=== PATIENT | male | born 1960 | race Caucasian/White ===

== ENCOUNTER 2020-01-21 17:04 | Emergency (ER) | payer MEDICARE, SELFPAY ==
[2020-01-21 17:35] VITALS: BP 141/98; PULSE 94; RESP 16; O2SAT 97
[2020-01-21] MEDS: TETANUS,DIPHTHERIA,AC PERTUSSIS ADULT 0.5 ML (ADACEL) IM (17:51)
--- NOTE | 2020-01-21 18:02 | ED.WOUNDLAC ---
HPI - Wound/Laceration General Chief Complaint: Wound/Laceration Stated Complaint: cut finger Source: patient Mode of arrival: ambulatory History of Present Illness HPI narrative: this is a 59-year-old gentleman presents with a laceration to the pad of his right 3rd finger that occurred earlier today while he was doing some gardening and yd work, patient presented because of a bleeding, currently on Plavix and aspirin for status post stroke. The area is some more of flap like laceration and currently no bleeding. Onset (ago): hour(s) Extremity Location: Right: hand ( Right 3rd finger laceration) Place: home Patient tetanus UTD: No Context: accidental Associated symptoms: none Related Data Home Medications Medication Instructions Recorded Confirmed budesonide 0.25 mg INHALATION BID 01/21/20 01/21/20 clopidogrel 75 mg PO DAILY 01/21/20 01/21/20 pravastatin 20 mg PO DAILY 01/21/20 01/21/20 Allergies Allergy/AdvReac Type Severity Reaction Status Date / Time Sulfa (Sulfonamide Allergy Hives Verified 01/21/20 17:46 Antibiotics) Review of Systems Review of Systems: All systems reviewed & are unremarkable except as noted in HPI and below [facility] Past Medical History Medical History HLD (hyperlipidemia) Status post CVA Exam Const: General: no acute distress and alert Orientation/consciousness: patient oriented x3 HENMT: Head: normal to inspection Eyes: Conjunctivae: conjunctivae normal Pupils: Equal, round and reactive pupils present Neck: Neck: normal visual inspection, no lymphadenopathy and no meningeal signs Chest: Chest palpation & inspection: normal inspection of the chest Resp: Effort & Inspection: normal respiratory effort Auscultation: clear to auscultation bilaterally Cardio: Rate: regular rate Rhythm: regular rhythm GI: GI Palp: Yes Soft to palpation Urinary Catheter: Urinary Catheter: patent and draining Skin: Rashes: no rashes Other: laceration to right 3rd finger Course Course Emergency Course: the wound was explored and cleaned and Dermabond was placed. Vital Signs Vital signs: Vital Signs Pulse Rate 94 01/21/20 17:35 Respiratory Rate 16 01/21/20 17:35 Blood Pressure 141/98 H 01/21/20 17:35 Pulse Oximetry 97 01/21/20 17:35 Pulse Rate 94 01/21/20 17:35 Respiratory Rate 16 01/21/20 17:35 Blood Pressure 141/98 H 01/21/20 17:35 Pulse Oximetry 97 01/21/20 17:35 Procedures Laceration Laceration 1: Date: 01/21/20 Time: 18:07 Site: upper extremity Side (If applicable): right Size (cm): 2 Description: flap ====== Skin Level ====== Skin layer closed with: dermabond ====== Subcutaneous Layer ====== ====== Muscle Layer ====== ====== Tendon Layer ====== Discharge Plan Discharge Clinical Impression: Laceration Patient Disposition: Home, Self-Care Condition: Stable Instructions: Antibiotic Form, Laceration (ED) Additional Instructions: Follow-up with primary care physician if symptoms persist or worsen. Prescriptions: No Action clopidogrel 75 mg tablet 75 mg PO DAILY RF: 0 budesonide 0.25 mg/2 mL Suspension For Nebulization 0.25 mg INHALATION BID RF: 0 pravastatin 20 mg tablet 20 mg PO DAILY RF: 0 Follow-up/Referrals: Caro,MD Sanjiv [Primary Care Provider] - Time of Disposition: 18:08
[2020-01-21 18:20] VITALS: RESP 15
== END 2020-01-21 18:20 | disposition home or self-care (01) ==
PROVIDERS: Emergency Provider Emergency Medicine; PCP Internal Medicine
DX: S61.212A Laceration without foreign body of right middle finger without damage to nail, initial encounter (principal); W45.8XXA Other foreign body or object entering through skin, initial encounter
CPT/HCPCS: 12001; 90471; 90715; 99282; 99283

== ENCOUNTER 2020-07-13 13:05 | Emergency (ER) | payer MEDICARE, SELFPAY ==
[2020-07-13 13:31] VITALS: BP 129/91; PULSE 115; RESP 16; TEMP 36.6; O2SAT 98
[2020-07-13 13:50] LABS: Basophils Absolute Auto 0.1 K/mm3 (0.0-0.1); Basophils Percent Auto 0.4 % (0.2-1.2); Eosinophils Percent Auto 0.1 % (0-4.4); Hematocrit 41.9 % (42.0-52.0); Hemoglobin 14.3 g/dL (14.0-18.0); Immature Granulocyte Absolute 0.14 K/mm3 (0.00-0.031); Immature Granulocyte Percent A 1.2 % (0-0.5); Lymphocytes Percent Auto 13.2 % (18.3-44.2); Mean Corpuscular HGB Conc 34.1 g/dl (32-36); Mean Platelet Volume 9.3 fl (7.4-10.4); Monocytes Absolute Auto 0.7 K/mm3 (0.1-0.6); Monocytes Percent Auto 5.9 % (2.6-8.5); Neutrophils Absolute Auto 9.6 K/mm3 (1.3-6.7); Neutrophils Percent Auto 79.2 % (45.5-73.1); Platelet Count Result 340 k/mm3 (150-375); Red Blood Count 4.93 M/mm3 (4.6-6.20); White Blood Count 12.1 K/mm3 (4.5-10.0)
[2020-07-13 13:59] LABS: Alanine Aminotransferase 22 U/L (4-50); Albumin Level 4.2 g/dL (3.5-5.1); Alkaline Phosphatase 65 U/L (38-126); Anion Gap 7 mmol/L (8-16); Aspartate Amino Transferase 24 U/L (17-59); Bilirubin,Total 0.4 mg/dL (0.2-1.3); Blood Urea Nitrogen 19 mg/dL (9-20); Calcium 9.3 mg/dL (8.4-10.2); Carbon Dioxide 27 mmol/L (22-30); Chloride 105 mmol/L (98-107); Estimated CRCL calculation 82 ml/min; Estimated Glomerular Filt Rate > 60; Glucose 119 mg/dL (75-110); Potassium 3.9 mmol/L (3.4-5.0); Sodium 139 mmol/L (137-145)
[2020-07-13 14:00] LABS: INR 0.9
[2020-07-13 14:01] LABS: Partial Thromboplastin Time 28.1 SECONDS (22.3-36.8)
--- NOTE | 2020-07-13 15:02 | ED.GIBLEED ---
HPI - GI Bleed General Chief complaint: GI Bleed Stated complaint: dark stools Time Seen by Provider: 07/13/20 14:38 History of Present Illness HPI Narrative: Patient is a 59-year-old male who presents ER with dark black stools. Ongoing for 2 to 3 days. Associated with heartburn that also began around the same time. Takes Tums and no PPI. He takes Plavix but no additional NSAIDs or blood thinners. He has had dizziness 1 time when bending over and then standing back up. No nausea or vomiting or loss of consciousness. Reports stools are firmer today but still black. Reports his GI doctor in the past has recently retired. Related Data Home Medications Medication Instructions Recorded Confirmed budesonide 0.25 mg INHALATION BID 01/21/20 01/21/20 clopidogrel 75 mg PO DAILY 01/21/20 01/21/20 pravastatin 20 mg PO DAILY 01/21/20 01/21/20 Allergies Allergy/AdvReac Type Severity Reaction Status Date / Time Sulfa (Sulfonamide Allergy Hives Verified 01/21/20 17:46 Antibiotics) Review of Systems Review of Systems: All systems reviewed & are unremarkable except as noted in HPI and below Constitutional: Constitutional: Denies chills, Denies fever(s) and Denies weakness ENT: Denies nasal congestion and Denies sore throat Cardiovascular: Cardiovascular: Denies chest pain, Denies rapid heart rate and Denies radiating jaw, neck or arm pain Respiratory: Respiratory: Denies cough and Denies dyspnea Gastrointestinal: Gastrointestinal: Denies abdominal pain, Reports heartburn, Reports diarrhea, Reports nausea and Denies vomiting Comments: Dark black stools Neurologic: Reports dizziness, Denies focal weakness and Denies numbness PMFSH Past Medical History Medical History (Updated 07/13/20 @ 16:11 by Meir Arevalo MD) HLD (hyperlipidemia) Status post CVA Social History Social History Gender identity (if verbalized by the patient): Male Exam Narrative: Exam Narrative: GENERAL: Well-appearing, well-nourished, and in no acute distress. HEAD: Normocephalic, atraumatic. CHEST: Clear to auscultation. No respiratory distress. HEART: Tachycardic and regular. Normal peripheral pulses. ABDOMEN: Soft, nontender, nondistended. Dark black stool on JIGAR with formed stool within the rectal vault. Briskly guaiac positive. EXTREMITIES: Normal range of motion. No edema. SKIN: Warm, dry, no rash. NEURO: Alert and oriented x3. PSYCH: Normal mood and affect. Course Course Emergency Course: Discussed case with on-call GI Dr. Benito Easley. Patient's hemoglobin stable. Patient's blood pressure did not drop with orthostatic vital signs but his heart rate did elevate. Patient hydrated. Okay to discharge home with twice daily PPI and follow-up in office for scope. Will have patient hold his Plavix. Vital Signs Vital signs: Vital Signs Temperature 97.9 F 07/13/20 13:31 Pulse Rate 115 H 07/13/20 13:31 Respiratory Rate 16 07/13/20 13:31 Blood Pressure 129/91 H 07/13/20 13:31 Pulse Oximetry 98 07/13/20 13:31 Temperature 97.9 F 07/13/20 13:31 Pulse Rate 88 07/13/20 16:09 Respiratory Rate 18 07/13/20 16:09 Blood Pressure 131/83 07/13/20 16:09 Pulse Oximetry 99 07/13/20 16:09 MDM - GI Bleed Lab Data Result diagrams: 07/13/20 13:37 07/13/20 13:37 Labs: Lab Results 07/13/20 07/13/20 07/13/20 Range/Units 13:37 13:37 13:37 WBC 12.1 H (4.5-10.0) K/mm3 RBC 4.93 (4.6-6.20) M/mm3 Hgb 14.3 (14.0-18.0) g/dL Hct 41.9 L (42.0-52.0) % MCV 85.0 (80-100) fl MCH 29.0 (26-34) pg MCHC 34.1 (32-36) g/dl RDW 13.0 (11.5-14.5) % Plt Count 340 (150-375) k/mm3 MPV 9.3 (7.4-10.4) fl Immature Gran % (Auto) 1.2 H (0-0.5) % Neut % (Auto) 79.2 H (45.5-73.1) % Lymph % (Auto) 13.2 L (18.3-44.2) % [place] % (Auto) 5.9 (2.6-8.5) % Eos % (Auto) 0.1 (0-4
[2020-07-13 15:06] VITALS: BP 105/86; BP 121/91; PULSE 100; PULSE 106
[2020-07-13 15:07] VITALS: BP 134/96; PULSE 115
[2020-07-13] MEDS: SODIUM CHLORIDE 0.9% IV 1,000 ML 999 ML IV CONT (15:16)
[2020-07-13] MEDS: PANTOPRAZOLE SODIUM IV 40 MG VIAL IV PUSH (15:16)
[2020-07-13 16:09] VITALS: BP 131/83; PULSE 88; RESP 18; O2SAT 99
== END 2020-07-13 16:32 | disposition home or self-care (01) ==
PROVIDERS: General Practice; Emergency Provider Emergency Medicine; PCP Internal Medicine
DX: K92.2 Gastrointestinal hemorrhage, unspecified (principal); E78.5 Hyperlipidemia, unspecified; Z86.73 Personal history of transient ischemic attack (TIA), and cerebral infarction without residual deficits
CPT/HCPCS: 36415; 80053; 85025; 85610; 85730; 86850; 86900; 86901; 96361; 96374; 99284; C9113; J7030

== ENCOUNTER → 2020-08-13 02:38 | Outpatient (CLI) | payer MEDICARE, SELFPAY ==
[2020-08-13 19:43] LABS: SARS-CoV-2 RNA PCR Negative
== END ==
PROVIDERS: PCP Internal Medicine; Visit Provider Internal Medicine Gastroenterology
DX: Z01.812 Encounter for preprocedural laboratory examination (principal); Z20.822 Contact with and (suspected) exposure to COVID-19
CPT/HCPCS: C9803; U0003; U0005

== ENCOUNTER 2020-08-17 03:17 | Day surgery (SDC) | payer MEDICARE, SELFPAY ==
[2020-08-05 14:10] VITALS: BMI 37.3
[2020-08-17 08:32] VITALS: BP 134/81; PULSE 76; RESP 20; TEMP 36.5; O2SAT 98
--- NOTE | 2020-08-17 08:59 | WPDANESEPPF ---
Anes - Initial Pre Proc Eval Procedure: Operation Date: 08/17/20 09:30 Proposed Procedures p Esophagogastroduodenoscopy - Jed Perry MD Date/Time: 08/17/20 08:59 Surgeon: Jed Perry MD Pre Op Diagnosis: melena Patient Data Age: 59 Gender: M Height: 5 ft 10 in Weight: 119 kg Last Vital Signs Temp 97.7 F 08/17/20 08:32 Pulse 76 08/17/20 08:32 Resp 20 08/17/20 08:32 BP 134/81 08/17/20 08:32 Pulse Ox 98 08/17/20 08:32 Allergies Allergy/AdvReac Type Severity Reaction Status Date / Time Sulfa (Sulfonamide Allergy Hives Verified 08/17/20 08:29 Antibiotics) Home Medications Medication Instructions Recorded Confirmed Type budesonide 0.25 mg INHALATION BID 01/21/20 08/05/20 History clopidogrel 75 mg PO DAILY 01/21/20 08/05/20 History pravastatin 20 mg PO DAILY 01/21/20 08/05/20 History omeprazole 40 mg capsule,delayed 40 mg PO DAILY #30 cap 08/10/20 08/10/20 Rx release Patient hx anesthesia problems: none Family hx anesthesia problems: none [facility] Past Medical History Medical History (Updated 08/01/20 @ 10:06 by KATELYN Gautam) HLD (hyperlipidemia) Obesity (BMI 30-39.9) Status post CVA Social History Social History (Updated 08/01/20 @ 09:35 by Ambreen Morales [employer]) Smoking packs per day: 1 Smoking cigarettes per day: 20.0 Years smoked: 10 Smoking pack-years: 10.00 Smoking status: Former smoker Tobacco type: cigarettes Alcohol intake: never Drinks per week: 1 Substance use: never Substance use type: does not use Living arrangements: alone Gender identity (if verbalized by the patient): Male Spiritual care concerns: No Anes - Eval Final PreProcedure Day of Procedure 08/17/20 08:59 Patient weight: obese Heart: regular rate and rhythm Lungs: clear to auscultation Airway: Mallampati scale class II Neurological: alert and oriented Last oral intake: >/= 8 hours ASA classification: III Emergent: no Anesthetic plan: proceed Anesthesia type and monitoring: general GIVS and standard monitoring Informed Consent: The patient's anesthetic plan and its attendant risks and benefits were discussed with the patient/family/POA. Questions were solicited and answers provided to the satisfaction of the patient/family/POA.
[2020-08-17] MEDS: LACTATED RINGERS 1,000 ML 150 ML IV CONT (09:00)
--- NOTE | 2020-08-17 09:19 | PM.HPGS ---
History of Present Illness History of Present Illness Consent: Risks, benefits, and alternatives have been discussed and questions answered. Patient agrees to proceed with procedure. Chief complaint: melena Narrative: Wayne Beckwith is a 59 year old male recently had black tarry stools. This improved while he was taking omeprazole for 2 weeks. He is due to go back on Plavix and aspirin Review of Systems Review of Systems: All systems reviewed & are unremarkable except as noted in HPI and below PMFSH Past Medical History Medical History HLD (hyperlipidemia) Obesity (BMI 30-39.9) Status post CVA Social History Social History Smoking packs per day: 1 Smoking cigarettes per day: 20.0 Years smoked: 10 Smoking pack-years: 10.00 Smoking status: Former smoker Tobacco type: cigarettes Alcohol intake: never Drinks per week: 1 Substance use: never Substance use type: does not use Living arrangements: alone Gender identity (if verbalized by the patient): Male Spiritual care concerns: No Meds Home Medications and Allergies Home Medications Medication Instructions Recorded Confirmed Type budesonide 0.25 mg INHALATION BID 01/21/20 08/05/20 History clopidogrel 75 mg PO DAILY 01/21/20 08/05/20 History pravastatin 20 mg PO DAILY 01/21/20 08/05/20 History omeprazole 40 mg capsule,delayed 40 mg PO DAILY #30 cap 08/10/20 08/10/20 Rx release Allergies Allergy/AdvReac Type Severity Reaction Status Date / Time Sulfa (Sulfonamide Allergy Hives Verified 08/17/20 08:29 Antibiotics) Vital Signs Vital Signs - 24 hr 08/17/20 08:32 Temperature 36.5 C Pulse Rate 76 Respiratory Rate 20 Blood Pressure 134/81 Pulse Oximetry 98 Exam Const: General: alert Orientation/consciousness: patient oriented x3 Resp: Auscultation: clear to auscultation bilaterally Cardio: Rhythm: regular rhythm GI: GI Palp: Yes Soft to palpation and No Tenderness to palpation present (GI) Neuro: General: patient oriented x3 Assessment and Plan Assessment and plan (1) Melena: Code(s): K92.1 - Melena Status: Acute Assessment and Plan: EGD with possible biopsy or dilatation or cautery.
[2020-08-17 09:43] VITALS: BP 111/60; PULSE 77; RESP 22; O2SAT 97
[2020-08-17 09:53] VITALS: BP 107/62; PULSE 66; RESP 22; O2SAT 98
[2020-08-17 10:03] VITALS: BP 110/62; PULSE 59; RESP 20; O2SAT 99
== END 2020-08-17 10:37 | disposition home or self-care (01) ==
PROVIDERS: PCP Internal Medicine; Visit Provider Internal Medicine Gastroenterology
PROC: 0DJ08ZZ Inspection of Upper Intestinal Tract, Via Natural or Artificial Opening Endoscopic (ICD-10-PCS; CPT 43235; principal; 2020-08-17 09:30)
DX: K92.1 Melena (principal); K29.60 Other gastritis without bleeding; K29.80 Duodenitis without bleeding; K31.7 Polyp of stomach and duodenum; E78.5 Hyperlipidemia, unspecified; Z86.73 Personal history of transient ischemic attack (TIA), and cerebral infarction without residual deficits; Z79.02 Long term (current) use of antithrombotics/antiplatelets; E66.9 Obesity, unspecified; Z68.37 Body mass index [BMI] 37.0-37.9, adult; Z87.891 Personal history of nicotine dependence
CPT/HCPCS: 43239; 87081; J2704; J7120

== ENCOUNTER 2022-01-29 09:34 | Outpatient (CLI) | payer MEDICARE, SELFPAY ==
--- NOTE | 2022-01-29 11:30 | NEURO_ITS ---
Impression: # Complains of numbness of feet. # Normal nerve conduction study. # No Tarsal Tunnel syndrome. # Needle/EMG exam not requested. # Clinical correlation recommended; symptomatology could be related to small fiber neuropathy. Nerve Conduction Studies Anti Sensory Summary Table Stim Site NR Peak (ms) P-T Amp (?V) Site1 Site2 Delta-P (ms) Dist (cm) Raciel (m/s) Left Sup Fibular Anti Sensory (Ant Lat Mall) 14 cm 3.3 12.9 14 cm Ant Lat Mall 3.3 16.0 48 Right Sup Fibular Anti Sensory (Ant Lat Mall) 14 cm 3.2 18.7 14 cm Ant Lat Mall 3.2 16.0 50 Left Sural Anti Sensory (Lat Mall) Calf 3.9 5.6 Calf Lat Mall 3.9 16.0 41 Right Sural Anti Sensory (Lat Mall) Calf 4.0 7.0 Calf Lat Mall 4.0 16.0 40 Motor Summary Table Stim Site NR Onset (ms) O-P Amp (mV) Site1 Site2 Delta-0 (ms) Dist (cm) Raciel (m/s) Left Lateral Plantar Motor (ADM) Med Mall 4.7 0.8 Right Lateral Plantar Motor (ADM) Med Mall 4.5 3.7 Left Peroneal Motor (Vastus Med) Ankle 3.8 4.4 Popit Ankle 7.9 40.0 51 Popit 11.7 3.8 Right Peroneal Motor (Vastus Med) Ankle 3.6 2.5 Popit Ankle 8.0 40.0 50 Popit 11.6 1.8 Left Tibial Motor (Abd Dennis Brev) Ankle 4.3 1.7 Knee Ankle 8.3 43.0 52 Knee 12.6 1.1 Right Tibial Motor (Abd Dennis Brev) Ankle 4.1 1.8 Knee Ankle 8.5 42.0 49 Knee 12.6 1.2 F Wave Studies NR F-Lat (ms) L-R F-Lat (ms) Left Peroneal (Mrkrs) (EDB) 47.97 0.00 Right Peroneal (Mrkrs) (EDB) 47.97 0.00 Left Tibial (Mrkrs) (Abd Hallucis) 50.05 1.44 Right Tibial (Mrkrs) (Abd Hallucis) 48.61 1.44 MTDD
== END 2022-01-29 09:35 | disposition home or self-care (01) ==
LOC: ANHNEURO 09:35
PROVIDERS: PCP Internal Medicine; Visit Provider Internal Medicine
DX: M79.672 Pain in left foot (principal)
CPT/HCPCS: 95911

== ENCOUNTER 2022-05-28 12:47 | Outpatient (CLI) | payer MEDICARE, SELFPAY ==
--- NOTE | ~2022-05-28 | CT_ITS ---
EXAMINATION: CT sinus wo con DATE: 05/28/2022 13:06 INDICATION: Chronic sinusitis. TECHNIQUE: Computed tomography (CT) of the paranasal sinuses was performed without intravenous contra st. Iterative reconstruction technique was employed. The dose-length product was 269.07 mGy-cm. COMPARISON: Brain MRI 07/31/2011 FINDINGS: There is occlusion of the frontal recesses. There is mild mucosal thickening in the more garcia perior frontal sinuses. There is mucosal thickening in the ethmoid sinuses, worst in anterior left et hmoid sinus. There is mild mucosal thickening in the sphenoid and maxillary sinuses. There is stenosi s of the right ostiomeatal unit. There is total occlusion of left ostiomeatal unit at the hiatus semi lunaris and infundibulum. There is luly bullosa involving right middle turbinate. There is rightwar d deviation of anterior nasal septum and leftward deviation of posterior nasal septum. IMPRESSION: 1. Mucosal thickening in the paranasal sinuses. 2. Rightward deviation of anterior nasal septum and leftward deviation of posterior nasal septum. Reviewed, dictated and finalized at location A. [facility] [employer] [facility] IMPRESSION: 1. Mucosal thickening in the paranasal sinuses. 2. Rightward deviation of anterior nasal septum and leftward deviation of poste rior nasal septum.
== END 2022-05-28 12:48 | disposition home or self-care (01) ==
LOC: CHSIMG 12:49
PROVIDERS: PCP Internal Medicine; Visit Provider Otolaryngology
DX: J32.8 Other chronic sinusitis (principal); J34.2 Deviated nasal septum
CPT/HCPCS: 70486

== ENCOUNTER 2022-10-24 02:21 | Day surgery (SDC) | payer MEDICARE, SELFPAY ==
[2022-10-19 09:22] VITALS: BMI 38.0
--- NOTE | 2022-10-19 09:28 | PC.NURSE ---
Report to the Outpatient Waiting Room, entrance under the green pavilion located off [facility], at time 0900 on date 10/24/22. Planned Procedure Time: 1000. Time changes happen often and if your time is changed the preop area will call you the afternoon before. - You and your visitor will be asked to self-screen and do not enter if you have any COVID symptoms. - A mask is optional within the hospital at this time. Patients may have LIGHT BREAKFAST. Take the following medications with a SIP of water the morning of surgery: PRESCRIBED DO NOT STOP ANY OF YOUR OTHER PRESCRIPTION MEDICATIONS PRIOR TO SURGERY ?EXCEPT THE FOLLOWING Medications to discontinue per physician: N/A Date to take last dose: N/A Please no make-up, nail puerto rican, hairspray, perfume, deodorant, or body powder the day of surgery. No jewelry (including any body piercings) or valuables the day of surgery, leave them at home. Please take a shower or bath the night before, or the morning of, surgery with an antibacterial soap. Wear comfortable, loose fitting clothing. - Jewelry must be removed prior to entering the operating room. Rings and piercings that are not removed may be cut off. - The hospital will not accept responsibility for valuables. - Please leave all valuables, including medications, at home the day of surgery. YOU MAY DRIVE YOURSELF HOME. Follow any additional instructions given to you from your surgeon. If you or anyone in your household have experienced Covid symptoms in the past week, please notify your surgeon or the nurse liaison at the phone number below for possible testing. Telephone instructions given to PT - FARHAD JOHNSON and asked if any additional questions and then verbalized understanding. Patient advised to call surgeon office or pre surgery nurse liaison [phone] if any additional questions.
[2022-10-24] VITALS (15 sets, daily range): BP systolic 118–136; BP diastolic 68–83; PULSE 63–79; RESP 16–20; TEMP 36.9; O2SAT 95–100
--- NOTE | 2022-10-24 07:14 | WPDHPUPDATE1 ---
History and Physical Update Update Date/Time: 10/24/22 07:14 History and Physical has been reviewed, including an updated exam of the patient. There are NO changes in the patient's condition. Risks, benefits, and alternatives have been discussed and questions answered. Patient agrees to proceed with procedure.
[2022-10-24] MEDS: LIDO 1%/EPINEPHRINE 1:100,000 50 ML VIAL 10 ML INFILTRATE (10:12)
[2022-10-24] MEDS: BACITRACIN OINTMENT 15 GM TUBE 1 APPLIC TOPICAL (10:59)
--- NOTE | 2022-10-24 12:08 | P.OP_ITS ---
Procedure Note - Detailed Date of Procedure 10/24/22 Pre-op Diagnosis basal cell CA L zygoma, squamous in situ L cheek Post-op Diagnosis Same Procedure Performed 1 0.6 cm excision of basal cell carcinoma of the left zygoma with frozen section and intermediate repair 3 cm. 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 He was taken to the operating room placed supine on the operating table. The entire face was prepped and draped in usual fashion. A time-out was held and confirmed. The 2 sites were carefully marked for excision and locally infiltrated with 1% lidocaine with epinephrine. Adequate anesthesia was obtained. The lesion from the right side of the face was taken as a full- thickness skin ellipse to include underlying subcutaneous fat. The aspect most near the lateral canthus was marked with a suture for 12 o'clock. The lesion from the left cheek was excised as a full-thickness skin ellipse to include underlying fat. The aspect most near the nasal ala was marked with a suture for 12 o'clock. The specimen sent for frozen section. The pathologist report confirmed the diagnosis in each case and indicated that margins were free. The sites were undermined as needed approximately half a cm and the wounds approximated with intradermal 4-0 Vicryl suture. The skin was closed with a running 5 0 nylon. No bandages were applied. Patient tolerated the procedure well is discharged home with instructions in wound care and follow-up and a prescription for tramadol 50 mg 6. Estimated Blood Loss 20 Drains No Packing No Pathology Yes Complications No immediate complications Condition Stable Disposition Same day
== END 2022-10-24 12:22 | disposition home or self-care (01) ==
PROVIDERS: PCP Internal Medicine; Visit Provider Plastic Surgery
PROC: (CPT 11641; principal; 2022-10-24 10:00)
DX: C44.319 Basal cell carcinoma of skin of other parts of face (principal); D04.39 Carcinoma in situ of skin of other parts of face; J44.9 Chronic obstructive pulmonary disease, unspecified; Z79.02 Long term (current) use of antithrombotics/antiplatelets; Z79.82 Long term (current) use of aspirin; Z86.73 Personal history of transient ischemic attack (TIA), and cerebral infarction without residual deficits
CPT/HCPCS: 11641 ×2; 12052; 88305; 88331; A9270

== ENCOUNTER 2023-08-12 13:07 | Outpatient (CLI) | payer MEDICARE, SELFPAY ==
[2023-08-12 13:37] LABS: Basophils Absolute Auto 0.06 K/mm3 (0.00-0.10); Basophils Percent Auto 0.6 % (0.0-1.0); Eosinophils Absolute Auto 0.08 K/mm3 (0.02-0.50); Eosinophils Percent Auto 0.8 % (1.0-6.0); Hematocrit 51.1 % (40.0-54.0); Hemoglobin 16.7 g/dL (14.0-18.0); Immature Granulocyte Absolute 0.07 K/mm3 (0.00-0.00); Immature Granulocyte Percent A 0.7 % (0.0-0.0); Lymphocytes Absolute Auto 1.72 K/mm3 (1.10-4.50); Lymphocytes Percent Auto 17.3 % (18.0-42.0); Mean Corpuscular HGB Conc 32.7 g/dL (32-36); Mean Corpuscular Hemoglobin 28.5 pg (27.0-31.0); Mean Corpuscular Volume 87.4 fL (78.0-102.0); Monocytes Absolute Auto 0.68 K/mm3 (0.10-0.90); Monocytes Percent Auto 6.8 % (2.0-11.0); Neutrophils Absolute Auto 7.36 K/mm3 (1.70-7.20); Neutrophils Percent Auto 73.8 % (50.0-70.0); Platelet Count Result 330 K/mm3 (150-420); Red Blood Count 5.85 M/mm3 (4.70-6.10); Red Cell Distribution Width 13.1 % (11.6-14.4)
[2023-08-12 14:45] LABS: Alanine Aminotransferase 34 U/L (16-63); Albumin Level 3.7 g/dL (3.4-5.0); Alkaline Phosphatase 84 U/L (46-116); Anion Gap 7 mmol/L (4-12); Aspartate Amino Transferase 16 U/L (15-37); Bilirubin,Total 0.4 mg/dL (0.00-1.00); Blood Urea Nitrogen 15 mg/dL (7-18); Calcium 9.4 mg/dL (8.5-10.1); Carbon Dioxide 31 mmol/L (21-32); Chloride 105 mmol/L (98-108); Cholesterol 205 mg/dL (0-200); Estimated Glomerular Filt Rate > 60; Glucose 90 mg/dL (70-99); HDL Direct 62 mg/dL (40-60); LDL Cholesterol Calculated 113 mg/dL (<130); Osmolality Calculated 296 mOsm/kg (285-295); Potassium 4.3 mmol/L (3.5-5.1); Sodium 143 mmol/L (136-145); Total Protein 6.8 g/dL (6.4-8.2); Triglycerides 150 mg/dL (0-150)
== END 2023-08-12 13:08 | disposition home or self-care (01) ==
PROVIDERS: PCP Internal Medicine; Visit Provider Internal Medicine
DX: R10.9 Unspecified abdominal pain (principal); E78.5 Hyperlipidemia, unspecified
CPT/HCPCS: 36415; 80053; 80061; 85025

== ENCOUNTER 2023-08-14 08:40 | Outpatient (CLI) | payer MEDICARE, SELFPAY ==
--- NOTE | ~2023-08-14 | CT_ITS ---
CT of the Abdomen and Pelvis: Indication: Abdominal pain Technique: 2.5 mm axial scans were obtained through the abdomen and pelvis following intravenous adm inistration of 100 cc of Omnipaque 350. Dose reduction technique was used on this scan by utilizing a utomated exposure control and iterative reconstruction technique. The dose-length product (DLP) was 1 473.68 mGy-cm. Findings: Scans through the lung bases are unremarkable. The liver, spleen, pancreas, adrenals and kidneys are within normal limits. Calcified gallstones are present. No evidence of aortic aneurysm. No lymphadenopathy. No bowel obstruction or bowel wall thickening. There is no evidence to suggest acute appendicitis. Si gmoid diverticulosis noted. Images through the pelvis were performed. Urinary bladder unremarkable. No pelvic mass seen. No ascit es. Impression: Cholelithiasis. Reviewed, dictated and finalized at [facility]. Impression: Cholelithiasis.
== END 2023-08-14 08:41 | disposition home or self-care (01) ==
LOC: CHSIMG 08:42
PROVIDERS: PCP Internal Medicine; Visit Provider Internal Medicine
DX: R10.9 Unspecified abdominal pain (principal); K80.20 Calculus of gallbladder without cholecystitis without obstruction
CPT/HCPCS: 74177; Q9967

== ENCOUNTER 2024-02-27 11:37 | Outpatient (CLI) | payer MEDICARE, SELFPAY ==
[2024-02-27 11:54] LABS: Basophils Absolute Auto 0.06 K/mm3 (0.00-0.10); Basophils Percent Auto 0.6 % (0.0-1.0); Hematocrit 49.9 % (40.0-54.0); Lymphocytes Percent Auto 17.5 % (18.0-42.0); Mean Corpuscular HGB Conc 32.1 g/dL (32-36); Mean Corpuscular Hemoglobin 28.7 pg (27.0-31.0); Mean Corpuscular Volume 89.4 fL (78.0-102.0); Mean Platelet Volume 9.1 fl (8.7-11.0); Monocytes Percent Auto 5.8 % (2.0-11.0); Neutrophils Absolute Auto 7.61 K/mm3 (1.70-7.20); Neutrophils Percent Auto 74.1 % (50.0-70.0); Platelet Count Result 304 K/mm3 (150-420); Red Blood Count 5.58 M/mm3 (4.70-6.10); Red Cell Distribution Width 13.5 % (11.6-14.4); White Blood Count 10.3 K/mm3 (4.8-10.8)
[2024-02-27 13:01] LABS: Alanine Aminotransferase 24 U/L (16-63); Albumin Level 3.5 g/dL (3.4-5.0); Alkaline Phosphatase 79 U/L (46-116); Anion Gap 8 mmol/L (4-12); Aspartate Amino Transferase 13 U/L (15-37); Bilirubin,Total 0.6 mg/dL (0.00-1.00); Blood Urea Nitrogen 11 mg/dL (7-18); Calcium 9.1 mg/dL (8.5-10.1); Carbon Dioxide 29 mmol/L (21-32); Chloride 105 mmol/L (98-108); Cholesterol 210 mg/dL (0-200); Estimated Glomerular Filt Rate > 60; Glucose 94 mg/dL (70-99); HDL Direct 68 mg/dL (40-60); LDL Cholesterol Calculated 120 mg/dL (<130); Osmolality Calculated 293 mOsm/kg (285-295); Potassium 4.7 mmol/L (3.5-5.1); Prostate Specific Antigen 6.4 ng/mL (< OR = 4.0); Sodium 142 mmol/L (136-145); Total Protein 6.8 g/dL (6.4-8.2); Triglycerides 111 mg/dL (0-150)
== END 2024-02-27 11:38 | disposition home or self-care (01) ==
PROVIDERS: PCP Internal Medicine; Visit Provider Internal Medicine
DX: E78.5 Hyperlipidemia, unspecified (principal); Z79.891 Long term (current) use of opiate analgesic; Z12.5 Encounter for screening for malignant neoplasm of prostate
CPT/HCPCS: 36415; 80053; 80061; 84153; 85025; G0103

== ENCOUNTER 2024-10-20 11:15 | Outpatient (CLI) | payer MEDICARE, SELFPAY ==
[2024-10-20 11:46] LABS: Basophils Absolute Auto 0.06 K/mm3 (0.00-0.10); Basophils Percent Auto 0.5 % (0.0-1.0); Eosinophils Absolute Auto 0.11 K/mm3 (0.02-0.50); Eosinophils Percent Auto 0.9 % (1.0-6.0); Hematocrit 53.2 % (40.0-54.0); Hemoglobin 16.7 g/dL (14.0-18.0); Immature Granulocyte Absolute 0.15 K/mm3 (0.00-0.00); Immature Granulocyte Percent A 1.2 % (0.0-0.0); Lymphocytes Absolute Auto 1.65 K/mm3 (1.10-4.50); Lymphocytes Percent Auto 13.5 % (18.0-42.0); Mean Corpuscular HGB Conc 31.4 g/dL (32-36); Mean Corpuscular Hemoglobin 28.2 pg (27.0-31.0); Mean Corpuscular Volume 89.7 fL (78.0-102.0); Mean Platelet Volume 8.9 fl (8.7-11.0); Monocytes Absolute Auto 0.83 K/mm3 (0.10-0.90); Monocytes Percent Auto 6.8 % (2.0-11.0); Neutrophils Absolute Auto 9.44 K/mm3 (1.70-7.20); Neutrophils Percent Auto 77.1 % (50.0-70.0); Platelet Count Result 340 K/mm3 (150-420); Red Blood Count 5.93 M/mm3 (4.70-6.10); Red Cell Distribution Width 14.1 % (11.6-14.4); White Blood Count 12.2 K/mm3 (4.8-10.8)
[2024-10-20 12:18] LABS: Hemoglobin A1C 5.4 % (<5.7)
[2024-10-20 12:25] LABS: Alanine Aminotransferase 19 U/L (6-50); Albumin Level 3.9 g/dL (3.5-5.1); Alkaline Phosphatase 80 U/L (38-126); Anion Gap 3 mmol/L (4-12); Aspartate Amino Transferase 21 U/L (17-59); Bilirubin,Total 0.7 mg/dL (0.2-1.3); Blood Urea Nitrogen 16 mg/dL (9-20); Calcium 9.7 mg/dL (8.4-10.2); Carbon Dioxide 30 mmol/L (22-30); Chloride 107 mmol/L (98-107); Cholesterol 191 mg/dL (0-200); Estimated Glomerular Filt Rate > 60; Glucose 93 mg/dL (65-110); HDL Direct 73 mg/dL; LDL Cholesterol Calculated 97 mg/dL (<130); Osmolality Calculated 291 mOsm/kg (285-295); Potassium 5.2 mmol/L (3.4-5.0); Sodium 140 mmol/L (137-145); Total Protein 6.5 g/dL (6.3-8.2); Triglycerides 106 mg/dL (<150)
== END 2024-10-20 11:16 | disposition home or self-care (01) ==
PROVIDERS: PCP Internal Medicine; Visit Provider Internal Medicine
DX: E78.5 Hyperlipidemia, unspecified (principal); Z13.1 Encounter for screening for diabetes mellitus
CPT/HCPCS: 36415; 80053; 80061; 83036; 85025

== ENCOUNTER 2025-01-26 08:54 | Emergency (ER) | payer MEDICARE, SELFPAY ==
[2025-01-26] VITALS (37 sets, daily range): BP systolic 95–141; BP diastolic 58–88; PULSE 69–110; RESP 11–25; TEMP 36.3–37; O2SAT 94–100
--- NOTE | ~2025-01-26 | CT_ITS ---
CTA abdomen pelvis Clinical History: hematochezia Technique: Helical images lung bases to pelvic outlet 100 mL Omnipaque 350 Coronal, sagittal reformats. Multiplanar MIPS CT images acquired with automatic exposure control for dose reduction DLP: 1500 mGy-cm Comparison: CT abdomen pelvis 08/14/2023 Findings: CTA Findings: Abdominal aorta: No aneurysm or dissection. Common iliac arteries: Patent. External iliac arteries: Patent. Hypogastric arteries: Patent. CFAs: Patent. Proximal visualized SFAs and profundas: Patent. Celiac: Patent. SMA: Patent. MILAGRO: Patent. Renal arteries: Patent. Left accessory artery. Non-CTA findings: Lung bases: Clear. Visualized heart and pericardium: Unremarkable. Liver: Enlarged. Steatosis. Gallbladder: Stones. Spleen: Unremarkable. Pancreas: Unremarkable. Adrenal glands: Unremarkable. Kidneys: Right kidney- No renal stones. No hydronephrosis. Left kidney- No renal stones. No hydronephrosis. Exophytic cyst. Distal esophagus/stomach: Unremarkable. Small bowel loops: Normal caliber and wall thickness. Colon: Diverticula. Normal caliber and wall thickness. Normal RLQ appendix. Nodes: No enlarged nodes. Peritoneum: No ascites. No free air. Urinary bladder: Unremarkable. Prostate: Unremarkable. Bones: No acute bony abnormality. Soft tissues: Unremarkable. IMPRESSION: 1. No evidence of GI bleed. 2. Diverticulosis. 3. Otherwise no acute findings. Reviewed, dictated and finalized at location R.
--- NOTE | 2025-01-26 09:07 | ED.GIBLEED ---
HPI - GI Bleed General Chief complaint: Nausea/Vomiting/Diarrhea Stated complaint: bloody diarrhea Time Seen by Provider: 01/26/25 09:06 Source: patient Mode of arrival: ambulatory Limitations: no limitations History of Present Illness HPI Narrative: 64-year-old male with a history of CVA on aspirin/ Plavix, dyslipidemia, COPD, diverticulitis, GI bleed for which he had EGD and colonoscopy in 2020 which revealed gastritis, duodenitis, gastric polyps and colonic polyps. Patient has had intermittent bloody stool with blood present on the wipes. The patient had the prostate biopsy 6 months ago which showed revealed prostate cancer. Today presents to the ED with 4 hour history of -- 4 bloody stools. He has bright red blood/ maroon colored blood mixed with stool. no hematemesis. No abdominal pain. -- Patient was noted to be lightheaded and dizzy after having a bowel movement in the ED. MD complaint: melena and gross hematochezia Onset (ago): hour(s) ( For hours) Relieving factors: none Exacerbating factors: none Context: history of GI bleed and other ( on aspirin and Plavix) Associated symptoms: denies other symptoms Treatments Prior to Arrival: none Related Data Home Medications ?Medication ?Instructions ?Recorded ?Confirmed ?Last Taken ?Type clopidogrel 75 mg tablet 75 mg PO HS 01/21/20 01/06/25 10/23/22 History pravastatin 20 mg tablet 20 mg PO HS 01/21/20 01/06/25 10/23/22 History aspirin 81 mg chewable tablet 81 mg PO HS 10/19/22 01/06/25 10/23/22 History budesonide 160 mcg-glycopyr 9 2 inh inhalation BID 10/19/22 01/06/25 10/23/22 History mcg-formot 4.8 mcg/actuation HFA inhaler (Breztri Aerosphere) montelukast 10 mg tablet 10 mg PO HS 10/19/22 01/06/25 10/23/22 History albuterol sulfate 90 mcg/actuation 1 inh inhalation PRN 01/26/25 01/26/25 Unknown History aerosol inhaler Allergies Allergy/AdvReac Type Severity Reaction Status Date / Time Sulfa (Sulfonamide Allergy Hives Verified 01/26/25 09:02 Antibiotics) Review of Systems Review of Systems: All systems reviewed & are unremarkable except as noted in HPI and below Constitutional: Constitutional: Reports as per HPI and Reports no additional constitutional complaints Comments: patient is dizzy and lightheaded Eyes: Eyes: Reports as per HPI and Reports no additional eye complaints ENT: Reports system reviewed and no additional complaints, except as documented and Reports as per HPI Cardiovascular: Cardiovascular: Reports as per HPI and Reports no additional cardiovascular complaints Respiratory: Respiratory: Reports as per HPI and Reports no additional respiratory complaints Gastrointestinal: Gastrointestinal: Reports as per HPI and Reports no additional gastrointestinal complaints Comments: hematochezia Genitourinary: Genitourinary: Reports no additional male genitourinary complaints and Reports as per HPI Musculoskeletal: Musculoskeletal: Reports no additional musculoskeletal complaints and Reports as per HPI Integumentary/Breasts: Skin/Breast: Reports system reviewed and no additional complaints, except as docu and Reports as per HPI Neurologic: Reports system reviewed and no additional complaints, except as documented, Reports as per HPI and Reports dizziness Psychiatric: Psychiatric: Reports no additional psychiatric complaints and Reports as per HPI Endocrine: Endocrine: Reports no additional endocrine complaints and Reports as per HPI Hematologic/Lymphatic: Hematologic/Lymphatic: Reports no additional hematologic/lymphatic complaints and Reports as per HPI Allergic/Immunologic: Allergic/Immunologic: Reports no additional allergic/immunologic complaints and Reports as per HPI PMFSH Past Medical History Medical History Obesity (BMI 30-39.9) HLD (hyperlipidemia) Status post CVA Surgical History Surgical History History of surgery on lower extremity femur fx History of repair of rotator cuff right History of hernia repair Family History Family History Sibling Cancer Father Cancer Social History Social History Smoking packs per day: 1 Smoking cigarettes per day: 20.0 Years smoked: 20 Smoking pack-years: 20.00 Smoking status: Former smoker Tobacco type: cigarettes Second hand tobacco smoke exposure: No Smoking end date: 04/29/07 Alcohol intake: current Alcohol use details: Occaisonl Substance use: never Substance use type: does not use Do You Feel Safe in your Home?: Yes Lack of Transportation: No Lack of Food: Never True Current Housing: Decline to Answer Concerned About Future Housing: Decline to Answer Difficulty Paying Gas/Electric Bills: Decline to Answer Difficulty Paying for Meds: Decline to Answer Currently Unemployed: Decline to Answer Education: Decline to Answer Difficulty w/ Childcare or Family Care: Decline to Answer Living arrangements: alone Occupation/Education: retired 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 Gender identity (if verbalized by the patient): Male Spiritual care concerns: No Exam Narrative: tachycardic with a heart rate of 110. Const: General: diaphoretic and ill appearing Nutritional Appearance: obese Orientation/consciousness: patient oriented x3 Limitations: no limitations HENMT: Head: normal to inspection Ears: external ears normal Face/Nose/Sinus: Normal external nose present Face and sinus: normal facial exam Mouth: Yes Normal oral and palatal mucosa present Throat: posterior oropharynx normal Eyes: Conjunctivae: conjunctivae normal Pupils: Equal, round and reactive pupils present EOM: EOMs intact bilaterally Direct Ophthalmoscopy: no photophobia Neck: Neck: normal visual inspection, no lymphadenopathy and no meningeal signs Chest: Chest palpation & inspection: normal inspection of the chest Resp: Effort & Inspection: normal respiratory effort Auscultation: clear to auscultation bilaterally Cardio: Rate: tachycardic Rhythm: regular rhythm GI: GI Palp: Yes Soft to palpation Auscultation: normal bowel sounds Other: No tenderness/rigidity /rebound. Firmness around the umbilicus with a scar in the infraumbilical region. No tenderness. No hernia noted. : General: Yes no CVA tenderness Back/Spine/Pelvis: Back: no CVA tenderness Cervical Spine: collar present Skin: General skin exam: normal color Rashes: no rashes Wounds: no wounds Neuro: General: patient oriented x3, moves all extremities, no meningeal signs, no focal motor deficits and CN's II-XI intact bilaterally Cranial nerves: Yes Nystagmus not present Speech: normal speech Gait exam (Neuro): Normal gait present Extrem: General: normal to inspection and no clubbing, cyanosis or edema Psych: Mental Status: mental status grossly normal Affect: normal affect Attitude: cooperative Course Course Emergency Course: Hematochezia. Prior history of upper GI bleeding secondary to gastritis /duodenitis / gastric polyp. Prior history of colonoscopy which revealed diverticulitis and colonic polyps. patient is on aspirin and Plavix. dizziness/ diaphoresis after a bowel movement which resolved spontaneously. patient had 1 episode of hematochezia after having 4 episodes of hematochezia home. Subsequently he has not had any bloody stools. Blood pressure has remained stable. Patient had blood work which revealed an H&H of 14.9/46.3. He was noted to have a lactate of 3.9. Patient had a CT of the abdomen and pelvis which did not show any focus of bleeding. Patient was noted to have diverticulosis. Give the patient 1 dose of Protonix 40. In view of elevated white cell count of 13.5 and lactate of 3.9 the will give a dose of Zosyn patient was noted to have a lipase of 547. patient did not complain of any epigastric pain. CT of the abdomen did not show any evidence of pancreatitis. Will transfer the patient to a higher level of care. Repeat H&H was noted to be 13.4/42.3. Repeat lactate was noted to be 1.6. Vital Signs Vital signs: Vital Signs Temperature 36.3 C L 01/26/25 08:54 Pulse Rate 110 H 01/26/25 08:54 Respiratory Rate 18 01/26/25 08:54 Blood Pressure 108/88 01/26/25 08:54 Pulse Oximetry 98 01/26/25 08:54 Oxygen Delivery Room Air 01/26/25 08:54 Temperature 36.3 C L 01/26/25 08:54 Pulse Rate 76 01/26/25 12:00 Respiratory Rate 13 01/26/25 11:01 Blood Pressure 101/81 01/26/25 11:01 Pulse Oximetry 97 01/26/25 11:01 Oxygen Delivery Room Air 01/26/25 08:54 MDM - GI Bleed MDM Narrative Medical decision making narrative: Lower GI bleeding Differential Diagnosis Differential diagnosis: Likely hemorrhoids and Lower gastrointestinal hemorrhage Medical Records Attestation: I reviewed the patient's medical records. Lab Data Attestation: I reviewed the patient's lab results. 01/26/25 11:45 01/26/25 09:34 Labs: Lab Results 01/26/25 01/26/25 01/26/25 Range/Units 09:33 09:34 11:45 WBC 13.5 H (4.8-10.8) K/mm3 RBC 5.21 (4.70-6.10) M/mm3 Hgb 14.9 13.4 L (14.0-18.0) g/dL Hct 46.3 42.3 (40.0-54.0) % MCV 88.9 (78.0-102.0) fL MCH 28.6 (27.0-31.0) pg MCHC 32.2 (32-36) g/dL RDW 13.6 (11.6-14.4) % Plt Count 344 (150-420) K/mm3 MPV 9.1 (8.7-11.0) fl Immature Gran % (Auto) 1.0 H (0.0-0.0) % Neut % (Auto) 70.9 H (50.0-70.0) % Lymph % (Auto) 19.0 (18.0-42.0) % [place] % (Auto) 7.2 (2.0-11.0) % Eos % (Auto) 1.5 (1.0-6.0) % Baso % (Auto) 0.4 (0.0-1.0) % Lymph # (Auto) 2.55 (1.10-4.50) K/mm3 [place] # (Auto) 0.97 H (0.10-0.90) K/mm3 Eos # (Auto) 0.20 (0.02-0.50) K/mm3 Baso # (Auto) 0.06 (0.00-0.10) K/mm3 Abs Immat Gran (auto) 0.13 H (0.00-0.00) K/mm3 Absolute Neuts (auto) 9.54 H (1.70-7.20) K/mm3 Absolute Nucleated RBC 0.00 (0.00-0.00) K/mm3 Nucleated RBC % 0.0 (0-0.0) % PT 10.3 (9.50-12.1) Seconds INR 0.9 APTT 23.6 L (23.9-30.70) Sec Sodium 141 (137-145) mmol/L Potassium 4.2 (3.4-5.0) mmol/L Chloride 109 H (98-107) mmol/L Carbon Dioxide 19 L (22-30) mmol/L Anion Gap 13 H (4-12) mmol/L BUN 12 (9-20) mg/dL Creatinine 0.97 (0.7-1.3) mg/dL Estim Creat Clear Calc 86 ml/min Estimated GFR > 60 (59 - ) Glucose 161 H (65-110) mg/dL Calculated Osmolality 294 (285-295) mOsm/kg Lactic Acid 3.9 H 1.6 (0.4-2.0) mmol/L Calcium 9.5 (8.4-10.2) mg/dL Magnesium 1.8 (1.6-2.3) mg/dL Total Bilirubin 0.7 (0.2-1.3) mg/dL AST 28 (17-59) U/L ALT 24 (6-50) U/L Alkaline Phosphatase 55 (38-126) U/L Troponin I < 0.012 (0.000-0.034) ng/mL Total Protein 7.1 (6.3-8.2) g/dL Albumin 4.0 (3.5-5.1) g/dL Lipase 547 H (23-300) U/L Blood Type A Positive Antibody Screen Negative ECG Data EKG #1: ECG completion date: 01/26/25 ECG completion time: 09:49 Interpretation: Normal sinus rhythm. Prominent Q-waves in inferior leads suggestive of an old inferior infarction. No ST elevation. Discharge Plan Discharge Clinical Impression: Acute lower GI bleeding, Diverticulosis Patient Disposition: Still a Patient Condition: Stable Instructions: Antibiotic Form Additional Instructions: transfer patient to [facility] in [place]. Patient has been accepted by Patient Language: Divehi Prescriptions: No Action clopidogrel 75 mg tablet 75 mg PO HS pravastatin 20 mg tablet 20 mg PO HS albuterol sulfate 90 mcg/actuation HFA aerosol inhaler 1 inh INHALATION PRN aspirin 81 mg Tablet,Chewable 81 mg PO HS montelukast 10 mg tablet 10 mg PO HS Breztri Aerosphere 160-9-4.8 mcg/actuation Hfa Aerosol Inhaler 2 inh INHALATION BID Follow-up/Referrals: Rayshawn,MD Sanjiv [Primary Care Provider] Time of Disposition: 12:57
--- OUTSIDE RECORDS SUMMARY | 2025-01-26 09:25 | XMS_ITS | Clinical Summary ---
Author Organization [facility] Address [address] [place] [address] Care Team Providers Care Business Systems Analyst Name Role Phone Sanjiv Tabares MD Primary Care Provider [phone] Source Comments [facility],non-owned Affiliates and Associated Physician Practices is amultiple site organization consisting of ambulatory clinics and hospital sitesin [place], [place], [place] and [place]. This disclosure is being madepursuant to the Care Everywhere program and may not contain all information available regarding this patient. 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 Gender Identity Not on file Sexual Orientation Not on file Last Filed Vital Signs Vital Sign Reading Time Taken Comments Blood Pressure 123/90 04/02/2017 12:49 PM SALES FLOOR TEAM LEADER Pulse 90 04/02/2017 12:49 PM SALES FLOOR TEAM LEADER Temperature - - Respiratory Rate - - Oxygen Saturation 97% 04/02/2017 12:49 PM SALES FLOOR TEAM LEADER Inhaled Oxygen Concentration - - Weight 94.8 kg (209 lb) 04/02/2017 7:53 AM SALES FLOOR TEAM LEADER Height 175.3 cm (5' 9) 04/02/2017 7:53 AM SALES FLOOR TEAM LEADER Body Mass Index 30.86 04/02/2017 7:53 AM SALES FLOOR TEAM LEADER Plan of Treatment Health Maintenance Due Date Last Done Comments COLOGUARD (AGES 45-75) - COL ON CA SCREENING 1960 COLON MONITORING 1960 COLONOSCOPY - COLON CA SCREENING 1960 CT COLONOGRAPHY - COLON CA SCREENING 1960 Colorectal Cancer Screening 1960 FIT - COLON CA SCREENING 1960 FLEX SIG - COLON CA SCREENING 1960 LIPID TESTING 1960 MEDICARE AWV 12 MONTHS 1960 HIV SCREENING 12/09/1975 HEPATITIS C SCREENING 12/04/1978 DTAP/TDAP/TD VACCINES (1 - Tdap) 12/09/1979 PNEUMOCOCCAL VACCINE 50+ (1 of 1 - PCV) 2010 ZOSTER VACCINE (1 of 2) 2010 DEPRESSION SCREENING 04/29/2024 COVID-19 VACCINE (1 - 2023-2 5 season) 2024 INFLUENZA VACCINE (#1) 2024 Respiratory Syncytial Virus (RSV) Vaccine Pt: or over 60 yrs (1 - 1-dose 75+ series) 12/09/2035 HEPATITIS B VACCINE Aged Out No longe r eligible based on patient's age to complete this topic HIB VACCINE Aged Out No longer eligi ble based on patient's age to complete this topic HPV VACCINE Aged Out No longer eligi ble based on patient's age to complete this topic MENINGOCOCCAL (Group B) VACC INE SHARED DECISION-MAKING Aged Out No longer eligibl e based on patient's age to complete this topic MENINGOCOCCAL GROUPS A/C/Y/W VACCINE Aged Out No longer eligible b ased on patient's age to complete this topic Insurance MEDICARE MEDICARE Care Teams Business Systems Analyst Relationship Specialty Start Date End Date Sanjiv Tabares MD PCP - General 06/23/21
--- OUTSIDE RECORDS SUMMARY | 2025-01-26 09:25 | XMS_ITS | Encounter Summary ---
Author Organization [facility] Address [facility] [facility] [place] [address] Care Team Providers Care Physical Sciences Professor Name Role Phone Sanjiv Tabares MD Primary Care Provider Encounter Details Date Type Department Care Team (Late st Contact Info) Description 08/02/2021 Lab Requisition [facility] D[facility] Lab [address] [place] [address] Alex Caicedo MD [address] [place] [address] Social History Tobacco Use Types Packs/Day Years Used Date Smoking Tobacco: Never Assessed Sex and Gender Information Value Date Recorded Sex Assigned at Not on file Legal Sex Male 6:19 AM ROW BOSS Gender Identity Not on file Sexual Orientation Not on file documented as of this encounter Plan of Treatment Not on file documented as of this encounter Procedures Procedure Name Priority Date/Time Associated Diagnosis Comments DERMATOPATHOLOGY Routine 08/01/2021 12:0 0 AM CDT documented in this encounter Results * DERMATOPATHOLOGY (08/01/2021 12:00 AM CDT) Case Report Dermatopathology Report Case: [id number] Authorizing Provider: Alex Caicedo MD Collected: 08/01/2021 12:00 AM Ordering Location: [facility] Care DermPath Lab Received: 08/02/2021 12:39 PM Pathologist: Kelley Barahona MD Specimen: Skin, left lateral mid upper arm 2:58 PM CDT DERMATOPATHOLOGY LABORATORY Final Diagnosis Specimen A. SKIN, left lateral mid upper arm: DERMAL SCAR RESIDUAL BASAL CELL CARCINOMA NOT IDENTIFIED (L90.5) 2 2:58 PM CDT DERMATOPATHOLOGY LABORATORY at 1458 CDT Clinical History Bx proven BCC, superficial. Previous Bx: [id number]. 2 2:58 PM CDT DERMATOPATHOLOGY LABORATORY Gross Description Specimen A: Received is one formalin filled container labeled with the patient's name and designated left lateral mid upper arm. The specimen consists of a curettage and desiccation biopsy measuring [id number]. Jar 0. 2 2:58 PM CDT DERMATOPATHOLOGY LABORATORY Microscopic Description Specimen A. SKIN, left lateral mid upper arm: There are fibroblasts and collagen bundles oriented parallel to the skin surface. There are elongated blood vessels, some of which are oriented perpendicular to the skin surface. No basal cell carcinoma is identified. 2 2:58 PM CDT DERMATOPATHOLOGY LABORATORY Disclaimer An external and internal positive and negative controls are appropriate for the histochemical, immunohistochemical and immunofluorescence stain(s) in this case (if any), except where stated explicitly. The performance characteristics of the stain(s) cited in this report were developed and its performance characteristic determined by the Dermatopathology Laboratory at [facility], directed by Dr. Rose Barahona. These tests need not be, and therefore are not, approved by the [place] Food and Drug Administration. The tests are used for clinical purposes. Billing Codes Specimen Charges Stain Charges 78622 1 2 2:58 PM CDT DERMATOPATHOLOGY LABORATORY Embedded Images 2 2:58 PM CDT DERMATOPATHOLOGY LABORATORY Pathology/Cytolog y TISSUE SPECIMEN FROM SKIN / Unknown 08/01/2021 08/02/2021 12:39 PM CDT Alex Caicedo MD LAB - PATHOLOGY/CYTOLOGY ORD ERABLES Final Result DERMATOPATHOLOGY LABORATORY [facility] - Department of Dermatology [address], [address] [phone] documented in this encounter Visit Diagnoses Not on filedocumented in this encounter Care Teams Physical Sciences Professor Relationship Specialty Start Date End Date Sanjiv Tabares MD PCP - General 06/23/21 documented as of this encounter
--- OUTSIDE RECORDS SUMMARY | 2025-01-26 09:25 | XMS_ITS | Patient Health Record ---
Author Organization [facility] Address [address] [place], [place] [id number] Care Team Providers Care Leaf Tier Name Role Phone Sanjiv Tabares Unavailable Unavailable Allergies Allergen (clinical drug ingredient) Drug/Non Drug Allergy documented on EMR Reaction Allergy Type Onset Date Status Substance with sulfonamide structure and antibacterial mechanism of action (substance) Sulfa Antibiotics Unknown Drug Allergy Active Reason For Referral No Information Medications Medication SIG (Take, Route, Frequency, Duration) Notes Start Date End Date Status Aspirin 81 81 MG 1 tablet Orally Once a day Active Pravastatin Sodium 10 MG 2 tablets Orall y Once a day Active Clopidogrel Bisulfate 75 MG 1 tablet Ora lly Once a day Active Montelukast Sodium 10 MG 1 tablet Orally Once a day Active Plan Of Treatment No Information Insurance Providers Payer Name Payer Address Payer Phone Subscriber Number Group Number Insured Name Patient Relationship to Insured Coverage Start Date Coverage End Date Medicare Part [facility] [address] [place] [address] [id number] Wayne Beckwith Self - patient is the insured [facility] [employer] Insurance [address] [place], [place] [id number] Wayne Beckwith Self - patient is the insured 4 Medical (General) History Medical History History ICD Code stroke Arthritis skin cancer abnormal bleeding Respiratory disease Surgical History Surgery Date(Month/Year) Hernia
--- OUTSIDE RECORDS SUMMARY | 2025-01-26 09:25 | XMS_ITS | Encounter Summary ---
Author Organization [facility] Address [facility] [place] [address] Care Team Providers Care Restaurant Assistant Name Role Phone Sanjiv Tabares MD Primary Care Provider Encounter Details Date Type Department Care Team (Late st Contact Info) Description 06/23/2021 Lab Requisition [facility] Derm[facility] Lab [address] [place] [address] Alex Caicedo MD [address] [place] [address] Social History Tobacco Use Types Packs/Day Years Used Date Smoking Tobacco: Never Assessed Sex and Gender Information Value Date Recorded Sex Assigned at Not on file Legal Sex Male 6:19 AM SERVICE DESK SPECIALIST Gender Identity Not on file Sexual Orientation Not on file documented as of this encounter Plan of Treatment Not on file documented as of this encounter Procedures Procedure Name Priority Date/Time Associated Diagnosis Comments DERMATOPATHOLOGY Routine 06/21/2021 12:0 0 AM SERVICE DESK SPECIALIST documented in this encounter Results * DERMATOPATHOLOGY (06/21/2021 12:00 AM SERVICE DESK SPECIALIST) Case Report Dermatopathology Report Case: [id number] Authorizing Provider: Alex Caicedo MD Collected: 06/21/2021 12:00 AM Ordering Location: [facility] Received: 06/23/2021 07:49 AM Pathologist: Mellisa Bynum MD Specimens: A) - Skin, left med cheek B) - Skin, left med cheek inf C) - Skin, left med cheek lat D) - Skin, left lat mid upper arm 2 3:05 PM [facility] DERMATOPATHOLOGY LABORATORY Final Diagnosis Specimen A. 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 SKIN, left med cheek inf: SQUAMOUS CELL CARCINOMA IN SITU, PRESENT AT THE BASE OF THE SPECIMEN (D04.39) (see microscopic description and comment) Specimen C. SKIN, left med cheek lat: SQUAMOUS CELL CARCINOMA IN SITU, PRESENT AT THE BASE OF THE SPECIMEN (D04.39) (see microscopic description and comment) Specimen D. SKIN, left lat mid upper arm: BASAL CELL CARCINOMA, SUPERFICIAL MULTIFOCAL (C44.619) 2 3:05 PM [facility] DERMATOPATHOLOGY LABORATORY at 1505 SERVICE DESK SPECIALIST Clinical History A-D: R/O Gilbert's, SCC, HAK, BCC. 2 3:05 PM [facility] DERMATOPATHOLOGY LABORATORY Gross Description Specimen A: Received is one formalin filled container labeled with the patient's name and designated left med cheek. The specimen consists of a shave biopsy measuring 5d2g6ip. Jar 0. Specimen B: Received is one formalin filled container labeled with the patient's name and designated left med cheek inf. The specimen consists of a shave biopsy measuring 5z7h7tv. Jar 0. Specimen C: Received is one formalin filled container labeled with the patient's name and designated left med cheek lat. The specimen consists of a shave biopsy measuring 4m7p5rq. Jar 0. Specimen D: Received is one formalin filled container labeled with the patient's name and designated left lat mid upper arm. The specimen consists of a shave biopsy measuring 8d3x0dk. Jar 0. 2 3:05 PM [facility] DERMATOPATHOLOGY LABORATORY Microscopic Description Specimen A. SKIN, left med cheek: Sections reveal parakeratosis, acanthosis and keratinocyte dysmaturation which is most prominent in the lower epidermis. Focal nests are present in the dermis. Specimen B. SKIN, left med cheek inf: The epidermis shows parakeratosis, full thickness disorderly maturation of keratinocytes, mitoses at different levels, and dyskeratotic cells. The lesion extends to the base of the biopsy. COMMENT: An invasive squamous cell carcinoma cannot be ruled out. Specimen C. SKIN, left med cheek lat: The epidermis shows parakeratosis, full thickness disorderly maturation of keratinocytes, mitoses at different levels, and dyskeratotic cells. The lesion extends to the base of the biopsy. COMMENT: An invasive squamous cell carcinoma cannot be ruled out. Specimen D. SKIN, left lat mid upper arm: Attached to the undersurface of the epidermis, there are small aggregates of basaloid cells with a high nuclear to cytoplasmic ratio and peripheral palisading. 2 3:05 PM [facility] DERMATOPATHOLOGY LABORATORY Disclaimer An external and internal positive and negative controls are appropriate for the histochemical, immunohistochemical and immunofluorescence stain(s) in this case (if any), except where stated explicitly. The performance characteristics of the stain(s) cited in this report were developed and its performance characteristic determined by the Dermatopathology Laboratory at [facility], directed by Dr. Rose Barahona. These tests need not be, and therefore are not, approved by the [place] Food and Drug Administration. The tests are used for clinical purposes. Billing Codes Specimen Charges Stain Charges 91812 55252 [id number] 1 1 1 1 2 3:05 PM SERVICE DESK SPECIALIST DERMATOPATHOLOGY LABORATORY Embedded Images 2 3:05 PM SERVICE DESK SPECIALIST DERMATOPATHOLOGY LABORATORY Pathology/Cytology TISSUE SPECIMEN FROM SKIN / Unknown 06/21/2021 06/23/2021 7:49 AM SERVICE DESK SPECIALIST Miscellaneous samples (specimen) TISSUE SPECIMEN FROM SKIN / Unknown 06/21/2021 06/23/2021 7:49 AM SERVICE DESK SPECIALIST Miscellaneous samples (specimen) TISSUE SPECIMEN FROM SKIN / Unknown 06/21/2021 06/23/2021 7:49 AM SERVICE DESK SPECIALIST Miscellaneous samples (specimen) TISSUE SPECIMEN FROM SKIN / Unknown 06/21/2021 06/23/2021 7:49 AM SERVICE DESK SPECIALIST Alex Caicedo MD LAB - PATHOLOGY/CYTOLOGY ORD ERABLES Final Result DERMATOPATHOLOGY LABORATORY [facility] - Department of Dermatology [address], [address] [phone] documented in this encounter Visit Diagnoses Not on filedocumented in this encounter Care Teams Restaurant Assistant Relationship Specialty Start Date End Date Sanjiv Tabares MD PCP - General 06/23/21 documented as of this encounter
--- OUTSIDE RECORDS SUMMARY | 2025-01-26 09:25 | XMS_ITS | Encounter Summary ---
Author Organization [facility] Address [facility] [place] [address] Care Team Providers Care Engineering Test Specialist Name Role Phone Sanjiv Tabares MD Primary Care Provider [phone] Encounter Details Date Type Department Care Team (Late st Contact Info) Description 08/16/2022 Lab Requisition [facility] DermPath Lab [address] [place] [address] Alex Caicedo MD [address] [place] [address] Social History Tobacco Use Types Packs/Day Years Used Date Smoking Tobacco: Never Assessed Sex and Gender Information Value Date Recorded Sex Assigned at Not on file Legal Sex Male 6:19 AM MEDICAL LABORATORY TECHNOLOGIST Gender Identity Not on file Sexual Orientation Not on file documented as of this encounter Plan of Treatment Not on file documented as of this encounter Procedures Procedure Name Priority Date/Time Associated Diagnosis Comments DERMATOPATHOLOGY Routine 08/15/2022 12:0 0 AM CDT documented in this encounter Results * DERMATOPATHOLOGY (08/15/2022 12:00 AM CDT) Case Report Dermatopathology Report Case: [id number] Authorizing Provider: Alex Caicedo MD Collected: 08/15/2022 12:00 AM Ordering Location: [facility] DermPath Lab Received: 08/16/2022 12:53 PM Pathologist: Mellisa Bynum MD Specimens: A) - Skin, left zygoma B) - Skin, left cheek 3 11:29 AM T DERMATOPATHOLOGY LABORATORY Final Diagnosis Specimen A. SKIN, left zygoma: BASAL CELL CARCINOMA, NODULAR TYPE (C44.319) Specimen B. SKIN, left cheek: SQUAMOUS CELL CARCINOMA IN SITU (GOYAL'S DISEASE) (D04.39) 3 11:29 AM T DERMATOPATHOLOGY LABORATORY at 1129 CDT Clinical History A-B: R/O BCC 11:29 AM T DERMATOPATHOLOGY LABORATORY Gross Description Specimen A: Received is one formalin filled container labeled with the patient's name and designated left zygoma. The specimen consists of a shave biopsy measuring 32o1x4ex and another piece of tissue measuring 1b8q4ch. Jar 0. Specimen B: Received is one formalin filled container labeled with the patient's name and designated left cheek. The specimen consists of a shave biopsy measuring 4e1d1pz. Jar 0. 11:29 AM [facility] DERMATOPATHOLOGY LABORATORY Microscopic Description Specimen A. SKIN, left zygoma: Within the dermis there are aggregates of basaloid cells with a high nuclear to cytoplasmic ratio and peripheral palisading. Specimen B. SKIN, left cheek: The epidermis shows parakeratosis, full thickness disorderly maturation of keratinocytes, mitoses at different levels, and dyskeratotic cells. 11:29 AM T DERMATOPATHOLOGY LABORATORY Disclaimer An external and internal positive and negative controls are appropriate for the histochemical, immunohistochemical and immunofluorescence stain(s) in this case (if any), except where stated explicitly. The performance characteristics of the stain(s) cited in this report were developed and its performance characteristic determined by the Dermatopathology Laboratory at [facility], directed by Dr. Rose Barahona. These tests need not be, and therefore are not, approved by the [place] Food and Drug Administration. The tests are used for clinical purposes. Billing Codes Specimen Charges Stain Charges 17714 35716 1 1 3 11:29 AM CDT DERMATOPATHOLOGY LABORATORY Embedded Images 11:29 AM T DERMATOPATHOLOGY LABORATORY Pathology/Cytology TISSUE SPECIMEN FROM SKIN / Unknown 08/15/2022 08/16/2022 12:53 PM CDT Miscellaneous samples (specimen) TISSUE SPECIMEN FROM SKIN / Unknown 08/15/2022 08/16/2022 12:53 PM CDT Alex Caicedo MD LAB - PATHOLOGY/CYTOLOGY ORD ERABLES Final Result DERMATOPATHOLOGY LABORATORY [facility] - Department of Dermatology [facility] Specialized Medicine [address] [place] [address], [address] [phone] documented in this encounter Visit Diagnoses Not on filedocumented in this encounter Care Teams Engineering Test Specialist Relationship Specialty Start Date End Date Sanjiv Tabares MD PCP - General 06/23/21 documented as of this encounter
--- OUTSIDE RECORDS SUMMARY | 2025-01-26 09:25 | XMS_ITS | Clinical Summary ---
Author Organization [facility] Address [address] [facility], [place] [address] Phone Care Team Providers Care Culvert Installer Name Role Phone Sanjiv Tabares MD Primary Care Provider Ulysses Parham MD Unavailable Ginna Cavanaugh APRN, CNP Unavailable Allergies Active Allergy Reactions Criticality Noted Date Comments Sulfamethoxazole-Trimethoprim Unknown 2016 Medications pravastatin (PRAVACHOL) 10 MG Tablet Take 40 mg by mouth daily. 1 7 Active aspirin EC 81 MG Tablet Delayed Response Take 81 mg by mouth daily. Active clopidogrel (PLAVIX) 75 MG Tablet Take 1 Tablet by mouth daily. 2 Active fexofenadine (TY) 180 MG TabletIndicatio ns:Environmenta l and seasonal allergies Take 1 Tablet by mouth daily. 90 Tablet 3 4 Active albuterol 108 (90 Base) MCG/ACT Aerosol SolutionIndicat ions:Centrilobu lar emphysema take 2 Puffs by inhalation every 4 hours as needed for Wheezing. 18 g 5 5 Active montelukast (SINGULAIR) 10 MG TabletIndicatio ns:Environmenta l and seasonal allergies Take 1 Tablet by mouth every evening. 90 Tablet 3 5 Active Budeson-Glycopy rrol-Formoterol 160-9-4.8 MCG/ACT AerosolIndicati ons:Panlobular emphysema take 2 Puffs by inhalation 2 times daily. 10.7 g 5 Active Active Problems Problem Noted Date Diagnosed Date Class 3 severe obesity due t o excess calories without serious comorbidity with body mass index (BMI) of 40.0 to 44.9 in adult 06/01/2024 Environmental and seasonal allergies 11/05/2023 Lipid disorder 04/18/2020 COPD (chronic obstructive pulmonary disease) 04/2016 Cough 05/30/2016 SOB (shortness of breath) 05/30/2016 Personal history of tobacco use 05/30/2016 Non morbid obesity due to excess calories 2016 Resolved Problems Problem Noted Date Diagnosed Date Resolved Date MORTEZA (obstructive sleep apnea) 03/28/2023 03/28/2023 Encounters Date Type Department Care Team Description 12/21/2024 Refill [facility] - Pulmonology & [facility] Medicine [facility] [address] [place] [phone] Ginna Cavanaugh APRN, DENTAL SURGEON Medication Refill from Last 3 Months Immunizations Immunization Administration Dates Next Due Influenza Vaccine greater than 3 yrs 02/20/2024 Influenza Vaccine, MDCK,quad rivalent, pres free 01/18/2023 Influenza Vaccine, Quadrivalent, PF 03/02/2022,1 ,02/10/2019 Influenza, Injectable, Quadrivalent 02/02/2020 Family History Medical History Relation Name Comments Other-comment Father multiple myelo ma Relation Name Status Comments Father Social History Tobacco Use Types Packs/Day Years Used Date Smoking Tobacco: Former Smokeless Tobacco: Never Tobacco Cessation:Counseling Given: No Alcohol Use Standard Drinks/Week Comments Yes 0 (1 standard drink = 0.6 oz pur e alcohol) occasional Sexually Active Control Partners Comments Not Currently Sex and Gender Information Value Date Recorded Sex Assigned at Not on file Legal Sex Male 2:19 PM LASTING MACHINE OPERATOR BED Gender Identity Not on file Sexual Orientation Not on file Last Filed Vital Signs Vital Sign Reading Time Taken Comments Blood Pressure 120/74 06/01/2024 2:30 PM LASTING MACHINE OPERATOR BED Pulse 83 06/01/2024 2:30 PM LASTING MACHINE OPERATOR BED Temperature 37.2 C (98.9 F) 06/01/2024 2:30 PM LASTING MACHINE OPERATOR BED Respiratory Rate 16 06/01/2024 2:30 PM LASTING MACHINE OPERATOR BED Oxygen Saturation 95% 06/01/2024 2:30 PM LASTING MACHINE OPERATOR BED Inhaled Oxygen Concentration - - Weight 123.1 kg (271 lb 6.4 oz) 06/01/2024 2:30 PM LASTING MACHINE OPERATOR BED Height 175.3 cm (5' 9) 06/01/2024 2:30 PM LASTING MACHINE OPERATOR BED Body Mass Index 40.08 06/01/2024 2:30 PM LASTING MACHINE OPERATOR BED Plan of Treatment Upcoming Encounters Date Type Department Care Team (Late st Contact Info) Description 06/01/2025 11:00 AM LASTING MACHINE OPERATOR BED Office Visit [facility] - Pulmonology & [facility] Medicine [facility] [address] [place] [address] Ginna Cavanaugh APRN, DENTAL SURGEON [address] [place] [address] [address] Health Maintenance Due Date Last Done Comments Hepatitis C Virus (HCV) Screening 1960 Cologuard 2005 Colonoscopy 2005 Colorectal Cancer Screening 2005 Immunochemical Fecal Occult Blood 2005 Zoster Immunization (1 of 2) 2010 PSA Discussion 12/09/2015 Respiratory Syncytial Virus (RSV) Immunization (Adult) (1 - Risk 60-74 years 1-dose series) 2020 Influenza Immunization (#1) 12/28/202401/28, 01/18/2023, 03/02/2022, Additional history exists SARS-COV-2 Immunization ( season) 2024 03/28/2022, 05/11/2021, 07/29/2020, Additional history exists DTaP/Tdap/Td Immunization Discontinued 01/21/2020 TdaP Immunization Completed 01/21/2020 Pneumococcal Immunization (50+ years) Completed 01/18/2023 Pneumococcal Immunization Combined Discontinued 01/18/2023 Hepatitis B Immunization Aged Out No longer eligible based on patient's age to complete this topic Human Papillomavirus (HPV) Immunization Aged Out No longer eligible based on patient's age to complete this topic Meningococcal Immunization (ACWY) Aged Out No longer eligible based on patient's age to complete this topic Rotavirus Immunization Aged Out No lo nger eligible based on patient's age to complete this topic Insurance MEDICARE [employer] GENERIC Care Teams Culvert Installer Relationship Specialty Start Date End Date Sanjiv Tabares MD PCP - General Internal Medicine 04/10/16 Ulysses Parham MD [address] [facility] [place] [address] Consulting Physician Pulmonary Disease 04/10/16 Ginna Cavanaugh APRN, DENTAL SURGEON [address] [place] [address] [address] Nurse Practitioner Advanced Practice Nurse 03/12/22
--- OUTSIDE RECORDS SUMMARY | 2025-01-26 09:25 | XMS_ITS | Clinical Summary ---
Author Organization [facility] Address [address] [place] [address] Care Team Providers Care Outreach Clinician Name Role Phone Sanjiv Tabares MD Primary Care Provider [phone] Allergies Active Allergy Reactions Criticality Noted Date Comments Sulfamethoxazole-Trimethoprim Rash Medium 2016 Medications clopidogreL (PLAVIX) 75 mg tablet Take 1 tablet (75 mg total) by mouth daily 07/24/2022 Active pravastatin (PRAVACHOL) 20 mg tablet Take 1 tablet (20 mg total) by mouth daily 07/24/2022 Active aspirin 81 mg enteric coated tablet Take 1 tablet (81 mg total) by mouth daily Active montelukast (SINGULAIR) 10 mg tablet Take 1 tablet (10 mg total) by mouth every evening 07/24/2022 Active budesonide-glyc opyr-formoterol 160-9-4.8 mcg/actuation HFA aerosol inhaler Inhale 2 puffs 2 (two) times a day 03/12/2022 Active Active Problems Problem Noted Date Diagnosed Date Cerebral infarction 06/18/2023 [facility] 09/07/2022 Chronic obstructive pulmonary disease 09/07/2022 History of CVA (cerebrovascular accident) 2022 Obesity (BMI 30-39.9) 09/07/2022 Medical History Medical History Date Comments Stroke (HCC) Hyperlipidemia Headache, tension-type Cancer (HCC) Family History Medical History Relation Name Comments Bone cancer Father Esophageal cancer Sister Relation Name Status Comments Father Sister Social History Tobacco Use Types Packs/Day Years Used Date Smoking Tobacco: Never Smokeless Tobacco: Never Tobacco Cessation:Counseling Given: Not Answered Personal Safety Answer Date Recorded Getting School Help Needed Not on file 05/06 Sex and Gender Information Value Date Recorded Sex Assigned at Not on file Legal Sex Male 10:41 AM CDT Gender Identity Not on file Sexual Orientation Not on file Obstetrics History Last Filed Vital Signs Vital Sign Reading Time Taken Comments Blood Pressure 140/84 06/18/2023 10:24 AM CLOTH DESIZING RANGE OPERATOR CHIEF Pulse 88 06/18/2023 10:24 AM CLOTH DESIZING RANGE OPERATOR CHIEF Temperature - - Respiratory Rate - - Oxygen Saturation 94% 06/18/2023 10:24 AM CLOTH DESIZING RANGE OPERATOR CHIEF Inhaled Oxygen Concentration - - Weight 123.8 kg (273 lb) 06/18/2023 10:24 AM CLOTH DESIZING RANGE OPERATOR CHIEF Height 175.3 cm (5' 9) 06/18/2023 10:24 AM CLOTH DESIZING RANGE OPERATOR CHIEF Body Mass Index 40.32 06/18/2023 10:24 AM CLOTH DESIZING RANGE OPERATOR CHIEF Plan of Treatment Health Maintenance Due Date Last Done Comments Colon Cancer Screening-Colonoscopy 1960 Depression Screening 1960 Hepatitis C Screening 1960 Prostate Cancer Screening-PSA 1960 Hepatitis B Screening 1978 Regular Well Visit/Exam 18-64 1978 Pneumococcal vaccine <65 (1 of 2 - PCV) 12/09/1979 Zoster Vaccine (1 of 2) 2010 Covid-19 Vaccine (5 - 2024-2 6 season) 2024 03/28/2022, 05/11/2021, 07/29/2020, Additional history exists Influenza Vaccine (#1) 2024 3, 03/02/2022, 03/01/2022, Additional history exists DTaP/Tdap/Td Vaccine (2 - Td or Tdap) 01/20/2030 01/21/2020 Insurance MEDICARE MEDICARE [facility] [employer] Care Teams Outreach Clinician Relationship Specialty Start Date End Date Sanjiv Tabares MD PCP - General Internal Medicine 07/19/22
--- OUTSIDE RECORDS SUMMARY | 2025-01-26 09:25 | XMS_ITS | Encounter Summary ---
Author Organization [facility] Address [address] [place] [address] Phone Care Team Providers Care Demonstrator Sewing Techniques Name Role Phone Sanjiv Tabares MD Primary Care Provider [phone] Ulysses Parham MD Unavailable Ginna Cavanaugh APRN, CNP Unavailable [phone] Reason for Visit * Reason Comments Medication Refill Encounter Details Date Type Department Care Team (Late st Contact Info) Description 02/16/2021 Refill [facility] - Pulmonology & Sleep Medicine [facility] [address] [place] [address] Ulysses Parham MD [address] [place] [address] Medication Refill Social History Tobacco Use Types Packs/Day Years Used Date Smoking Tobacco: Former Smokeless Tobacco: Never Alcohol Use Standard Drinks/Week Comments Yes 0 (1 standard drink = 0.6 oz pur e alcohol) occasional Sexually Active Control Partners Comments Not Currently Sex and Gender Information Value Date Recorded Sex Assigned at Not on file Legal Sex Male 2:19 PM NATURAL FABRICATOR Gender Identity Not on file Sexual Orientation Not on file COVID-19 Exposure Response Date Recorded In the last month, have you been in contact with someone who was confirmed or suspected to have Coronavirus / COVID-19? No / Unsure 01/17/2021 12:52 PM CDT documented as of this encounter Miscellaneous Notes * Telephone Encounter - Em Stokes RN - 02/16/2021 1:18 PM CDT Medication failed the protocol, provider to review and approve the medication order if appropriate. Requested Prescriptions Pending Prescriptions Disp Refills Perforomist 20 MCG/2ML Nebulizer Soln [Pharmacy Med Name: Perforomist 20 mcg/2 mL solution for nebulization] 11 Sig: USE 1 VIAL IN NEBULIZER TWICE DAILY - morning & evening Long-Acting Inhaled Beta-2 Agonist Protocol Failed - 02/16/2021 10:13 AM Failed - Active on medication list Passed - Visit with relevant provider in past 12 months or upcoming 90 days Recent Visits Date Type Provider Dept 01/17/21 Office Visit Ulysses Parham MD [facility] [place] [facility] 10/20/20 Office Visit Ulysses Parham MD [facility] 07/18/20 Telemedicine Ulysses Parham MD [facility] [place] 04/18/20 Telemedicine Ulysses Parham MD [facility] [place] Showing recent visits within past 365 days and meeting all other requirements Future Appointments Date Type Provider Dept 04/18/21 Appointment Ulysses Parham MD [facility] Showing future appointments within next 90 days and meeting all other requirements Passed - Active short-acting beta agonist prescription budesonide (PULMICORT) 0.5 MG/2ML Suspension [Pharmacy Med Name: budesonide 0.5 mg/2 mL suspension for nebulization] 11 Sig: USE 1 VIAL IN NEBULIZER TWICE DAILY - rinse mouth after treatment Inhaled Steroids Protocol Passed - 02/16/2021 10:13 AM Passed - Visit with relevant provider in past 12 months or upcoming 90 days Recent Visits Date Type Provider Dept 01/17/21 Office Visit Ulysses Parham MD [facility] [place] [facility] 10/20/20 Office Visit Ulysses Parham MD [facility] [place] [facility] 07/18/20 Telemedicine Ulysses Parham MD [facility] [place] 04/18/20 Telemedicine [facility] [place] Showing recent visits within past 365 days and meeting all other requirements Future Appointments Date Type Provider Dept 04/18/21 Appointment [facility] future appointments within next 90 days and meeting all other requirements Passed - Active short-acting beta agonist prescription documented in this encounter Plan of Treatment Upcoming Encounters Date Type Department Care Team (Late st Contact Info) Description 06/01/2025 11:00 AM NATURAL FABRICATOR [facility] - [facility]ology & [facility] Medicine - [place] [address] [place] [address] Ginna Cavanaugh APRN, ED TECH #2 [facility] [address] [place] [address] documented as of this encounter Visit Diagnoses Not on filedocumented in this encounter Care Teams Demonstrator Sewing Techniques Relationship Specialty Start Date End Date Sanjiv Tabares MD PCP - General Internal Medicine 04/10/16 Ulysses Parham MD [address] [facility] [place] [address] Consulting Physician Pulmonary Disease 04/10/16 Ginna Cavanaugh APRN, ZULEMA [facility] [address] [place] [address] Nurse Practitioner Advanced Practice Nurse 03/12/22 documented as of this encounter
--- NOTE | 2025-01-26 09:26 | ECG_ITS ---
Test Date: 2025-01-26 09:49:02 Measurements Intervals [place] Rate: 82 P: 48 NC: 181 QRS: 6 QRSD: 108 T: 33 QT: 360 QTc: 423 Interpretive Statements SINUS RHYTHM INFERIOR MYOCARDIAL INFARCTION , PROBABLY OLD [40+ ms Q WAVE AND/OR ST/T ABNORMALITY IN II/aVF] No previous ECG available for comparison Electronically Signed On 01-26-2025 14:47:30 CDT by Tano Brown M.D.
[2025-01-26 09:38] LABS: Hematocrit 46.3 % (40.0-54.0); Hemoglobin 14.9 g/dL (14.0-18.0); Immature Granulocyte Percent A 1.0 % (0.0-0.0); Lymphocytes Absolute Auto 2.55 K/mm3 (1.10-4.50); Mean Corpuscular HGB Conc 32.2 g/dL (32-36); Mean Corpuscular Hemoglobin 28.6 pg (27.0-31.0); Mean Corpuscular Volume 88.9 fL (78.0-102.0); Nucleated Red Blood Cells Absolute Auto 0.00 K/mm3 (0.00-0.00); Nucleated Red Blood Cells Perc 0.0 % (0-0.0); Platelet Count Result 344 K/mm3 (150-420); Red Blood Count 5.21 M/mm3 (4.70-6.10); White Blood Count 13.5 K/mm3 (4.8-10.8)
--- NOTE | 2025-01-26 09:39 | PC.NURSE ---
Pt ambulatory to restroom for inspection of stool sample. Upon exiting restroom, pt stated that he was very dizzy and became pale and diaphoretic. Pt placed in wheelchair and taken back to exam room. Stool sample in hat showed gross amount of blood and clots.
[2025-01-26] MEDS: LACTATED RINGERS 1,000 ML 999 ML IV CONT ×2 (09:40→11:20)
[2025-01-26] MEDS: PANTOPRAZOLE SODIUM IV 40 MG VIAL IV PUSH (09:43)
[2025-01-26 09:51] LABS: Alanine Aminotransferase 24 U/L (6-50); Albumin Level 4.0 g/dL (3.5-5.1); Alkaline Phosphatase 55 U/L (38-126); Anion Gap 13 mmol/L (4-12); Aspartate Amino Transferase 28 U/L (17-59); Bilirubin,Total 0.7 mg/dL (0.2-1.3); Blood Urea Nitrogen 12 mg/dL (9-20); Calcium 9.5 mg/dL (8.4-10.2); Carbon Dioxide 19 mmol/L (22-30); Chloride 109 mmol/L (98-107); Estimated CRCL calculation 86 ml/min; Estimated Glomerular Filt Rate > 60; Glucose 161 mg/dL (65-110); Lipase 547 U/L (23-300); Magnesium 1.8 mg/dL (1.6-2.3); Osmolality Calculated 294 mOsm/kg (285-295); Potassium 4.2 mmol/L (3.4-5.0); Sodium 141 mmol/L (137-145); Total Protein 7.1 g/dL (6.3-8.2)
[2025-01-26 09:52] LABS: INR 0.9; Prothrombin Time 10.3 Seconds (9.50-12.1)
[2025-01-26 09:52] LABS: Partial Thromboplastin Time 23.6 Sec (23.9-30.70)
[2025-01-26 10:03] LABS: Troponin I < 0.012 ng/mL (0.000-0.034)
--- OUTSIDE RECORDS SUMMARY | 2025-01-26 10:40 | XMS_ITS | Encounter Summary ---
Author Organization [facility] Address [address] [place] [address] Phone Care Team Providers Care Fur Pointer Name Role Phone Sanjiv Tabares MD Primary Care Provider Ulysses Parham MD Unavailable Ginna Cavanaugh APRN, CNP Unavailable [phone] Reason for Visit * Reason Comments Medication Refill Encounter Details Date Type Department Care Team (Late st Contact Info) Description 02/16/2021 Refill [facility] - Pulmonology & Sleep Medicine [facility] [address] [place] [address] Ulysses Parham MD [address] [place] [address] Medication Refill Social History Tobacco Use Types Packs/Day Years Used Date Smoking Tobacco: Former Smokeless Tobacco: Never Alcohol Use Standard Drinks/Week Comments Yes 0 (1 standard drink = 0.6 oz pur e alcohol) occasional Sexually Active Control Partners Comments Not Currently Sex and Gender Information Value Date Recorded Sex Assigned at Not on file Legal Sex Male 2:19 PM SENIOR DATA MINING ANALYST Gender Identity Not on file Sexual Orientation [...] Parham MD [facility] [place] [facility] 10/20/20 Office Visit Ulysses Parham MD [facility] 07/18/20 Telemedicine Ulysses Parham MD [facility] [place] 04/18/20 Telemedicine Ulysses Parham MD [facility] [place] Showing recent visits within past 365 days and meeting all other requirements Future Appointments Date Type Provider Dept 04/18/21 Appointment Ulysses Parham MD [facility] Showing future appointments within next 90 days [...] Ulysses Parham MD [facility] [place] [facility] 10/20/20 Office Visit Ulysses Parham MD [facility] [place] [facility] 07/18/20 Telemedicine Ulysses Parham MD [facility] [place] 04/18/20 Telemedicine Ulysses [facility] MD [facility] [place] Showing recent visits within past 365 days and meeting all other requirements Future Appointments Date Type Provider Dept 04/18/21 Appointment [facility] Show[facility] future appointments within next 90 days and meeting all other requirements Passed - Active short-acting beta agonist prescription documented in this encounter Plan of Treatment Upcoming Encounters Date Type Department Care Team (Late st Contact Info) Description 06/01/2025 11:00 AM SENIOR DATA MINING ANALYST Office Visit [facility] - Pulmonology & [facility] Medicine - [place] [address] [place] [address] Ginna Cavanaugh APRN, STOVE BOTTOM WORKER [address]2 [facility] [address] [place] [address] documented as of this encounter Visit Diagnoses Not on filedocumented in this encounter Care Teams Fur Pointer Relationship Specialty Start Date End Date Sanjiv Tabares MD PCP - General Internal Medicine 04/10/16 Ulysses Parham MD [address] [facility] [place] [address] Consulting Physician Pulmonary Disease 04/10/16 Ginna Cavanaugh APRN, ZULEMA [facility] [address] [place] [address] Nurse Practitioner Advanced Practice Nurse 03/12/22 documented as of this encounter
--- OUTSIDE RECORDS SUMMARY | 2025-01-26 10:40 | XMS_ITS | Encounter Summary ---
Author Organization [facility] Address [facility] [place] [address] Care Team Providers Care Search Developer Name Role Phone Sanjiv Tabares MD Primary Care Provider [phone] Encounter Details Date Type Department Care Team (Late st Contact Info) Description 08/02/2021 Lab Requisition [facility] [address] [place] [address] Alex Caicedo MD [address] [place] [address] Social History Tobacco Use Types Packs/Day Years Used Date Smoking Tobacco: Never Assessed Sex and Gender Information Value Date Recorded Sex Assigned at Not on file Legal Sex Male 6:19 AM NAILER HAND Gender Identity Not on file Sexual Orientation Not on file documented as of this encounter Plan of Treatment Not on file documented as of this encounter Procedures Procedure Name Priority Date/Time Associated Diagnosis Comments DERMATOPATHOLOGY Routine 08/01/2021 12:0 0 AM CDT documented in this encounter Results * DERMATOPATHOLOGY (08/01/2021 12:00 AM CDT) Case Report Dermatopathology Report Case: [id number] Authorizing Provider: Alex Caicedo MD Collected: 08/01/2021 12:00 AM Ordering Location: [facility] Lab Received: 08/02/2021 12:39 PM Pathologist: Kelley Barahona MD Specimen: Skin, left lateral mid upper arm 2:58 PM CDT DERMATOPATHOLOGY LABORATORY Final Diagnosis Specimen A. SKIN, left lateral mid upper arm: DERMAL SCAR RESIDUAL BASAL CELL CARCINOMA NOT IDENTIFIED (L90.5) 2 2:58 PM CDT DERMATOPATHOLOGY LABORATORY at 1458 CDT Clinical History Bx proven BCC, superficial. Previous Bx: [id number]. 2 2:58 PM CDT DERMATOPATHOLOGY LABORATORY Gross Description Specimen A: Received is one formalin filled container labeled with the patient's name and designated left lateral mid upper arm. The specimen consists of a curettage and desiccation biopsy measuring [id number]. Jar 0. 2 2:58 PM CDT DERMATOPATHOLOGY [...] characteristic determined by the Dermatopathology Laboratory at [facility], directed by Dr. Rose Barahona. These tests need not be, and therefore are not, approved by the [place] Food and Drug Administration. The tests are used for clinical purposes. Billing Codes Specimen Charges Stain Charges 89471 1 2 2:58 PM CDT DERMATOPATHOLOGY LABORATORY Embedded Images 2 2:58 PM CDT DERMATOPATHOLOGY LABORATORY Pathology/Cytolog y TISSUE SPECIMEN FROM SKIN / Unknown 08/01/2021 08/02/2021 12:39 PM CDT Alex Caicedo MD LAB - PATHOLOGY/CYTOLOGY ORD ERABLES Final Result DERMATOPATHOLOGY LABORATORY [facility] - Department of Dermatology [address], [address] [phone] documented in this encounter Visit Diagnoses Not on filedocumented in this encounter Care Teams Search Developer Relationship Specialty Start Date End Date Sanjiv Tabares MD PCP - General 06/23/21 documented as of this encounter
--- OUTSIDE RECORDS SUMMARY | 2025-01-26 10:40 | XMS_ITS | Clinical Summary ---
Author Organization [facility] Address [address] [place] [address] Care Team Providers Care Yarn Carrier Name Role Phone Sanjiv Tabares MD Primary Care Provider [phone] Source Comments [facility] [employer],non-owned Affiliates and Associated Physician Practices is amultiple site organization consisting of ambulatory clinics and hospital sitesin [place], [place], [place] and [place]. This disclosure is being madepursuant to the Care Everywhere program and may not contain all information available regarding this patient. Last updated 18.[facility] Social History Tobacco Use Types Packs/Day Years Used Date Smoking Tobacco: Never Assessed Sex and Gender Information Value Date Recorded Sex Assigned at Not on file Legal Sex Male 6:19 AM INFORMATICS PHARMACIST Gender Identity Not on file Sexual Orientation Not on file Last Filed Vital Signs Vital Sign Reading Time Taken Comments Blood Pressure 123/90 04/02/2017 12:49 PM INFORMATICS PHARMACIST Pulse 90 04/02/2017 12:49 PM INFORMATICS PHARMACIST Temperature - - Respiratory Rate - - Oxygen Saturation 97% 04/02/2017 12:49 PM INFORMATICS PHARMACIST Inhaled Oxygen Concentration - - Weight 94.8 kg (209 lb) 04/02/2017 7:53 AM INFORMATICS PHARMACIST Height 175.3 cm (5' 9) 04/02/2017 7:53 AM INFORMATICS PHARMACIST Body Mass Index 30.86 04/02/2017 7:53 AM INFORMATICS PHARMACIST Plan of Treatment Health Maintenance Due Date [...] this topic Insurance MEDICARE MEDICARE Care Teams Yarn Carrier Relationship Specialty Start Date End Date Sanjiv Tabares MD PCP - General 06/23/21
--- OUTSIDE RECORDS SUMMARY | 2025-01-26 10:40 | XMS_ITS | Clinical Summary ---
Author Organization [facility] Address [address] [place] [address] Care Team Providers Care Banking Services Advisor Name Role Phone Sanjiv Tabares MD Primary Care Provider [phone] Allergies Active Allergy Reactions Criticality Noted Date [...] infarction 06/18/2023 Encounter for preprocedural cardiovascular exami [facility] 09/07/2022 Chronic obstructive pulmonary disease 09/07/2022 History [...] Comments Blood Pressure 140/84 06/18/2023 10:24 AM HAND DRAWER IN HELPER Pulse 88 06/18/2023 10:24 AM HAND DRAWER IN HELPER Temperature - - Respiratory Rate - - Oxygen Saturation 94% 06/18/2023 10:24 AM HAND DRAWER IN HELPER Inhaled Oxygen Concentration - - Weight 123.8 kg (273 lb) 06/18/2023 10:24 AM HAND DRAWER IN HELPER Height 175.3 cm (5' 9) 06/18/2023 10:24 AM HAND DRAWER IN HELPER Body Mass Index 40.32 06/18/2023 10:24 AM HAND DRAWER IN HELPER Plan of Treatment Health Maintenance Due Date [...] or Tdap) 01/20/2030 01/21/2020 Insurance MEDICARE MEDICARE [facility] [employer] Care Teams Banking Services Advisor Relationship Specialty Start Date End Date Sanjiv Tabares MD PCP - General Internal Medicine 07/19/22
--- OUTSIDE RECORDS SUMMARY | 2025-01-26 10:40 | XMS_ITS | Clinical Summary ---
Author Organization [facility] Address [address] [facility], [place] [address] Phone Care Team Providers Care Mental Health Case Manager Name Role Phone Sanjiv Tabares MD Primary Care Provider [phone] Ulysses Parham MD Unavailable Ginna Cavanaugh APRN, [...] Department Care Team Description 12/21/2024 Refill [facility] - Pulmonology & Sleep Medicine [facility] [address] [place] [phone] Ginna Cavanaugh APRN, CURATOR Medication Refill from Last 3 Months Immunizations [...] on file Legal Sex Male 2:19 PM PARTS CONTROL CLERK Gender Identity Not on file Sexual Orientation Not on file Last Filed Vital Signs Vital Sign Reading Time Taken Comments Blood Pressure 120/74 06/01/2024 2:30 PM PARTS CONTROL CLERK Pulse 83 06/01/2024 2:30 PM PARTS CONTROL CLERK Temperature 37.2 C (98.9 F) 06/01/2024 2:30 PM PARTS CONTROL CLERK Respiratory Rate 16 06/01/2024 2:30 PM PARTS CONTROL CLERK Oxygen Saturation 95% 06/01/2024 2:30 PM PARTS CONTROL CLERK Inhaled Oxygen Concentration - - Weight 123.1 kg (271 lb 6.4 oz) 06/01/2024 2:30 PM PARTS CONTROL CLERK Height 175.3 cm (5' 9) 06/01/2024 2:30 PM PARTS CONTROL CLERK Body Mass Index 40.08 06/01/2024 2:30 PM PARTS CONTROL CLERK Plan of Treatment Upcoming Encounters Date Type Department Care Team (Late st Contact Info) Description 06/01/2025 11:00 AM PARTS CONTROL CLERK Office Visit [facility] - Pulmonology & Sleep Medicine [facility] [address] [place] [address] Ginna Cavanaugh APRN, CURATOR [address] [place] [address] [address] Health Maintenance Due Date Last Done Comments [...] age to complete this topic Insurance MEDICARE [employer] GENERIC Care Teams Mental Health Case Manager Relationship Specialty Start Date End Date Sanjiv Tabares MD PCP - General Internal Medicine 04/10/16 Ulysses Parham MD [address] [facility] [address] Consulting Physician Pulmonary Disease 04/10/16 Ginna Cavanaugh APRN, CURATOR [address] [facility] [address] [address] Nurse Practitioner Advanced Practice Nurse 03/12/22
--- OUTSIDE RECORDS SUMMARY | 2025-01-26 10:40 | XMS_ITS | Encounter Summary ---
Author Organization [facility] Address [facility] [place] [address] Care Team Providers Care Consulting Sales Executive Name Role Phone Sanjiv Tabares MD Primary Care Provider [phone] Encounter Details Date Type Department Care Team (Late st Contact Info) Description 06/23/2021 Lab Requisition [facility] DermPath Lab [address] [place] [address] Alex Caicedo MD [address] [place] [address] Social History Tobacco Use Types Packs/Day Years Used Date Smoking Tobacco: Never Assessed Sex and Gender Information Value Date Recorded Sex Assigned at Not on file Legal Sex Male 6:19 AM FLAP CURER Gender Identity Not on file Sexual Orientation Not on file documented as of this encounter Plan of Treatment Not on file documented as of this encounter Procedures Procedure Name Priority Date/Time Associated Diagnosis Comments DERMATOPATHOLOGY Routine 06/21/2021 12:0 0 AM FLAP CURER documented in this encounter Results * DERMATOPATHOLOGY (06/21/2021 12:00 AM FLAP CURER) Case Report Dermatopathology Report Case: [id number] Authorizing Provider: Alex Caicedo MD Collected: 06/21/2021 12:00 AM Ordering Location: [facility] Received: 06/23/2021 07:49 AM Pathologist: Mellisa Bynum MD Specimens: A) - Skin, left med cheek B) - Skin, left med cheek inf C) - Skin, left med cheek lat D) - Skin, left lat mid upper arm 2 3:05 PM [facility] DERMATOPATHOLOGY LABORATORY Final Diagnosis Specimen A. 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 2 3:05 PM [facility] DERMATOPATHOLOGY LABORATORY Gross Description Specimen A: Received is one formalin filled container labeled with the patient's name and designated left med cheek. The specimen consists of a shave biopsy measuring 1l6c4qu. Jar 0. Specimen B: Received is one formalin filled container labeled with the patient's name and designated left med cheek inf. The specimen consists of a shave biopsy measuring 8w6j0pr. Jar 0. Specimen C: Received is one formalin filled container labeled with the patient's name and designated left med cheek lat. The specimen consists of a shave biopsy measuring 0e7v1lj. Jar 0. Specimen D: Received is one formalin filled container labeled with the patient's name and designated left lat mid upper arm. The specimen consists of a shave biopsy measuring 4x1j4mt. Jar 0. 2 3:05 PM [facility] DERMATOPATHOLOGY LABORATORY Microscopic Description Specimen A. [...] ratio and peripheral palisading. 2 3:05 PM [facility] DERMATOPATHOLOGY LABORATORY Disclaimer An external and internal positive and negative controls are appropriate for the histochemical, immunohistochemical and immunofluorescence stain(s) in this case (if any), except where stated explicitly. The performance characteristics of the stain(s) cited in this report were developed and its performance characteristic determined by the Dermatopathology Laboratory at [facility], directed by Dr. Rose Barahona. These tests need not be, and therefore are not, approved by the [place] Food and Drug Administration. The tests are used for clinical purposes. Billing Codes Specimen Charges Stain Charges 09550 47254 42123 18770 1 1 1 1 2 3:05 PM [facility] DERMATOPATHOLOGY LABORATORY Embedded Images 2 3:05 PM [facility] DERMATOPATH[facility]Y LABORATORY Pathology/Cytology TISSUE SPECIMEN FROM SKIN / Unknown 06/21/2021 06/23/2021 7:49 AM FLAP CURER Miscellaneous samples (specimen) TISSUE SPECIMEN FROM SKIN / Unknown 06/21/2021 06/23/2021 7:49 AM FLAP CURER Miscellaneous samples (specimen) TISSUE SPECIMEN FROM SKIN / Unknown 06/21/2021 06/23/2021 7:49 AM FLAP CURER Miscellaneous samples (specimen) TISSUE SPECIMEN FROM SKIN / Unknown 06/21/2021 06/23/2021 7:49 AM FLAP CURER Alex Caicedo MD LAB - PATHOLOGY/CYTOLOGY ORD ERABLES Final Result DERMATOPATHOLOGY LABORATORY [facility] - Department of Dermatology [address] [phone] documented in this encounter Visit Diagnoses Not on filedocumented in this encounter Care Teams Consulting Sales Executive Relationship Specialty Start Date End Date Sanjiv Tabares MD PCP - General 06/23/21 documented as of this encounter
--- OUTSIDE RECORDS SUMMARY | 2025-01-26 10:40 | XMS_ITS | Encounter Summary ---
Author Organization [facility] Address [facility] [place] [address] Care Team Providers Care Dry Cell Battery Assembler Name Role Phone Sanjiv Tabares MD Primary Care Provider Encounter Details Date Type Department Care Team (Late st Contact Info) Description 08/16/2022 Lab Requisition [facility] DermPath Lab [address] [place] [address] Alex Caicedo MD [address] [place] [address] Social History Tobacco Use Types Packs/Day Years Used Date Smoking Tobacco: Never Assessed Sex and Gender Information Value Date Recorded Sex Assigned at Not on file Legal Sex Male 6:19 AM ASSOCIATE PROFESSOR OF COUNSELING Gender Identity Not on file Sexual Orientation Not on file documented as of this encounter Plan of Treatment Not on file documented as of this encounter Procedures Procedure Name Priority Date/Time Associated Diagnosis Comments DERMATOPATHOLOGY Routine 08/15/2022 12:0 0 AM CDT documented in this encounter Results * DERMATOPATHOLOGY (08/15/2022 12:00 AM CDT) Case Report Dermatopathology Report Case: [id number] Authorizing Provider: Alex Caicedo MD Collected: 08/15/2022 12:00 AM Ordering Location: [facility] DermPath Lab Received: 08/16/2022 12:53 PM [...] specimen consists of a shave biopsy measuring 40q2v0jd and another piece of tissue measuring 0s1i1pi. Jar 0. Specimen B: Received is one formalin filled container labeled with the patient's name and designated left cheek. The specimen consists of a shave biopsy measuring 3k7y6ia. Jar 0. 11:29 AM [facility] DERMATOPATHOLOGY LABORATORY Microscopic Description Specimen A. [...] characteristic determined by the Dermatopathology Laboratory at [facility], directed by Dr. Rose Barahona. These tests need not be, and therefore are not, approved by the [place] Food and Drug Administration. The tests are used for clinical purposes. Billing Codes Specimen Charges Stain Charges 55299 51079 1 1 3 11:29 AM CDT DERMATOPATHOLOGY LABORATORY Embedded Images 11:29 AM T DERMATOPATHOLOGY LABORATORY Pathology/Cytology TISSUE SPECIMEN FROM SKIN / Unknown 08/15/2022 08/16/2022 12:53 PM CDT Miscellaneous samples (specimen) TISSUE SPECIMEN FROM SKIN / Unknown 08/15/2022 08/16/2022 12:53 PM CDT Alex Caicedo MD LAB - PATHOLOGY/CYTOLOGY ORD ERABLES Final Result DERMATOPATHOLOGY LABORATORY [facility] - Department of Dermatology [facility] [address] [place] [address], [address] [phone] documented in this encounter Visit Diagnoses Not on filedocumented in this encounter Care Teams Dry Cell Battery Assembler Relationship Specialty Start Date End Date Sanjiv Tabares MD PCP - General 06/23/21 documented as of this encounter
[2025-01-26] MEDS: PIPERACILLIN/TAZOBACTAM SOD 4.5 GM in SODIUM CHLORIDE 0.9% IV 100 ML 200 ML IVPB (11:20)
[2025-01-26 11:59] LABS: Hematocrit 42.3 % (40.0-54.0); Hemoglobin 13.4 g/dL (14.0-18.0)
[2025-01-26] MEDS: LACTATED RINGERS 1,000 ML 150 ML IV CONT (13:21)
== END 2025-01-26 13:41 | disposition short-term general hospital (02) ==
PROVIDERS: Emergency Provider Internal Medicine Critical Care Medicine; PCP Internal Medicine
DX: K57.91 Diverticulosis of intestine, part unspecified, without perforation or abscess with bleeding (principal); J44.9 Chronic obstructive pulmonary disease, unspecified; E78.5 Hyperlipidemia, unspecified; Z86.73 Personal history of transient ischemic attack (TIA), and cerebral infarction without residual deficits; Z79.82 Long term (current) use of aspirin; Z79.01 Long term (current) use of anticoagulants; Z87.891 Personal history of nicotine dependence
CPT/HCPCS: 36415; 74174; 80053; 83605; 83690; 83735; 84484; 85014; 85018; 85025; 85610; 85730; 86850; 86900; 86901; 93005; 96361; 96365; 96375; 99285; J2470; J2543; J7120; Q9967

== ENCOUNTER 2025-02-09 11:06 | Outpatient (CLI) | payer MEDICARE, SELFPAY ==
[2025-02-09 11:18] LABS: Hematocrit 32.1 % (40.0-54.0); Hemoglobin 9.8 g/dL (14.0-18.0); Immature Granulocyte Percent A 0.8 % (0.0-0.0); Immature Platelet Fraction Pct 0.7 % (1.0-7.0); Lymphocytes Absolute Auto 1.50 K/mm3 (1.10-4.50); Mean Corpuscular HGB Conc 30.5 g/dL (32-36); Mean Corpuscular Hemoglobin 28.0 pg (27.0-31.0); Mean Corpuscular Volume 91.7 fL (78.0-102.0); Nucleated Red Blood Cells Absolute Auto 0.00 K/mm3 (0.00-0.00); Nucleated Red Blood Cells Perc 0.0 % (0-0.0); Platelet Count Result 539 K/mm3 (150-420); Red Blood Count 3.50 M/mm3 (4.70-6.10); White Blood Count 8.6 K/mm3 (4.8-10.8)
[2025-02-09 12:00] LABS: Alanine Aminotransferase 21 U/L (6-50); Albumin Level 4.0 g/dL (3.5-5.1); Alkaline Phosphatase 61 U/L (38-126); Anion Gap 7 mmol/L (4-12); Aspartate Amino Transferase 25 U/L (17-59); Bilirubin,Total 0.5 mg/dL (0.2-1.3); Blood Urea Nitrogen 10 mg/dL (9-20); Calcium 10.0 mg/dL (8.4-10.2); Carbon Dioxide 28 mmol/L (22-30); Chloride 107 mmol/L (98-107); Estimated Glomerular Filt Rate > 60; Glucose 113 mg/dL (65-110); Osmolality Calculated 294 mOsm/kg (285-295); Potassium 5.2 mmol/L (3.4-5.0); Sodium 142 mmol/L (137-145); Total Protein 6.6 g/dL (6.3-8.2)
--- OUTSIDE RECORDS SUMMARY | 2025-02-09 13:08 | XMS_ITS | Clinical Summary ---
Author Organization [facility] Address [address] [facility] [place] [address] Care Team Providers Care Animal Bounty Hunter Name Role Phone Sanjiv Tabares MD Primary Care Provider [phone] Source Comments [facility],non-owned Affiliates and Associated Physician Practices is amultiple site organization consisting of ambulatory clinics and hospital sitesin [place], [place], [place] and [place]. This disclosure is being madepursuant to the Care Everywhere program and may not contain all information available regarding this patient. Last updated 18.[facility] Social History Tobacco Use Types Packs/Day Years Used Date Smoking Tobacco: Never Assessed Sex and Gender Information Value Date Recorded Sex Assigned at Not on file Legal Sex Male 6:19 AM MULT AU MATIC OPERATOR Gender Identity Not on file Sexual Orientation Not on file Last Filed Vital Signs Vital Sign Reading Time Taken Comments Blood Pressure 123/90 04/02/2017 12:49 PM MULT AU MATIC OPERATOR Pulse 90 04/02/2017 12:49 PM MULT AU MATIC OPERATOR Temperature - - Respiratory Rate - - Oxygen Saturation 97% 04/02/2017 12:49 PM MULT AU MATIC OPERATOR Inhaled Oxygen Concentration - - Weight 94.8 kg (209 lb) 04/02/2017 7:53 AM MULT AU MATIC OPERATOR Height 175.3 cm (5' 9) 04/02/2017 7:53 AM MULT AU MATIC OPERATOR Body Mass Index 30.86 04/02/2017 7:53 AM MULT AU MATIC OPERATOR Plan of Treatment Health Maintenance Due Date [...] this topic Insurance MEDICARE MEDICARE Care Teams Animal Bounty Hunter Relationship Specialty Start Date End Date Sanjiv aTbares MD PCP - General 06/23/21
--- OUTSIDE RECORDS SUMMARY | 2025-02-09 13:08 | XMS_ITS | Encounter Summary ---
Author Organization [facility] Address [address] [place] [address] Phone Care Team Providers Care Research Kennel Supervisor Name Role Phone Sanjiv Tabares MD Primary Care Provider Ulysses Parham MD Unavailable Ginna Cavanaugh APRN, CNP Unavailable [phone] Reason for Visit * Reason Comments Medication Refill Encounter Details Date Type Department Care Team (Late st Contact Info) Description 02/16/2021 Refill [facility] - Pulmonology & Sleep Medicine [facility] [address] [place] [address] Ulysses Parham MD [address] [place] [address] Medication Refill Social History Tobacco Use Types Packs/Day Years Used Date Smoking Tobacco: Former Smokeless Tobacco: Never Alcohol Use Standard Drinks/Week Comments Yes 0 (1 standard drink = 0.6 oz pur e alcohol) occasional Sexually Active Control Partners Comments Not Currently Sex and Gender Information Value Date Recorded Sex Assigned at Not on file Legal Sex Male 2:19 PM VEST TAILOR Gender Identity Not on file Sexual Orientation [...] Ulysses Parham MD [facility] [place] [facility] 10/20/20 Office Visit Ulysses Parham MD [facility] 07/18/20 Telemedicine Ulysses Parham MD [facility] [place] 04/18/20 Telemedicine Ulysses Parham MD [facility] [place] Showing recent visits within past 365 days and meeting all other requirements Future Appointments Date Type Provider Dept 04/18/21 Appointment Ulysses Parham MD [facility] Showing future appointments within next 90 days [...] Parham MD [facility] [place] [facility] 10/20/20 Office Visit Ulysses Parham MD [facility] [place] [facility] 07/18/20 Telemedicine Ulysses Parham MD [facility] [place] 04/18/20 Telemedicine [facility]es [facility] MD [facility] [place] Showing recent visits within past 365 days and meeting all other requirements Future Appointments Date Type Provider Dept 04/18/21 Appointment [facility]es [facility] Showing future appointments within next 90 days and meeting all other requirements Passed - Active short-acting beta agonist prescription documented in this encounter Plan of Treatment Upcoming Encounters Date Type Department Care Team (Late st Contact Info) Description 06/01/2025 11:00 AM VEST TAILOR Office Visit [facility] - [facility]ology & [facility] Medicine - [place] [address] [facility] [place] [address] Ginna Cavanaugh APRN, STORE STOCK HELP [address]2 [facility] [address] [place] [address] documented as of this encounter Visit Diagnoses Not on filedocumented in this encounter Care Teams Research Kennel Supervisor Relationship Specialty Start Date End Date Sanjiv Tabares MD PCP - General Internal Medicine 04/10/16 Ulysses Parham MD [address] [place] [address] Consulting Physician Pulmonary Disease 04/10/16 Ginna Cavanaugh APRN, [facility]ULEMA [facility] [address] [place] [address] Nurse Practitioner Advanced Practice Nurse 03/12/22 documented as of this encounter
--- OUTSIDE RECORDS SUMMARY | 2025-02-09 13:09 | XMS_ITS | Encounter Summary ---
Author Organization [facility] Address [facility] [place] [address] Care Team Providers Care Dope Edger Name Role Phone Sanjiv Tabares MD Primary Care Provider Encounter Details Date Type Department Care Team (Late st Contact Info) Description 06/23/2021 Lab Requisition [facility] DermPath Lab [address] [place] [address] Alex Caicedo MD [address] [place] [address] Social History Tobacco Use Types Packs/Day Years Used Date Smoking Tobacco: Never Assessed Sex and Gender Information Value Date Recorded Sex Assigned at Not on file Legal Sex Male 6:19 AM MANAGER OF FINANCE Gender Identity Not on file Sexual Orientation Not on file documented as of this encounter Plan of Treatment Not on file documented as of this encounter Procedures Procedure Name Priority Date/Time Associated Diagnosis Comments DERMATOPATHOLOGY Routine 06/21/2021 12:0 0 AM MANAGER OF FINANCE documented in this encounter Results * DERMATOPATHOLOGY (06/21/2021 12:00 AM MANAGER OF FINANCE) Case Report Dermatopathology Report Case: [id number] Authorizing Provider: Alex Caicedo MD Collected: 06/21/2021 12:00 AM Ordering Location: [facility] Received: 06/23/2021 07:49 AM Pathologist: Mellisa Bynum MD Specimens: A) - Skin, left med cheek B) - Skin, left med cheek inf C) - Skin, left med cheek lat D) - Skin, left lat mid upper arm 2 3:05 PM [facility] DERMATOPATH[facility]Y [facility]ORATORY Final Diagnosis Specimen [...] CARCINOMA, SUPERFICIAL MULTIFOCAL (C44.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 2 3:05 PM [facility] DERMATOPATH[facility]Y [facility]ORATORY Gross Description Specimen A: Received is one formalin filled container labeled with the patient's name and designated left med cheek. The specimen consists of a shave biopsy measuring [id number]. Jar 0. Specimen B: Received is one formalin filled container labeled with the patient's name and designated left med cheek inf. The specimen consists of a shave biopsy measuring 2h6b1zm. Jar 0. Specimen C: Received is one formalin filled container labeled with the patient's name and designated left med cheek lat. The specimen consists of a shave biopsy measuring 5q4o0px. Jar 0. Specimen D: Received is one formalin filled container labeled with the patient's name and designated left lat mid upper arm. The specimen consists of a shave biopsy measuring 8x3h5nu. Jar 0. 2 3:05 PM [facility] DERMATOPATH[facility]Y [facility]ORATORY Microscopic Description Specimen [...] ratio and peripheral palisading. 2 3:05 PM [facility] DERMATOPATH[facility]Y [facility]ORATORY Disclaimer An external and internal positive and negative controls are appropriate for the histochemical, immunohistochemical and immunofluorescence stain(s) in this case (if any), except where stated explicitly. The performance characteristics of the stain(s) cited in this report were developed and its performance characteristic determined by the Dermatopathology Laboratory at [facility], directed by Dr. Rose Barahona. These tests need not be, and therefore are not, approved by the [place] Food and Drug Administration. The tests are used for clinical purposes. Billing Codes Specimen Charges Stain Charges 10089 25899 29231 57706 1 1 1 1 2 3:05 PM MANAGER OF FINANCE DERMATOPATHOLOGY LABORATORY Embedded Images 2 3:05 PM MANAGER OF FINANCE DERMATOPATHOLOGY LABORATORY Pathology/Cytology TISSUE SPECIMEN FROM SKIN / Unknown 06/21/2021 06/23/2021 7:49 AM MANAGER OF FINANCE Miscellaneous samples (specimen) TISSUE SPECIMEN FROM SKIN / Unknown 06/21/2021 06/23/2021 7:49 AM MANAGER OF FINANCE Miscellaneous samples (specimen) TISSUE SPECIMEN FROM SKIN / Unknown 06/21/2021 06/23/2021 7:49 AM MANAGER OF FINANCE Miscellaneous samples (specimen) TISSUE SPECIMEN FROM SKIN / Unknown 06/21/2021 06/23/2021 7:49 AM MANAGER OF FINANCE Alex Caicedo MD LAB - PATHOLOGY/CYTOLOGY ORD ERABLES Final Result DERMATOPATHOLOGY LABORATORY [facility] - Department of Dermatology [address], [address] [phone] documented in this encounter Visit Diagnoses Not on filedocumented in this encounter Care Teams Dope Edger Relationship Specialty Start Date End Date Sanjiv Tabares MD PCP - General 06/23/21 documented as of this encounter
--- OUTSIDE RECORDS SUMMARY | 2025-02-09 13:09 | XMS_ITS | Encounter Summary ---
Author Organization [facility] Address [facility] [place] [address] Care Team Providers Care Waterworks Operator Name Role Phone Sanjiv Tabares MD Primary Care Provider Encounter Details Date Type Department Care Team (Late st Contact Info) Description 08/16/2022 Lab Requisition [facility] DermPath Lab [address] [place] [address] Alex Caicedo MD [address] [place] [address] Social History Tobacco Use Types Packs/Day Years Used Date Smoking Tobacco: Never Assessed Sex and Gender Information Value Date Recorded Sex Assigned at Not on file 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 Gender Identity Not on file Sexual Orientation Not on file documented as of this encounter Plan of Treatment Not on file documented as of this encounter Procedures Procedure Name Priority Date/Time Associated Diagnosis Comments DERMATOPATHOLOGY Routine 08/15/2022 12:0 0 AM CDT documented in this encounter Results * DERMATOPATHOLOGY (08/15/2022 12:00 AM CDT) Case Report Dermatopathology Report Case: [id number] Authorizing Provider: Alex Caicedo MD Collected: 08/15/2022 12:00 AM Ordering Location: [facility] DermPath Lab Received: 08/16/2022 12:53 PM Pathologist: [...] specimen consists of a shave biopsy measuring [id number] and another piece of tissue measuring 9b2g2lc. Jar 0. Specimen B: Received is one formalin filled container labeled with the patient's name and designated left cheek. The specimen consists of a shave biopsy measuring 1q2m7qq. Jar 0. 11:29 AM [facility] Microscopic Description [...] characteristic determined by the Dermatopathology Laboratory at [facility], directed by Dr. Rose Barahona. These tests need not be, and therefore are not, approved by the [place] Food and Drug Administration. The tests are used for clinical purposes. Billing Codes Specimen Charges Stain Charges 54963 22094 1 1 3 11:29 AM CDT DERMATOPATHOLOGY LABORATORY Embedded Images 11:29 AM T DERMATOPATHOLOGY LABORATORY Pathology/Cytology TISSUE SPECIMEN FROM SKIN / Unknown 08/15/2022 08/16/2022 12:53 PM CDT Miscellaneous samples (specimen) TISSUE SPECIMEN FROM SKIN / Unknown 08/15/2022 08/16/2022 12:53 PM CDT Alex Caicedo MD LAB - PATHOLOGY/CYTOLOGY ORD ERABLES Final Result DERMATOPATHOLOGY LABORATORY [facility] - Department of Dermatology [facility] Specialized Medicine [address] [place] [address], [address] [phone] documented in this encounter Visit Diagnoses Not on filedocumented in this encounter Care Teams Waterworks Operator Relationship Specialty Start Date End Date Sanjiv Tabares MD PCP - General 06/23/21 documented as of this encounter
--- OUTSIDE RECORDS SUMMARY | 2025-02-09 13:09 | XMS_ITS | Clinical Summary ---
Author Organization [facility] Address [address] [facility] [address] [place] [address] Phone Care Team Providers Care Day Care Teacher Name Role Phone Sanjiv Tabares MD Primary [...] Department Care Team Description 12/21/2024 Refill [facility] - Pulmonology & Sleep Medicine [facility] [address] [place] [phone] Ginna Cavanaugh APRN, DOCTOR OF DENTAL SURGERY Medication Refill from Last 3 Months Immunizations [...] on file Legal Sex Male 2:19 PM AIRCRAFT MAINTENANCE SUPERVISOR Gender Identity Not on file Sexual Orientation Not on file Last Filed Vital Signs Vital Sign Reading Time Taken Comments Blood Pressure 120/74 06/01/2024 2:30 PM AIRCRAFT MAINTENANCE SUPERVISOR Pulse 83 06/01/2024 2:30 PM AIRCRAFT MAINTENANCE SUPERVISOR Temperature 37.2 C (98.9 F) 06/01/2024 2:30 PM AIRCRAFT MAINTENANCE SUPERVISOR Respiratory Rate 16 06/01/2024 2:30 PM AIRCRAFT MAINTENANCE SUPERVISOR Oxygen Saturation 95% 06/01/2024 2:30 PM AIRCRAFT MAINTENANCE SUPERVISOR Inhaled Oxygen Concentration - - Weight 123.1 kg (271 lb 6.4 oz) 06/01/2024 2:30 PM AIRCRAFT MAINTENANCE SUPERVISOR Height 175.3 cm (5' 9) 06/01/2024 2:30 PM AIRCRAFT MAINTENANCE SUPERVISOR Body Mass Index 40.08 06/01/2024 2:30 PM AIRCRAFT MAINTENANCE SUPERVISOR Plan of Treatment Upcoming Encounters Date Type Department Care Team (Late st Contact Info) Description 06/01/2025 11:00 AM AIRCRAFT MAINTENANCE SUPERVISOR Office Visit [facility] - Pulmonology & Sleep Medicine [facility] [address] [place] [address] Ginna Cavanaugh APRN, DOCTOR OF DENTAL SURGERY [address] [address] [address] Health Maintenance Due Date Last Done Comments Hepatitis C Virus (HCV) Screening 1960 Cologuard 2005 Colonoscopy 2005 Colorectal Cancer Screening 2005 Immunochemical Fecal Occult Blood 2005 Zoster Immunization (1 of 2) 2010 PSA Discussion 12/09/2015 Medicare Initial AWV [id number] 05/30/2019 Respiratory Syncytial Virus (RSV) Immunization (Adult) (1 - Risk 60-74 years 1-dose series) 2020 Influenza Immunization (#1) 12/28/202401/28, 01/18/2023, 03/02/2022, Additional history exists SARS-COV-2 Immunization (2024- season) 2024 03/28/2022, 05/11/2021, 07/29/2020, Additional history [...] age to complete this topic Insurance MEDICARE [employer] GENERIC Care Teams Day Care Teacher Relationship Specialty Start Date End Date Sanjiv Tabares MD PCP - General Internal Medicine 04/10/16 Ulysses Parham MD [address] [place] [address] Consulting Physician Pulmonary Disease 04/10/16 Ginna Cavanaugh APRN, DOCTOR OF DENTAL SURGERY [address] [address] Nurse Practitioner Advanced Practice Nurse 03/12/22
--- OUTSIDE RECORDS SUMMARY | 2025-02-09 13:09 | XMS_ITS | Clinical Summary ---
Author Organization [facility] Address [address] [place] [phone] Care Team Providers Care Infantryman Name Role Phone Sanjiv Tabares MD Primary Care Provider [phone] Allergies Active Allergy Reactions Criticality Noted Date [...] infarction 06/18/2023 Encounter for preprocedural cardiovascular exami [facility] 09/07/2022 Chronic obstructive pulmonary disease 09/07/2022 History [...] Comments Blood Pressure 140/84 06/18/2023 10:24 AM BIOFUELS PLANT MANAGER Pulse 88 06/18/2023 10:24 AM BIOFUELS PLANT MANAGER Temperature - - Respiratory Rate - - Oxygen Saturation 94% 06/18/2023 10:24 AM BIOFUELS PLANT MANAGER Inhaled Oxygen Concentration - - Weight 123.8 kg (273 lb) 06/18/2023 10:24 AM BIOFUELS PLANT MANAGER Height 175.3 cm (5' 9) 06/18/2023 10:24 AM BIOFUELS PLANT MANAGER Body Mass Index 40.32 06/18/2023 10:24 AM BIOFUELS PLANT MANAGER Plan of Treatment Health Maintenance Due Date [...] or Tdap) 01/20/2030 01/21/2020 Insurance MEDICARE MEDICARE [employer] Care Teams Infantryman Relationship Specialty Start Date End Date Sanjiv Tabares MD PCP - General Internal Medicine 07/19/22
--- OUTSIDE RECORDS SUMMARY | 2025-02-09 13:09 | XMS_ITS | Encounter Summary ---
Author Organization [facility] Address [facility] [place] [place] [address] Care Team Providers Care Forest Patrolman Name Role Phone Sanjiv Tabares MD Primary Care Provider Encounter Details Date Type Department Care Team (Late st Contact Info) Description 08/02/2021 Lab Requisition [facility] DermPath Lab [address] [place] [address] Alex Caicedo MD [address] [place] [address] Social History Tobacco Use Types Packs/Day Years Used Date Smoking Tobacco: Never Assessed Sex and Gender Information Value Date Recorded Sex Assigned at Not on file 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 Gender Identity Not on file Sexual Orientation Not on file documented as of this encounter Plan of Treatment Not on file documented as of this encounter Procedures Procedure Name Priority Date/Time Associated Diagnosis Comments DERMATOPATHOLOGY Routine 08/01/2021 12:0 0 AM CDT documented in this encounter Results * DERMATOPATHOLOGY (08/01/2021 12:00 AM CDT) Case Report Dermatopathology Report Case: [id number] Authorizing Provider: Alex Caicedo MD Collected: 08/01/2021 12:00 AM Ordering Location: [facility] Care DermPath Lab Received: 08/02/2021 12:39 PM Pathologist: Kelley Barahona MD Specimen: Skin, left lateral mid upper arm 2:58 PM CDT DERMATOPATHOLOGY LABORATORY Final Diagnosis Specimen A. SKIN, left lateral mid upper arm: DERMAL SCAR RESIDUAL BASAL CELL CARCINOMA NOT IDENTIFIED (L90.5) 2 2:58 PM CDT DERMATOPATHOLOGY LABORATORY at 1458 CDT Clinical History Bx proven BCC, superficial. Previous Bx: [id number]. 2 2:58 PM CDT DERMATOPATHOLOGY LABORATORY Gross Description Specimen A: Received is one formalin filled container labeled with the patient's name and designated left lateral mid upper arm. The specimen consists of a curettage and desiccation biopsy measuring 66s29m2ul. Jar 0. 2 2:58 PM CDT DERMATOPATHOLOGY [...] determined by the Dermatopathology Laboratory at [facility], directed by Dr. Rose Barahona. These tests need not be, and therefore are not, approved by the [place] Food and Drug Administration. The tests are used for clinical purposes. Billing Codes Specimen Charges Stain Charges 55954 1 2 2:58 PM CDT DERMATOPATHOLOGY LABORATORY Embedded Images 2 2:58 PM CDT DERMATOPATHOLOGY LABORATORY Pathology/Cytolog y TISSUE SPECIMEN FROM SKIN / Unknown 08/01/2021 08/02/2021 12:39 PM CDT Alex Caicedo MD LAB - PATHOLOGY/CYTOLOGY ORD ERABLES Final Result DERMATOPATHOLOGY LABORATORY [facility] - Department of Dermatology [address] [phone] documented in this encounter Visit Diagnoses Not on filedocumented in this encounter Care Teams Forest Patrolman Relationship Specialty Start Date End Date Sanjiv Tabarse MD PCP - General 06/23/21 documented as of this encounter
== END 2025-02-09 11:07 | disposition home or self-care (01) ==
PROVIDERS: PCP Internal Medicine; Visit Provider Internal Medicine
DX: D64.9 Anemia, unspecified (principal)
CPT/HCPCS: 36415; 80053; 85025; 85055

== ENCOUNTER 2025-02-16 09:55 | Emergency (ER) | payer MEDICARE, SELFPAY ==
--- NOTE | ~2025-02-16 | US_ITS ---
EXAMINATION:US venous doppler LE LT INDICATION:Left calf redness for 3 days. Patient on Plavix. TECHNIQUE: Multiple grayscale, color flow and Doppler images of the left lower extremity deep venous systems were obtained and reviewed. COMPARISON:No prior studies for comparison. FINDINGS: The common femoral, superficial femoral and popliteal veins demonstrate normal respiratory variation, augmentation and compressibility. Color flow is also seen within the posterior tibial, peroneal, greater saphenous and profunda veins. IMPRESSION: 1: No lower extremity deep venous thrombosis. Reviewed, dictated and finalized at location O.
[2025-02-16 09:55] VITALS: BP 146/94; PULSE 82; RESP 18; TEMP 36.9; O2SAT 100
--- NOTE | 2025-02-16 09:59 | ED.LOWEXIN ---
HPI - Extremity Injury (Lower) General Chief Complaint: Extremity Injury, Lower Stated Complaint: left leg problem Time Seen by Provider: 02/16/25 09:59 Source: patient Mode of arrival: ambulatory Limitations: no limitations History of Present Illness HPI Narrative: Patient is a 64-year-old male with left lower extremity distally with a redness more so on the medial aspect of the limb for the past 3 days. No definite injury. He is on Plavix and aspirin. There is pain and swelling associated with the redness. MD complaint: other (No particular injury) Onset (ago): day(s) (3) Type of Injury: unknown Place: home Severity: moderate Severity scale (1-10): 4 Relieving factors: rest Exacerbating factors: weight bearing, movement and palpation Context: other (Unknown injury) Associated symptoms: swelling and able to partially bear weight Treatments prior to arrival: other (None) Related Data Home Medications ?Medication ?Instructions ?Recorded ?Confirmed ?Last Taken ?Type clopidogrel 75 mg tablet 75 mg PO HS 01/21/20 01/06/25 10/23/22 History pravastatin 20 mg tablet 20 mg PO HS 01/21/20 01/06/25 10/23/22 History aspirin 81 mg chewable tablet 81 mg PO HS 10/19/22 01/06/25 10/23/22 History budesonide 160 mcg-glycopyr 9 2 inh inhalation BID 10/19/22 01/06/25 10/23/22 History mcg-formot 4.8 mcg/actuation HFA inhaler (Breztri Aerosphere) montelukast 10 mg tablet 10 mg PO HS 10/19/22 01/06/25 10/23/22 History albuterol sulfate 90 mcg/actuation 1 inh inhalation PRN 01/26/25 01/26/25 Unknown History aerosol inhaler Allergies Allergy/AdvReac Type Severity Reaction Status Date / Time Sulfa (Sulfonamide Allergy Hives Verified 01/26/25 09:02 Antibiotics) Review of Systems Review of Systems: All systems reviewed & are unremarkable except as noted in HPI and below Constitutional: Constitutional: Reports no additional constitutional complaints Eyes: Eyes: Reports no additional eye complaints ENT: Reports system reviewed and no additional complaints, except as documented Cardiovascular: Cardiovascular: Reports no additional cardiovascular complaints Respiratory: Respiratory: Reports no additional respiratory complaints Gastrointestinal: Gastrointestinal: Reports no additional gastrointestinal complaints Genitourinary: Genitourinary: Reports no additional male genitourinary complaints Musculoskeletal: Musculoskeletal: Reports no additional musculoskeletal complaints Integumentary/Breasts: Skin/Breast: Reports system reviewed and no additional complaints, except as docu Neurologic: Reports system reviewed and no additional complaints, except as documented Psychiatric: Psychiatric: Reports no additional psychiatric complaints Endocrine: Endocrine: Reports no additional endocrine complaints Hematologic/Lymphatic: Hematologic/Lymphatic: Reports no additional hematologic/lymphatic complaints Allergic/Immunologic: Allergic/Immunologic: Reports no additional allergic/immunologic complaints PMFSH Past Medical History Medical History Obesity (BMI 30-39.9) HLD (hyperlipidemia) Status post CVA Surgical History Surgical History History of surgery on lower extremity femur fx History of repair of rotator cuff right History of hernia repair Family History Family History Sibling Cancer Father Cancer Social History Social History Smoking packs per day: 1 Smoking cigarettes per day: 20.0 Years smoked: 20 Smoking pack-years: 20.00 Smoking status: Former smoker Tobacco type: cigarettes Second hand tobacco smoke exposure: No Smoking end date: 04/29/07 Alcohol intake: current Alcohol use details: Occaisonl Substance use: never Substance use type: does not use Do You Feel Safe in your Home?: Yes Lack of Transportation: No Lack of Food: Never True Current Housing: Decline to Answer Concerned About Future Housing: Decline to Answer Difficulty Paying Gas/Electric Bills: Decline to Answer Difficulty Paying for Meds: Decline to Answer Currently Unemployed: Decline to Answer Education: Decline to Answer Difficulty w/ Childcare or Family Care: Decline to Answer Living arrangements: alone Occupation/Education: retired 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 Gender identity (if verbalized by the patient): Male Spiritual care concerns: No Exam Const: General: healthy appearing Nutritional Appearance: well nourished Orientation/consciousness: patient oriented x3 Limitations: no limitations HENMT: Head: normal to inspection Ears: external ears normal Face/Nose/Sinus: Normal external nose present Eyes: Conjunctivae: conjunctivae normal Pupils: Equal, round and reactive pupils present EOM: EOMs intact bilaterally Neck: Neck: normal visual inspection Chest: Chest palpation & inspection: normal inspection of the chest Resp: Effort & Inspection: normal respiratory effort and not labored Auscultation: clear to auscultation bilaterally and no crackles Cardio: Rate: regular rate Rhythm: regular rhythm Heart sounds: no murmurs GI: Inspection: non-distended GI Palp: Yes Soft to palpation and No Tenderness to palpation present (GI) Auscultation: normal bowel sounds : General: Yes bladder normal to palpation Neuro: General: patient oriented x3, moves all extremities and no meningeal signs Extrem: General: abnormal to inspection, clubbing, cyanosis or edema noted and no pedal edema Other: Left lower extremity distal aspect of the medial side has a semi circular red rash with erythema and pain and swelling and 1+ pitting edema correlating with the cellulitis process; wells criteria is 3+ and we will get ultrasound venous at this time to rule out DVT Psych: Mental Status: mental status grossly normal Affect: normal affect Attitude: cooperative Course Vital Signs Vital signs: Vital Signs Temperature 36.9 C 02/16/25 09:55 Pulse Rate 82 02/16/25 09:55 Respiratory Rate 18 02/16/25 09:55 Blood Pressure 146/94 H 02/16/25 09:55 Pulse Oximetry 100 02/16/25 09:55 Oxygen Delivery Room Air 02/16/25 09:55 Temperature 36.9 C 02/16/25 09:55 Pulse Rate 82 02/16/25 09:55 Respiratory Rate 18 02/16/25 09:55 Blood Pressure 146/94 H 02/16/25 09:55 Pulse Oximetry 100 02/16/25 09:55 Oxygen Delivery Room Air 02/16/25 09:55 MDM - Extremity Injury (Lower) MDM Narrative Medical decision making narrative: Patient is a 64-year-old male with left lower extremity pain and swelling over the past 3 days. We will get a venous ultrasound. Rocephin IM. Continue oral antibiotics. Imaging Data Attestation: I personally reviewed and interpreted this imaging study as follows: Radiologist's impression: Venous ultrasound left lower extremity was negative for DVT Discharge Plan Discharge Clinical Impression: Cellulitis Qualifiers: Site of cellulitis: extremity Site of cellulitis of extremity: lower extremity Laterality: left Qualified Code(s): L03.116 - Cellulitis of left lower limb Patient Disposition: Home Condition: Stable Instructions: Antibiotic Form, Cellulitis (ED) Patient Language: Cymraes Prescriptions: New doxycycline monohydrate 100 mg capsule 100 mg PO BID 10 Days Qty: 20 0RF No Action clopidogrel 75 mg tablet 75 mg PO HS pravastatin 20 mg tablet 20 mg PO HS albuterol sulfate 90 mcg/actuation HFA aerosol inhaler 1 inh INHALATION PRN aspirin 81 mg Tablet,Chewable 81 mg PO HS montelukast 10 mg tablet 10 mg PO HS Breztri Aerosphere 160-9-4.8 mcg/actuation Hfa Aerosol Inhaler 2 inh INHALATION BID Follow-up/Referrals: Rayshawn,MD Sanjiv [Primary Care Provider] Time of Disposition: 11:04
--- NOTE | 2025-02-16 10:00 | PC.NURSE ---
DR MARTINEZ AT THE BEDSIDE
[2025-02-16] MEDS: cefTRIAXone 1 GM, LIDOCAINE 1% LOCAL INJ 2.1 ML IM (10:14)
--- NOTE | 2025-02-16 10:50 | PC.NURSE ---
PATIENT UPDATED ON ULTRASOUND TIME FRAME. VERBALIZED UNDERSTANDING
--- NOTE | 2025-02-16 11:07 | PC.NURSE ---
ULTRASOUND HAS BEEN COMPLETED. PATIENT IS RESTING ON STRETCHER. NO OTHER NEEDS VOICED
--- NOTE | 2025-02-16 11:09 | PC.NURSE ---
UPDATED PATIENT THAT WE WERE WAITING ON ULTRASOUND RESULTS. OK TO GET DRESSED. PATIENT VERBALIZED UNDERSTANDING
[2025-02-16 11:19] VITALS: BP 132/78; PULSE 72; RESP 18; O2SAT 100
--- OUTSIDE RECORDS SUMMARY | 2025-02-16 11:41 | XMS_ITS | Data Portability ---
Author Organization [facility] [employer], Main Office Address [address] [place] [address] Care Team Providers Care Pattern Designer Name Role Phone WILY TABARES Primary Care Provider WILY TABARES Referring Provider [phone] Assessment Encounter Date Assessment Date Assessment LastModified by Organization Details LastModified Time 10/01/2022 10/01/2022 patient returns. We sent him to the [facility] for cardiac risk assessment with the assumption that he is at higher risk for coronary artery disease with his history of stroke and presumed cerebrovascular disease and COPD and shortness of breath, dyspnea on exertion and prior smoking history and morbid obesity and hypercholesterole dano. The [facility] Dr. Mark Leija ordered a stress test and his left ventricular ejection fraction was 67% and myocardial perfusion was felt to be normal with of was thought to be attenuation artifact. With respect to his history strokes, he takes a baby aspirin daily and the Plavix 75 mg daily. He had a TIA in 2011 and an infarct in left cerebellum in 2017. MRI scan dated August of 2018 showed old cerebellar infarct on the left and acute Cerebellar infarct on the right at that time. We would require him to stop the Plavix 7 days before surgery but not stop the baby aspirin. I have explained to him that unfortunately with stopping the Plavix he will be at higher risk for having a stroke. He is going to discuss the Plavix with Dr. Tabares when he sees him for pre-surgical medical evaluation which is coming up. Because nonsteroidal anti-inflammatory medications increased risk of stroke, we will not give him Toradol at times surgery. Tranexamic acid has not been shown increased risk of thrombotic complications even in patients with history of strokes we will use that to minimize blood loss. Patient had a bleeding ulcer in his stomach visualized with EGD 2 years ago. We will not use nonsteroidal anti-inflammatory medications after surgery because of this. His weight today is 250 lb which corresponds to a BMI of 39.2. Weight 255 in June we has lost 5 more lb. Would like to have the surgery in late October and he would like to have the surgery done at [facility]. Risks of surgery were discussed with him in detail. I explained that there will be numbness lateral to the incision and that patient's after knee replacements have some difficulty kneeling and risk of soreness in the front of the knee discussed. He is at higher risk for infection because his obesity we will use extended oral antibiotics after surgery mitigate that risk. We will plan to use Eliquis for DVT prophylaxis. He is at increased risk for DVT because of his obesity that borders on extreme obesity now. Would plan to use the Eliquis and baby aspirin and a use the Eliquis for 2 weeks and at the time he discontinues the Eliquis he will be placed back on his Plavix in addition to the baby aspirin. risk of need for revision surgery due to component loosening or component where discussed. Risk of instability fracture nerve injury bleeding transfusion stiffness and risk of medical complications such as heart attack stroke pulmonary embolism and are reviewed. Unfortunately this gentleman is at higher risk for stroke based on his history multiple strokes in the past. I discussed with him that this could be very severe if that were to occur. He understands and wished to proceed. He will be seeing Dr. Tabares and specifically address the issue of holding the Plavix 7 days before surgery and while he is on the Eliquis after surgery. 30 minutes were spent in total care this patient more than half the time spent in mgcm-jk-rkyl care. Not available 10/06/2022 18:02:55 11/01/2022 11/01/2022 Dyslipidemia history of stroke COPD osteoarthritis C0 have been discussed I will have him see Neurology the big question will be surgery wants him off of Plavix for 7 days prior and probably for 30 days after while he is on Eliquis for his DVT prophylaxis if it was just too weak I would say just go ahead and do the surgery but since it may be prolonged I will get neurologic opinion as to what the risk car which will be risk of stroke and will see whether they classify it as mild medium or high see me back in 3 months [email or web address] Not available 11/01/2022 20:43:51 01/31/2023 01/31/2023 There was issues with the neurologist that re-referred will refer to new neurologist blood work has been ordered timing of his surgery is not optimized for his personal schedule right now see me back in 4 months [email or web address] Not available 01/31/2023 22:12:03 02/20/2023 02/20/2023 Patient returns. We last saw him October 01. He has severe tubi-oe-exgo medial compartment osteoarthritis the right knee and moderate medial compartment arthritis and patellofemoral arthritis in left knee. We did not give him cortisone shots At last visit because he was hoping to proceed with knee replacement surgery. His right knee has been painful for the last few months is left knee has been sore for 2 weeks. he was referred to a neurologist because of his history of multiple strokes in the process of medical optimization before knee replacement surgery. It took 2 months to schedule the neurologist appointment and then that appointment had to be canceled and now he has rescheduled the appointment for May. He is currently taking Plavix. His last BMI determine October 01 was 39.2. I have discussed with him that it is extremely important that he work harder on losing weight to lower his risk of complications with surgery. He states that he is not doing well with his weight loss. I have asked him to try harder. I have given him a handout relating calories to weight loss and asked him to try to apply more distal plan have greater will power to cut back on his calories so we can lose some weight to decrease his risk of medical complications with surgery which could be severe. Today would like cortisone shots in both knees. Risk of side effects including risk of infection bleeding discussed. After ChloraPrep prep, 20 mg Kenalog and 4 cc of 0.5% ropivacaine were injected in both knees without difficulty. I will see him back in 3 months to assess progress. We will check his height and weight at that time. 20 minutes were spent total care this patient more than half the time spent in [id number]-pl-oioq care. Not available 03/03/2023 19:20:36 05/22/2023 05/22/2023 HPI: Patient returns. He is here for cortisone injection in both of his knees. last shots were 3 months ago. He is getting almost 3 months good relief. And [id number]-[id number] medial compartment osteoarthritis the right knee and moderate patellofemoral osteoarthritis on the left. Physical exam: [age]-year-old male alert pleasant. He has mild effusions in both knees. Range of motion right knee is from 10-135 and on the left is 3-135. It has moderate tenderness over both medial joint lines. Mild pain with patellofemoral grind bilaterally. After ChloraPrep was used on skin 20 mg Kenalog and 3 cc of 0.5% ropivacaine was injected into pulse knees. Impression: 62-year-old male who has severe medial compartment osteoarthritis and right knee and rather significant patellofemoral osteoarthritis in left. Shots continue to give him good relief. We will see him in 3 month manav Not available 05/23/2023 11:56:05 Plan of Treatment Reminders Order Date Submit Date Provider Last Modified By Organization Details Last Modified Time Details Appointments None recorded. Lab CBC w/ auto diff [address] (Lab), [address] [place], [address], 4 09:40:18 CMP, serum or plasma [address] (Lab), [address] [place], [address], 4 09:40:18 lipid panel, serum [address] (Lab), [address] [place], [address], 4 09:40:18 Referral None recorded. Procedures injection/a spiration joint/bursa (PROC) - in office procedure, administere d by provider 2023 024 [email or web address] In-Office Order, Internal Use Only DO Not Attach Compendium DO Not Attach Compendium, Do Not Delete/merge, [id number] 4 16:34:01 injection/a spiration joint/bursa (PROC) - in office procedure, administere d by provider 2022 023 [email or web address] In-Office Order, Internal Use Only DO Not Attach Compendium DO Not Attach Compendium, Do Not Delete/merge, [id number] 09:52:49 Surgeries None recorded. Imaging XR, knee 2022 023 [email or web address] [facility] [place], [address], [place], [address], 3 09:51:52 Medication Orders Kenalog 10 mg/mL suspension for injection [address]/Pharmacy #[id number], [address] [place], [address], 4 16:34:01 ropivacaine (PF) 5 mg/mL (0.5 %) injection solution [address]/Pharmacy #[id number], [address] [place], [address], 4 16:34:01 Kenalog 10 mg/mL suspension for injection [address]/Pharmacy #[id number], [address] [place], [address], 3 18:51:18 ropivacaine (PF) 5 mg/mL (0.5 %) injection solution [address]/Pharmacy #[id number], [address] [place], [address], 3 18:51:18 Patient TargetsNo targets recorded. Patient InstructionsNo instructions recorded. Reason for Referral None Reported. Results Created Date Observation Date Name Description Value Unit Range Abnormal Flag Note LastModifiedBy Organization Detail LastModifiedTime 02/01/2001/31/2023 CBC/C OMPLE TE BLD COUNT W/DIF F white blood cells 8.2 x10'3 /uL 4.2-10 .8 Not Available [facility] (Lab) [address] [facility] [place], [address], 01/31/2023 18:09:32 02/01/2001/31/2023 CBC/C OMPLE TE BLD COUNT W/DIF F red blood cells 5.56 x10'6 /uL 4.10-5 .80 Not Available [facility] (Lab) [address] [place], [address], 01/31/2023 18:09:32 02/01/2001/31/2023 CBC/C OMPLE TE BLD COUNT W/DIF F hemoglobin 16.3 g/dL 13.2-1 7.0 Not Available [facility] (Lab) [address] [place], [address], 01/31/2023 18:09:32 02/01/2001/31/2023 CBC/C OMPLE TE BLD COUNT W/DIF F hematocrit 50.6 % 39.3-5 0.0 high Not Available [facility] (Lab) [address] [place], [address], 01/31/2023 18:09:32 02/01/2001/31/2023 CBC/C OMPLE TE BLD COUNT W/DIF F mean red cell volume 91.0 fL 80.0-9 7.0 Not Available [facility] (Lab) [address] [place], [address], 01/31/2023 18:09:32 02/01/2001/31/2023 CBC/C OMPLE TE BLD COUNT W/DIF F mean red cell hemoglobin 29.3 pg 27.0-3 3.0 Not Available [facility] (Lab) [address] [place], [address], 01/31/2023 18:09:32 02/01/20 23 01/31/2023 CBC/C OMPLE TE BLD COUNT W/DIF F mean RBC HGB concentratio n 32.2 g/dL 31.0-3 6.0 Not Available [facility] (Lab) [address] [place], [address], 01/31/2023 18:09:32 02/01/20 23 01/31/2023 CBC/C OMPLE TE BLD COUNT W/DIF F red cell distribution width 13.2 % 11.8-1 5.5 Not Available [facility] (Lab) [address] [place], [address], 01/31/2023 18:09:32 02/01/2001/31/2023 CBC/C OMPLE TE BLD COUNT W/DIF F platelets 319 x10'3 /uL 150-40 0 Not Available [facility] (Lab) [address] [place], [address], 01/31/2023 18:09:32 02/01/2001/31/2023 CBC/C OMPLE TE BLD COUNT W/DIF F mean platelet volume 9.5 fL 9.0-12 .4 Not Available [facility] (Lab) [address] [place], [address], 01/31/2023 18:09:32 02/01/2001/31/2023 CBC/C OMPLE TE BLD COUNT W/DIF F neutrophils 68.5 % 39.0-7 2.0 Not Available [facility] (Lab) [address] [place], [address], 01/31/2023 18:09:32 02/01/2001/31/2023 CBC/C OMPLE TE BLD COUNT W/DIF F lymphocytes 20.2 % 16.0-4 7.0 Not Available [facility] (Lab) [address] [place], [address], 01/31/2023 18:09:32 02/01/2001/31/2023 CBC/C OMPLE TE BLD COUNT W/DIF F monocytes 8.2 % 5.0-12 .0 Not Available [facility] (Lab) [address] [place], [address], 01/31/2023 18:09:32 02/01/2001/31/2023 CBC/C OMPLE TE BLD COUNT W/DIF F eosinophils 1.5 % 1.0-7. 0 Not Available [facility] (Lab) [address] [place], [address], 01/31/2023 18:09:32 02/01/2001/31/2023 CBC/C OMPLE TE BLD COUNT W/DIF F basophils 0.7 % 0.0-2. 0 Not Available [facility] (Lab) [address] [place], [address], 01/31/2023 18:09:32 02/01/2001/31/2023 CBC/C OMPLE TE BLD COUNT W/DIF F immature granulocytes 0.9 % 0.00-0 .50 high Not Available [facility] (Lab) [address] [place], [address], 01/31/2023 18:09:32 02/01/20 23 01/31/2023 CBC/C OMPLE TE BLD COUNT W/DIF F neutrophils, absolute count 5.62 x10'3 /uL 1.5-8. 0 Not Available [facility] (Lab) [address] [place], [address], 01/31/2023 18:09:32 02/01/20 23 01/31/2023 CBC/C OMPLE TE BLD COUNT W/DIF F lymphocytes, absolute count 1.66 x10'3 /uL 1.07-3 .43 Not Available [facility] (Lab) [address] [place], [address], 01/31/2023 18:09:32 02/01/2001/31/2023 CBC/C OMPLE TE BLD COUNT W/DIF F monocytes, absolute count 0.67 x10'3 /uL 0.29-0 .99 Not Available [facility] (Lab) [address] [place], [address], 01/31/2023 18:09:32 02/01/20 23 01/31/2023 CBC/C OMPLE TE BLD COUNT W/DIF F eosinophils, absolute count 0.12 x10'3 /uL 0.02-0 .53 Not Available [facility] (Lab) [address] [place], [address], 01/31/2023 18:09:32 02/01/20 23 01/31/2023 CBC/C OMPLE TE BLD COUNT W/DIF F basophils, absolute count 0.06 x10'3 /uL 0.01-0 .08 Not Available [facility] (Lab) [address] [place], [address], 01/31/2023 18:09:32 02/01/20 23 01/31/2023 CBC/C OMPLE TE BLD COUNT W/DIF F immature granulocytes ,absolute 0.07 x10'3 /uL 0.00-0 .05 high Not Available [facility] (Lab) [address] [place], [address], 01/31/2023 18:09:32 02/01/2001/31/2023 CBC/C OMPLE TE BLD COUNT W/DIF F nucleated red blood cells 0.0 % -[address] [facility] (Lab) [address] [place], [address], 01/31/2023 18:09:32 02/01/2001/31/2023 CBC/C OMPLE TE BLD COUNT W/DIF F NRBC# 0.00 x10'3 /uL Not Available [facility] (Lab) [address] [place], [address], 01/31/2023 18:09:32 02/01/2001/31/2023 COMPR EHENS FRANCES METAB OLIC PANEL sodium 142 mmol/ L 137-14 5 Not Available [facility] (Lab) [address] [place], [address], 01/31/2023 18:37:12 02/01/2001/31/2023 COMPR EHENS FRANCES METAB OLIC PANEL potassium 4.6 mmol/ L 3.5-5. 1 Not Available [facility] (Lab) [address] [place], [address], 01/31/2023 18:37:12 02/01/2001/31/2023 COMPR EHENS FRANCES METAB OLIC PANEL chloride 106 mmol/ L 98-107 Not Available [facility] (Lab) [address] [place], [address], 01/31/2023 18:37:12 02/01/2001/31/2023 COMPR EHENS FRANCES METAB OLIC PANEL carbon dioxide 28 mmol/ L 22-30 Not Available [facility] (Lab) [address] [place], [address], 01/31/2023 18:37:12 02/01/2001/31/2023 COMPR EHENS FRANCES METAB OLIC PANEL anion gap 12.6 mmol/ L 14-22 low Not Available [facility] (Lab) [address] [place], [address], 01/31/2023 18:37:12 02/01/2001/31/2023 COMPR EHENS FRANCES METAB OLIC PANEL glucose 66 mg/dL 70-99 low Not Available [facility] (Lab) [address] [place], [address], 01/31/2023 18:37:12 02/01/2001/31/2023 COMPR EHENS FRANCES METAB OLIC PANEL BUN 17 mg/dL 8-19 Not Available [facility] (Lab) [address] [place], [address], 01/31/2023 18:37:12 02/01/2001/31/2023 COMPR EHENS FRANCES METAB OLIC PANEL creatinine 1.40 mg/dL 0.66-1 .25 high Not Available [facility] (Lab) [address] [place], [address], 01/31/2023 18:37:12 02/01/2001/31/2023 COMPR EHENS FRANCES METAB OLIC PANEL GFR 51 Refer ence Range : [place] ge GFR Healt hy Adult : >60 mL/mi n/1.7 3 m2 Chron ic Kidne y Disea se: 15-60 mL/mi n/1.7 3 m2 Kidne y Failu re: <15/m L/min /1.73 m2 www.n iddk. nih.g ov The MDRD study equat ion has not been valid ated in child mariana <18 years of age; pregn ant women ; the elder ly >85 years of age; or in some racia l or ethni c subgr oups, such as Hismn nics. Outsi de the valid ated jada eters , estim ated GFR is less accur ate, requi ring clini anahi judgm ent on a case- by-ca se basis . Clini anahi inter preta tion for other races and ages must be made by the clini sonia. The MDRD study equat ion has not been valid ated for the evalu ation of serum creat inine relat ed to nutri fer l statu s or medic ation usage . For perso ns <18 years of age, a pedia tric GFR calcu lator is avail able on the F websi te: https ://rainer clemente.o [place]/pr vicenteess aaliyahal s/kdo qi/gf r_cal culat or Not Available [facility] (Lab) [address] [place], [address], 01/31/2023 18:37:12 02/01/2001/31/2023 COMPR EHENS FRANCES METAB OLIC PANEL alkaline phosphatase 67 U/L 38-126 Not Available [facility] (Lab) [address] [place], [address], 01/31/2023 18:37:12 02/01/2001/31/2023 COMPR EHENS FRANCES METAB OLIC PANEL alanine aminotransfe rase 24 U/L 0-[address] [facility] (Lab) [address] [place], [address], 01/31/2023 18:37:12 02/01/2001/31/2023 COMPR EHENS FRANCES METAB OLIC PANEL aspartate aminotransfe rase 23 U/L 15-[address] [facility] (Lab) [address] [place], [address], 01/31/2023 18:37:12 02/01/2001/31/2023 COMPR EHENS FRANCES METAB OLIC PANEL bilirubin, total 0.50 mg/dL 0.20-1 .30 Not Available [facility] (Lab) [address] [place], [address], 01/31/2023 18:37:12 02/01/2001/31/2023 COMPR EHENS FRANCES METAB OLIC PANEL calcium 9.8 mg/dL 8.4-10 .2 Not Available [facility] (Lab) [address] [place], [address], 01/31/2023 18:37:12 02/01/2001/31/2023 COMPR EHENS FRANCES METAB OLIC PANEL total protein 6.8 g/dL 6.3-8. 2 Not Available [facility] (Lab) [address] [place], [address], 01/31/2023 18:37:12 02/01/20 23 01/31/2023 COMPR EHENS FRANCES METAB OLIC PANEL albumin 4.2 g/dL 3.4-5. 0 Not Available [facility] (Lab) [address] [place], [address], 01/31/2023 18:37:12 02/01/2001/31/2023 COMPR EHENS FRANCES METAB OLIC PANEL globulin 2.6 g/dL 2.6-4. 2 Not Available [facility] (Lab) [address] [place], [address], 01/31/2023 18:37:12 02/01/2001/31/2023 COMPR EHENS FRANCES METAB OLIC PANEL A/G ratio 1.6 ratio 1.0-2. 0 Not Available [facility] (Lab) [address] [place], [address], 01/31/2023 18:37:12 02/01/2001/31/2023 LIPID PANEL cholesterol 189 mg/dL 140-19 9 NIH TIAGO NSUS RECOM MENDA TION FOR JAJA STERO L: ADULT CHILD LOW RISK: <200 <170 BORDE RLINE : <200- 239 ----- HIGH RISK: >240 >200 Not Available [facility] (Lab) [address] [place], [address], 01/31/2023 18:37:16 02/01/2001/31/2023 LIPID PANEL triglyceride s 162 mg/dL 0-150 high NIH TIAGO NSUS REPOR T RECOM MENDA TION FOR TRIGL YCERI RADHA: ADULT CHILD LOW RISK: <150 ----- BODER LINE: 150-1 99 ----- HIGH RISK: >200 ----- Not Available [facility] (Lab) [address] [place], [address], 01/31/2023 18:37:16 02/01/20 23 01/31/2023 LIPID PANEL HDL cholesterol 68 mg/dL 40- Not Available [facility] (Lab) [address] [place], [address], 01/31/2023 18:37:16 02/01/20 23 01/31/2023 LIPID PANEL LDL cholesterol, calculated 89 mg/dL 0-130 NIH TIAGO NSUS REPOR T RECOM MENDA TIONS FOR LDL: ADULT CHILD LOW RISK <130 <110 (OPTI MAL LDL) <100 ----- BORDE RLINE : 130-1 59 ----- HIGH RISK: >160 >130 A TRIGL YCERI DE RESUL T >400 INVAL IDATE S THE CALCU LATIO N FOR LDL FRACT IONAT ION - THE LDL RESUL T WILL NOT BE REPOR VAL. Not Available [facility] (Lab) [address], [place], [address], 01/31/2023 18:37:16 09/22/19 23 09/20/2022 cardi ac stres s test No observ ation record ed. [email or web address] [facility] [address], [place], [address], 09/21/2022 13:48:04 02/21/20 XR, knee No observ ation record ed. [email or web address] [facility] [place] [address], [place], [address], 03/03/2023 19:22:39 08/14/19 24 08/14/2023 CT, abdom en + pelvi s, w/o contr ast No observ ation record ed. [email or web address] [facility] [address] [facility], [place], [address], 08/15/2023 08:22:15 Result Notes None recorded. Problems Name Problem SNOMED Code Status Onset Date Resolution Date Notes Provider Name and Address Organization Details Recorded Time Hernia of abdomina l wall Active Not Available [facility] 3 05:27:47 Abdomina l pain 94927679 Completed Not Available [facility] 3 04:53:06 Dyspnea 427294317 Completed Not Available [facility] 3 04:53:07 Thromboc ytopenic disorder 136333936 Active Not Available [facility] 3 05:27:47 Knee pain Active Not Available [facility] 3 05:27:47 Sinusiti s 17621019 Completed Randa Farah RN null, [facility] [employer] [facility] 3 15:32:57 Multiple bruising 913475524 Completed Not Available [facility] 3 04:53:07 Osteoart hritis 442996651 Active Not Available [facility] 3 05:27:47 Recurren t hernia of anterior abdomina l wall 126059715 Active Not Available [facility] 3 05:27:47 Pain of hip region 66050198 Completed Not Available [facility] 3 04:53:08 Cough 39780074 Completed ZEENAT Good null, [facility] [employer] [facility] 3 14:44:35 Wheezing 75276735 Completed Not Available [facility] 3 04:53:08 Dyspnea on exertion 86884063 Completed Not Available [facility] 3 04:53:08 Derangem ent of knee 33003644 Active Not Available [facility] 3 05:27:47 Increase d albertones s 11333048 Completed Not Available [facility] 3 04:53:09 Chronic obstruct frances pulmonar y disease 04705954 Active 2016 Not Available [facility] 3 05:27:47 Dyslipid emia 960522296 Active 2016 Not Available [facility] 3 05:27:47 Obesity 553388935 Active 2018 Not Available [facility] 3 05:27:47 History of cerebrov ascular accident without residual deficits 918468453 Active 2018 left cerebell ar infarct Not Available [facility] 3 05:27:47 Acute bronchit is 08485525 Active 2021 Not Available [facility] 3 05:27:46 Pain in bilatera l feet 76928508004 221345 Active 2021 Not Available [facility] 3 05:27:47 Edema of lower extremit y 867768266 Active 2021 Not Available [facility] 3 05:27:46 Upper respirat ory infectio n 47005106 Active 2021 Not Available [facility] 3 05:27:47 Essentia l hyperten vamsi 01533210 Active 2021 Not Available [facility] 3 05:27:47 Chronic rhinitis 40589465 Active 2021 Not Available [facility] 3 05:27:47 Chronic sinusiti s 66978686 Active 2022 Not Available [facility] 3 05:27:47 Chronic pansinus itis 59369214 Active 2022 Not Available [facility] 3 05:27:47 Deviated nasal septum 746186151 Active 2022 Not Available [facility] 3 05:27:47 Osteoart hritis of right knee joint 34722460363 9100 Active 2022 Not Available [facility] 3 05:27:47 Preopera tive cardiova scular examinat ion Active 2022 Not Available [facility] 3 05:27:47 Plantarf lexion deformit y of left foot 87433980536 05636 Active 2022 Not Available [facility] 3 05:27:46 Plantar fasciiti s of left foot 19838199187 589261 Active 2022 Not Available [facility] 3 05:27:46 Pain in left foot 31609583362 9107 Active 2022 Not Available [facility] 3 05:27:47 Congenit al pes planus 69180107 Active 2022 Not Available [facility] 3 05:27:47 Plantar fasciiti s of right foot 91816654374 866773 Active 2022 Not Available [facility] 3 05:27:46 Congenit al pes planus 58724276 Active 2022 Not Available [facility] 3 05:27:47 Pain in right foot [id number] 9107 Active 2022 Not Available [facility] 3 05:27:47 Cough [id number] Active 2022 Not Available [facility] 3 05:27:47 Sinusiti s [id number] Active 2022 Randa Farah RN null, [facility] [employer] [facility] 3 15:32:56 Bilatera l osteoart hritis of knees [id number] 9107 Active 2023 Sarah Aburto CMA null, [facility] [employer] 4 12:44:58 Problem Notes None recorded. Procedures Surgical History Date Name Laterality Status Provider Name and Address Organization Details Recorded Time 3 biopsy of lesion of cheek completed ZEENAT Lemos [facility] [employer] [facility] 11/01/2022 14:02:22 3 Medicare Wellness CPT Code, subsequent completed Asha Hussein RN [facility] [employer] [facility] 08/02/2022 14:23:32 3 Advanced Care Planning completed Asha Hussein RN [facility] [employer] [facility] 08/02/2022 14:30:53 3 Plantar Fascia Injection Right Foot completed Simon Ogden DPM [address] [facility], [place], [address], [facility] [employer] [facility] 07/23/2022 17:22:16 2 excision of squamous cell carcinoma completed Not Available [facility] 06/27/2022 04:43:40 5 Colon ca scrn not hi rsk ind completed Not Available [facility] 06/27/2022 04:43:40 4 Lap vent/abd hernia repair completed Not Available [facility] 06/27/2022 04:43:40 Orthopedic Surgery completed Not Available [facility] 06/27/2022 04:43:40 repair of umbilical hernia completed Not Available [facility] 06/27/2022 04:43:40 Hernia Repair completed Not Available [facility] 06/27/2022 04:43:40 Shoulder completed Rosaura RM - [facility] 07/23/2022 16:59:28 Imaging Results None recorded. Procedure Notes None recorded. Medical Equipment None Reported. Allergies Allergen ID Allergen Name Allergen Category Reaction Reaction Severity Criticality Documentation Date Start Date Code Code System Note Provider Name and Address Organization Details Recorded Time 8116 Substance with sulfonami de structure and antibacte rial mechanism of action (substanc e) medicatio n hives Not available Not available 06/27/2022 99092 8003 SNOMED Not Available [facility] 3 05:04:01 8117 sulfameth oxazole / trimethop rim medicatio n other mild Not available 06/27/2022 07472 RxNorm Not Available [facility] 3 05:04:01 Medications Name Sig Start Date Stop Date Status Note LastModified by Organization Details LastModified Time albuterol sulfate 0.63 mg/3 mL solution for nebulizat ion Inhale 3 mL twice a day by inhalati on route. 04/05 completed [address] [facility] Parham Not Available Not Available Not Available prednison e 10 mg tablet TK 1 T PO QD 10/10 completed Not Available Not Available Not Available doxycycli ne hyclate 100 mg capsule TAKE 1 CAPSULE BY MOUTH TWICE A DAY FOR 10 DAYS active Not Available Not Available No t Available atorvasta tin 10 mg tablet Take 1 tablet every other day by oral route. 10/14 completed Not Available Not Available Not Available azithromy zuly 250 mg tablet TAKE 2 TABLETS BY MOUTH TODAY, THEN TAKE 1 TABLET DAILY FOR 4 DAYS DIRECTED active Not Available Not Available No t Available Medrol (Ed) 4 mg tablets in a dose pack take as directed , decreasi ng doses 07/04 completed Not Available Not Available Not Available bupivacai ne HCl 0.5 % (5 mg/mL) injection solution In office injectio n administ ered by the provider 07/11 completed Not Available Not Available Not Available prednison e 20 mg tablet TAKE 2 TABLETS BY MOUTH EVERY DAY FOR 7 DAYS active Not Available Not Available No t Available fluoroura cil 5 % topical cream APPLY TO LEFT CHEEK TWICE DAILY X 2 WEEKS, OFF FOR 2 WEEKS, THEN APPLY TWICE DAILY X 4 MORE WEEKS 11/30 completed Not Available Not Available Not Available metronida zole 500 mg tablet Take 1 tablet 3 times a day by oral route for 7 days. 06/17 completed Not Available Not Available Not Available clopidogr el 75 mg tablet TAKE 1 TABLET BY MOUTH EVERY DAY active Not Available Not Available No t Available ciproflox acin 500 mg tablet Take 1 tablet twice a day by oral route. 06/17 completed Not Available Not Available Not Available sulfameth oxazole 800 mg-trimet hoprim 160 mg tablet Take 1 tablet twice a day by oral route. 10/18 completed Not Available Not Available Not Available omeprazol e 40 mg capsule,d elayed release TAKE 1 CAPSULE BY MOUTH EVERY DAY 12/21 completed Not Available Not Available Not Available tramadol 50 mg tablet 50 - 100 MG ORALLY EVERY 6 HOURS NEEDED FOR PAIN 11/01 completed Not Available Not Available Not Available amoxicill in 500 mg tablet TAKE 1 TABLET BY MOUTH THREE TIMES A DAY FOR 7 DAYS active Not Available Not Available No t Available oxycodone -acetamin ophen 5 mg-325 mg tablet TAKE ONE TO TWO TS PO Q 4 H PRN P 09/01 completed Not Available Not Available Not Available terbinafi ne HCl 250 mg tablet TAKE 1 TABLET BY MOUTH EVERY DAY 02/07 completed Not Available Not Available Not Available pravastat in 10 mg tablet TK 1 T PO QOD active Not Available Not Available No t Available Kenalog 10 mg/mL suspensio n for injection in office procedur e, administ ered by provider [address] [facility]: [id number] 4-20 Not Available Not Available Not Available bisacodyl 10 mg rectal supposito ry 10/02 completed Not Available Not Available Not Available omeprazol e 20 mg capsule,d elayed release TAKE 2 CAPSULES BY MOUTH TWICE A DAY FOR 14 DAYS 09/21 completed Not Available Not Available Not Available diclofena c sodium 75 mg tablet,de layed release TAKE ONE TABLET TWICE DAILY active Not Available Not Available No t Available monteluka st 10 mg tablet TAKE 1 TABLET BY MOUTH EVERY DAY IN THE EVENING active Not Available Not Available No t Available pravastat in 20 mg tablet TAKE 1 TABLET BY MOUTH EVERY DAY active Not Available Not Available No t Available lorazepam 1 mg tablet 10/10 completed Not Available Not Available Not Available levofloxa zuly 500 mg tablet Take 1 tablet every 24 hours by oral route. active Not Available Not Available No t Available cefdinir 300 mg capsule TAKE 1 CAPSULE BY MOUTH TWICE A DAY FOR 10 DAYS 07/04 completed Not Available Not Available Not Available fluticaso ne propionat e 50 mcg/actua tion nasal spray,rajendra pension Inhale 2 sprays every day by intranas al route in the evening. 10/02 completed Not Available Not Available Not Available metronida zole 0.75 % topical gel 07/16 completed Not Available Not Available Not Available amoxicill in 875 mg-potass ium clavulana te 125 mg tablet Take 1 tablet twice a day by oral route for 7 days. 06/05 completed Not Available Not Available Not Available Ventolin HFA 90 mcg/actua tion aerosol inhaler INHALE 2 PUFFS EVERY 4 HOURS 02/14 completed Not Available Not Available Not Available epinastin e 0.05 % eye drops 10/02 completed Not Available Not Available Not Available Spiriva with HandiHale r 18 mcg and inhalatio n capsules Inhale 1 capsule every day by inhalati on route. 05/25 completed Not Available Not Available Not Available aspirin active Not Available Not Avail able Not Available lidocaine (PF) 10 mg/mL (1 %) injection solution In office injectio n administ ered by the provider 07/[address] [facility]: 0409-427 6-17 Not Available Not Available Not Available lidocaine (PF) 5 mg/mL (0.5 %) injection solution In office injectio n administ ered by the provider 11/30 completed Not Available Not Available Not Available Symbicort 160 mcg-4.5 mcg/actua tion HFA aerosol inhaler INHALE 2 PUFFS TWICE DAILY 11/14 completed Not Available Not Available Not Available Symbicort 80 mcg-4.5 mcg/actua tion HFA aerosol inhaler Inhale 2 puffs twice a day by inhalati on route. 02/24 completed Not Available Not Available Not Available Gavilyte- C 240 gram-22.7 2 gram-6.72 gram-5.84 gram oral solution 10/02 completed Not Available Not Available Not Available ropivacai ne (PF) 5 mg/mL (0.5 %) injection solution in office procedur e, administ ered by provider [address] [facility] 80803-02 07-28 Not Available Not Available Not Available Tudorza Pressair 400 mcg/actua tion breath activated INHALE 1 PUFF TWICE A DAY 11/14 completed Not Available Not Available Not Available Incruse Ellipta 62.5 mcg/actua tion powder for inhalatio n INHALE 1 PUFF DAILY active Not Available Not Available No t Available Breo Ellipta 200 mcg-25 mcg/dose powder for inhalatio n INHALE 1 PUFF DAILY active Not Available Not Available No t Available Fluzone Quad (P F) 60 mcg(15 mcgx4)/0. 5 mL intramusc ular syringe TO BE ADMINIST ERED BY PHARMACI ST FOR IMMUNIZA TION 06/13 completed Not Available Not Available Not Available Fluarix Quad (PF) 60 mcg (15 mcg x 4)/0.5 mL IM syringe ADM 0.5ML IM UTD 03/23 completed Not Available Not Available Not Available Breztri Aerospher e 2021 active Not Available Not Available Not Avai lable Vitals Date Recorded Body height Provider Name an d Address Organization Details Last Updated DateTime 05/22/2023 170.18 cm Sarah Aburto CMA [employer] 05/22/2023 12:44:13 Date Recorded Body height Body mass index (BMI) Body weight Provider Name and Address Organization Details Last Updated DateTime 10/01/2022 170.18 cm 39.2 kg/m2 798232.09 g Serina Allison Melvin [employer] 10/01/2022 14:40:42 Date Recorded Body height Body mass index (BMI) Body weight Body temperature Heart rate Systolic And Diastolic Provider Name and Address Organization Details Last Updated DateTime 170.18 cm 40.6 kg/m2 502000. 42 g 98.8 [degF] 76 /min 120/72 mm[Hg] Yecenia Rucker [employer] [employer] 14:03:51 Date Recorded Body height Body mass index (BMI) Body weight Body temperature Heart rate Systolic And Diastolic Provider Name and Address Organization Details Last Updated DateTime 170.18 cm 42.6 kg/m2 357798. 12 g 98.7 [degF] 98 /min 134/78 mm[Hg] Randa fish RN [facility] [employer] [facility] 14:06:41 Date Recorded Body height Body mass index (BMI) Body weight Provider Name and Address Organization Details Last Updated DateTime 02/20/2023 170.18 cm 39.2 kg/m2 509078.09 g Sonia Tucker [facility] [employer] 02/20/2023 09:49:28 Social History Question Answer Notes LastModified by Organization Details LastModified Time Tobacco Smoking Status Former Smoker Not Available [facility] 06/27/2022 04:42:51 Do You Have An Advance Directive? No Information Provided [email or web address] Information not available 08/02/2022 Do You Wear A Helmet When Biking? No MIGRATION.393 [id number] Information not available 06/27/2022 What Is Your Level Of Caffeine Consumption? Moderate MIGRATION.566 [id number] Information not available 06/27/2022 How Much Tobacco Do You Chew? None MIGRATION.253 [id number] Information not available 06/27/2022 In The 14 Days Before Symptom Onset, Have You Had Close Contact With A Laboratory-conf irmed COVID-19 While That Case Was Ill? No MIGRATION.653 [id number] Information not available 06/27/2022 In The 14 Days Before Symptom Onset, Have You Had Close Contact With A Person Who Is Under Investigation For COVID-19 While That Person Was Ill? No MIGRATION.104 [id number] Information not available 06/27/2022 What Type Of Diet Are You Following? REGULAR MIGRATION.038 [id number] Information not available 06/27/2022 Which Illicit Or Recreational Drugs Have You Used? None MIGRATION.920 [id number] Information not available 06/27/2022 What Is The Highest Grade Or Level Of School You Have Completed Or The Highest Degree You Have Received? [id number] MIGRATION.319 [id number] Information not available 06/27/2022 Have There Been Any Changes To Your Family Or Social Situation? No MIGRATION.475 [id number] Information not available 06/27/2022 What Is The Fluoride Status Of Your Home? Fluoridated MIGRATION.784 [id number] Information not available 06/27/2022 When Did You Quit Smoking? 11-15yearssincelas tcigarette MIGRATION.981 [id number] Information not available 06/27/2022 Are There Any Guns Present In Your Home? Yes MIGRATION.611 4869097 Information not available 06/27/2022 Do You Use Insect Repellent Routinely? Yes Information not available 08/02/2022 Where Do You Live? SingleLevelHouse MIGRATION.391 [id number] Information not available 06/27/2022 Presence Of Domestic Violence No Information not available 08/02/2022 Guns Present In The Home? Yes Information not available 08/02/2022 Are You Able To Care For Yourself? Yes Information not available 08/02/2022 Are You Blind Or Do Yo Have Difficulty Seeing? No Information not available 08/02/2022 Are You Deaf Or Do You Have Serious Difficulty Hearing? No Information not available 08/02/2022 General Stress Level? Low Information not available 08/02/2022 Do You Have A Medical Power Of Implementation Lead? No MIGRATION.554 [id number] Information not available 06/27/2022 What Was The Date Of Your Most Recent Tobacco Screening? 01/31/2023 [email or web address] Information not available 01/31/2023 Have You Ever Been Counseled For Unhealthy Alcohol Use? No [email or web address] Information not available 07/23/2022 Do You Have Any Pets? Yes MIGRATION.087 [id number] Information not available 06/27/2022 What Is Your Relationship Status? Single MIGRATION.305 [id number] Information not available 06/27/2022 Do You Use Your Seat Belt Or Car Seat Routinely? Yes MIGRATION.258 6668163 Information not available 06/27/2022 Do You Have Smoke And Carbon Monoxide Detectors In Your Home? Yes MIGRATION.546 4872456 Information not available 06/27/2022 At What Age Did You Start Smoking Tobacco? 16 MIGRATION.705 8436220 Information not available 06/27/2022 Are You Passively Exposed To Smoke? No MIGRATION.189 4037244 Information not available 06/27/2022 Are There Any Smokers In Your House? No MIGRATION.930 5295552 Information not available 06/27/2022 How Much Tobacco Do You Smoke? No MIGRATION.268 7313948 Information not available 06/27/2022 Do You Use Sunscreen Routinely? Yes MIGRATION.159 5061296 Information not available 06/27/2022 Has Tobacco Cessation Counseling Been Provided? No MIGRATION.704 0665257 Information not available 06/27/2022 How Many Years Have You Smoked Tobacco? -4 MIGRATION.130 1357184 Information not available 06/27/2022 Have You Recently Traveled Abroad? No MIGRATION.822 4735430 Information not available 06/27/2022 Do You Have Any Dietary Restrictions? No MIGRATION.055 8836129 Information not available 06/27/2022 Sex: Male Functional Status Question Answer Note LastModified by [employer] Details LastModified Time Do you use any illicit or recreational drugs? No MIGRATION.[id number] Information not available 06/27/2022 Do you or have you ever used any other forms of tobacco or nicotine? No MIGRATION.616354 9761 Information not available 06/27/2022 What is your level of alcohol consumption? Occasional MIGRATION.807955 6161 Information not available 06/27/2022 Do you or have you ever used smokeless tobacco? Never used smokeless tobacco MIGRATION.657044 0630 Information not available 06/27/2022 What is your occupation? disability MIGRATION.212117 6783 Information not available 06/27/2022 Do you or have you ever used e-cigarettes or vape? Never used electronic cigarettes MIGRATION.231877 1984 Information not available 06/27/2022 What is your exercise level? Occasional Information not available 08/02/2022 Mental Status Question Answer Note LastModified by [email or web address] Details LastModified Time Do you feel stressed (tense, restless, nervous, or anxious, or unable to sleep at night)? [id number] MIGRATION.[id number] 6 Information not available 06/27/2022 Family History Relationship Description Onset Age of this Age Resolved Age Notes LastModified by Organization Details LastModified Time Father Multiple myeloma 80 MIGRATION.662 [id number] Not available 06/27/2022 04:43:49 Sister Malignant neoplasm of esophagus deceas ed MIGRATION.492 [id number] Not available 06/27/2022 04:43:49 Medical History Condition Response NERVE DISEASE N BLINDNESS N RHEUMATIC FEVER N KIDNEY STONES N BLADDER PROBLEMS N MRSA N OTHER # 1 N POLIO N LUNG DISEASE/DISORDER N HISTORY OF DRUG ABUSE N RADIATION / CHEMOTHERAPY N COPD Y Other # 2 N BLOOD DISEASES Y EAR OR HEARING PROBLEMS N MUMPS N SHINGLES N BOWEL PROBLEMS N DEPRESSION (INCLUDING POST ) N STROKE/TIA Y ULCERS Y BENIGN PROSTATIC HYPERPLASIA N MEASLES N HYPOTENSION N MYOCARDIAL INFARCTION N OBESITY Y GERD/NAUSEA N ANEURYSM N URINARY/BLADDER/KIDNEY PROBLEMS N CORONARY ARTERY DISEASE (CAD) N ADDICTION CONCERNS N ENDOMETRIOSIS N Impotence N USE OF BLOOD THINNERS Y SKIN PROBLEMS Y GASTROINTESTINAL DISORDER N PERIPHERAL VASCULAR DISEASE N MUSCLE,JOINT OR BONE PROBLEMS N GASTROINTESTINAL BLEEDING Y BLOOD CLOTS N ASTHMA Y CATARACTS N USE OF NSAIDS Y ERECTILE DYSFUNCTION N VARICOSITIES N GI PROBLEMS N Low Testosterone N INFERTILITY N AIDS/HIV N CHEMOTHERAPY / RADIATION N LIVER DISEASE N MALE HYPOGONADISM N HYPERTENSION N Deficiency N TOURETTE'S N ANXIETY DISORDER N BLOOD TRANSFUSION N ANEMIA/BLOOD DISORDER N CHRONIC EAR INFECTIONS N BRONCHITIS N TUBERCULOSIS N GLAUCOMA N FOOT PROBLEM N DIVERTICULITIS N CHICKENPOX N SLEEP APNEA N ALLERGIES/HAYFEVER Y INFECTIOUS DISEASE N HEART ARRHYTHMIA N PROSTATE N INSOMNIA N HIGH CHOLESTEROL / HYPERLIPIDEMIA Y HYPERTHYROIDISM N EYE PROBLEMS N EDEMA N CHRONIC PAIN SYNDROME N HYPOTHYROIDISM N CAROTID BLOCKAGE N CONSTIPATION N BACK / NECK PROBLEMS Y HAVE YOU BEEN HOSPITALIZED OR SEEN IN [facility] IN THE PAST YEAR ? N ATHEROSCLEROSIS N BREAST PROBLEMS N DIALYSIS N ECZEMA N OSTEOPOROSIS Y ARTHRITIS Y APPENDICITIS N DIABETES, TYPE N BAD TEETH N ENT N HEARTBURN / REFLUX N AUTISM SPECTRUM DISORDER (ASD) N HEPATITIS / LIVER DISEASE N GOUT N SLEEP DISORDER N ALZHEIMER'S DISEASE N Brain Problems N HERPES N DEMENTIA N HEADACHES/MIGRAINES Y SEIZURES/EPILEPSY N VASCULAR DISEASE N PACEMAKER N Blood Disorder N DIZZINESS Y HEART DISEASE/HEART PROBLEMS N KIDNEY DISEASE N MULTIPLE SCLEROSIS N CARDIAC ARRHYTHMIA N CANCER: SPECIFY Y ATRIAL FIBRILLATION N Gall Stones N PULMONARY EMBOLISM N AUTOIMMUNE DISEASE N Immunizations Vaccine Type Date Status Note Provider Nam e and Address Organization Details Recorded Time Pneumococcal conjugate PCV20, polysaccharide HBO755 conjugate, adjuvant, PF 3 completed Not Available [facility] 02/06/2023 05:27:47 influenza, unspecified formulation 3 completed Not Available [facility] 02/06/2023 05:27:47 COVID-19, mRNA, LNP-S, PF, 30 mcg/0.3 mL dose 1 completed Not Available [facility] 02/06/2023 05:27:47 COVID-19, mRNA, LNP-S, PF, 30 mcg/0.3 mL dose 1 completed Not Available [facility] 02/06/2023 05:27:47 Influenza, split virus, quadrivalent, preservative 8 completed Not Available [facility] 02/06/2023 05:27:47 Influenza, split virus, trivalent, preservative 2 completed Not Available [facility] 02/06/2023 05:27:47 COVID-19, mRNA, LNP-S, PF, 30 mcg/0.3 mL dose 2 completed Not Available [facility] 02/06/2023 05:27:47 Influenza, split virus, quadrivalent, PF 0 completed Not Available [facility] 02/06/2023 05:27:47 Influenza, split virus, quadrivalent, PF 7 completed Not Available [facility] 02/06/2023 05:27:47 Influenza, split virus, quadrivalent, PF 1 completed Not Available [facility] 02/06/2023 05:27:47 Past Encounters Encounter ID Performer Location Encounter Start Date Encounter Closed Date Diagnosis/Indication Diagnosis SNOMED-CT Code Diagnosis ICD10 Code Diagnosis IMO Codes Diagnosis Note [id number] Wily Tabares MD [facility] Internal Med [facility] [address] [facility] [address] 07/25/2020 00:00:00 08/15/2020 20:53:35 [id number] CALIN Adair [facility] [place] [address] [facility] [address] [place] [address] 09/21/2020 00:00:00 09/21/2020 12:21:36 [id number] Wily Tabares MD [facility] Internal Med [facility] [address] [facility] [address] [facility] [address] [place] [address] 09/28/2020 00:00:00 10/08/2020 14:24:22 [id number] Apolinar Dhaliwal MD [facility] [place] [address] [place] [address] 12/21/2020 00:00:00 12/21/2020 12:45:39 [id number] Wily Tabares MD [facility] Internal [place] [address] [place] [address] [place] [address] 02/07/2021 00:00:00 02/07/2021 22:28:40 [id number] Wily Tabares MD [facility] Internal [place] [address] [place] [address] [place] [address] 03/28/2021 00:00:00 03/29/2021 22:47:07 [id number] Apolinar Dhaliwal MD [facility] [place] [address] [place] [address] 03/29/2021 00:00:00 03/29/2021 11:47:32 [id number] Apolinar Dhaliwal MD [facility] [place] [address] [place] [address] 07/05/2021 00:00:00 07/05/2021 14:53:26 [id number] Wily Tabares MD [facility] Internal Med [place] [address] [place] [address] [place] [address] 07/11/2021 00:00:00 07/11/2021 23:03:49 [id number] Wily Tabares MD [facility] Internal Med [place] [address] [place] [address] [place] [address] 08/17/2021 00:00:00 08/17/2021 21:02:04 [id number] Apolinar Dhaliwal MD [facility] [place] [address] [place] [address] 10/04/2021 00:00:00 10/04/2021 14:31:57 [id number] Wily Tabares MD [facility] Internal Med [place] [address] [place] [address] [place] [address] 11/30/2021 00:00:00 12/24/2021 17:13:25 [id number] Apolinar Dhaliwal MD [facility] [place] [address] [place] [address] 01/05/2022 00:00:00 01/05/2022 15:54:07 [id number] Wily Tabares MD [facility] Internal Med [facility] [address] [facility], [place] [address] 04/05/2022 00:00:00 04/05/2022 21:13:41 [id number] Apolinar Dhaliwal MD [facility] [place] [address] [place] [address] 04/06/2022 00:00:00 04/15/2022 19:47:15 [id number] Israel Valdes MD [facility] [place] [address] [place] [address] 05/24/2022 00:00:00 05/24/2022 14:28:05 [id number] Israel Valdes MD [facility] [place] [address] [place] [address] 07/05/2022 14:38:54 07/05/2022 15:16:04 Chronic pansinusitis 83386639 J32.4 Deviated nasal septum 12 3186172 J34.2 [id number] Apolinar Dhaliwal MD [facility] [place] [address] [place] [address] 07/06/2022 11:10:57 07/09/2022 09:58:34 Osteoarthritis of right knee joint [id number] 42034 M17.11 [id number] Simon Ogden DPM [facility] [place] [address] [place] [address] 07/23/2022 16:55:16 07/24/2022 11:10:16 Congenital pes planus 60521772 Q66.52 Continue [facility] orthoticsx -rays reviewed with the patient Plantar fa sciitis of right foot [id number] 8303307 M72.2 injection heel, medial tubercle plantar heeleducat ed on stretching and icing instructio nsContinue [facility] orthoticsC ontinue supportive shoe gearFollow -up in 1 month possible physical therapy at that time Pain in right foot 74696 37418 99966 M79.671 as above [id number] Wily Tabares MD [facility] [facility] Internal Med [place] [address] [facility] [place] [address] 08/02/2022 13:46:54 08/02/2022 14:58:42 Adult health examination [id number] Z00.00 Screening for disorder 277936590 Z13.9 Essential hypertension 24636409 I10 Cough 28598949 R05.9 Long-term drug therapy 476562912 Z79.899 Dyslipidemia 803767576 E 78.5 History of cerebrovascular accident without residual deficits 507281156 Z86.73 Obesity 391409386 E66.9 [id number] Simon Ogden DPM [facility] Podiatry [place] [address] [place] [address] 08/27/2022 11:36:41 08/27/2022 12:07:24 Plantar fasciitis of right foot [id number] 9589222 M72.2 educated on stretching and icing instructio ns- Patient to stretch more often as he has notContinu e Powerstep orthoticsC ontinue supportive shoe gearFollow -up in as needed possible physical therapy versus injection if continues to be problemati c [id number] Apolinar Dhaliwal MD [facility] Ortho [place] [address] [place] [address] 10/01/2022 14:02:38 10/08/2022 09:27:40 Osteoarthritis of right knee joint [id number] 12688 M17.11 [id number] Wily Tabares MD [facility] Internal [facility] [place] [address] [place] [address] 11/01/2022 13:55:42 11/01/2022 15:45:10 Dyslipidemia 077222668 E78.5 History of cerebrovascular accident without residual deficits 728469961 Z86.73 Chronic ob structive pulmonary disease 08978774 J44.9 Essential hypertension 94050377 I10 [id number] Wily Tabares MD [facility] Internal Med [facility] [address] [facility] [address] [place] [address] 01/31/2023 13:59:27 01/31/2023 14:54:31 Dyslipidemia 118108691 E78.5 Essential hypertension 87474774 I10 Chronic ob structive pulmonary disease 48464888 J44.9 History of cerebrovascular accident without residual deficits 993221220 Z86.73 Chronic rhinitis 9921909 6 J31.0 [id number] Apolinar Dhaliwal MD [facility] Ortho [place] [address] [facility] [address] [place] [address] 02/20/2023 09:42:28 03/04/2023 09:51:51 Osteoarthritis 607653794 M17.11 M17.12 [id number] Apolinar Dhaliwal MD [facility] Orth[facility] [place] [address] [facility] [address] [place] [address] 05/22/2023 11:18:33 05/23/2023 13:44:53 Bilateral osteoarthritis of knees 5312690991 83577 M17.0 Health Concerns Section Related Observation LastModified by Organization Detai ls LastModified Time None Recorded Concern Status LastModified by Organization Details LastModified Time None Recorded Advance Directives Directive N: Information provided Payers Insurance Date Sequence Insurance Name Policy Number Policy Mccall Covered Member ID Mccall Member ID Guarantor Name 05/22/2023 2 [employer] (MEDICARE SUPPLEMENT) Wayne Beckwith [id number] Wayne Beckwith 05/22/2023 1 [place] Wayne Beckwith [id number] Wayne Beckwith 05/22/2023 2 [employer] (MEDICARE SUPPLEMENT) Wayne Beckwith [id number] Wayne Beckwith Notes Date Note Type Note Provider Name and Address Organization Details Recorded Time 3 text/html hypertension no headache no dizzinesshistory of stroke cerebellar no residualsCOPD asthma no cough or wheezingdyslipidemia tries to watch red meatchronic rhinitis Singulairchronic knee pain contemplating knee surgery had negative stress test Wily Tabares MD [address], [place], [address], [facility] [employer] [facility] [employer] [facility] 11/01/2022 20:44:09 3 text/html Dyslipidemia trying to follow low-fat diet. Hypertension no headache no dizziness. CO2 BT no cough wheezing. Still needs to be evaluated by Neurology for neurological clearance for joint replacement. Chronic rhinitis about the same. Wily Tabares MD [address], [place], [address], [employer] [facility] [employer] 01/31/2023 22:12:19
--- OUTSIDE RECORDS SUMMARY | 2025-02-16 11:42 | XMS_ITS | Clinical Summary ---
Author Organization [facility] Address [address] [facility] [place] [address] Phone Care Team Providers Care Lithographic Photographer Name Role Phone Sanjiv Tabares MD Primary [...] Department Care Team Description 12/21/2024 Refill [facility] - Pulmonology & Sleep Medicine [facility] [address] [place] [phone] Ginna Cavanaugh APRN, STROKE PROGRAM COORDINATOR Medication Refill from Last 3 Months Immunizations [...] on file Legal Sex Male 2:19 PM REGISTRAR ASSISTANT Gender Identity Not on file Sexual Orientation Not on file Last Filed Vital Signs Vital Sign Reading Time Taken Comments Blood Pressure 120/74 06/01/2024 2:30 PM REGISTRAR ASSISTANT Pulse 83 06/01/2024 2:30 PM REGISTRAR ASSISTANT Temperature 37.2 C (98.9 F) 06/01/2024 2:30 PM REGISTRAR ASSISTANT Respiratory Rate 16 06/01/2024 2:30 PM REGISTRAR ASSISTANT Oxygen Saturation 95% 06/01/2024 2:30 PM REGISTRAR ASSISTANT Inhaled Oxygen Concentration - - Weight 123.1 kg (271 lb 6.4 oz) 06/01/2024 2:30 PM REGISTRAR ASSISTANT Height 175.3 cm (5' 9) 06/01/2024 2:30 PM REGISTRAR ASSISTANT Body Mass Index 40.08 06/01/2024 2:30 PM REGISTRAR ASSISTANT Plan of Treatment Upcoming Encounters Date Type Department Care Team (Late st Contact Info) Description 06/01/2025 11:00 AM REGISTRAR ASSISTANT Office Visit [facility] - Pulmonology & [facility] Medicine [facility] [address] [place] [address] Ginna Cavanaugh APRN, STROKE PROGRAM COORDINATOR [address] [place] [address] [address] Health Maintenance Due Date Last Done Comments [...] age to complete this topic Insurance MEDICARE [employer] GENERIC Care Teams Lithographic Photographer Relationship Specialty Start Date End Date Sanjiv Tabares MD PCP - General Internal Medicine 04/10/16 Ulysses Parham MD [address] [place] [address] Consulting Physician Pulmonary Disease 04/10/16 Ginna Cavanaugh APRN, STROKE PROGRAM COORDINATOR [address] [address] Nurse Practitioner Advanced Practice Nurse 03/12/22
--- OUTSIDE RECORDS SUMMARY | 2025-02-16 11:42 | XMS_ITS | Encounter Summary ---
Author Organization [facility] Address [facility] [place] [address] Care Team Providers Care Staff Electronic Warfare Officer Name Role Phone Sanjiv Tabares MD Primary Care Provider Encounter Details Date Type Department Care Team (Late st Contact Info) Description 08/02/2021 Lab Requisition [facility] DermPath Lab [address] [place] [address] Alex Caicedo MD [address] [place] [address] Social History Tobacco Use Types Packs/Day Years Used Date Smoking Tobacco: Never Assessed Sex and Gender Information Value Date Recorded Sex Assigned at Not on file Legal Sex Male 6:19 AM BEHAVIORAL INTERVENTION SPECIALIST Gender Identity Not on file Sexual Orientation Not on file documented as of this encounter Plan of Treatment Not on file documented as of this encounter Procedures Procedure Name Priority Date/Time Associated Diagnosis Comments DERMATOPATHOLOGY Routine 08/01/2021 12:0 0 AM CDT documented in this encounter Results * DERMATOPATHOLOGY (08/01/2021 12:00 AM CDT) Case Report Dermatopathology Report Case: [id number] Authorizing Provider: Alex Caicedo MD Collected: 08/01/2021 12:00 AM Ordering Location: [facility] Care DermPath Lab Received: 08/02/2021 12:39 PM Pathologist: Kelley Barahona MD Specimen: Skin, left lateral mid upper arm 2:58 PM CDT DERMATOPATHOLOGY LABORATORY Final Diagnosis Specimen A. SKIN, left lateral mid upper arm: DERMAL SCAR RESIDUAL BASAL CELL CARCINOMA NOT IDENTIFIED (L90.5) 2 2:58 PM CDT DERMATOPATHOLOGY LABORATORY at 1458 CDT Clinical History Bx proven BCC, superficial. Previous Bx: [id number]. 2 2:58 PM CDT DERMATOPATHOLOGY LABORATORY Gross Description Specimen A: Received is one formalin filled container labeled with the patient's name and designated left lateral mid upper arm. The specimen consists of a curettage and desiccation biopsy measuring 25o27d0kb. Jar 0. 2 2:58 PM CDT DERMATOPATHOLOGY [...] characteristic determined by the Dermatopathology Laboratory at [facility], directed by Dr. Rose Barahona. These tests need not be, and therefore are not, approved by the [place] Food and Drug Administration. The tests are used for clinical purposes. Billing Codes Specimen Charges Stain Charges 15582 1 2 2:58 PM CDT DERMATOPATHOLOGY LABORATORY Embedded Images 2 2:58 PM CDT DERMATOPATHOLOGY LABORATORY Pathology/Cytolog y TISSUE SPECIMEN FROM SKIN / Unknown 08/01/2021 08/02/2021 12:39 PM CDT Alex Caicedo MD LAB - PATHOLOGY/CYTOLOGY ORD ERABLES Final Result DERMATOPATHOLOGY LABORATORY [facility] - Department of Dermatology [address], [address] [phone] documented in this encounter Visit Diagnoses Not on filedocumented in this encounter Care Teams Staff Electronic Warfare Officer Relationship Specialty Start Date End Date Sanjiv Tabares MD PCP - General 06/23/21 documented as of this encounter
--- OUTSIDE RECORDS SUMMARY | 2025-02-16 11:42 | XMS_ITS | Encounter Summary ---
Author Organization [facility] Address [facility] [place] [address] Care Team Providers Care Facilities Administrator Name Role Phone Sanjiv Tabares MD Primary Care Provider Encounter Details Date Type Department Care Team (Late st Contact Info) Description 06/23/2021 Lab Requisition [facility] DermPath Lab [address] [place] [address] Alex Caicedo MD [address] [place] [address] Social History Tobacco Use Types Packs/Day Years Used Date Smoking Tobacco: Never Assessed Sex and Gender Information Value Date Recorded Sex Assigned at Not on file Legal Sex Male 6:19 AM NURSE SANE Gender Identity Not on file Sexual Orientation Not on file documented as of this encounter Plan of Treatment Not on file documented as of this encounter Procedures Procedure Name Priority Date/Time Associated Diagnosis Comments DERMATOPATHOLOGY Routine 06/21/2021 12:0 0 AM NURSE SANE documented in this encounter Results * DERMATOPATHOLOGY (06/21/2021 12:00 AM NURSE SANE) Case Report Dermatopathology Report Case: [id number] Authorizing Provider: Alex Caicedo MD Collected: 06/21/2021 12:00 AM Ordering Location: [facility] DermPath Lab Received: 06/23/2021 07:49 AM Pathologist: Mellisa Bynum MD Specimens: A) - Skin, left med cheek B) - Skin, left med cheek inf C) - Skin, left med cheek lat D) - Skin, left lat mid upper arm 2 3:05 PM [facility] DERMATOPATHOLOGY LABORATORY Final Diagnosis Specimen [...] CARCINOMA, 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 2 3:05 PM [facility] DERMATOPATHOLOGY LABORATORY Gross Description Specimen A: Received is one formalin filled container labeled with the patient's name and designated left med cheek. The specimen consists of a shave biopsy measuring 1o6r3zb. Jar 0. Specimen B: Received is one formalin filled container labeled with the patient's name and designated left med cheek inf. The specimen consists of a shave biopsy measuring 6i7c1ao. Jar 0. Specimen C: Received is one formalin filled container labeled with the patient's name and designated left med cheek lat. The specimen consists of a shave biopsy measuring 2x8k4io. Jar 0. Specimen D: Received is one formalin filled container labeled with the patient's name and designated left lat mid upper arm. The specimen consists of a shave biopsy measuring 0t7o4pc. Jar 0. 2 3:05 PM [facility] DERMATOPATHOLOGY LABORATORY Microscopic Description Specimen [...] ratio and peripheral palisading. 2 3:05 PM [facility] DERMATOPATHOLOGY LABORATORY Disclaimer An external and internal positive and negative controls are appropriate for the histochemical, immunohistochemical and immunofluorescence stain(s) in this case (if any), except where stated explicitly. The performance characteristics of the stain(s) cited in this report were developed and its performance characteristic determined by the Dermatopathology Laboratory at [facility], directed by Dr. Rose Barahona. These tests need not be, and therefore are not, approved by the [place] Food and Drug Administration. The tests are used for clinical purposes. Billing Codes Specimen Charges Stain Charges 82956 95292 97955 73713 1 1 1 1 2 3:05 [address] DERMATOPATHOLOGY LABORATORY Embedded Images 2 3:[address] DERMATOPATHOLOGY LABORATORY Pathology/Cytology TISSUE SPECIMEN FROM SKIN / Unknown 06/21/2021 06/23/2021 7:49 AM NURSE SANE Miscellaneous samples (specimen) TISSUE SPECIMEN FROM SKIN / Unknown 06/21/2021 06/23/2021 7:49 AM NURSE SANE Miscellaneous samples (specimen) TISSUE SPECIMEN FROM SKIN / Unknown 06/21/2021 06/23/2021 7:49 AM NURSE SANE Miscellaneous samples (specimen) TISSUE SPECIMEN FROM SKIN / Unknown 06/21/2021 06/23/2021 7:49 AM NURSE SANE Alex Caicedo MD LAB - PATHOLOGY/CYTOLOGY ORD ERABLES Final Result DERMATOPATHOLOGY LABORATORY [facility] - Department of Dermatology [address] [phone] documented in this encounter Visit Diagnoses Not on filedocumented in this encounter Care Teams Facilities Administrator Relationship Specialty Start Date End Date Sanjiv Tabares MD PCP - General 06/23/21 documented as of this encounter
--- OUTSIDE RECORDS SUMMARY | 2025-02-16 11:42 | XMS_ITS | Clinical Summary ---
Author Organization [facility] Address [address] [place] [address] Care Team Providers Care Evaporator Operator Name Role Phone Sanjiv Tabares MD Primary Care Provider [phone] Allergies Active Allergy Reactions Criticality Noted Date [...] 06/18/2023 Encounter for preprocedural cardiovascular exami [facility] 09/07/2022 Chronic obstructive pulmonary disease 09/07/2022 [...] Comments Blood Pressure 140/84 06/18/2023 10:24 AM FIXTURE MAKER Pulse 88 06/18/2023 10:24 AM FIXTURE MAKER Temperature - - Respiratory Rate - - Oxygen Saturation 94% 06/18/2023 10:24 AM FIXTURE MAKER Inhaled Oxygen Concentration - - Weight 123.8 kg (273 lb) 06/18/2023 10:24 AM FIXTURE MAKER Height 175.3 cm (5' 9) 06/18/2023 10:24 AM FIXTURE MAKER Body Mass Index 40.32 06/18/2023 10:24 AM FIXTURE MAKER Plan of Treatment Health Maintenance Due Date [...] or Tdap) 01/20/2030 01/21/2020 Insurance MEDICARE MEDICARE Incentient Care Teams Evaporator Operator Relationship Specialty Start Date End Date Sanjiv Tabares MD PCP - General Internal Medicine 07/19/22
--- OUTSIDE RECORDS SUMMARY | 2025-02-16 11:42 | XMS_ITS | Clinical Summary ---
Author Organization [facility] Address [address] [place] [address] Care Team Providers Care Tube Handler Name Role Phone Sanjiv Tabares MD Primary Care Provider [phone] Source Comments [facility],non-owned Affiliates and Associated Physician Practices is amultiple site organization consisting of ambulatory clinics and hospital sitesin [place], [place], [place] and [place]. This disclosure is being madepursuant to the Care Everywhere program and may not contain all information available regarding this patient. Last updated 18.[facility] Social History Tobacco Use Types Packs/Day Years Used Date Smoking Tobacco: Never Assessed Sex and Gender Information Value Date Recorded Sex Assigned at Not on file Legal Sex Male 6:19 AM SYSTEM OPERATION SUPERINTENDENT Gender Identity Not on file Sexual Orientation Not on file Last Filed Vital Signs Vital Sign Reading Time Taken Comments Blood Pressure 123/90 04/02/2017 12:49 PM SYSTEM OPERATION SUPERINTENDENT Pulse 90 04/02/2017 12:49 PM SYSTEM OPERATION SUPERINTENDENT Temperature - - Respiratory Rate - - Oxygen Saturation 97% 04/02/2017 12:49 PM SYSTEM OPERATION SUPERINTENDENT Inhaled Oxygen Concentration - - Weight 94.8 kg (209 lb) 04/02/2017 7:53 AM SYSTEM OPERATION SUPERINTENDENT Height 175.3 cm (5' 9) 04/02/2017 7:53 AM SYSTEM OPERATION SUPERINTENDENT Body Mass Index 30.86 04/02/2017 7:53 AM SYSTEM OPERATION SUPERINTENDENT Plan of Treatment Health Maintenance Due Date [...] this topic Insurance MEDICARE MEDICARE Care Teams Tube Handler Relationship Specialty Start Date End Date Sanjiv Tabares MD PCP - General 06/23/21
--- OUTSIDE RECORDS SUMMARY | 2025-02-16 11:42 | XMS_ITS | Encounter Summary ---
Author Organization [facility] Address [address] [place] [address] Phone Care Team Providers Care Washery Engineer Name Role Phone Sanjiv Tabares MD Primary Care Provider Ulysses Parham MD Unavailable Ginna Cavanaugh APRN, CNP Unavailable [phone] Reason for Visit * Reason Comments Medication Refill Encounter Details Date Type Department Care Team (Late st Contact Info) Description 02/16/2021 Refill [facility] - Pulmonology & Sleep Medicine [facility] [address] [place] [address] Ulysses Parham MD [address] [place] [address] Medication Refill Social History Tobacco Use Types Packs/Day Years Used Date Smoking Tobacco: Former Smokeless Tobacco: Never Alcohol Use Standard Drinks/Week Comments Yes 0 (1 standard drink = 0.6 oz pur e alcohol) occasional Sexually Active Control Partners Comments Not Currently Sex and Gender Information Value Date Recorded Sex Assigned at Not on file Legal Sex Male 2:19 PM PROJECT MGR Gender Identity Not on file Sexual Orientation [...] Ulysses Parham MD [facility] [place] [facility] 10/20/20 Office Visit Ulysses Parham MD [facility] 07/18/20 Telemedicine Ulysses Parham MD [facility] [place] 04/18/20 Telemedicine Ulysses Parham MD [facility] [place] Showing recent visits within past 365 days and meeting all other requirements Future Appointments Date Type Provider Dept 04/18/21 Appointment Ulysses Parham MD [facility] Showing future appointments within next 90 days [...] Parham MD [facility] [place] [facility] 10/20/20 Office Visit Ulysses Parham MD [facility] [place] [facility] 07/18/20 Telemedicine Ulysses Parham MD [facility] [place] 04/18/20 Telemedicine [facility] [place] Showing recent visits within past 365 days and meeting all other requirements Future Appointments Date Type Provider Dept 04/18/21 Appointment [facility]es [email or web address] Showing future appointments within next 90 days and meeting all other requirements Passed - Active short-acting beta agonist prescription documented in this encounter Plan of Treatment Upcoming Encounters Date Type Department Care Team (Late st Contact Info) Description 06/01/2025 11:00 AM PROJECT MGR [facility] - [facility] & [facility] - [place] [address] [facility] [address] Ginna Cavanaugh APRN, FARM MACHINERY SET UP MECHANIC #2 [facility] [address] [place] [address] documented as of this encounter Visit Diagnoses Not on filedocumented in this encounter Care Teams Washery Engineer Relationship Specialty Start Date End Date Sanjiv Tabares MD PCP - General Internal Medicine 04/10/16 Ulysses Parham MD [address] [place] [address] Consulting Physician Pulmonary Disease 04/10/16 Ginna Cavanaugh APRN, ZULEMA [address] [facility] [address] [place] [address] Nurse Practitioner Advanced Practice Nurse 03/12/22 documented as of this encounter
--- OUTSIDE RECORDS SUMMARY | 2025-02-16 11:42 | XMS_ITS | Encounter Summary ---
Author Organization [facility] Address [facility] [place] [address] Care Team Providers Care Door Opener Name Role Phone Sanjiv Tabares MD Primary Care Provider Encounter Details Date Type Department Care Team (Late st Contact Info) Description 08/16/2022 Lab Requisition [facility] DermPath Lab [address] [place] [address] Alex Caicedo MD [address] [place] [address] Social History Tobacco Use Types Packs/Day Years Used Date Smoking Tobacco: Never Assessed Sex and Gender Information Value Date Recorded Sex Assigned at Not on file Legal Sex Male 6:19 AM DANCE HISTORIAN Gender Identity Not on file Sexual Orientation Not on file documented as of this encounter Plan of Treatment Not on file documented as of this encounter Procedures Procedure Name Priority Date/Time Associated Diagnosis Comments DERMATOPATHOLOGY Routine 08/15/2022 12:0 0 AM CDT documented in this encounter Results * DERMATOPATHOLOGY (08/15/2022 12:00 AM CDT) Case Report Dermatopathology Report Case: [id number] Authorizing Provider: Alex Caicedo MD Collected: 08/15/2022 12:00 AM Ordering Location: [facility] DermPath Lab Received: 08/16/2022 12:53 PM [...] specimen consists of a shave biopsy measuring 09i7j7cg and another piece of tissue measuring 4u4w1qa. Jar 0. Specimen B: Received is one formalin filled container labeled with the patient's name and designated left cheek. The specimen consists of a shave biopsy measuring 3u9i7dh. Jar 0. 11:29 AM [facility] DERMATOPATHOLOGY LABORATORY Microscopic Description Specimen A. SKIN, [...] characteristic determined by the Dermatopathology Laboratory at [facility], directed by Dr. Rose Barahona. These tests need not be, and therefore are not, approved by the [place] Food and Drug Administration. The tests are used for clinical purposes. Billing Codes Specimen Charges Stain Charges 67023 92976 1 1 3 11:29 AM CDT DERMATOPATHOLOGY LABORATORY Embedded Images 11:29 AM T DERMATOPATHOLOGY LABORATORY Pathology/Cytology TISSUE SPECIMEN FROM SKIN / Unknown 08/15/2022 08/16/2022 12:53 PM CDT Miscellaneous samples (specimen) TISSUE SPECIMEN FROM SKIN / Unknown 08/15/2022 08/16/2022 12:53 PM CDT Alex Caicedo MD LAB - PATHOLOGY/CYTOLOGY ORD ERABLES Final Result DERMATOPATHOLOGY LABORATORY [facility] - Department of Dermatology [facility] [address] [place] [address], [address] [phone] documented in this encounter Visit Diagnoses Not on filedocumented in this encounter Care Teams Door Opener Relationship Specialty Start Date End Date Sanjiv Tabares MD PCP - General 06/23/21 documented as of this encounter
--- OUTSIDE RECORDS SUMMARY | 2025-02-16 11:42 | XMS_ITS | Clinical Summary ---
Author Organization [facility] Address [address] [place] [address] Care Team Providers Care Veneer Gluer Name Role Phone Sanjiv Tabares MD Primary Care Provider [phone] Allergies Active Allergy Reactions Criticality Noted Date Comments Sulfasalazine Rash Low 02/01/2025 Medications pravastatin (PRAVACHOL) 20 MG tablet Take 1 tablet (20 mg total) by mouth nightly at bedtime. Active montelukast (SINGULAIR) 10 MG tablet Take 1 tablet (10 mg total) by mouth nightly at bedtime. Active budesonide-gly copyrrolate-fo rmoterol (BREZTRI) 160-9-4.8 MCG/ACT inhaler Inhale 2 puffs into the lungs 2 (two) times daily. Active aspirin 81 MG chewable tablet Chew 1 tablet (81 mg total) by mouth daily. Ok to resume tomorrow 30 tablet 5 Active clopidogrel (PLAVIX) 75 MG tablet Take 1 tablet (75 mg total) by mouth daily for 30 days. Resume in 1 week 30 tablet 5 025 Active furosemide (LASIX) 20 MG tablet Take 1 tablet (20 mg total) by mouth daily for 30 days. 30 tablet 5 025 Active potassium chloride CR (K-TAB) 20 MEQ tablet Take 1 tablet (20 mEq total) by mouth daily for 30 days. 30 tablet 5 025 Active potassium chloride CR (K-TAB) 20 MEQ tablet Take 2 tablets (40 mEq total) by mouth once for 1 dose. Pls take 2 pills tonight after dinner 2 tablet 5 Active pantoprazole EC (PROTONIX) 40 MG tablet Take 1 tablet (40 mg total) by mouth daily for 30 days. 30 tablet 5 Active polyethylene glycol (GLYCOLAX) packet Take 240 mLs (17 g total) by mouth daily for 30 days. Dissolve powder in 240 mL water 30 packet 5 Active Senna (SENOKOT) 8.6 MG tablet Take 1 tablet (8.6 mg total) by mouth 2 (two) times a day. 180 tablet Active clopidogrel (PLAVIX) 75 MG tablet Take 1 tablet (75 mg total) by mouth daily. Discontinued aspirin 81 MG chewable tablet Chew 1 tablet (81 mg total) by mouth daily. Discontinued Active Problems Problem Noted Date Diagnosed Date Lower GI bleed 01/26/2025 Lower GI bleeding 01/26/2025 Hematochezia not due to hemorrhage from anus Encounters Date Type Department Care Team Description 02/01/2025 2:36 PM CDT Anesthesia Event [facility] Endo/GI [address] [place] [address] Sanjiv Mejias MD Yu, Allison N, MD 02/01/2025 2:05 PM CDT - 02/01/2025 2:[address] [facility] Endo/GI [address] [place] [address] Yayo Funez MD COLONOSCOPY WITH REMOVAL TUMOR/POLYP/LESION SNARE TECH 02/01/2025 Travel 01/26/2025 3:17 PM CDT - 02/02/2025 2:51 PM CDT Hospital Encounter [facility] [address] [place] [address] Luciano Chávez MD Jabeen, Sayeeda A, MD Wali, Neehal, MD Boshnaf, Mohamed, MD Discharge Disposition: Home or Self Care (Routine Discharge) 01/26/2025 Travel from Last 3 Months Family History Medical History Relation Comments Bone cancer Father Esophageal cancer Sister Relation Status Comments Father Other Sister Social History Tobacco Use Types Packs/Day Years Used Date Smoking Tobacco: Former Cigarettes Tobacco Cessation:Counseling Given: Not Answered Alcohol Use Standard Drinks/Week Comments Yes 0 (1 standard drink = 0.6 oz pur e alcohol) once a week [facility] Utilities Answer Date Recorded In the past 12 months has th e electric, gas, oil, or water company threatened to shut off services in your home? No 01/26/2025 Humiliation, Afraid, Rape, and Kick questionnair e Answer Date Recorded Within the last year, have y ou been afraid of your partner or ex-partner? No 01/26/2025 Within the last year, have y ou been humiliated or emotionally abused in other ways by your partner or ex-partner? No Within the last year, have y ou been kicked, hit, slapped, or otherwise physically hurt by your partner or ex-partner? No 01/26/2025 Within the last year, have y ou been raped or forced to have any kind of sexual activity by your partner or ex-partner? No 01/26/2025 Overall Financial Resource Strain (CARDIA) Answe r Date Recorded How hard is it for you to pa y for the very basics like food, housing, medical care, and heating? Not very hard 01/26/2025 Hunger Vital Sign Answer Date Recorded Within the past 12 months, y ou worried that your food would run out before you got the money to buy more. Never true 01/27/20 25 Within the past 12 months, t he food you bought just didn't last and you didn't have money to get more. Never true 01/26/2025 PRAPARE - Transportation Answer Date Re corded In the past 12 months, has l ack of transportation kept you from medical appointments or from getting medications? No 12/30 In the past 12 months, has l ack of transportation kept you from meetings, work, or from getting things needed for daily living? No 01/26/2025 Housing Stability Vital Sign Answer Praveen e Recorded In the last 12 months, was t here a time when you were not able to pay the mortgage or rent on time? No 01/26/2025 In the past 12 months, how m any times have you moved where you were living? 0 01/26/2025 At any time in the past 12 m [facility], were you homeless or living in a penitentiary (including now)? No 01/26/2025 Sex and Gender Information Value Date Recorded Sex Assigned at Male 01/26/2025 9:39 PM CDT Legal Sex Male 8:04 AM CDT Gender Identity Male 01/26/2025 9:38 PM CDT Sexual Orientation Straight 01/26/2025 9: 38 PM CDT Last Filed Vital Signs Vital Sign Reading Time Taken Comments Blood Pressure 117/80 02/02/2025 7:36 AM CDT Pulse 99 02/02/2025 7:36 AM CDT Temperature 37.1 C (98.8 F) 02/02/2025 7:36 AM CDT Respiratory Rate 18 02/02/2025 7:36 AM CDT Oxygen Saturation 94% 02/02/2025 7:36 AM CDT Inhaled Oxygen Concentration - - Weight 120.7 kg (266 lb) 02/02/2025 3:44 AM CDT Height 175.3 cm (5' 9.02) 01/28/2025 8:44 AM CD T Body Mass Index 39.26 01/28/2025 8:44 AM CDT Plan of Treatment Health Maintenance Due Date Last Done Comments Annual Physical 12/09/1963 Hepatitis C 1978 Zoster Vaccines (1 of 2) 2010 COVID-19 Vaccine ( season) 2024 03/28/2022, 05/11/2021, 07/29/2020, Additional history exists Influenza Adult (#1) 2025 02/20/2024, 01/18/2023, 03/01/2022, Additional history exists DTaP, Tdap and Td Vaccines (2 - Td or Tdap) 01/20/2030 01/21/2020 Colorectal Cancer Screening Colonoscopy (10 Years) 02/01/2035 02/01/2025, 02/01/2025 RSV Immunization or 60+ Years (1 - 1-dose 75+ series) 12/09/2035 Pneumococcal Vaccine: 50+ Years Completed 01/18/2023 Hepatitis A Vaccines Aged Out No long er eligible based on patient's age to complete this topic Meningococcal B Vaccine Aged Out No l onger eligible based on patient's age to complete this topic Meningococcal Vaccine Aged Out No aaliyah evangelist eligible based on patient's age to complete this topic RSV Immunizations Under 20 Months Aged Out No longer eligible based on patient's age to complete this topic Goals Goal Patient Goal Type Associated Problems Recent Progress Patient-Stated? Author Safety - demonstrates understanding of home safety measures Lifestyle Kim Owens, RN Safety Patient/family will have appropriate support at home upon discharge Lifestyle Kim Owens, RN Medical Devices Implanted Type Area Baccarat Manager Device Identifier Shelf Expiration Date Model / Serial / Lot Capsule Pill Cam - [id number] Implanted:Qty: 1 on 02/01/2025 by Olga Upton RN at [facility] [employer] 03/30/2025 [id number] / [id number] / [id number] Procedures Procedure Name Priority Date/Time Associated Diagnosis Comments COMPREHENSIVE METABOLIC PANEL STAT 02/02/2025 1:41 PM CDT CBC W/DIFF AUTOMATED STAT 02/02/2025 11:50 AM CDT COMPREHENSIVE METABOLIC PANEL Routine 02/02/2025 1:33 AM CDT HEMOGLOBIN AND HEMATOCRIT TIMED 02/02/2025 1:33 AM CDT HEMOGLOBIN AND HEMATOCRIT TIMED 02/01/2025 6:03 PM CDT COLSC FLX W/RMVL OF TUMOR POLYP LESION SNARE TQ 02/01/2025 2:28 PM CDT Hematochezia not due to hemorrhage from anus COLONOSCOPY Routine 02/01/2025 1:24 PM CDT HEMOGLOBIN AND HEMATOCRIT TIMED 02/01/2025 8:40 AM CDT BASIC METABOLIC PANEL STAT 02/01/2025 8:39 AM CDT CBC W/DIFF AUTOMATED STAT 02/01/2025 8:39 AM CDT HEMOGLOBIN AND HEMATOCRIT TIMED 02/01/2025 12:54 AM CDT PATHOLOGY Routine 02/01/2025 12:00 AM CDT HEMOGLOBIN AND HEMATOCRIT TIMED 01/31/2025 4:47 PM CDT HEMOGLOBIN AND HEMATOCRIT TIMED 01/31/2025 8:51 AM CDT TRANSFUSE RED BLOOD CELLS Routine 01/31/2025 4:41 AM CDT TYPE & SCREEN STAT 01/31/2025 3:12 AM CDT CBC W/DIFF AUTOMATED Routine 01/31/2025 2:03 AM CDT BASIC METABOLIC PANEL Routine 01/31/2025 2:03 AM CDT USV VAST TEAM MIDLINE INSERT >5YR Today 01/30/2025 2:20 PM CDT HEMOGLOBIN AND HEMATOCRIT STAT 01/30/2025 12:04 PM CDT CBC W/DIFF AUTOMATED Routine 01/30/2025 3:00 AM CDT BASIC METABOLIC PANEL Routine 01/30/2025 3:00 AM CDT HEMOGLOBIN AND HEMATOCRIT Routine 01/29/2025 2:58 PM CDT TRANSFUSE RED BLOOD CELLS Routine 01/29/2025 9:28 AM CDT HEMOGLOBIN AND HEMATOCRIT Routine 01/29/2025 3:36 AM CDT HEMOGLOBIN AND HEMATOCRIT STAT 01/28/2025 3:37 PM CDT CTA ABD+PEL STAT 01/28/2025 11:11 AM CDT HEMOGLOBIN AND HEMATOCRIT Routine 01/28/2025 2:22 AM CDT HEMOGLOBIN AND HEMATOCRIT TIMED 01/27/2025 5:14 PM CDT HEMOGLOBIN AND HEMATOCRIT STAT 01/27/2025 11:40 AM CDT URINE BACTERIA CULTURE Nurse Collected Priority 01/27/2025 9:11 AM CDT HC URINALYSIS AUTO W/MICRO Nurse Collected Priority 01/27/2025 8:00 AM CDT BASIC METABOLIC PANEL Routine 01/27/2025 6:20 AM CDT CBC W/DIFF AUTOMATED Routine 01/27/2025 6:20 AM CDT HEMOGLOBIN AND HEMATOCRIT TIMED 01/26/2025 10:17 PM CDT PROCALCITONIN (PCT) STAT 01/26/2025 5 :40 PM CDT CULTURE, BACTERIA, BLOOD Routine 01/26/2025 5:39 PM CDT HC BLOOD TYPING ABO STAT 01/26/2025 5 :38 PM CDT TROPONIN, QUANT STAT 01/26/2025 4:57 PM CDT LACTIC ACID STAT 01/26/2025 4:57 PM CDT HEMOGLOBIN, GLYCOSYLATED STAT 01/26/2025 4:57 PM CDT MAGNESIUM STAT 01/26/2025 4:57 PM CDT COMPREHENSIVE METABOLIC PANEL STAT 01/26/2025 4:57 PM CDT PROTHROMBIN TIME, VENOUS STAT 01/26/2025 4:57 PM CDT CBC W/DIFF AUTOMATED STAT 01/26/2025 4:57 PM CDT XR CHEST PORTABLE STAT 01/26/2025 4:4 7 PM CDT CULTURE, BACTERIA, BLOOD Routine 01/26/2025 4:36 PM CDT TYPE & SCREEN STAT 01/26/2025 4:36 PM CDT POCT GLUCOSE - DOCKED DEVICE Routine 01/26/2025 4:24 PM CDT ECG 12-LEAD Routine 01/26/2025 3:58 PM CDT from Last 3 Months Results * (ABNORMAL) COMPREHENSIVE METABOLIC PANEL (02/02/2025 1:41 PM CDT) Only the most recent of3 resultswithin the time period is included. SODIUM S/P/B 141 136 - 145 MMOL/L 02/02/2025 2:41 PM CDT [facility] POTASSIUM S/P/B 4.3 3.5 - 5.1 MMOL/L 02/02/2025 2:41 PM CDT [facility] Comment:MILD HEMOLYSIS, RESU LT MAY BE AFFECTED. CHLORIDE S/P/B 110 97 - 115 MMOL/L 02/02/2025 2:41 PM CDT [facility] CO2 21.3 21.0 - 32.0 MMOL/L 02/02/2025 2:41 PM CDT [facility] GLUCOSE 97 74 - 106 MG/DL 02/02/2025 2:41 PM CDT [facility] BUN 8 7 - 18 MG/DL 02/02/2025 2:41 PM CDT [facility] CREATININE S/P/B 0.85 0.70 - 1.30 MG/DL 02/02/2025 2:41 PM CDT [facility] CALCIUM S/P/B 8.7 8.5 - 10.1 MG/DL 02/02/2025 2:41 PM CDT [facility] BILIRUBIN TOTAL S/P/B 0.5 0.2 - 1.0 MG/DL 02/02/2025 2:41 PM CDT [facility] ALKALINE PHOSPHATASE S/P/B 55 45 - 115 U/L 02/02/2025 2:41 PM CDT [facility] AST 26 15 - 37 U/L 02/02/2025 2:41 PM CDT [facility] Comment:RESULT QUESTIONABLE DUE TO HEMOLYSIS, CONSIDER RECOLLECTION. ALT 17 16 - 61 U/L 02/02/2025 2:41 PM CDT [facility] TOTAL PROTEIN S/P/B 6.3(L) 6.4 - 8.2 G/DL 02/02/2025 2:41 PM CDT [facility] ALBUMIN S/P/B 3.0(L) 3.4 - 5.0 G/DL 02/02/2025 2:41 PM CDT [facility] ANION GAP 9.7 2.0 - 10.0 MMOL/L 02/02/2025 2:41 PM CDT [facility] OSMOLALITY (CALC) 290 MOSM/KG 025 2:41 PM T [facility] Comment:REFERENCE RANGE NOT ESTABLISHED GFR ESTIMATE >90 >90 ML/MIN/1. 73 M2 02/02/2025 2:41 PM CDT [facility] GFR NOTES GFR REFERENCE S: 02/02/2025 2:41 PM T [facility] Comment: THE ESTIMATED GFR IS CALCULATED USING THE 2020 CKD-EPI EQUATION. THE FOLLOWING CATEGORIES FOR GRADING RENAL FUNCTION ARE RECOMMENDED BY THE INTERNATIONAL SOCIETY OF NEPHROLOGY (KDIGO 2012 CLINICAL PRACTICE GUIDELINE). G1,NORMAL OR HIGH: >89 ml/min/1.73 m2 G2,MILDLY DECREASED: 60-89 ml/min/1.73 m2 G3A,MILDLY TO MODERATELY DECREASED: 45-59 ml/min/1.73 m2 G3B,MODERATELY TO SEVERELY DECREASED: 30-44 ml/min/1.73 m2 G4,SEVERELY DECREASED: 15-29 ml/min/1.73 m2 G5,KIDNEY FAILURE: <15 ml/min/1.73 m2 02/02/2025 1:41 PM CDT us Og Mendez MD LABORATORY Final Result [facility] [address] [place] [address], [id number] * (ABNORMAL) CBC W/DIFF AUTOMATED (02/02/2025 11:50 AM CDT) Only the most recent of6 resultswithin the time period is included. WBC 11.39(H) 4.00 - 10.80 x10'3/uL 02/02/2025 12:21 PM CDT [facility] RBC 2.98(L) 4.50 - 6.10 x10'6/uL 02/02/2025 12:21 PM CDT [facility] HGB 8.9(L) 13.0 - 18.0 G/DL 02/02/2025 12:21 PM CDT [facility] HCT 27.6(L) 37.0 - 52.0 % 02/02/2025 12:21 PM CDT [facility] MCV 92.6 78.0 - 100.0 FL 02/02/2025 12:21 PM CDT [facility] MCH 29.9 27.0 - 31.0 PG 02/02/2025 12:21 PM CDT [facility] MCHC 32.2(L) 33.0 - 36.0 G/DL 02/02/2025 12:21 PM CDT [facility] RDW 15.3(H) 11.5 - 14.5 % 02/02/2025 12:21 PM CDT [facility] PLT 359(H) 150 - 350 x10'3/uL 02/02/2025 12:21 PM CDT [facility] MPV 9.6 7.4 - 10.4 FL 02/02/2025 12:21 PM CDT [facility] DIFFERENTIAL TYPE AUTOMATED DIFFERENTIAL 02/02/2025 12:21 PM CDT [facility] SEG NEUTROPHILS 78.8 % 12:21 PM CDT [facility] LYMPHOCYTES 11.9 % 02/02/2025 12:21 PM CDT [facility] MONOCYTES 6.1 % 02/02/2025 12:21 PM CDT [facility] EOSINOPHILS 0.7 % 02/02/2025 12:21 PM CDT [facility] BASOPHILS 0.4 % 02/02/2025 12:21 PM CDT [facility] IMMATURE GRANS % 1.9 % 02/03/20 12:21 PM CDT [facility] ABS. NEUTROPHILS 9.00(H) 1.60 - 8.30 x10'3/uL 02/02/2025 12:21 PM CDT [facility] ABS. LYMPHOCYTES 1.36 0.80 - 4.70 x10'3/uL 02/02/2025 12:21 PM CDT [facility] ABS. MONOCYTES 0.69 0.00 - 1.50 x10'3/uL 02/02/2025 12:21 PM CDT [facility] ABS. EOSINOPHILS 0.08 0.00 - 0.40 x10'3/uL 02/02/2025 12:21 PM CDT [facility] ABS. BASOPHILS 0.04 0.00 - 0.20 x10'3/uL 02/02/2025 12:21 PM CDT [facility] ABS. IMMATURE GRANULOCYTES 0.22(H) 0.00 - 0.03 x10'3/uL 02/02/2025 12:21 PM CDT [facility] ABS. NUCLEATED RBC'S 0.02(H) 0.00 - 0.01 x10'3/uL 02/02/2025 12:21 PM CDT [facility] NRBC % 0.2 % 02/02/2025 12:21 PM CDT [facility] 02/02/2025 11:5 0 AM CDT Yayo Funez MD LABORATORY Final Resu lt Performing Organization Address [facility] de Phone Number [facility] [address] [place] [address], [phone] * (ABNORMAL) HEMOGLOBIN AND HEMATOCRIT (02/02/2025 1:33 AM CDT) Only the most recent of14 resultswithin the time period is included. HGB 8.0(L) 13.0 - 18.0 G/DL 02/02/2025 1:47 AM CDT [facility] HCT 23.9(L) 37.0 - 52.0 % 02/02/2025 1:47 AM CDT [facility] 02/02/2025 1:33 AM CDT Lou Evans MD LABORATORY Final Result Performing Organization Address [facility] de Phone Number [facility] [address] [place] [address], [phone] * Colonoscopy (02/01/2025 1:24 PM CDT) Albertina Patterson NP GI PROCEDURE ORDERABLES F inal Result * (ABNORMAL) BASIC METABOLIC PANEL (02/01/2025 8:39 AM CDT) Only the most recent of4 resultswithin the time period is included. SODIUM S/P/B 140 136 - 145 MMOL/L 02/01/2025 9:39 AM CDT [facility] POTASSIUM S/P/B 2.7(LL) 3.5 - 5.1 MMOL/L 02/01/2025 9:39 AM CDT [facility] Comment: Critical Result(s) Called to and read back by:MARLON [id number] at: 09:38:34 02/01/2025 by SINDHU. CHLORIDE S/P/B 104 97 - 115 MMOL/L 02/01/2025 9:39 AM T [facility] CO2 28.7 21.0 - 32.0 MMOL/L 02/01/2025 9:39 AM [facility] GLUCOSE 103 74 - 106 MG/DL 02/01/2025 9:39 AM T [facility] BUN 6(L) 7 - 18 MG/DL 02/01/2025 9:39 AM [facility] CREATININE S/P/B 0.92 0.70 - 1.30 MG/DL 02/01/2025 9:39 AM [facility] CALCIUM S/P/B 8.3(L) 8.5 - 10.1 MG/DL 02/01/2025 9:39 AM [facility] ANION GAP 7.3 2.0 - 10.0 MMOL/L 02/01/2025 9:39 AM [facility] OSMOLALITY (CALC) 288 MOSM/KG 025 9:39 AM [facility] Comment:REFERENCE RANGE NOT ESTABLISHED GFR ESTIMATE >90 >90 ML/MIN/1. 73 M2 02/01/2025 9:39 AM [facility] GFR NOTES GFR REFERENCE S: 02/01/2025 9:39 AM [facility] Comment: THE ESTIMATED GFR IS CALCULATED USING THE 2020 CKD-EPI EQUATION. THE FOLLOWING CATEGORIES FOR GRADING RENAL FUNCTION ARE RECOMMENDED BY THE INTERNATIONAL SOCIETY OF NEPHROLOGY (KDIGO 2012 CLINICAL PRACTICE GUIDELINE). G1,NORMAL OR HIGH: >89 ml/min/1.73 m2 G2,MILDLY DECREASED: 60-89 ml/min/1.73 m2 G3A,MILDLY TO MODERATELY DECREASED: 45-59 ml/min/1.73 m2 G3B,MODERATELY TO SEVERELY DECREASED: 30-44 ml/min/1.73 m2 G4,SEVERELY DECREASED: 15-29 ml/min/1.73 m2 G5,KIDNEY FAILURE: <15 ml/min/1.73 m2 02/01/2025 8:39 AM CDT Pablo Hancock MD LABORATORY Final Result Performing Organization Address [facility] Co de Phone Number [facility] [address] [place] [address], [phone] * Pathology (02/01/2025 12:00 AM CDT) PATHOLOGY [facility] Department of Laboratory Medicine [address] [place] [address] , extension [phone] Pathology Report Surgical Pathology Report Name: FARHAD BECKWITH Specimen #: [id number] Age: 8 1960 (Age: 64) Location: [facility] Sex: M Procedure Date: 02/01/2025 Hospital #: [id number] Date Received: 02/02/2025 Date Reported: 02/03/2025 Provider: YAYO FUNEZ MD Source: Colon, sigmoid, polyp at 30cm Clinical History: Hematochezia. FINAL DIAGNOSIS: Colon, sigmoid polyp at 30 cm, biopsy: - Tubular adenoma. Gross Description: Received in formalin, labeled with a patient label and as sigmoid colon polyp at 30 cm is a 0.7 x 0.5 x 0.3 cm gant polyp. The base is not identified. The polyp is bisected. The specimen is entirely submitted in cassette 1. Gross examination (when applicable) was performed at [facility], [address] [place] [address]. This case was interpreted and signed out at [facility], [address] [place] [address]. Electronically Signed Out Kellie Clifton M.D. [facility] TISSUE COLON STRUCTURE / Unknown 02/01/2025 2:58 PM CDT Yayo Funez MD PATHOLOGY/CYTOLOGY ORDERAB LES Final Result Performing Organization Address [facility]/ZIP Co de Phone Number [facility] [address] [place] [address], [phone] * TRANSFUSE RED BLOOD CELLS (01/31/2025 7:32 PM CDT) Only the most recent of2 resultswithin the time period is included. us Дмитрий Browne MD NURSING TREATMENT ORDERABLES - BLOOD ADMIN Final Result * TYPE & SCREEN (01/31/2025 3:12 AM CDT) Only the most recent of2 resultswithin the time period is included. UNITS ORDERED 1 01/31/2025 3:17 AM CDT [facility] ABO/RH A POSITIVE 01/31/2025 4:01 AM CDT [facility] ANTIBODY SCREEN NEGATIVE 4:01 AM CDT [facility] SAMPLE EXPIRATION 02/03/2025,2359 01/31/2025 3:17 AM CDT [facility] BLOOD UNIT NUMBER [id number] 01/31/2025 4:15 AM CDT [facility] PRODUCT: PC LEUKOPOOR 01/31/2025 4:15 AM CDT [facility] UNIT DIVISION 00 01/31/2025 4:15 AM CDT [facility] BLOOD UNIT STATUS TRANSFUSED,FINAL 02/01/2025 1:13 AM CDT [facility] ISSUE DATE/TIME [id number] 025 1:13 AM CDT [facility] PRODUCT CODE [id number] 02/01/2025 1:13 AM CDT [facility] ABO/RH Unit A POS 02/01/2025 1:13 AM CDT [facility] ABO/RH UNIT ISBT CODE 6200 02/01/2025 1:13 AM CDT [facility] BLOOD UNIT EXPIRATION DATE [id number] 02/01/2025 1:13 AM CDT [facility] TRANSFUSION STATUS OK TO TRANSFUSE 01/31/2025 4:15 AM CDT [facility] CROSSMATCH COMPATIBLE-EXM 01/31/2025 4:15 AM CDT [facility] 01/31/2025 3:12 AM CDT Дмитрий Browne MD BLOOD BANK TEST ORDERABLES Fin al Result [facility] [address] [place] [address], [place] [phone] [id number] * USV VAST TEAM MIDLINE INSERT >5YR (01/30/2025 2:20 PM CDT) Anatomical Region Laterality Modality NA Vascular Ultraso und 01/30/2025 1:43 PM CDT Narrative 01/30/2025 1:43 PM CDT This report does not contain a radiologist's interpretation. Please review associated procedure and/or operative report. Procedure Note Radha Merrill MD - 01/30/2025 This report does not contain a radiologist's interpretation. Please review associated procedure and/or operative report. Lou Evans MD VASC Final Result * CTA ABD+PEL (01/28/2025 11:11 AM CDT) Anatomical Region Laterality Modality Abdomen, Pelvis Computed Tomogra phy 01/28/2025 12:1 1 PM CDT Impressions 01/28/2025 12:19 PM CDT IMPRESSION: 1. No definite evidence of active bleeding along the visualized gastrointestinal tract. 2. Mild atherosclerosis. 3. Cholelithiasis. 4. Small bowel and colonic diverticulosis. 5. Please see above for additional chronic, incidental, and nonemergent findings elsewhere. Ordered By: LOU EVANS Interpreted By: Con Reza MD, 01/28/2025 12:11 PM Narrative 01/28/2025 12:[address] [address] EXAMINATION: CTA abdomen and pelvis with and without contrast CLINICAL HISTORY: Falling and hemoglobin levels. GI bleed. COMPARISON: Outside CTA 01/26/2025 TECHNIQUE: CTA was performed of the abdomen and pelvis before and after uneventful intravenous administration of 100mL IOPAMIDOL 76 % IV SOLN, according to GI bleed protocol. Unenhanced, arterial phase, and portal venous phase images were obtained. Axial, MPR, and 3-D/MIP images were obtained. A dose lowering technique was used for this procedure, which may include, but is not limited to, dose reduction technique, automated exposure control, the use of iterative reconstruction, and ALARA (As Low As Reasonably Achievable) / Image Gently techniques. FINDINGS: VASCULAR FINDINGS: No abnormal blush of enhancement on arterial phase images or abnormal intraluminal accumulation of contrast on delayed phase images to suggest definite evidence of active bleeding along the visualized gastrointestinal tract. Abdominal aorta: Scattered atherosclerotic calcifications noted along the abdominal aorta. No significant stenosis. No aneurysmal dilatation or dissection. Celiac axis: Mild atherosclerotic calcification at the origin. No significant stenosis. Superior mesenteric artery: Patent and without significant stenosis. Inferior mesenteric artery: Patent and without significant stenosis. Right renal artery: Single right renal artery. Mild atherosclerotic calcification, without significant stenosis. Left renal artery: 2 left renal arteries. No significant stenosis. Pelvic arteries: The common, internal, and external iliac arteries and proximal femoral arteries are patent and without significant stenosis. NONVASCULAR FINDINGS: Imaged portions of the lower chest reveal no acute findings. Bibasilar subsegmental and linear atelectasis. Multiple dependent gallstones noted near the base and neck of the gallbladder. No gallbladder wall thickening or pericholecystic fluid/inflammation. Hepatic steatosis. Spleen, pancreas, and adrenal glands are unremarkable. Kidneys are unremarkable. Benign left renal cyst; no follow-up recommended. No bulky mesenteric or retroperitoneal lymphadenopathy. Stomach and small bowel loops are nondilated. Scattered jejunal diverticula. Normal appendix. Colonic diverticulosis. No findings of bowel obstruction. No free fluid or free air in the abdomen. Fat-containing umbilical hernia. Sigmoid diverticulosis. Prostatomegaly. Bladder unremarkable. No pelvic ascites. No bulky pelvic or ureteral lymphadenopathy. Partially visualized intramedullary yousuf within the left femur. Degenerative changes noted in the spine. Procedure Note Con Reza MD - 01/28/2025 [facility] [address], [place] [address] EXAMINATION: CTA abdomen and pelvis with and without contrast CLINICAL HISTORY: Falling and hemoglobin levels. GI bleed. COMPARISON: Outside CTA 01/26/2025 TECHNIQUE: CTA was performed of the abdomen and pelvis before and afteruneventful intravenous administration of 100mL IOPAMIDOL 76 % IV SOLN,according to GI bleed protocol. Unenhanced, arterial phase, and portalvenous phase images were obtained. Axial, MPR, and 3-D/MIP images wereobtained. A dose lowering technique was used for this procedure, which may include,but is not limited to, dose reduction technique, automated exposurecontrol, the use of iterative reconstruction, and ALARA (As Low AsReasonably Achievable) / Image Gently techniques. FINDINGS: VASCULAR FINDINGS: No abnormal blush of enhancement on arterial phase images or abnormalintraluminal accumulation of contrast on delayed phase images to suggestdefinite evidence of active bleeding along the visualized gastrointestinaltract. Abdominal aorta: Scattered atherosclerotic calcifications noted along theabdominal aorta. No significant stenosis. No aneurysmal dilatation ordissection. Celiac axis: Mild atherosclerotic calcification at the origin. Nosignificant stenosis. Superior mesenteric artery: Patent and without significant stenosis. Inferior mesenteric artery: Patent and without significant stenosis. Right renal artery: Single right renal artery. Mild atheroscleroticcalcification, without significant stenosis. Left renal artery: 2 left renal arteries. No significant stenosis. Pelvic arteries: The common, internal, and external iliac arteries andproximal femoral arteries are patent and without significant stenosis. NONVASCULAR FINDINGS: Imaged portions of the lower chest reveal no acute findings. Bibasilarsubsegmental and linear atelectasis. Multiple dependent gallstones noted near the base and neck of thegallbladder. No gallbladder wall thickening or pericholecysticfluid/inflammation. Hepatic steatosis. Spleen, pancreas, and adrenalglands are unremarkable. Kidneys are unremarkable. Benign left renal cyst;no follow-up recommended. No bulky mesenteric or retroperitoneallymphadenopathy. Stomach and small bowel loops are nondilated. Scattered jejunaldiverticula. Normal appendix. Colonic diverticulosis. No findings of bowelobstruction. No free fluid or free air in the abdomen. Fat-containingumbilical hernia. Sigmoid diverticulosis. Prostatomegaly. Bladder unremarkable. No pelvicascites. No bulky pelvic or ureteral lymphadenopathy. Partially visualized intramedullary yousuf within the left femur.Degenerative changes noted in the spine. IMPRESSION: 1. No definite evidence of active bleeding along the visualizedgastrointestinal tract. 2. Mild atherosclerosis. 3. Cholelithiasis. 4. Small bowel and colonic diverticulosis. 5. Please see above for additional chronic, incidental, and nonemergentfindings elsewhere. Ordered By: LOU EVANS Interpreted By: Con Reza MD, 01/28/2025 12:11 PM Lou Evans MD CT Final Result * CULTURE URINE (01/27/2025 9:11 AM CDT) SPEC DESCRIPTION URINE CLEAN CATCH 01/27/2025 9:12 AM CDT [facility] SPECIAL REQUESTS NO SPECIAL REQUEST 01/27/2025 9:12 AM CDT [facility] CULTURE RESULT NO GROWTH (< OR = 1,000 CFU/ML) 01/28/2025 11:40 AM CDT [facility] URINE SPECIMEN OBTAINED BY CLEAN CATCH PROCEDURE / Unknown 01/27/2025 9:11 AM CDT 01/27/2025 9:14 AM CDT Susana Riojas ACN-BC MICROBIOLOGY - GENERAL ORDERABLES Final Result [facility] [address] [place] [address], [id number] * URINALYSIS (01/27/2025 8:00 AM CDT) COLOR (U) YELLOW 01/27/2025 9:25 AM CDT [facility] TRANSPARENCY CLEAR 01/27/2025 9:25 AM CDT [facility] SPECIFIC GRAVITY (U) 1.033 1.002 - 1.035 01/27/2025 9:25 AM CDT [facility] U PH 5.0 5 - 8 01/27/2025 9:25 AM CDT [facility] PROTEIN RANDOM (U) NEGATIVE NEGATIVE 01/27/2025 9:25 AM CDT [facility] GLUCOSE (U) NEGATIVE NEGATIVE MG/DL 01/27/2025 9:25 AM CDT [facility] KETONES MG/DL (U) NEGATIVE NEGATIVE 01/27/2025 9:25 AM CDT [facility] BILIRUBIN (U) NEGATIVE NEGATIVE 01/27/2025 9:25 AM CDT [facility] BLOOD (U) NEGATIVE NEGATIVE 01/27/2025 9:25 AM CDT [facility] NITRITES NEGATIVE NEGATIVE 01/27/2025 9:25 AM CDT [facility] UROBILINOGEN NORMAL 0 - 1 EU/DL 01/27/2025 9:25 AM CDT [facility] LEUKOCYTES (U) NEGATIVE NEGATIVE 01/27/2025 9:25 AM CDT [facility] RBC/HPF <1 0 - 3 /HPF 01/27/2025 9:25 AM CDT [facility] WBC/HPF 2 0 - 6 /HPF 01/27/2025 9:25 AM CDT [facility] BACTERIA (U) NONE /HPF 01/27/2025 9:25 AM CDT [facility] URINE SPECIMEN OBTAINED BY CLEAN CATCH PROCEDURE / Unknown 01/27/2025 8:00 AM CDT us Susana Riojas ACNP-BC URINE ORDERABLES Final Result [facility] [address] [place] [address], [id number] * PROCALCITONIN (PCT) (01/26/2025 5:40 PM CDT) [facility] PROCALCITONIN 0.06 0.00 - 0.49 NG/ML 01/27/2025 10:30 AM CDT [facility] 01/26/2025 5:40 PM CDT Susana Riojas [facility] Final R esult [facility] [address] [place] [address], [id number] * CULTURE, BACTERIA, BLOOD (01/26/2025 5:39 PM CDT) Only the most recent of2 resultswithin the time period is included. [facility] SPEC DESCRIPTION BLOOD 01/27/20 5:46 PM CDT [facility] SPECIAL REQUESTS BLOOD-AERO BIC BOTTLE ONLY 01/26/2025 5:46 PM CDT [facility] CULTURE RESULT NO GROWTH 5 DAYS 01/31/2025 5:53 PM CDT [facility] BLOOD SPECIMEN OBTAINED FOR BLOOD CULTURE / Unknown 01/26/2025 5:39 PM CDT 01/26/2025 5:40 PM CDT Susana Riojas [facility] MICROBIOLOGY - GENERAL ORDERABLES Final Result [facility] [address] [place] [address], [id number] * BLOOD TYPING, ABO AND RH (01/26/2025 5:38 PM CDT) [facility] ABO/RH A POSITIVE 01/26/2025 6:21 PM CDT [facility] 01/26/2025 5:38 PM CDT Og Mendez MD BLOOD BANK TEST ORDERABLES F inal Result Performing Organization Address [facility] Co de Phone Number [facility] [address] [place] [address], [place] [phone] * HEMOGLOBIN, GLYCATED (01/26/2025 4:57 PM CDT) HGB A1C 5.3 <5.7 % 01/26/2025 5:22 PM CDT [facility] ESTIMATED AVG GLUCOSE 105 74 - 114 MG/DL 01/26/2025 5:22 PM CDT [facility] 01/26/2025 4:57 PM CDT Susana Riojas [facility] Final R esult Performing Organization Address [facility] de Phone Number [facility] [address] [place] [address], [place] [phone] * PROTHROMBIN TIME, VENOUS (01/26/2025 4:57 PM CDT) PROTIME 12.4 9.4 - 12.5 SEC 01/26/2025 5:09 PM CDT [facility] INR 1.1 0.8 - 1.1 01/26/2025 5:09 PM CDT [facility] 01/26/2025 4:57 PM CDT Susana Riojas [facility] Final R esult Performing Organization Address [facility] de Phone Number [facility] [address] [place] [address], [place] [phone] * LACTIC ACID (01/26/2025 4:57 PM CDT) LACTIC ACID VENOUS 1.0 0.4 - 2.0 MMOL/L 01/26/2025 5:14 PM CDT [facility] 01/26/2025 4:57 PM CDT Susana Riojas [facility] Final R esult Performing Organization Address City/[facility]/ZIP Co de Phone Number [facility] [address] [place] [address], [place] [phone] * TROPONIN, QUANT (01/26/2025 4:57 PM CDT) [facility] TROPONIN I HIGH SENSITIVITY 4 0 - 78 ng/L 01/26/2025 5:35 PM CDT [facility] 01/26/2025 4:57 PM CDT Susana Riojas [facility] Final R esult Performing Organization Address [facility] Co de Phone Number [facility] [address] [place] [address], [place] [phone] * MAGNESIUM (01/26/2025 4:57 PM CDT) Pathologist [facility] MAGNESIUM 1.8 1.6 - 2.6 MG/DL 01/26/2025 5:35 PM CDT [facility] 01/26/2025 4:57 PM CDT [facility] Final R esult Performing Organization Address City/[facility] Co de Phone Number [facility] [address] [place] [address], [place] [phone] * XR CHEST PORTABLE (01/26/2025 4:47 PM CDT) Anatomical Region Laterality Modality Chest Radiographic Jenelle ging 01/26/2025 5:24 PM CDT Impressions 01/26/2025 5:25 PM CDT IMPRESSION: 1) No radiographic evidence of active disease the chest. Ordered By: SUSANA RIOJAS Interpreted By: Hiram Stafford MD, 01/26/2025 5:24 PM Narrative 01/26/2025 5:[address] [address] Examination: XR CHEST PORTABLE Exam time: 01/26/2025 4:46 PM Clinical history: Elevated lactic acid, GI bleed Comparison: None Technique: Upright AP chest Findings: Heart size within normal limits. Pulmonary vasculature unremarkable. No acute pulmonary parenchymal opacity. No pleural effusion. Procedure Note Hiram Stafford MD - 01/26/[address] [address] Examination: XR CHEST PORTABLE Exam time: 01/26/2025 4:46 PM Clinical history: Elevated lactic acid, GI bleed Comparison: None Technique: Upright AP chest Findings: Heart size within normal limits. Pulmonary vasculatureunremarkable. No acute pulmonary parenchymal opacity. No pleuraleffusion. IMPRESSION: 1) No radiographic evidence of active disease the chest. Ordered By: SUSANA RIOJAS Interpreted By: Hiram Stafford MD, 01/26/2025 5:24 PM Susana Riojas ACNP-BC GENERAL IMAGING Final R esult * POCT glucose (01/26/2025 4:24 PM CDT) GLUCOSE POC 91 70 - 109 01/26/2025 4:35 PM CDT [facility] Comment:RN Notified 01/26/2025 4:24 PM CDT us Og Mendez MD POCT ORDERABLES - DEVICE Fin al Result [facility] [address] [place] [address], [id number] * ECG 12 lead (01/26/2025 3:58 PM CDT) 01/26/2025 3:58 PM CDT Narrative [facility] RAD - 01/27/2025 5:50 AM CDT [facility] [address] [place] [address] Test Date: 2025-01-26 Pat Name: FARHAD BECKWITH Department: 1 Room: [facility] Gender: M Coding Director: Carlos SHIPMANB: 1960 Requested By: SUSANA RIOJAS Order Number: [id number] Reading MD: Brandan Dominguez Measurements Intervals Ackley Rate: 74 P: 49 MD: 173 QRS: -4 QRSD: 98 T: 17 QT: 377 QTc: 419 Interpretive Statements SINUS RHYTHM INFERIOR MYOCARDIAL INFARCTION , PROBABLY OLD WITH POSTERIOR EXTENSION Procedure Note Brandan Dominguez MD - 01/27/2025 [place] [address] Test Date: 2025-01-26 Pat Name: FARHAD BECKWITH Department: 1 Room: 72A Gender: M Coding Director: Carlos : 1960 Requested By: SUSANA RIOJAS Order Number: [id number] Reading : Brandan Dominguez Measurements Intervals Ackley Rate: 74 P: 49 MD: 173 QRS: -4 QRSD: 98 T: 17 QT: 377 QTc: 419 Interpretive Statements SINUS RHYTHM INFERIOR MYOCARDIAL INFARCTION , PROBABLY OLD WITH POSTERIOR EXTENSION us Susana Riojas [facility]- ECG ORDERABLES Final R esult [facility] from Last 3 Months Insurance MEDICARE [facility] [employer] Advance Directives * Full Code (Latest Code Status on File) Date Activated Date Inactivated Comments 01/26/2025 3:46 PM 02/02/2025 4:56 PM Care Teams Veneer Gluer Relationship Specialty Start Date End Date Sanjiv Tabares MD PCP - General INTERNAL MEDICINE 12/03/22
--- OUTSIDE RECORDS SUMMARY | 2025-02-16 11:42 | XMS_ITS | Patient Health Record ---
Author Organization [facility] Address [address] [place], [place] [id number] Care Team Providers Care Environmental Science Professor Name Role Phone Sanjiv Tabares Unavailable Unavailable [...] Start Date Coverage End Date Medicare Part [facility] [address] [place] [address] [id number] Wayne Beckwith Self - patient is the insured [facility] [employer] Insurance [address] [place], [place] [id number] Wayne Beckwith Self - patient is the insured 4 Medical (General) History Medical History History ICD Code stroke Arthritis skin cancer abnormal bleeding Respiratory disease Surgical History Surgery Date(Month/Year) Hernia
--- OUTSIDE RECORDS SUMMARY | 2025-02-16 12:58 | XMS_ITS | Encounter Summary ---
Author Organization [facility] Address [address] [place] [address] Phone Care Team Providers Care Director Of Informatics Name Role Phone Sanjiv Tabares MD Primary Care Provider [phone] Ulysses Parham MD Unavailable Ginna Cavanaugh APRN, CNP Unavailable [phone] Reason for Visit * Reason Comments Medication Refill Encounter Details Date Type Department Care Team (Late st Contact Info) Description 02/16/2021 Refill [facility] - Pulmonology & Sleep Medicine [facility] [address] [place] [address] Ulysses Parham MD [address] [place] [address] Medication Refill Social History Tobacco Use Types Packs/Day Years Used Date Smoking Tobacco: Former Smokeless Tobacco: Never Alcohol Use Standard Drinks/Week Comments Yes 0 (1 standard drink = 0.6 oz pur e alcohol) occasional Sexually Active Control Partners Comments Not Currently Sex and Gender Information Value Date Recorded Sex Assigned at Not on file Legal Sex Male 2:19 PM OPTHALMIC TECH Gender Identity Not on file Sexual Orientation [...] Ulysses Parham MD [facility] [place] 10/20/20 Office Visit Ulysses Parham MD [facility] 07/18/20 Telemedicine Ulysses Parham MD [facility] [place] 04/18/20 Telemedicine Ulysses Parham MD [facility] [place] [facility] Showing recent visits within past 365 days and meeting all other requirements Future Appointments Date Type Provider Dept 04/18/21 Appointment Ulysses Parham MD [facility] Showing future appointments within next 90 days [...] Parham MD [facility] [place] [facility] 10/20/20 Office Visit Ulysses Parham MD [facility] [place] [facility] 07/18/20 Telemedicine Ulysses Parham MD [facility] [place] 04/18/20 Telemedicine Ulysses Parham MD [facility] [place] Showing recent visits within past 365 days and meeting all other requirements Future Appointments Date Type Provider Dept 04/18/21 Appointment [facility]es Parham [facility] Showing future appointments within next 90 days and meeting all other requirements Passed - Active short-acting beta agonist prescription documented in this encounter Plan of Treatment Upcoming Encounters Date Type Department Care Team (Late st Contact Info) Description 06/01/2025 11:00 AM OPTHALMIC TECH Office Visit [facility] - [facility]monology & [facility] Medicine - [place] [facility] [address] [place] [address] Ginna Cavanaugh APRN, FARM EQUIPMENT MECHANIC APPRENTICE [address] [facility] [address] [place] [address] documented as of this encounter Visit Diagnoses Not on filedocumented in this encounter Care Teams Director Of Informatics Relationship Specialty Start Date End Date Sanjiv Tabares MD PCP - General Internal Medicine 04/10/16 Ulysses Parham MD [address] [facility] [place] [address] Consulting Physician Pulmonary Disease 04/10/16 Ginna Cavanaugh APRN, ZULEMA [address] [facility] [address] [place] [address] Nurse Practitioner Advanced Practice Nurse 03/12/22 documented as of this encounter
--- OUTSIDE RECORDS SUMMARY | 2025-02-16 12:59 | XMS_ITS | Encounter Summary ---
Author Organization [facility] Address [facility] [facility] [place] [address] Care Team Providers Care Burn Out Scarfing Operator Name Role Phone Sanjiv Tabares MD Primary Care Provider Encounter Details Date Type Department Care Team (Late st Contact Info) Description 08/02/2021 Lab Requisition [facility] [address] [place] [address] Alex Caicedo MD [address] [place] [address] Social History Tobacco Use Types Packs/Day Years Used Date Smoking Tobacco: Never Assessed Sex and Gender Information Value Date Recorded Sex Assigned at Not on file Legal Sex Male 6:19 AM [employer]CTIONS [employer] Gender Identity Not on file Sexual Orientation Not on file documented as of this encounter Plan of Treatment Not on file documented as of this encounter Procedures Procedure Name Priority Date/Time Associated Diagnosis Comments DERMATOPATHOLOGY Routine 08/01/2021 12:0 0 AM CDT documented in this encounter Results * DERMATOPATHOLOGY (08/01/2021 12:00 AM CDT) Case Report Dermatopathology Report Case: [id number] Authorizing Provider: Alex Caicedo MD Collected: 08/01/2021 12:00 AM Ordering Location: [facility] Lab Received: 08/02/2021 12:39 PM Pathologist: Kelley Barahona MD Specimen: Skin, left lateral mid upper arm 2:58 PM CDT DERMATOPATHOLOGY LABORATORY Final Diagnosis Specimen A. SKIN, left lateral mid upper arm: DERMAL SCAR RESIDUAL BASAL CELL CARCINOMA NOT IDENTIFIED (L90.5) 2 2:58 PM CDT DERMATOPATHOLOGY LABORATORY at 1458 CDT Clinical History Bx proven BCC, superficial. Previous Bx: [id number]. 2 2:58 PM CDT DERMATOPATHOLOGY LABORATORY Gross Description Specimen A: Received is one formalin filled container labeled with the patient's name and designated left lateral mid upper arm. The specimen consists of a curettage and desiccation biopsy measuring [id number]. Jar 0. 2 2:58 PM CDT DERMATOPATHOLOGY [...] characteristic determined by the Dermatopathology Laboratory at [facility], directed by Dr. Rose Barahona. These tests need not be, and therefore are not, approved by the [place] Food and Drug Administration. The tests are used for clinical purposes. Billing Codes Specimen Charges Stain Charges 92315 1 2 2:58 PM CDT DERMATOPATHOLOGY LABORATORY Embedded Images 2 2:58 PM CDT DERMATOPATHOLOGY LABORATORY Pathology/Cytolog y TISSUE SPECIMEN FROM SKIN / Unknown 08/01/2021 08/02/2021 12:39 PM CDT Alex Caicedo MD LAB - PATHOLOGY/CYTOLOGY ORD ERABLES Final Result DERMATOPATHOLOGY LABORATORY [facility] - Department of Dermatology [address] [phone] documented in this encounter Visit Diagnoses Not on filedocumented in this encounter Care Teams Burn Out Scarfing Operator Relationship Specialty Start Date End Date Sanjiv Tabares MD PCP - General 06/23/21 documented as of this encounter
--- OUTSIDE RECORDS SUMMARY | 2025-02-16 12:59 | XMS_ITS | Clinical Summary ---
Author Organization [facility] Address [address] [place] [address] Care Team Providers Care Engineer Byproduct Name Role Phone Sanjiv Tabares MD Primary Care Provider [phone] Source Comments [facility] [employer],non-owned Affiliates and Associated Physician Practices is amultiple site organization consisting of ambulatory clinics and hospital sitesin [place], [place], [place] and [place]. This disclosure is being madepursuant to the Care Everywhere program and may not contain all information available regarding this patient. Last updated 18.[facility] [employer] Social History Tobacco Use Types Packs/Day Years Used Date Smoking Tobacco: Never Assessed Sex and Gender Information Value Date Recorded Sex Assigned at Not on file Legal Sex Male 6:19 AM CRUISE COUNSELOR Gender Identity Not on file Sexual Orientation Not on file Last Filed Vital Signs Vital Sign Reading Time Taken Comments Blood Pressure 123/90 04/02/2017 12:49 PM CRUISE COUNSELOR Pulse 90 04/02/2017 12:49 PM CRUISE COUNSELOR Temperature - - Respiratory Rate - - Oxygen Saturation 97% 04/02/2017 12:49 PM CRUISE COUNSELOR Inhaled Oxygen Concentration - - Weight 94.8 kg (209 lb) 04/02/2017 7:53 AM CRUISE COUNSELOR Height 175.3 cm (5' 9) 04/02/2017 7:53 AM CRUISE COUNSELOR Body Mass Index 30.86 04/02/2017 7:53 AM CRUISE COUNSELOR Plan of Treatment Health Maintenance Due Date [...] this topic Insurance MEDICARE MEDICARE Care Teams Engineer Byproduct Relationship Specialty Start Date End Date Sanjiv Tabares MD PCP - General 06/23/21
--- OUTSIDE RECORDS SUMMARY | 2025-02-16 12:59 | XMS_ITS | Encounter Summary ---
Author Organization [facility] Address [facility] [place] [address] Care Team Providers Care Computer Lab Aide Name Role Phone Sanjiv Tabares MD Primary Care Provider [phone] Encounter Details Date Type Department Care Team (Late st Contact Info) Description 06/23/[address] [facility] DermPath Lab [address] [place] [address] Alex Caicedo MD [address] [place] [address] Social History Tobacco Use Types Packs/Day Years Used Date Smoking Tobacco: Never Assessed Sex and Gender Information Value Date Recorded Sex Assigned at Not on file Legal Sex Male 6:19 AM BOW MAKING MACHINE OPERATOR Gender Identity Not on file Sexual Orientation Not on file documented as of this encounter Plan of Treatment Not on file documented as of this encounter Procedures Procedure Name Priority Date/Time Associated Diagnosis Comments DERMATOPATHOLOGY Routine 06/21/2021 12:0 0 AM BOW MAKING MACHINE OPERATOR documented in this encounter Results * DERMATOPATHOLOGY (06/21/2021 12:00 AM BOW MAKING MACHINE OPERATOR) Case Report Dermatopathology Report Case: [id number] Authorizing Provider: Alex Caicedo MD Collected: 06/21/2021 12:00 AM Ordering Location: [facility] DermPath Lab Received: 06/23/2021 07:49 AM Pathologist: Mellisa Bynum MD Specimens: A) - Skin, left med cheek B) - Skin, left med cheek inf C) - Skin, left med cheek lat D) - Skin, left lat mid upper arm 2 3:05 PM [facility] DERMATOPATHOLOGY LABORATORY Final Diagnosis Specimen A. 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 2 3:05 PM [facility] DERMATOPATHOLOGY LABORATORY Gross Description Specimen A: Received is one formalin filled container labeled with the patient's name and designated left med cheek. The specimen consists of a shave biopsy measuring 7c2o6az. Jar 0. Specimen B: Received is one formalin filled container labeled with the patient's name and designated left med cheek inf. The specimen consists of a shave biopsy measuring 6d0s9hg. Jar 0. Specimen C: Received is one formalin filled container labeled with the patient's name and designated left med cheek lat. The specimen consists of a shave biopsy measuring 2v1k4of. Jar 0. Specimen D: Received is one formalin filled container labeled with the patient's name and designated left lat mid upper arm. The specimen consists of a shave biopsy measuring 5f9x5fh. Jar 0. 2 3:05 PM [facility] DERMATOPATHOLOGY LABORATORY Microscopic Description Specimen A. SKIN, [...] ratio and peripheral palisading. 2 3:05 PM [facility] DERMATOPATHOLOGY LABORATORY Disclaimer An external and internal positive and negative controls are appropriate for the histochemical, immunohistochemical and immunofluorescence stain(s) in this case (if any), except where stated explicitly. The performance characteristics of the stain(s) cited in this report were developed and its performance characteristic determined by the Dermatopathology Laboratory at [facility], directed by Dr. Rose Barahona. These tests need not be, and therefore are not, approved by the [place] Food and Drug Administration. The tests are used for clinical purposes. Billing Codes Specimen Charges Stain Charges 00570 63357 [id number] 16118 1 1 1 1 2 3:05 PM BOW MAKING MACHINE OPERATOR DERMATOPATHOLOGY LABORATORY Embedded Images 2 3:05 PM BOW MAKING MACHINE OPERATOR DERMATOPATHOLOGY LABORATORY Pathology/Cytology TISSUE SPECIMEN FROM SKIN / Unknown 06/21/2021 06/23/2021 7:49 AM BOW MAKING MACHINE OPERATOR Miscellaneous samples (specimen) TISSUE SPECIMEN FROM SKIN / Unknown 06/21/2021 06/23/2021 7:49 AM BOW MAKING MACHINE OPERATOR Miscellaneous samples (specimen) TISSUE SPECIMEN FROM SKIN / Unknown 06/21/2021 06/23/2021 7:49 AM BOW MAKING MACHINE OPERATOR Miscellaneous samples (specimen) TISSUE SPECIMEN FROM SKIN / Unknown 06/21/2021 06/23/2021 7:49 AM BOW MAKING MACHINE OPERATOR Alex Caicedo MD LAB - PATHOLOGY/CYTOLOGY ORD ERABLES Final Result DERMATOPATHOLOGY LABORATORY [facility] - Department of Dermatology [address], [address] [phone] documented in this encounter Visit Diagnoses Not on filedocumented in this encounter Care Teams Computer Lab Aide Relationship Specialty Start Date End Date Sanjiv Tabares MD PCP - General 06/23/21 documented as of this encounter
--- OUTSIDE RECORDS SUMMARY | 2025-02-16 12:59 | XMS_ITS | Encounter Summary ---
Author Organization [facility] Address [facility] [facility] [place] [address] Care Team Providers Care Manager Integrated Name Role Phone Sanjiv Tabares MD Primary Care Provider Encounter Details Date Type Department Care Team (Late st Contact Info) Description 08/16/2022 Lab Requisition [facility] DermPath Lab [address] [place] [address] Alex Caicedo MD [address] [place] [address] Social History Tobacco Use Types Packs/Day Years Used Date Smoking Tobacco: Never Assessed Sex and Gender Information Value Date Recorded Sex Assigned at Not on file Legal Sex Male 6:19 AM RETAIL SERVICES PROFESSIONAL Gender Identity Not on file Sexual Orientation Not on file documented as of this encounter Plan of Treatment Not on file documented as of this encounter Procedures Procedure Name Priority Date/Time Associated Diagnosis Comments DERMATOPATHOLOGY Routine 08/15/2022 12:0 0 AM CDT documented in this encounter Results * DERMATOPATHOLOGY (08/15/2022 12:00 AM CDT) Case Report Dermatopathology Report Case: [id number] Authorizing Provider: Alex Caicedo MD Collected: 08/15/2022 12:00 AM Ordering Location: [facility] DermPath Lab Received: 08/16/2022 12:53 PM [...] specimen consists of a shave biopsy measuring 01o4c4ie and another piece of tissue measuring 2f4p5ve. Jar 0. Specimen B: Received is one formalin filled container labeled with the patient's name and designated left cheek. The specimen consists of a shave biopsy measuring 9s7q2op. Jar 0. 11:29 AM [facility] DERMATOPATHOLOGY LABORATORY Microscopic Description Specimen [...] purposes. Billing Codes Specimen Charges Stain Charges 69111 [id number] 1 1 3 11:29 AM CDT DERMATOPATHOLOGY LABORATORY Embedded Images 11:29 AM T DERMATOPATHOLOGY LABORATORY Pathology/Cytology TISSUE SPECIMEN FROM SKIN / Unknown 08/15/2022 08/16/2022 12:53 PM CDT Miscellaneous samples (specimen) TISSUE SPECIMEN FROM SKIN / Unknown 08/15/2022 08/16/2022 12:53 PM CDT Alex Caicedo MD LAB - PATHOLOGY/CYTOLOGY ORD ERABLES Final Result DERMATOPATHOLOGY LABORATORY [facility] - Department of Dermatology [facility] [address] [place] [address], [address] [phone] documented in this encounter Visit Diagnoses Not on filedocumented in this encounter Care Teams Manager Integrated Relationship Specialty Start Date End Date Sanjiv Tabares MD PCP - General 06/23/21 documented as of this encounter
--- OUTSIDE RECORDS SUMMARY | 2025-02-16 13:00 | XMS_ITS | Clinical Summary ---
Author Organization [facility] Address [address] [place] [address] Care Team Providers Care Wharf Attendant Name Role Phone Sanjiv Tabares MD Primary Care Provider [phone] Allergies Active Allergy Reactions Criticality Noted Date [...] Comments Blood Pressure 140/84 06/18/2023 10:24 AM EVP BUSINESS DEVELOPMENT Pulse 88 06/18/2023 10:24 AM EVP BUSINESS DEVELOPMENT Temperature - - Respiratory Rate - - Oxygen Saturation 94% 06/18/2023 10:24 AM EVP BUSINESS DEVELOPMENT Inhaled Oxygen Concentration - - Weight 123.8 kg (273 lb) 06/18/2023 10:24 AM EVP BUSINESS DEVELOPMENT Height 175.3 cm (5' 9) 06/18/2023 10:24 AM EVP BUSINESS DEVELOPMENT Body Mass Index 40.32 06/18/2023 10:24 AM EVP BUSINESS DEVELOPMENT Plan of Treatment Health Maintenance Due Date [...] or Tdap) 01/20/2030 01/21/2020 Insurance MEDICARE MEDICARE [employer] Care Teams Wharf Attendant Relationship Specialty Start Date End Date Sanjiv Tabares MD PCP - General Internal Medicine 07/19/22
--- OUTSIDE RECORDS SUMMARY | 2025-02-16 13:00 | XMS_ITS | Clinical Summary ---
Author Organization [facility] Address [address] [facility] [place] [address] Phone Care Team Providers Care Grant Writer Name Role Phone Sanjiv Tabares MD Primary [...] Department Care Team Description 12/21/2024 Refill [facility] - Pulmonology & Sleep Medicine [facility] [address] [place] [phone] Ginna Cavanaugh APRN, RACK PUSHER Medication Refill from Last 3 Months Immunizations [...] on file Legal Sex Male 2:19 PM MANAGEMENT CONSULTANT Gender Identity Not on file Sexual Orientation Not on file Last Filed Vital Signs Vital Sign Reading Time Taken Comments Blood Pressure 120/74 06/01/2024 2:30 PM MANAGEMENT CONSULTANT Pulse 83 06/01/2024 2:30 PM MANAGEMENT CONSULTANT Temperature 37.2 C (98.9 F) 06/01/2024 2:30 PM MANAGEMENT CONSULTANT Respiratory Rate 16 06/01/2024 2:30 PM MANAGEMENT CONSULTANT Oxygen Saturation 95% 06/01/2024 2:30 PM MANAGEMENT CONSULTANT Inhaled Oxygen Concentration - - Weight 123.1 kg (271 lb 6.4 oz) 06/01/2024 2:30 PM MANAGEMENT CONSULTANT Height 175.3 cm (5' 9) 06/01/2024 2:30 PM MANAGEMENT CONSULTANT Body Mass Index 40.08 06/01/2024 2:30 PM MANAGEMENT CONSULTANT Plan of Treatment Upcoming Encounters Date Type Department Care Team (Late st Contact Info) Description 06/01/2025 11:00 AM MANAGEMENT CONSULTANT Office Visit [facility] - Pulmonology & Sleep Medicine [facility] [address] [place] [address] Ginna Cavanaugh APRN, RACK PUSHER [address] [address] Health Maintenance Due Date Last Done Comments [...] age to complete this topic Insurance MEDICARE [employer] Care Teams Grant Writer Relationship Specialty Start Date End Date Sanjiv Tabares MD PCP - General Internal Medicine 04/10/16 Ulysses Parham MD [address] [place] [address] Consulting Physician Pulmonary Disease 04/10/16 Ginna Cavanaugh APRN, RACK PUSHER [address] [address] Nurse Practitioner Advanced Practice Nurse 03/12/22
--- OUTSIDE RECORDS SUMMARY | 2025-02-16 13:00 | XMS_ITS | Data Portability ---
Author Organization KATYA TEREShruthi Persaud Address [address] [facility] [place] [address] Care Team Providers Care Manager Energy Name Role Phone WILY TABARES Primary Care Provider Assessment Encounter Date Assessment Date Assessment LastModified by Organization Details LastModified Time 02/20/2024 02/20/2024 refill Z-De blood work healthy lifestyle care instructions medicines we will continue for his chronic medical problems follow up with me 4 months flu shot today [email or web address] Not available 02/23/2024 22:52:56 06/25/2024 06/25/2024 Cipro he has had this before that has been responsive to Cipro brat diet for the next couple of days keep regular follow up call back if not improved or if worse [email or web address] Not available 07/26/2024 18:07:44 10/19/2024 10/19/2024 Risk benefits a GLP 1 discussed and he wants to try to get when approved. Healthy lifestyle care instructions blood work diagnosis has been discussed we will continue with aspirin Plavix montelukast pravastatin Breztri inhaler and albuterol [email or web address] Not available 10/19/2024 15:15:17 01/18/2025 01/18/2025 Continue current therapy stay up-to-date on all vaccinations see me back in 4-5 months he was denied bound unfortunately he did get cortisone in his knees a couple of weeks ago [email or web address] Not available 01/18/2025 14:56:48 02/08/2025 02/08/2025 Restart the Plavix 1 week after discharge check CBC CMP see me in 1 month I suspect some of his swelling was from IV fluids Not available 02/08/2025 21:51:05 Plan of Treatment Reminders Order Date Submit Date Provider Last Modified By Organization Details Last Modified Time Details Appointments ANY 15 2024 10:15A Kelley Tabares MD Not available Not available Not available ANY 15 2025 11:00A Kelley Tabares MD Not available Not available Not available Lab CBC w/ auto diff 2024 025 [facility] (Lab), [address] [place], [address], 02/09/2025 17:20:47 CMP, serum or plasma 2024 025 [facility] (Lab), [address] [place], [address], 02/09/2025 17:20:47 HbA1c (hemoglob in A1c), blood 2024 025 [facility], [address], [place], [address], 10/27/2024 10:36:32 CBC w/ auto diff 2024 025 [employer] [facility], [address], [place], [address], 02/10/2025 09:30:18 lipid panel, serum 2024 025 [employer] [facility], [address], [place], [address], 10/27/2024 10:36:32 CMP, serum or plasma 2024 025 [employer] [facility], [address], [place], [address], 02/10/2025 09:30:00 CBC w/ auto diff 2023 024 [facility], [address] [facility], [address], [place], [address], 02/27/2024 18:54:39 lipid panel, serum 2023 024 [facility], [address] [facility], [address], [place], [address], 02/27/2024 18:54:39 CMP, serum or plasma 2023 024 [facility], [address] [facility], [address], [place], [address], 02/27/2024 18:54:39 PSA, total, serum or plasma 2023 024 [email or web address], [address] [facility], [address], [place], [address], 03/11/2024 14:09:14 Referral None recorded. Procedures None recorded. Surgeries None recorded. Imaging None recorded. Medication Orders Zepbound 2.5 mg/0.5 mL subcutane ous pen injector 2024 025 [id number], [address] [place], [address], 02/08/2025 10:10:27 Cipro 500 mg tablet 2024 025 [facility] #[id number], [address] [place], [address], 01/18/2025 13:53:57 Zithromax Z-De 250 mg tablet 2023 025 [facility] #[id number], [address] [place], [address], 01/18/2025 13:53:59 Patient TargetsNo targets recorded. Patient Instructions Encounter Date Encounter Id Patient Instructions Last Modified By Organization Details Last Modified Time 02/20/2024 [id number] A healthy lifestyle: care instructions [email or web address] Not available 02/20/2024 13:33:03 10/19/2024 [id number] A healthy lifestyle: care instructions [email or web address] Not available 10/19/2024 16:36:29 01/18/2025 [id number] A healthy lifestyle: care instructions Not available 01/18/2025 15:36:50 02/08/2025 [id number] A healthy lifestyle: care instructions [email or web address] Not available 02/08/2025 15:21:36 Reason for Referral None Reported. Results Created Date Observation Date Name Description Value Unit Range Abnormal Flag Note LastModifiedBy Organization Detail LastModifiedTime 02/13/2002/13/2024 influ tori virus A + B + SARS- CoV-2 (COVI D19) Ag panel , rapid IA, upper respi rator y speci men Flu A negati ve Not Available In-Office Order Internal Use Only DO Not Attach Compendium DO Not Attach Compendium, Do Not Delete/merge, [id number] 02/13/2024 15:00:34 02/13/20 24 02/13/2024 influ tori virus A + B + SARS- CoV-2 (COVI D19) Ag panel , rapid IA, upper respi rator y speci men Flu B negati ve Not Available In-Office Order Internal Use Only DO Not Attach Compendium DO Not Attach Compendium, Do Not Delete/merge, [id number] 02/13/2024 15:00:34 02/13/2002/13/2024 influ tori virus A + B + SARS- CoV-2 (COVI D19) Ag panel , rapid IA, upper respi rator y speci men Rapid SARS CoV 2 Ag, QL IA, respiratory specimen negati ve Not Available In-Office Order Internal Use Only DO Not Attach Compendium DO Not Attach Compendium, Do Not Delete/merge, [id number] 02/13/2024 15:00:34 01/27/2001/26/2025 hemog lobin + hemat ocrit , blood hemoglobin (Hb), blood 12.7 text: 13.0 - 18.0 g/dL low Not Available Not Available 01/27/2025 15:03:01/27/2001/26/2025 hemog lobin + hemat ocrit , blood hematocrit, blood 38.2 % low: 37%hig h: 52% Not Available Not Available 01/27/2025 15:03:01/27/2001/26/2025 hemog lobin + hemat ocrit , blood lab interpretati on Abnorm al Not Available Not Available 15:03:01/27/2001/27/2025 proca lcito lida, serum procalcitoni n, serum 0.06 text: 0.00 - 0.49 NG/mL Not Available Not Available 01/27/2025 15:03:06 01/27/2001/31/2025 cultu re, blood specimen source identified (obs) BLOOD Not Available Not Available 01/27 16:45:57 01/27/2001/31/2025 cultu re, blood special requests BLOOD- AEROBI C BOTTLE ONLY Not Available Not Available 16:45:57 01/27/2001/31/2025 cultu re, blood culture, bacterial NO GROWTH 5 DAYS Not Available Not Available 16:45:57 01/27/2001/26/2025 CBC w/ auto diff WBC, auto, blood 9.43 text: 4.00 - 10.80 x10'3/ uL Not Available Not Available 01/27/2025 15:03:01/27/2001/26/2025 CBC w/ auto diff RBC count, blood 4.55 text: 4.50 - 6.10 x10'6/ uL Not Available Not Available 01/27/2025 15:03:01/27/2001/26/2025 CBC w/ auto diff hemoglobin (Hb), blood 13.2 text: 13.0 - 18.0 g/dL Not Available Not Available 01/27/2025 15:03:01/27/2001/26/2025 CBC w/ auto diff hematocrit, blood 40.8 % low: 37%hig h: 52% Not Available Not Available 01/27/2025 15:03:01/27/2001/26/2025 CBC w/ auto diff MCV, qn (obs) 89.7 text: 78.0 - 100.0 fL Not Available Not Available 01/27/2025 15:03:01/27/2001/26/2025 CBC w/ auto diff MCH, qn (obs) 29 pg low: 27pghi gh: 31pg Not Available Not Available 01/27/2025 15:03:01/27/2001/26/2025 CBC w/ auto diff mean corpuscular hemoglobin concentratio n, qn, RBC 32.4 text: 33.0 - 36.0 g/dL low Not Available Not Available 01/27/2025 15:03:01/27/2001/26/2025 CBC w/ auto diff RDW 13.6 % low: 11.5%h igh: 14.5% Not Available Not Available 01/27/2025 15:03:01/27/2001/26/2025 CBC w/ auto diff platelet count, blood 284 text: 150 - 350 x10'3/ uL Not Available Not Available 01/27/2025 15:03:01/27/2001/26/2025 CBC w/ auto diff platelet mean volume, qn, blood (obs) 9.6 text: 7.4 - 10.4 fL Not Available Not Available 01/27/2025 15:03:01/27/2001/26/2025 CBC w/ auto diff differential cell count method, blood (obs) AUTOMA VAL DIFFER ENTIAL Not Available Not Available 15:03:01/27/2001/26/2025 CBC w/ auto diff neutrophils/ 100 leukocytes, automated, blood (obs) 72.6 % Not Available Not Available 01/27/2025 15:03:01/27/2001/26/2025 CBC w/ auto diff lymphocytes/ 100 leukocytes, automated, blood (obs) 19.2 % Not Available Not Available 01/27/2025 15:03:01/27/2001/26/2025 CBC w/ auto diff monocytes/10 0 leukocytes, automated, blood (obs) 6.6 % Not Available Not Available 01/27/2025 15:03:01/27/2001/26/2025 CBC w/ auto diff eosinophils/ 100 leukocytes, automated, blood (obs) 0.5 % Not Available Not Available 01/27/2025 15:03:01/27/2001/26/2025 CBC w/ auto diff basophils/10 0 leukocytes, automated, blood (obs) 0.3 % Not Available Not Available 01/27/2025 15:03:01/27/2001/26/2025 CBC w/ auto diff immature granulocytes /100 leukocytes, automated, blood (obs) 0.8 % Not Available Not Available 01/27/2025 15:03:01/27/2001/26/2025 CBC w/ auto diff neutrophils, count, blood (obs) 6.84 text: 1.60 - 8.30 x10'3/ uL Not Available Not Available 01/27/2025 15:03:01/27/2001/26/2025 CBC w/ auto diff lymphocytes, blood (obs) 1.81 text: 0.80 - 4.70 x10'3/ uL Not Available Not Available 01/27/2025 15:03:01/27/2001/26/2025 CBC w/ auto diff monocytes, count, blood (obs) 0.62 text: 0.00 - 1.50 x10'3/ uL Not Available Not Available 01/27/2025 15:03:01/27/2001/26/2025 CBC w/ auto diff eosinophils, quant, blood 0.05 text: 0.00 - 0.40 x10'3/ uL Not Available Not Available 01/27/2025 15:03:01/27/2001/26/2025 CBC w/ auto diff basophils, count, blood (obs) 0.03 text: 0.00 - 0.20 x10'3/ uL Not Available Not Available 01/27/2025 15:03:01/27/2001/26/2025 CBC w/ auto diff immature granulocytes count, blood 0.08 text: 0.00 - 0.03 x10'3/ uL high Not Available Not Available 01/27/2025 15:03:01/27/2001/26/2025 CBC w/ auto diff nucleated erythrocytes , count, blood (obs) 0 text: 0.00 - 0.01 x10'3/ uL Not Available Not Available 01/27/2025 15:03:01/27/2001/26/2025 CBC w/ auto diff nucleated erythrocytes /100 leukocytes, ratio, blood (obs) 0 % Not Available Not Available 04/2024 15:03:01/27/2001/26/2025 CBC w/ auto diff lab interpretati on Abnorm al Not Available Not Available 15:03:01/27/2001/26/2025 HbA1c (hemo globi n A1c), blood HbA1C (hemoglobin A1C), blood 5.3 % high: 5.7% Not Available Not Available 01/27/2025 15:03:01/27/2001/26/2025 HbA1c (hemo globi n A1c), blood estimated average glucose 105 text: 74 - 114 mg/dL Not Available Not Available 01/27/2025 15:03:01/27/2001/26/2025 proth rombi n time prothrombin time 12.4 text: 9.4 - 12.5 sec Not Available Not Available 01/27/2025 15:03:01/27/2001/26/2025 proth rombi n time INR, plasma 1.1 low: 0.8hig h: 1.1 Not Available Not Available 01/27/2025 15:03:01/27/2001/26/2025 CMP, serum or plasm a sodium, serum or plasma 139 text: 136 - 145 mmol/L Not Available Not Available 01/27/2025 15:03:01/27/2001/26/2025 CMP, serum or plasm a potassium, serum or plasma 4 text: 3.5 - 5.1 mmol/L Not Available Not Available 01/27/2025 15:03:01/27/2001/26/2025 CMP, serum or plasm a chloride, serum or plasma 108 text: 97 - 115 mmol/L Not Available Not Available 01/27/2025 15:03:01/27/2001/26/2025 CMP, serum or plasm a CO2, (carbon dioxide), total, serum or plasma 28 text: 21.0 - 32.0 mmol/L Not Available Not Available 01/27/2025 15:03:01/27/2001/26/2025 CMP, serum or plasm a glucose, qn [mass/volume ], serum or plasma 94 text: 74 - 106 mg/dL Not Available Not Available 01/27/2025 15:03:01/27/2001/26/2025 CMP, serum or plasm a BUN (blood urea nitrogen), serum or plasma 10 text: 7 - 18 mg/dL Not Available Not Available 01/27/2025 15:03:01/27/2001/26/2025 CMP, serum or plasm a creatinine, serum or plasma 0.84 text: 0.70 - 1.30 mg/dL Not Available Not Available 01/27/2025 15:03:01/27/2001/26/2025 CMP, serum or plasm a calcium, serum or plasma 8.6 text: 8.5 - 10.1 mg/dL Not Available Not Available 01/27/2025 15:03:01/27/2001/26/2025 CMP, serum or plasm a bilirubin, total, serum or plasma 0.8 text: 0.2 - 1.0 mg/dL Not Available Not Available 01/27/2025 15:03:01/27/2001/26/2025 CMP, serum or plasm a alkaline phosphatase, serum or plasma 60 U/L low: 45U/Lh igh: 115U/L Not Available Not Available 01/27/2025 15:03:01/27/2001/26/2025 CMP, serum or plasm a AST/SGOT (aspartate aminotransfe rase), serum or plasma 10 U/L low: 15U/Lh igh: 37U/L low Not Available Not Available 01/27/2025 15:03:01/27/2001/26/2025 CMP, serum or plasm a ALT (alanine aminotransfe rase), serum or plasma 20 U/L low: 16U/Lh igh: 61U/L Not Available Not Available 01/27/2025 15:03:01/27/2001/26/2025 CMP, serum or plasm a protein, total, serum 5.8 text: 6.4 - 8.2 g/dL low Not Available Not Available 01/27/2025 15:03:06 01/27/20 25 01/26/2025 CMP, serum or plasm a albumin, serum or plasma 2.9 text: 3.4 - 5.0 g/dL low Not Available Not Available 01/27/2025 15:03:06 01/27/2001/26/2025 CMP, serum or plasm a anion gap, serum or plasma 3 text: 2.0 - 10.0 mmol/L Not Available Not Available 01/27/2025 15:03:06 01/27/2001/26/2025 CMP, serum or plasm a osmolality, calculation, serum or plasma (obs) 287 text: mOsm/k g REFER ENCE RANGE NOT ESTAB LISHE D Not Available Not Available 01/27/2025 15:03:06 01/27/2001/26/2025 CMP, serum or plasm a glomerular filtration rate/1.73 sq M predicted, qn, creatinine based formula (CKD-epi 2020), serum or plasma or blood >90 text: >90 mL/min /1.73 M2 Not Available Not Available 01/27/2025 15:03:01/27/2001/26/2025 CMP, serum or plasm a GFR notes GFR REFERE NCES: THE ESTIM ATED GFR IS CALCU LATED USING THE 2020 CKD-E PI EQUAT ION. THE FOLLO WING CATEG ORIES FOR GRADI NG RENAL FUNCT ION ARE RECOM ANTHONY D BY THE INTER NATIO NAL SOCIE TY OF NEPHR OLOGY (KDIG O 2012 CLINI ANAHI PRACT ICE GUIDE LINE) . G1,NO RMAL OR HIGH: >89 ml/mi n/1.7 3 m2 G2,[place] LDLY DECRE ASED: 60-89 ml/mi n/1.7 3 m2 G3A,M ILDLY TO MODER ATELY DECRE ASED: 45-59 ml/mi n/1.7 3 m2 G3B,M ODERA TELY TO SEVER DUNCAN DECRE ASED: 30-44 ml/mi n/1.7 3 m2 G4,SE VEREL Y DECRE ASED: 15-29 ml/mi n/1.7 3 m2 G5,KI DNEY FAILU RE: <15 ml/mi n/1.7 3 m2 Not Available Not Available 01/27/2025 15:03:06 01/27/20 25 01/26/2025 CMP, serum or plasm a lab interpretati on Abnorm al Not Available Not Available 15:03:06 01/27/20 25 01/26/2025 lacti c acid, serum or plasm a lactic acid, serum or plasma 1 text: 0.4 - 2.0 mmol/L Not Available Not Available 01/27/2025 15:03:06 01/27/20 25 01/26/2025 magne sium, serum or plasm a magnesium, serum or plasma 1.8 text: 1.6 - 2.6 mg/dL Not Available Not Available 01/27/2025 15:03:06 01/27/20 25 01/31/2025 cultu re, blood specimen source identified (obs) BLOOD Not Available Not Available 01/27 16:46:09 01/27/20 25 01/31/2025 cultu re, blood special requests NO SPECIA L REQUES T Not Available Not Available 16:46:09 01/27/20 25 01/31/2025 cultu re, blood culture, bacterial NO GROWTH 5 DAYS Not Available Not Available 16:46:09 01/27/20 25 01/26/2025 type + scree n, blood ABO/Rh A POSITI VE Not Available Not Available 15:03:06 01/27/20 25 01/26/2025 type + scree n, blood antibody screen, serum or plasma NEGATI VE Not Available Not Available 15:03:06 01/27/20 25 01/26/2025 type + scree n, blood specimen expiration date, blood (obs) 2024,2 359 Not Available Not Available 15:03:06 01/27/20 25 01/26/2025 gluco se, QN, finge rstic k, blood (gluc omete r) glucose, qn, test strip, auto, blood 91 low: 70high : 109 RN Notif ied Not Available Not Available 01/27/2025 15:03:07 01/28/2001/27/2025 hemog lobin + hemat ocrit , blood hemoglobin (Hb), blood 11 text: 13.0 - 18.0 g/dL low Not Available Not Available 02/05/2025 16:46:09 01/28/20 25 01/27/2025 hemog lobin + hemat ocrit , blood hematocrit, blood 34.8 % low: 37%hig h: 52% low Not Available Not Available 02/05/2025 16:46:09 01/28/2001/27/2025 hemog lobin + hemat ocrit , blood lab interpretati on Abnorm al Not Available Not Available 16:46:09 01/28/2001/27/2025 hemog lobin + hemat ocrit , blood hemoglobin (Hb), blood 11.3 text: 13.0 - 18.0 g/dL low Not Available Not Available 01/27/2025 15:03:06 01/28/2001/27/2025 hemog lobin + hemat ocrit , blood hematocrit, blood 35.2 % low: 37%hig h: 52% low Not Available Not Available 01/27/2025 15:03:06 01/28/2001/27/2025 hemog lobin + hemat ocrit , blood lab interpretati on Abnorm al Not Available Not Available 15:03:06 01/28/2001/28/2025 cultu re, urine specimen source identified (obs) URINE CLEAN CATCH Not Available Not Available 16:45:57 01/28/2001/28/2025 cultu re, urine special requests NO SPECIA L REQUES T Not Available Not Available 16:45:57 01/28/2001/28/2025 cultu re, urine culture, bacterial NO GROWTH (< OR = 1,000 CFU/ML ) Not Available Not Available 16:45:57 01/28/2001/27/2025 urina lysis , compl ete color, urine (obs) YELLOW Not Available Not Available 04/2024 15:03:06 01/28/2001/27/2025 urina lysis , compl ete clarity of urine (obs) CLEAR Not Available Not Available 01/27/2025 15:03:06 01/28/2001/27/2025 urina lysis , compl ete specific gravity, urine 1.033 low: 1.002h igh: 1.035 Not Available Not Available 01/27/2025 15:03:06 01/28/2001/27/2025 urina lysis , compl ete pH, urine 5 low: 5high: 8 Not Available Not Available 01/27/2025 15:03:06 01/28/2001/27/2025 urina lysis , compl ete protein, ql, automated test strip, urine NEGATI VE text: negati ve Not Available Not Available 01/27/2025 15:03:06 01/28/2001/27/2025 urina lysis , compl ete glucose, qn [mass/volume ], urine NEGATI VE text: negati ve mg/dL Not Available Not Available 01/27/2025 15:03:06 01/28/2001/27/2025 urina lysis , compl ete ketones, ql, automated test strip, urine (obs) NEGATI VE text: negati ve Not Available Not Available 01/27/2025 15:03:06 01/28/2001/27/2025 urina lysis , compl ete total bilirubin, ql, automated test strip, urine (obs) NEGATI VE text: negati ve Not Available Not Available 01/27/2025 15:03:06 01/28/2001/27/2025 urina lysis , compl ete erythrocytes , count, automated test strip, urine (obs) NEGATI VE text: negati ve Not Available Not Available 01/27/2025 15:03:06 01/28/2001/27/2025 urina lysis , compl ete nitrite, ql, test strip, urine (obs) NEGATI VE text: negati ve Not Available Not Available 01/27/2025 15:03:06 01/28/2001/27/2025 urina lysis , compl ete urobilinogen , qn, test strip, urine NORMAL text: 0 - 1 eu/dL Not Available Not Available 01/27/2025 15:03:06 01/28/2001/27/2025 urina lysis , compl ete leukocyte esterase, ql, test strip, urine (obs) NEGATI VE text: negati ve Not Available Not Available 01/27/2025 15:03:06 01/28/2001/27/2025 urina lysis , compl ete erythrocytes , count, microscopy high power field, urine sediment (obs) <1 text: 0 - 3 /hpf Not Available Not Available 01/27/2025 15:03:06 01/28/2001/27/2025 urina lysis , compl ete leukocytes, count, microscopy high power field, urine sediment (obs) 2 text: 0 - 6 /hpf Not Available Not Available 01/27/2025 15:03:06 01/28/2001/27/2025 urina lysis , compl ete bacteria, count, microscopy high power field, urine sediment (obs) NONE text: /hpf Not Available Not Available 01/27/2025 15:03:06 01/28/2001/27/2025 BMP, serum or plasm a sodium, serum or plasma 140 text: 136 - 145 mmol/L Not Available Not Available 01/27/2025 15:03:06 01/28/2001/27/2025 BMP, serum or plasm a potassium, serum or plasma 3.8 text: 3.5 - 5.1 mmol/L Not Available Not Available 01/27/2025 15:03:06 01/28/2001/27/2025 BMP, serum or plasm a chloride, serum or plasma 111 text: 97 - 115 mmol/L Not Available Not Available 01/27/2025 15:03:06 01/28/2001/27/2025 BMP, serum or plasm a CO2, (carbon dioxide), total, serum or plasma 25.8 text: 21.0 - 32.0 mmol/L Not Available Not Available 01/27/2025 15:03:06 01/28/2001/27/2025 BMP, serum or plasm a glucose, qn [mass/volume ], serum or plasma 109 text: 74 - 106 mg/dL high Not Available Not Available 01/27/2025 15:03:06 01/28/2001/27/2025 BMP, serum or plasm a BUN (blood urea nitrogen), serum or plasma 9 text: 7 - 18 mg/dL Not Available Not Available 01/27/2025 15:03:06 01/28/2001/27/2025 BMP, serum or plasm a creatinine, serum or plasma 0.93 text: 0.70 - 1.30 mg/dL Not Available Not Available 01/27/2025 15:03:06 01/28/2001/27/2025 BMP, serum or plasm a calcium, serum or plasma 8.3 text: 8.5 - 10.1 mg/dL low Not Available Not Available 01/27/2025 15:03:06 01/28/2001/27/2025 BMP, serum or plasm a anion gap, serum or plasma 3.2 text: 2.0 - 10.0 mmol/L Not Available Not Available 01/27/2025 15:03:06 01/28/2001/27/2025 BMP, serum or plasm a osmolality, calculation, serum or plasma (obs) 289 text: mOsm/k g REFER ENCE RANGE NOT ESTAB LISHE D Not Available Not Available 01/27/2025 15:03:06 01/28/2001/27/2025 BMP, serum or plasm a glomerular filtration rate/1.73 sq M predicted, qn, creatinine based formula (CKD-epi 2020), serum or plasma or blood >90 text: >90 mL/min /1.73 M2 Not Available Not Available 01/27/2025 15:03:06 01/28/2001/27/2025 BMP, serum or plasm a GFR notes GFR REFERE NCES: THE ESTIM ATED GFR IS CALCU LATED USING THE 2020 CKD-E PI EQUAT ION. THE FOLLO WING CATEG ORIES FOR GRADI NG RENAL FUNCT ION ARE RECOM ANTHONY D BY THE INTER NATIO NAL SOCIE TY OF NEPHR OLOGY (KDIG O 2011 CLINI ANAHI PRACT ICE GUIDE LINE) . G1,NO RMAL OR HIGH: >89 ml/mi n/1.7 3 m2 G2,[place] LDLY DECRE ASED: 60-89 ml/mi n/1.7 3 m2 G3A,M ILDLY TO MODER ATELY DECRE ASED: 45-59 ml/mi n/1.7 3 m2 G3B,M BILLY TELY TO RADHA DUNCAN DECRE ASED: 30-44 ml/mi n/1.7 3 m2 G4,SE ANDREZ Y DECRE ASED: 15-29 ml/mi n/1.7 3 m2 G5,KI DNEY FAILU RE: <15 ml/mi n/1.7 3 m2 Not Available Not Available 01/27/2025 15:03:06 01/28/20 25 01/27/2025 BMP, serum or plasm a lab interpretati on Abnorm al Not Available Not Available 15:03:06 01/28/20 25 01/27/2025 CBC w/ auto diff WBC, auto, blood 7.45 text: 4.00 - 10.80 x10'3/ uL Not Available Not Available 01/27/2025 15:03:06 01/28/2001/27/2025 CBC w/ auto diff RBC count, blood 4.42 text: 4.50 - 6.10 x10'6/ uL low Not Available Not Available 01/27/2025 15:03:06 01/28/2001/27/2025 CBC w/ auto diff hemoglobin (Hb), blood 12.5 text: 13.0 - 18.0 g/dL low Not Available Not Available 01/27/2025 15:03:06 01/28/2001/27/2025 CBC w/ auto diff hematocrit, blood 40.1 % low: 37%hig h: 52% Not Available Not Available 01/27/2025 15:03:06 01/28/2001/27/2025 CBC w/ auto diff MCV, qn (obs) 90.7 text: 78.0 - 100.0 fL Not Available Not Available 01/27/2025 15:03:06 01/28/2001/27/2025 CBC w/ auto diff MCH, qn (obs) 28.3 pg low: 27pghi gh: 31pg Not Available Not Available 01/27/2025 15:03:06 01/28/20 25 01/27/2025 CBC w/ auto diff mean corpuscular hemoglobin concentratio n, qn, RBC 31.2 text: 33.0 - 36.0 g/dL low Not Available Not Available 01/27/2025 15:03:06 01/28/2001/27/2025 CBC w/ auto diff RDW 13.7 % low: 11.5%h igh: 14.5% Not Available Not Available 01/27/2025 15:03:06 01/28/2001/27/2025 CBC w/ auto diff platelet count, blood 279 text: 150 - 350 x10'3/ uL Not Available Not Available 01/27/2025 15:03:06 01/28/2001/27/2025 CBC w/ auto diff platelet mean volume, qn, blood (obs) 9.5 text: 7.4 - 10.4 fL Not Available Not Available 01/27/2025 15:03:06 01/28/2001/27/2025 CBC w/ auto diff differential cell count method, blood (obs) AUTOMA VAL DIFFER ENTIAL Not Available Not Available 15:03:06 01/28/2001/27/2025 CBC w/ auto diff neutrophils/ 100 leukocytes, automated, blood (obs) 59 % Not Available Not Available 01/27/2025 15:03:06 01/28/2001/27/2025 CBC w/ auto diff lymphocytes/ 100 leukocytes, automated, blood (obs) 29.8 % Not Available Not Available 01/27/2025 15:03:06 01/28/2001/27/2025 CBC w/ auto diff monocytes/10 0 leukocytes, automated, blood (obs) 7.4 % Not Available Not Available 01/27/2025 15:03:06 01/28/2001/27/2025 CBC w/ auto diff eosinophils/ 100 leukocytes, automated, blood (obs) 2 % Not Available Not Available 01/27/2025 15:03:06 01/28/2001/27/2025 CBC w/ auto diff basophils/10 0 leukocytes, automated, blood (obs) 0.7 % Not Available Not Available 01/27/2025 15:03:06 01/28/20 25 01/27/2025 CBC w/ auto diff immature granulocytes /100 leukocytes, automated, blood (obs) 1.1 % Not Available Not Available 01/27/2025 15:03:06 01/28/2001/27/2025 CBC w/ auto diff neutrophils, count, blood (obs) 4.4 text: 1.60 - 8.30 x10'3/ uL Not Available Not Available 01/27/2025 15:03:06 01/28/2001/27/2025 CBC w/ auto diff lymphocytes, blood (obs) 2.22 text: 0.80 - 4.70 x10'3/ uL Not Available Not Available 01/27/2025 15:03:06 01/28/2001/27/2025 CBC w/ auto diff monocytes, count, blood (obs) 0.55 text: 0.00 - 1.50 x10'3/ uL Not Available Not Available 01/27/2025 15:03:06 01/28/2001/27/2025 CBC w/ auto diff eosinophils, quant, blood 0.15 text: 0.00 - 0.40 x10'3/ uL Not Available Not Available 01/27/2025 15:03:06 01/28/2001/27/2025 CBC w/ auto diff basophils, count, blood (obs) 0.05 text: 0.00 - 0.20 x10'3/ uL Not Available Not Available 01/27/2025 15:03:06 01/28/2001/27/2025 CBC w/ auto diff immature granulocytes count, blood 0.08 text: 0.00 - 0.03 x10'3/ uL high Not Available Not Available 01/27/2025 15:03:06 01/28/2001/27/2025 CBC w/ auto diff nucleated erythrocytes , count, blood (obs) 0 text: 0.00 - 0.01 x10'3/ uL Not Available Not Available 01/27/2025 15:03:06 01/28/2001/27/2025 CBC w/ auto diff nucleated erythrocytes /100 leukocytes, ratio, blood (obs) 0 % Not Available Not Available 04/2024 15:03:06 01/28/20 25 01/27/2025 CBC w/ auto diff lab interpretati on Abnorm al Not Available Not Available 15:03:06 01/29/2001/28/2025 hemog lobin + hemat ocrit , blood hemoglobin (Hb), blood 8.8 text: 13.0 - 18.0 g/dL low Not Available Not Available 02/05/2025 16:46:09 01/29/20 25 01/28/2025 hemog lobin + hemat ocrit , blood hematocrit, blood 27.4 % low: 37%hig h: 52% low Not Available Not Available 02/05/2025 16:46:09 01/29/20 25 01/28/2025 hemog lobin + hemat ocrit , blood lab interpretati on Abnorm al Not Available Not Available 16:46:09 01/29/20 25 01/28/2025 hemog lobin + hemat ocrit , blood hemoglobin (Hb), blood 9 text: 13.0 - 18.0 g/dL low Not Available Not Available 02/05/2025 16:46:09 01/29/20 25 01/28/2025 hemog lobin + hemat ocrit , blood hematocrit, blood 27.4 % low: 37%hig h: 52% low Not Available Not Available 02/05/2025 16:46:09 01/29/20 25 01/28/2025 hemog lobin + hemat ocrit , blood lab interpretati on Abnorm al Not Available Not Available 16:46:09 01/30/20 25 01/29/2025 hemog lobin + hemat ocrit , blood hemoglobin (Hb), blood 9 text: 13.0 - 18.0 g/dL low Not Available Not Available 02/05/2025 16:46:09 01/30/20 25 01/29/2025 hemog lobin + hemat ocrit , blood hematocrit, blood 27.6 % low: 37%hig h: 52% low Not Available Not Available 02/05/2025 16:46:09 01/30/20 25 01/29/2025 hemog lobin + hemat ocrit , blood lab interpretati on Abnorm al Not Available Not Available 16:46:09 01/30/20 25 01/29/2025 hemog lobin + hemat ocrit , blood hemoglobin (Hb), blood 8 text: 13.0 - 18.0 g/dL low Not Available Not Available 02/05/2025 16:46:09 01/30/20 25 01/29/2025 hemog lobin + hemat ocrit , blood hematocrit, blood 25.2 % low: 37%hig h: 52% low Not Available Not Available 02/05/2025 16:46:09 01/30/20 25 01/29/2025 hemog lobin + hemat ocrit , blood lab interpretati on Abnorm al Not Available Not Available 16:46:09 01/31/20 25 01/30/2025 hemog lobin + hemat ocrit , blood hemoglobin (Hb), blood 7.8 text: 13.0 - 18.0 g/dL low Not Available Not Available 02/05/2025 16:46:09 01/31/20 25 01/30/2025 hemog lobin + hemat ocrit , blood hematocrit, blood 24.2 % low: 37%hig h: 52% low Not Available Not Available 02/05/2025 16:46:09 01/31/20 25 01/30/2025 hemog lobin + hemat ocrit , blood lab interpretati on Abnorm al Not Available Not Available 16:46:09 01/31/20 25 01/30/2025 CBC w/ auto diff WBC, auto, blood 11.48 text: 4.00 - 10.80 x10'3/ uL high Not Available Not Available 02/05/2025 16:46:09 01/31/20 25 01/30/2025 CBC w/ auto diff RBC count, blood 2.73 text: 4.50 - 6.10 x10'6/ uL low Not Available Not Available 02/05/2025 16:46:09 01/31/20 25 01/30/2025 CBC w/ auto diff hemoglobin (Hb), blood 8 text: 13.0 - 18.0 g/dL low Not Available Not Available 02/05/2025 16:46:09 01/31/20 25 01/30/2025 CBC w/ auto diff hematocrit, blood 24 % low: 37%hig h: 52% low Not Available Not Available 02/05/2025 16:46:09 01/31/20 25 01/30/2025 CBC w/ auto diff MCV, qn (obs) 87.9 text: 78.0 - 100.0 fL Not Available Not Available 02/05/2025 16:46:09 01/31/20 25 01/30/2025 CBC w/ auto diff MCH, qn (obs) 29.3 pg low: 27pghi gh: 31pg Not Available Not Available 02/05/2025 16:46:09 01/31/20 25 01/30/2025 CBC w/ auto diff mean corpuscular hemoglobin concentratio n, qn, RBC 33.3 text: 33.0 - 36.0 g/dL Not Available Not Available 02/05/2025 16:46:09 01/31/20 25 01/30/2025 CBC w/ auto diff RDW 14.4 % low: 11.5%h igh: 14.5% Not Available Not Available 02/05/2025 16:46:09 01/31/20 25 01/30/2025 CBC w/ auto diff platelet count, blood 268 text: 150 - 350 x10'3/ uL Not Available Not Available 02/05/2025 16:46:09 01/31/20 25 01/30/2025 CBC w/ auto diff platelet mean volume, qn, blood (obs) 9.7 text: 7.4 - 10.4 fL Not Available Not Available 02/05/2025 16:46:09 01/31/20 25 01/30/2025 CBC w/ auto diff differential cell count method, blood (obs) AUTOMA VAL DIFFER ENTIAL Not Available Not Available 16:46:09 01/31/20 25 01/30/2025 CBC w/ auto diff neutrophils/ 100 leukocytes, automated, blood (obs) 73.6 % Not Available Not Available 02/05/2025 16:46:09 01/31/20 25 01/30/2025 CBC w/ auto diff lymphocytes/ 100 leukocytes, automated, blood (obs) 15.9 % Not Available Not Available 02/05/2025 16:46:09 01/31/20 25 01/30/2025 CBC w/ auto diff monocytes/10 0 leukocytes, automated, blood (obs) 7.3 % Not Available Not Available 02/05/2025 16:46:09 01/31/20 25 01/30/2025 CBC w/ auto diff eosinophils/ 100 leukocytes, automated, blood (obs) 0.6 % Not Available Not Available 02/05/2025 16:46:09 01/31/20 25 01/30/2025 CBC w/ auto diff basophils/10 0 leukocytes, automated, blood (obs) 0.5 % Not Available Not Available 02/05/2025 16:46:09 01/31/20 25 01/30/2025 CBC w/ auto diff immature granulocytes /100 leukocytes, automated, blood (obs) 1.8 % Not Available Not Available 02/05/2025 16:46:09 01/31/20 25 01/30/2025 CBC w/ auto diff neutrophils, count, blood (obs) 8.47 text: 1.60 - 8.30 x10'3/ uL high Not Available Not Available 02/05/2025 16:46:09 01/31/20 25 01/30/2025 CBC w/ auto diff lymphocytes, blood (obs) 1.83 text: 0.80 - 4.70 x10'3/ uL Not Available Not Available 02/05/2025 16:46:09 01/31/20 25 01/30/2025 CBC w/ auto diff monocytes, count, blood (obs) 0.84 text: 0.00 - 1.50 x10'3/ uL Not Available Not Available 02/05/2025 16:46:09 01/31/20 25 01/30/2025 CBC w/ auto diff eosinophils, quant, blood 0.07 text: 0.00 - 0.40 x10'3/ uL Not Available Not Available 02/05/2025 16:46:09 01/31/20 25 01/30/2025 CBC w/ auto diff basophils, count, blood (obs) 0.06 text: 0.00 - 0.20 x10'3/ uL Not Available Not Available 02/05/2025 16:46:09 01/31/20 25 01/30/2025 CBC w/ auto diff immature granulocytes count, blood 0.21 text: 0.00 - 0.03 x10'3/ uL high Not Available Not Available 02/05/2025 16:46:09 01/31/20 25 01/30/2025 CBC w/ auto diff nucleated erythrocytes , count, blood (obs) 0.04 text: 0.00 - 0.01 x10'3/ uL high Not Available Not Available 02/05/2025 16:46:09 01/31/2001/30/2025 CBC w/ auto diff nucleated erythrocytes /100 leukocytes, ratio, blood (obs) 0.3 % Not Available Not Available 01/27 16:46:09 01/31/20 25 01/30/2025 CBC w/ auto diff lab interpretati on Abnorm al Not Available Not Available 16:46:09 01/31/2001/30/2025 BMP, serum or plasm a sodium, serum or plasma 144 text: 136 - 145 mmol/L Not Available Not Available 02/05/2025 16:46:09 01/31/2001/30/2025 BMP, serum or plasm a potassium, serum or plasma 3.1 text: 3.5 - 5.1 mmol/L low Not Available Not Available 02/05/2025 16:46:09 01/31/2001/30/2025 BMP, serum or plasm a chloride, serum or plasma 112 text: 97 - 115 mmol/L Not Available Not Available 02/05/2025 16:46:09 01/31/2001/30/2025 BMP, serum or plasm a CO2, (carbon dioxide), total, serum or plasma 25.2 text: 21.0 - 32.0 mmol/L Not Available Not Available 02/05/2025 16:46:09 01/31/2001/30/2025 BMP, serum or plasm a glucose, qn [mass/volume ], serum or plasma 137 text: 74 - 106 mg/dL high Not Available Not Available 02/05/2025 16:46:09 01/31/2001/30/2025 BMP, serum or plasm a BUN (blood urea nitrogen), serum or plasma 5 text: 7 - 18 mg/dL low Not Available Not Available 02/05/2025 16:46:09 01/31/2001/30/2025 BMP, serum or plasm a creatinine, serum or plasma 0.88 text: 0.70 - 1.30 mg/dL Not Available Not Available 02/05/2025 16:46:09 01/31/20 25 01/30/2025 BMP, serum or plasm a calcium, serum or plasma 7.8 text: 8.5 - 10.1 mg/dL low Not Available Not Available 02/05/2025 16:46:09 01/31/20 25 01/30/2025 BMP, serum or plasm a anion gap, serum or plasma 6.8 text: 2.0 - 10.0 mmol/L Not Available Not Available 02/05/2025 16:46:09 01/31/20 25 01/30/2025 BMP, serum or plasm a osmolality, calculation, serum or plasma (obs) 297 text: mOsm/k g REFER ENCE RANGE NOT ESTAB LISHE D Not Available Not Available 02/05/2025 16:46:09 01/31/20 25 01/30/2025 BMP, serum or plasm a glomerular filtration rate/1.73 sq M predicted, qn, creatinine based formula (CKD-epi 2020), serum or plasma or blood >90 text: >90 mL/min /1.73 M2 Not Available Not Available 02/05/2025 16:46:09 01/31/2001/30/2025 BMP, serum or plasm a GFR notes GFR REFERE NCES: THE ESTIM ATED GFR IS CALCU LATED USING THE 2020 CKD-E PI EQUAT ION. THE FOLLO WING CATEG ORIES FOR GRADI NG RENAL FUNCT ION ARE RECOM ANTHONY D BY THE INTER NATIO NAL SOCIE TY OF NEPHR OLOGY (KDIG O 2011 CLINI ANAHI PRACT ICE GUIDE LINE) . G1,NO RMAL OR HIGH: >89 ml/mi n/1.7 3 m2 G2,[place] LDLY DECRE ASED: 60-89 ml/mi n/1.7 3 m2 G3A,M ILDLY TO MODER ATELY DECRE ASED: 45-59 ml/mi n/1.7 3 m2 G3B,M ODERA TELY TO SEVER [place] DECRE ASED: 30-44 ml/mi n/1.7 3 m2 G4,SE VEREL Y DECRE ASED: 15-29 ml/mi n/1.7 3 m2 G5,KI DNEY FAILU RE: <15 ml/mi n/1.7 3 m2 Not Available Not Available 02/05/2025 16:46:09 01/31/20 25 01/30/2025 BMP, serum or plasm a lab interpretati on Abnorm al Not Available Not Available 16:46:09 02/01/20 25 01/31/2025 hemog lobin + hemat ocrit , blood hemoglobin (Hb), blood 8.7 text: 13.0 - 18.0 g/dL low Not Available Not Available 02/05/2025 16:46:10 02/01/20 25 01/31/2025 hemog lobin + hemat ocrit , blood hematocrit, blood 26.4 % low: 37%hig h: 52% low Not Available Not Available 02/05/2025 16:46:10 02/01/20 25 01/31/2025 hemog lobin + hemat ocrit , blood lab interpretati on Abnorm al Not Available Not Available 16:46:10 02/01/2001/31/2025 hemog lobin + hemat ocrit , blood hemoglobin (Hb), blood 9 text: 13.0 - 18.0 g/dL low Not Available Not Available 02/05/2025 16:46:09 02/01/2001/31/2025 hemog lobin + hemat ocrit , blood hematocrit, blood 27.6 % low: 37%hig h: 52% low Not Available Not Available 02/05/2025 16:46:09 02/01/2001/31/2025 hemog lobin + hemat ocrit , blood lab interpretati on Abnorm al Not Available Not Available 16:46:09 02/01/2002/01/2025 type + scree n, blood units ordered 1 Not Available Not Available 01/27 16:45:57 02/01/2002/01/2025 type + scree n, blood ABO/Rh A POSITI VE Not Available Not Available 16:45:57 02/01/2002/01/2025 type + scree n, blood antibody screen, serum or plasma NEGATI VE Not Available Not Available 16:45:57 02/01/2002/01/2025 type + scree n, blood specimen expiration date, blood (obs) 2024,2 359 Not Available Not Available 16:45:57 02/01/2002/01/2025 type + scree n, blood blood unit number [id number] Not Available Not Available 16:45:57 02/01/2002/01/2025 type + coreye n, blood product: PC LEUKOP OOR Not Available Not Available 16:45:57 02/01/2002/01/2025 type + coreye n, blood unit division 0 Not Available Not Available 01/2025 16:45:57 02/01/2002/01/2025 type + coreye n, blood blood unit status TRANSF USED,F INAL Not Available Not Available 16:45:57 02/01/2002/01/2025 type + coreye n, blood issue date/time 415 Not Available Not Available 16:45:57 02/01/2002/01/2025 type + coreye n, blood product code [id number] 00 Not Available Not Available 16:45:57 02/01/2002/01/2025 type + coreye n, blood ABO/Rh unit A POS Not Available Not Av ailable 02/05/2025 16:45:57 02/01/2002/01/2025 type + coreye n, blood ABO/Rh unit isbt code 6200 Not Available Not Available 16:45:57 02/01/2002/01/2025 type + coreye n, blood blood unit expiration date [id number] Not Available Not Available 16:45:57 02/01/2002/01/2025 type + coreye n, blood transfusion status OK TO TRANSF USE Not Available Not Available 16:45:57 02/01/2002/01/2025 type + scree n, blood major crossmatch (obs) COMPAT IBLE-E XM Not Available Not Available 16:45:57 02/01/2001/31/2025 CBC w/ auto diff WBC, auto, blood 9.76 text: 4.00 - 10.80 x10'3/ uL Not Available Not Available 02/05/2025 16:46:09 02/01/20 25 01/31/2025 CBC w/ auto diff RBC count, blood 2.34 text: 4.50 - 6.10 x10'6/ uL low Not Available Not Available 02/05/2025 16:46:09 02/01/20 25 01/31/2025 CBC w/ auto diff hemoglobin (Hb), blood 7 text: 13.0 - 18.0 g/dL low Not Available Not Available 02/05/2025 16:46:09 02/01/20 25 01/31/2025 CBC w/ auto diff hematocrit, blood 20.8 % low: 37%hig h: 52% low Not Available Not Available 02/05/2025 16:46:09 02/01/20 25 01/31/2025 CBC w/ auto diff MCV, qn (obs) 88.9 text: 78.0 - 100.0 fL Not Available Not Available 02/05/2025 16:46:09 02/01/20 25 01/31/2025 CBC w/ auto diff MCH, qn (obs) 29.9 pg low: 27pghi gh: 31pg Not Available Not Available 02/05/2025 16:46:09 02/01/20 25 01/31/2025 CBC w/ auto diff mean corpuscular hemoglobin concentratio n, qn, RBC 33.7 text: 33.0 - 36.0 g/dL Not Available Not Available 02/05/2025 16:46:09 02/01/20 25 01/31/2025 CBC w/ auto diff RDW 15 % low: 11.5%h igh: 14.5% high Not Available Not Available 02/05/2025 16:46:09 02/01/20 25 01/31/2025 CBC w/ auto diff platelet count, blood 249 text: 150 - 350 x10'3/ uL Not Available Not Available 02/05/2025 16:46:09 02/01/20 25 01/31/2025 CBC w/ auto diff platelet mean volume, qn, blood (obs) 9.6 text: 7.4 - 10.4 fL Not Available Not Available 02/05/2025 16:46:09 02/01/20 25 01/31/2025 CBC w/ auto diff differential cell count method, blood (obs) AUTOMA VAL DIFFER ENTIAL Not Available Not Available 16:46:09 02/01/2001/31/2025 CBC w/ auto diff neutrophils/ 100 leukocytes, automated, blood (obs) 67.9 % Not Available Not Available 02/05/2025 16:46:09 02/01/20 25 01/31/2025 CBC w/ auto diff lymphocytes/ 100 leukocytes, automated, blood (obs) 20.8 % Not Available Not Available 02/05/2025 16:46:09 02/01/20 25 01/31/2025 CBC w/ auto diff monocytes/10 0 leukocytes, automated, blood (obs) 8 % Not Available Not Available 02/05/2025 16:46:09 02/01/20 25 01/31/2025 CBC w/ auto diff eosinophils/ 100 leukocytes, automated, blood (obs) 0.8 % Not Available Not Available 02/05/2025 16:46:09 02/01/20 25 01/31/2025 CBC w/ auto diff basophils/10 0 leukocytes, automated, blood (obs) 0.5 % Not Available Not Available 02/05/2025 16:46:09 02/01/20 25 01/31/2025 CBC w/ auto diff immature granulocytes /100 leukocytes, automated, blood (obs) 1.7 % Not Available Not Available 02/05/2025 16:46:09 02/01/20 25 01/31/2025 CBC w/ auto diff neutrophils, count, blood (obs) 6.65 text: 1.60 - 8.30 x10'3/ uL Not Available Not Available 02/05/2025 16:46:09 02/01/20 25 01/31/2025 CBC w/ auto diff lymphocytes, blood (obs) 2.03 text: 0.80 - 4.70 x10'3/ uL Not Available Not Available 02/05/2025 16:46:09 02/01/20 25 01/31/2025 CBC w/ auto diff monocytes, count, blood (obs) 0.78 text: 0.00 - 1.50 x10'3/ uL Not Available Not Available 02/05/2025 16:46:09 10/05/01/31/2025 CBC w/ auto diff eosinophils, quant, blood 0.08 text: 0.00 - 0.40 x10'3/ uL Not Available Not Available 02/05/2025 16:46:09 02/01/20 25 01/31/2025 CBC w/ auto diff basophils, count, blood (obs) 0.05 text: 0.00 - 0.20 x10'3/ uL Not Available Not Available 02/05/2025 16:46:09 02/01/20 25 01/31/2025 CBC w/ auto diff immature granulocytes count, blood 0.17 text: 0.00 - 0.03 x10'3/ uL high Not Available Not Available 02/05/2025 16:46:09 02/01/20 25 01/31/2025 CBC w/ auto diff nucleated erythrocytes , count, blood (obs) 0.03 text: 0.00 - 0.01 x10'3/ uL high Not Available Not Available 02/05/2025 16:46:09 02/01/2001/31/2025 CBC w/ auto diff nucleated erythrocytes /100 leukocytes, ratio, blood (obs) 0.3 % Not Available Not Available 01/27 16:46:09 02/01/2001/31/2025 CBC w/ auto diff lab interpretati on Abnorm al Not Available Not Available 16:46:09 02/01/20 25 01/31/2025 BMP, serum or plasm a sodium, serum or plasma 144 text: 136 - 145 mmol/L Not Available Not Available 02/05/2025 16:46:09 02/01/2001/31/2025 BMP, serum or plasm a potassium, serum or plasma 3.3 text: 3.5 - 5.1 mmol/L low Not Available Not Available 02/05/2025 16:46:09 02/01/20 25 01/31/2025 BMP, serum or plasm a chloride, serum or plasma 112 text: 97 - 115 mmol/L Not Available Not Available 02/05/2025 16:46:09 02/01/20 25 01/31/2025 BMP, serum or plasm a CO2, (carbon dioxide), total, serum or plasma 27.6 text: 21.0 - 32.0 mmol/L Not Available Not Available 02/05/2025 16:46:09 02/01/2001/31/2025 BMP, serum or plasm a glucose, qn [mass/volume ], serum or plasma 112 text: 74 - 106 mg/dL high Not Available Not Available 02/05/2025 16:46:09 02/01/2001/31/2025 BMP, serum or plasm a BUN (blood urea nitrogen), serum or plasma 6 text: 7 - 18 mg/dL low Not Available Not Available 02/05/2025 16:46:09 02/01/2001/31/2025 BMP, serum or plasm a creatinine, serum or plasma 0.82 text: 0.70 - 1.30 mg/dL Not Available Not Available 02/05/2025 16:46:09 02/01/2001/31/2025 BMP, serum or plasm a calcium, serum or plasma 7.9 text: 8.5 - 10.1 mg/dL low Not Available Not Available 02/05/2025 16:46:09 02/01/2001/31/2025 BMP, serum or plasm a anion gap, serum or plasma 4.4 text: 2.0 - 10.0 mmol/L Not Available Not Available 02/05/2025 16:46:09 02/01/2001/31/2025 BMP, serum or plasm a osmolality, calculation, serum or plasma (obs) 296 text: mOsm/k g REFER ENCE RANGE NOT ESTAB LISHE D Not Available Not Available 02/05/2025 16:46:09 02/01/2001/31/2025 BMP, serum or plasm a glomerular filtration rate/1.73 sq M predicted, qn, creatinine based formula (CKD-epi 2020), serum or plasma or blood >90 text: >90 mL/min /1.73 M2 Not Available Not Available 02/05/2025 16:46:09 02/01/2001/31/2025 BMP, serum or plasm a GFR notes GFR REFERE NCES: THE ESTIM ATED GFR IS CALCU LATED USING THE 2020 CKD-E PI EQUAT ION. THE FOLLO WING CATEG ORIES FOR GRADI NG RENAL FUNCT ION ARE RECOM ANTHONY D BY THE INTER NATCRIT[facility]ESS [facility]PITAL SOCIE TY OF NEPHR OLOGY (KDIG O 2012 CLINI ANAHI PRACT ICE GUIDE LINE) . G1,NO RMAL OR HIGH: >89 ml/mi n/1.7 3 m2 G2,[place] LDLY DECRE ASED: 60-89 ml/mi n/1.7 3 m2 G3A,M ILDLY TO MODER ATELY DECRE ASED: 45-59 ml/mi n/1.7 3 m2 G3B,M ODERA TELY TO SEVER [place] DECRE ASED: 30-44 ml/mi n/1.7 3 m2 G4,SE VEREL Y DECRE ASED: 15-29 ml/mi n/1.7 3 m2 G5,KI DNEY FAILU RE: <15 ml/mi n/1.7 3 m2 Not Available Not Available 02/05/2025 16:46:09 02/01/20 25 01/31/2025 BMP, serum or plasm a lab interpretati on Abnorm al Not Available Not Available 16:46:09 02/02/20 25 02/01/2025 hemog lobin + hemat ocrit , blood hemoglobin (Hb), blood 8.7 text: 13.0 - 18.0 g/dL low Not Available Not Available 02/05/2025 16:46:10 02/02/20 25 02/01/2025 hemog lobin + hemat ocrit , blood hematocrit, blood 25.7 % low: 37%hig h: 52% low Not Available Not Available 02/05/2025 16:46:10 02/02/20 25 02/01/2025 hemog lobin + hemat ocrit , blood lab interpretati on Abnorm al Not Available Not Available 16:46:10 02/02/20 25 02/01/2025 hemog lobin + hemat ocrit , blood hemoglobin (Hb), blood 9.9 text: 13.0 - 18.0 g/dL low Not Available Not Available 02/05/2025 16:46:10 02/02/20 25 02/01/2025 hemog lobin + hemat ocrit , blood hematocrit, blood 29.8 % low: 37%hig h: 52% low Not Available Not Available 02/05/2025 16:46:10 02/02/20 25 02/01/2025 hemog lobin + hemat ocrit , blood lab interpretati on Abnorm al Not Available Not Available 16:46:10 02/02/20 25 02/01/2025 CBC w/ auto diff WBC, auto, blood 12.01 text: 4.00 - 10.80 x10'3/ uL high Not Available Not Available 02/05/2025 16:46:10 02/02/20 25 02/01/2025 CBC w/ auto diff RBC count, blood 3.33 text: 4.50 - 6.10 x10'6/ uL low Not Available Not Available 02/05/2025 16:46:10 02/02/20 25 02/01/2025 CBC w/ auto diff hemoglobin (Hb), blood 9.8 text: 13.0 - 18.0 g/dL low Not Available Not Available 02/05/2025 16:46:10 02/02/20 25 02/01/2025 CBC w/ auto diff hematocrit, blood 29.6 % low: 37%hig h: 52% low Not Available Not Available 02/05/2025 16:46:10 02/02/20 25 02/01/2025 CBC w/ auto diff MCV, qn (obs) 88.9 text: 78.0 - 100.0 fL Not Available Not Available 02/05/2025 16:46:10 02/02/20 25 02/01/2025 CBC w/ auto diff MCH, qn (obs) 29.4 pg low: 27pghi gh: 31pg Not Available Not Available 02/05/2025 16:46:10 02/02/20 25 02/01/2025 CBC w/ auto diff mean corpuscular hemoglobin concentratio n, qn, RBC 33.1 text: 33.0 - 36.0 g/dL Not Available Not Available 02/05/2025 16:46:10 02/02/20 25 02/01/2025 CBC w/ auto diff RDW 15.1 % low: 11.5%h igh: 14.5% high Not Available Not Available 02/05/2025 16:46:10 02/02/20 25 02/01/2025 CBC w/ auto diff platelet count, blood 346 text: 150 - 350 x10'3/ uL Not Available Not Available 02/05/2025 16:46:10 02/02/20 25 02/01/2025 CBC w/ auto diff platelet mean volume, qn, blood (obs) 9.5 text: 7.4 - 10.4 fL Not Available Not Available 02/05/2025 16:46:10 02/02/20 25 02/01/2025 CBC w/ auto diff differential cell count method, blood (obs) AUTOMA VAL DIFFER ENTIAL Not Available Not Available 16:46:10 02/02/20 25 02/01/2025 CBC w/ auto diff neutrophils/ 100 leukocytes, automated, blood (obs) 71.6 % Not Available Not Available 02/05/2025 16:46:10 02/02/20 25 02/01/2025 CBC w/ auto diff lymphocytes/ 100 leukocytes, automated, blood (obs) 19.1 % Not Available Not Available 02/05/2025 16:46:10 02/02/20 25 02/01/2025 CBC w/ auto diff monocytes/10 0 leukocytes, automated, blood (obs) 6.4 % Not Available Not Available 02/05/2025 16:46:10 02/02/20 25 02/01/2025 CBC w/ auto diff eosinophils/ 100 leukocytes, automated, blood (obs) 0.7 % Not Available Not Available 02/05/2025 16:46:10 02/02/20 25 02/01/2025 CBC w/ auto diff basophils/10 0 leukocytes, automated, blood (obs) 0.4 % Not Available Not Available 02/05/2025 16:46:10 02/02/20 25 02/01/2025 CBC w/ auto diff immature granulocytes /100 leukocytes, automated, blood (obs) 1.6 % Not Available Not Available 02/05/2025 16:46:10 02/02/20 25 02/01/2025 CBC w/ auto diff neutrophils, count, blood (obs) 8.63 text: 1.60 - 8.30 x10'3/ uL high Not Available Not Available 02/05/2025 16:46:10 02/02/20 25 02/01/2025 CBC w/ auto diff lymphocytes, blood (obs) 2.29 text: 0.80 - 4.70 x10'3/ uL Not Available Not Available 02/05/2025 16:46:10 02/02/20 25 02/01/2025 CBC w/ auto diff monocytes, count, blood (obs) 0.77 text: 0.00 - 1.50 x10'3/ uL Not Available Not Available 02/05/2025 16:46:10 02/02/20 25 02/01/2025 CBC w/ auto diff eosinophils, quant, blood 0.08 text: 0.00 - 0.40 x10'3/ uL Not Available Not Available 02/05/2025 16:46:10 02/02/20 25 02/01/2025 CBC w/ auto diff basophils, count, blood (obs) 0.05 text: 0.00 - 0.20 x10'3/ uL Not Available Not Available 02/05/2025 16:46:10 02/02/20 25 02/01/2025 CBC w/ auto diff immature granulocytes count, blood 0.19 text: 0.00 - 0.03 x10'3/ uL high Not Available Not Available 02/05/2025 16:46:10 02/02/20 25 02/01/2025 CBC w/ auto diff nucleated erythrocytes , count, blood (obs) 0.03 text: 0.00 - 0.01 x10'3/ uL high Not Available Not Available 02/05/2025 16:46:10 02/02/20 25 02/01/2025 CBC w/ auto diff nucleated erythrocytes /100 leukocytes, ratio, blood (obs) 0.2 % Not Available Not Available 01/27 16:46:10 02/02/20 25 02/01/2025 CBC w/ auto diff lab interpretati on Abnorm al Not Available Not Available 16:46:10 02/02/20 25 02/01/2025 BMP, serum or plasm a sodium, serum or plasma 140 text: 136 - 145 mmol/L Not Available Not Available 02/05/2025 16:45:57 02/02/2002/01/2025 BMP, serum or plasm a potassium, serum or plasma 2.7 text: 3.5 - 5.1 mmol/L critical low Criti anahi Resul t(s) Chowdhury d to and read back by:[id number] at: 09:38 :34 02/01 by [facility]. Not Available Not Available 02/05/2025 16:45:57 02/02/2002/01/2025 BMP, serum or plasm a chloride, serum or plasma 104 text: 97 - 115 mmol/L Not Available Not Available 02/05/2025 16:45:57 02/02/20 25 02/01/2025 BMP, serum or plasm a CO2, (carbon dioxide), total, serum or plasma 28.7 text: 21.0 - 32.0 mmol/L Not Available Not Available 02/05/2025 16:45:57 02/02/2002/01/2025 BMP, serum or plasm a glucose, qn [mass/volume ], serum or plasma 103 text: 74 - 106 mg/dL Not Available Not Available 02/05/2025 16:45:57 02/02/2002/01/2025 BMP, serum or plasm a BUN (blood urea nitrogen), serum or plasma 6 text: 7 - 18 mg/dL low Not Available Not Available 02/05/2025 16:45:57 02/02/20 25 02/01/2025 BMP, serum or plasm a creatinine, serum or plasma 0.92 text: 0.70 - 1.30 mg/dL Not Available Not Available 02/05/2025 16:45:57 02/02/2002/01/2025 BMP, serum or plasm a calcium, serum or plasma 8.3 text: 8.5 - 10.1 mg/dL low Not Available Not Available 02/05/2025 16:45:57 02/02/2002/01/2025 BMP, serum or plasm a anion gap, serum or plasma 7.3 text: 2.0 - 10.0 mmol/L Not Available Not Available 02/05/2025 16:45:57 02/02/2002/01/2025 BMP, serum or plasm a osmolality, calculation, serum or plasma (obs) 288 text: mOsm/k g REFER ENCE RANGE NOT ESTAB LISHE D Not Available Not Available 02/05/2025 16:45:57 02/02/20 25 02/01/2025 BMP, serum or plasm a glomerular filtration rate/1.73 sq M predicted, qn, creatinine based formula (CKD-epi 2020), serum or plasma or blood >90 text: >90 mL/min /1.73 M2 Not Available Not Available 02/05/2025 16:45:57 02/02/2002/01/2025 BMP, serum or plasm a GFR notes GFR REFERE NCES: THE ESTIM ATED GFR IS CALCU LATED USING THE 2020 CKD-E PI EQUAT ION. THE FOLLO WING CATEG ORIES FOR GRADI NG RENAL FUNCT ION ARE RECOM ANTHONY D BY THE INTER NATCRITICAL ACCESS HOSPITAL SOCIE TY OF NEPHR OLOGY (KDIG O 2011 CLINI ANAHI PRACT ICE GUIDE LINE) . G1,NO RMAL OR HIGH: >89 ml/mi n/1.7 3 m2 G2,[place] LDLY DECRE ASED: 60-89 ml/mi n/1.7 3 m2 G3A,M ILDLY TO MODER ATELY DECRE ASED: 45-59 ml/mi n/1.7 3 m2 G3B,M ODERA TELY TO SEVER [place]AN DECRE ASED: 30-44 ml/mi n/1.7 3 m2 G4,SE VEREL Y DECRE ASED: 15-29 ml/mi n/1.7 3 m2 G5,KI DNEY FAILU RE: <15 ml/mi n/1.7 3 m2 Not Available Not Available 02/05/2025 16:45:57 02/02/2002/01/2025 BMP, serum or plasm a lab interpretati on Abnorm al Not Available Not Available 16:45:57 02/02/2002/01/2025 hemog lobin + hemat ocrit , blood hemoglobin (Hb), blood 8.9 text: 13.0 - 18.0 g/dL low Not Available Not Available 02/05/2025 16:46:10 02/02/20 25 02/01/2025 hemog lobin + hemat ocrit , blood hematocrit, blood 26.5 % low: 37%hig h: 52% low Not Available Not Available 02/05/2025 16:46:10 02/02/20 25 02/01/2025 hemog lobin + hemat ocrit , blood lab interpretati on Abnorm al Not Available Not Available 16:46:10 02/02/2002/03/2025 patho logy study pathology study [facility] [address] [place] [address] Teleph one: , extens ion [id number] Pathol ogy Report Surgic al Pathol ogy Report Name: FARHAD BECKWITH Specim en #: [id number] Age: [birth year] (Age: 64) Locati on: [facility] Sex: M Proced ure Date: [facility] #: [id number] 59 Date Receiv ed: Date Report ed: Provid er: HANNAH LUU MD Source : Colon, sigmoi d, polyp at 30cm Clinic al Histor y: Hemato chezia . FINAL DIAGNO SIS: Colon, sigmoi d polyp at 30 cm, biopsy : - Tubula r adenom a. Gross Descri ption: Receiv ed in formal in, labele d with a patien t label and as sigmo id colon polyp at 30 cm is a 0.7 x 0.5 x 0.3 cm gant polyp. The base is not identi fied. The polyp is bisect ed. The specim en is entire ly submit val in casset te 1. Gross examin ation (when applic able) was perfor med at [facility], [address] [place] [address]. This case was interp reted and signed out at [facility], [address] [place] [address]. Elec lisa hobbs Signed Out Kellie harris M.D. Not Available Not Available 16:45:57 02/03/2002/02/2025 CMP, serum or plasm a sodium, serum or plasma 141 text: 136 - 145 mmol/L Not Available Not Available 02/05/2025 16:45:57 02/03/20 25 02/02/2025 CMP, serum or plasm a potassium, serum or plasma 4.3 text: 3.5 - 5.1 mmol/L MILD HEMOL YSIS, RESUL T MAY BE AFFEC VAL. Not Available Not Available 02/05/2025 16:45:57 02/03/2002/02/2025 CMP, serum or plasm a chloride, serum or plasma 110 text: 97 - 115 mmol/L Not Available Not Available 02/05/2025 16:45:57 02/03/20 25 02/02/2025 CMP, serum or plasm a CO2, (carbon dioxide), total, serum or plasma 21.3 text: 21.0 - 32.0 mmol/L Not Available Not Available 02/05/2025 16:45:57 02/03/20 25 02/02/2025 CMP, serum or plasm a glucose, qn [mass/volume ], serum or plasma 97 text: 74 - 106 mg/dL Not Available Not Available 02/05/2025 16:45:57 02/03/2002/02/2025 CMP, serum or plasm a BUN (blood urea nitrogen), serum or plasma 8 text: 7 - 18 mg/dL Not Available Not Available 02/05/2025 16:45:57 02/03/2002/02/2025 CMP, serum or plasm a creatinine, serum or plasma 0.85 text: 0.70 - 1.30 mg/dL Not Available Not Available 02/05/2025 16:45:57 02/03/2002/02/2025 CMP, serum or plasm a calcium, serum or plasma 8.7 text: 8.5 - 10.1 mg/dL Not Available Not Available 02/05/2025 16:45:57 02/03/20 25 02/02/2025 CMP, serum or plasm a bilirubin, total, serum or plasma 0.5 text: 0.2 - 1.0 mg/dL Not Available Not Available 02/05/2025 16:45:57 02/03/20 25 02/02/2025 CMP, serum or plasm a alkaline phosphatase, serum or plasma 55 U/L low: 45U/Lh igh: 115U/L Not Available Not Available 02/05/2025 16:45:57 02/03/20 25 02/02/2025 CMP, serum or plasm a AST/SGOT (aspartate aminotransfe rase), serum or plasma 26 U/L low: 15U/Lh igh: 37U/L RESUL T QUEST IONAB LE DUE TO HEMOL YSIS, CONSI QAMAR RECOL LECTI ON. Not Available Not Available 02/05/2025 16:45:57 02/03/20 25 02/02/2025 CMP, serum or plasm a ALT (alanine aminotransfe rase), serum or plasma 17 U/L low: 16U/Lh igh: 61U/L Not Available Not Available 02/05/2025 16:45:57 02/03/20 25 02/02/2025 CMP, serum or plasm a protein, total, serum 6.3 text: 6.4 - 8.2 g/dL low Not Available Not Available 02/05/2025 16:45:57 02/03/20 25 02/02/2025 CMP, serum or plasm a albumin, serum or plasma 3 text: 3.4 - 5.0 g/dL low Not Available Not Available 02/05/2025 16:45:57 02/03/20 25 02/02/2025 CMP, serum or plasm a anion gap, serum or plasma 9.7 text: 2.0 - 10.0 mmol/L Not Available Not Available 02/05/2025 16:45:57 02/03/20 25 02/02/2025 CMP, serum or plasm a osmolality, calculation, serum or plasma (obs) 290 text: mOsm/k g REFER ENCE RANGE NOT ESTAB LISHE D Not Available Not Available 02/05/2025 16:45:57 02/03/20 25 02/02/2025 CMP, serum or plasm a glomerular filtration rate/1.73 sq M predicted, qn, creatinine based formula (CKD-epi 2020), serum or plasma or blood >90 text: >90 mL/min /1.73 M2 Not Available Not Available 02/05/2025 16:45:57 02/03/20 25 02/02/2025 CMP, serum or plasm a GFR notes GFR REFERE NCES: THE ESTIM ATED GFR IS CALCU LATED USING THE 2020 CKD-E PI EQUAT ION. THE FOLLO WING CATEG ORIES FOR GRADI NG RENAL FUNCT ION ARE RECOM ANTHONY D BY THE INTER NATIO NAL SOCIE TY OF NEPHR OLOGY (KDIG O 2011 CLINI ANAHI PRACT ICE GUIDE LINE) . G1,NO RMAL OR HIGH: >89 ml/mi n/1.7 3 m2 G2,[place] LDLY DECRE ASED: 60-89 ml/mi n/1.7 3 m2 G3A,M ILDLY TO MODER ATELY DECRE ASED: 45-59 ml/mi n/1.7 3 m2 G3B,M ODERA TELY TO SEVER [place] DECRE ASED: 30-44 ml/mi n/1.7 3 m2 G4,SE VEREL Y DECRE ASED: 15-29 ml/mi n/1.7 3 m2 G5,KI DNEY FAILU RE: <15 ml/mi n/1.7 3 m2 Not Available Not Available 02/05/2025 16:45:57 02/03/20 25 02/02/2025 CMP, serum or plasm a lab interpretati on Abnorm al Not Available Not Available 16:45:57 02/03/20 25 02/02/2025 CBC w/ auto diff WBC, auto, blood 11.39 text: 4.00 - 10.80 x10'3/ uL high Not Available Not Available 02/05/2025 16:45:57 02/03/20 25 02/02/2025 CBC w/ auto diff RBC count, blood 2.98 text: 4.50 - 6.10 x10'6/ uL low Not Available Not Available 02/05/2025 16:45:57 02/03/20 25 02/02/2025 CBC w/ auto diff hemoglobin (Hb), blood 8.9 text: 13.0 - 18.0 g/dL low Not Available Not Available 02/05/2025 16:45:57 02/03/20 25 02/02/2025 CBC w/ auto diff hematocrit, blood 27.6 % low: 37%hig h: 52% low Not Available Not Available 02/05/2025 16:45:57 02/03/20 25 02/02/2025 CBC w/ auto diff MCV, qn (obs) 92.6 text: 78.0 - 100.0 fL Not Available Not Available 02/05/2025 16:45:57 02/03/20 25 02/02/2025 CBC w/ auto diff MCH, qn (obs) 29.9 pg low: 27pghi gh: 31pg Not Available Not Available 02/05/2025 16:45:57 02/03/20 25 02/02/2025 CBC w/ auto diff mean corpuscular hemoglobin concentratio n, qn, RBC 32.2 text: 33.0 - 36.0 g/dL low Not Available Not Available 02/05/2025 16:45:57 02/03/20 25 02/02/2025 CBC w/ auto diff RDW 15.3 % low: 11.5%h igh: 14.5% high Not Available Not Available 02/05/2025 16:45:57 02/03/20 25 02/02/2025 CBC w/ auto diff platelet count, blood 359 text: 150 - 350 x10'3/ uL high Not Available Not Available 02/05/2025 16:45:57 02/03/20 25 02/02/2025 CBC w/ auto diff platelet mean volume, qn, blood (obs) 9.6 text: 7.4 - 10.4 fL Not Available Not Available 02/05/2025 16:45:57 02/03/20 25 02/02/2025 CBC w/ auto diff differential cell count method, blood (obs) AUTOMA VAL DIFFER ENTIAL Not Available Not Available 16:45:57 02/03/20 25 02/02/2025 CBC w/ auto diff neutrophils/ 100 leukocytes, automated, blood (obs) 78.8 % Not Available Not Available 02/05/2025 16:45:57 02/03/20 25 02/02/2025 CBC w/ auto diff lymphocytes/ 100 leukocytes, automated, blood (obs) 11.9 % Not Available Not Available 02/05/2025 16:45:57 02/03/20 25 02/02/2025 CBC w/ auto diff monocytes/10 0 leukocytes, automated, blood (obs) 6.1 % Not Available Not Available 02/05/2025 16:45:57 02/03/20 25 02/02/2025 CBC w/ auto diff eosinophils/ 100 leukocytes, automated, blood (obs) 0.7 % Not Available Not Available 02/05/2025 16:45:57 02/03/20 25 02/02/2025 CBC w/ auto diff basophils/10 0 leukocytes, automated, blood (obs) 0.4 % Not Available Not Available 02/05/2025 16:45:57 02/03/20 25 02/02/2025 CBC w/ auto diff immature granulocytes /100 leukocytes, automated, blood (obs) 1.9 % Not Available Not Available 02/05/2025 16:45:57 02/03/20 25 02/02/2025 CBC w/ auto diff neutrophils, count, blood (obs) 9 text: 1.60 - 8.30 x10'3/ uL high Not Available Not Available 02/05/2025 16:45:57 02/03/20 25 02/02/2025 CBC w/ auto diff lymphocytes, blood (obs) 1.36 text: 0.80 - 4.70 x10'3/ uL Not Available Not Available 02/05/2025 16:45:57 02/03/20 25 02/02/2025 CBC w/ auto diff monocytes, count, blood (obs) 0.69 text: 0.00 - 1.50 x10'3/ uL Not Available Not Available 02/05/2025 16:45:57 02/03/20 25 02/02/2025 CBC w/ auto diff eosinophils, quant, blood 0.08 text: 0.00 - 0.40 x10'3/ uL Not Available Not Available 02/05/2025 16:45:57 02/03/20 25 02/02/2025 CBC w/ auto diff basophils, count, blood (obs) 0.04 text: 0.00 - 0.20 x10'3/ uL Not Available Not Available 02/05/2025 16:45:57 02/03/20 25 02/02/2025 CBC w/ auto diff immature granulocytes count, blood 0.22 text: 0.00 - 0.03 x10'3/ uL high Not Available Not Available 02/05/2025 16:45:57 02/03/20 25 02/02/2025 CBC w/ auto diff nucleated erythrocytes , count, blood (obs) 0.02 text: 0.00 - 0.01 x10'3/ uL high Not Available Not Available 02/05/2025 16:45:57 02/03/20 25 02/02/2025 CBC w/ auto diff nucleated erythrocytes /100 leukocytes, ratio, blood (obs) 0.2 % Not Available Not Available 01/27 16:45:57 02/03/2002/02/2025 CBC w/ auto diff lab interpretati on Abnorm al Not Available Not Available 16:45:57 02/03/2002/02/2025 CMP, serum or plasm a sodium, serum or plasma 138 text: 136 - 145 mmol/L Not Available Not Available 02/05/2025 16:46:10 02/03/2002/02/2025 CMP, serum or plasm a potassium, serum or plasma 2.8 text: 3.5 - 5.1 mmol/L critical low Criti anahi Resul t(s) Chowdhury d to and read back by: MARLON [id number] at: 02:20 :55 02/02 by JACQUIE. Not Available Not Available 02/05/2025 16:46:10 02/03/2002/02/2025 CMP, serum or plasm a chloride, serum or plasma 104 text: 97 - 115 mmol/L Not Available Not Available 02/05/2025 16:46:10 02/03/2002/02/2025 CMP, serum or plasm a CO2, (carbon dioxide), total, serum or plasma 27.2 text: 21.0 - 32.0 mmol/L Not Available Not Available 02/05/2025 16:46:10 02/03/2002/02/2025 CMP, serum or plasm a glucose, qn [mass/volume ], serum or plasma 94 text: 74 - 106 mg/dL Not Available Not Available 02/05/2025 16:46:10 02/03/2002/02/2025 CMP, serum or plasm a BUN (blood urea nitrogen), serum or plasma 6 text: 7 - 18 mg/dL low Not Available Not Available 02/05/2025 16:46:10 02/03/20 25 02/02/2025 CMP, serum or plasm a creatinine, serum or plasma 0.71 text: 0.70 - 1.30 mg/dL Not Available Not Available 02/05/2025 16:46:10 02/03/20 25 02/02/2025 CMP, serum or plasm a calcium, serum or plasma 8 text: 8.5 - 10.1 mg/dL low Not Available Not Available 02/05/2025 16:46:10 02/03/20 25 02/02/2025 CMP, serum or plasm a bilirubin, total, serum or plasma 0.5 text: 0.2 - 1.0 mg/dL Not Available Not Available 02/05/2025 16:46:10 02/03/20 25 02/02/2025 CMP, serum or plasm a alkaline phosphatase, serum or plasma 46 U/L low: 45U/Lh igh: 115U/L Not Available Not Available 02/05/2025 16:46:10 02/03/20 25 02/02/2025 CMP, serum or plasm a AST/SGOT (aspartate aminotransfe rase), serum or plasma 11 U/L low: 15U/Lh igh: 37U/L low Not Available Not Available 02/05/2025 16:46:10 02/03/20 25 02/02/2025 CMP, serum or plasm a ALT (alanine aminotransfe rase), serum or plasma 13 U/L low: 16U/Lh igh: 61U/L low Not Available Not Available 02/05/2025 16:46:10 02/03/2002/02/2025 CMP, serum or plasm a protein, total, serum 5 text: 6.4 - 8.2 g/dL low Not Available Not Available 02/05/2025 16:46:10 02/03/20 25 02/02/2025 CMP, serum or plasm a albumin, serum or plasma 2.5 text: 3.4 - 5.0 g/dL low Not Available Not Available 02/05/2025 16:46:10 02/03/20 25 02/02/2025 CMP, serum or plasm a anion gap, serum or plasma 6.8 text: 2.0 - 10.0 mmol/L Not Available Not Available 02/05/2025 16:46:10 02/03/20 25 02/02/2025 CMP, serum or plasm a osmolality, calculation, serum or plasma (obs) 283 text: mOsm/k g REFER ENCE RANGE NOT ESTAB LISHE D Not Available Not Available 02/05/2025 16:46:10 02/03/20 25 02/02/2025 CMP, serum or plasm a glomerular filtration rate/1.73 sq M predicted, qn, creatinine based formula (CKD-epi 2020), serum or plasma or blood >90 text: >90 mL/min /1.73 M2 Not Available Not Available 02/05/2025 16:46:10 02/03/2002/02/2025 CMP, serum or plasm a GFR notes GFR REFERE NCES: THE ESTIM ATED GFR IS CALCU LATED USING THE 2020 CKD-E PI EQUAT ION. THE FOLLO WING CATEG ORIES FOR GRADI NG RENAL FUNCT ION ARE RECOM ANTHONY D BY THE INTER NATCRITICAL ACCESS [facility]OSPITAL SOCIE TY OF NEPHR OLOGY (KDIG O 2011 CLINI ANAHI PRACT ICE GUIDE LINE) . G1,NO RMAL OR HIGH: >89 ml/mi n/1.7 3 m2 G2,[place] LDLY DECRE ASED: 60-89 ml/mi n/1.7 3 m2 G3A,M ILDLY TO MODER ATELY DECRE ASED: 45-59 ml/mi n/1.7 3 m2 G3B,M ODERA TELY TO SEVER [place] DECRE ASED: 30-44 ml/mi n/1.7 3 m2 G4,SE VEREL Y DECRE ASED: 15-29 ml/mi n/1.7 3 m2 G5,KI DNEY FAILU RE: <15 ml/mi n/1.7 3 m2 Not Available Not Available 02/05/2025 16:46:10 02/03/20 25 02/02/2025 CMP, serum or plasm a lab interpretati on Abnorm al Not Available Not Available 16:46:10 02/03/20 25 02/02/2025 hemog lobin + hemat ocrit , blood hemoglobin (Hb), blood 8 text: 13.0 - 18.0 g/dL low Not Available Not Available 02/05/2025 16:45:57 02/03/20 25 02/02/2025 hemog lobin + hemat ocrit , blood hematocrit, blood 23.9 % low: 37%hig h: 52% low Not Available Not Available 02/05/2025 16:45:57 02/03/20 25 02/02/2025 hemog lobin + hemat ocrit , blood lab interpretati on Abnorm al Not Available Not Available 16:45:57 09/3001/26/2025 CT, angio gram, abdom en + pelvi s, w/ contr ast No observ ation record ed. prince [facility] [address] [place], [address], 02/02/2025 16:28:28 02/17/20 25 02/16/2025 imagi ng/di agnos tic resul t No observ ation record ed. JUN [facility] [address] [place], [address], 02/16/2025 12:13:25 Result Notes None recorded. Problems Name Problem SNOMED Code Status Onset Date Resolution Date Notes Provider Name and Address Organization Details Recorded Time Chronic obstructive pulmonary disease 22006390 Active 2023 Wily Tabares MD Attn: Virgen harris,[address] [facility], [place], [address], [facility] - [facility] 4 22:15:54 Obesity 181340942 Active 2023 Wily Tabares MD Attn: Virgen harris,[address] [facility], [place], [address], [facility] - [place] 4 22:15:55 History of cerebrovasc ular accident 599469002 Active 2023 Wily Tabares MD Attn: Virgen harris,[address] [facility], [place], [address], [facility] - [place] 4 22:15:58 Hyperlipide dano 59721622 Active 2023 Wily Tabares MD Attn: Virgen g,[address] [facility], [place], [address], [facility] - [facility] 4 22:15:59 Obese class II 3897048749542 05 Active 2024 Abdulkadir Elkins MA null, [place] - [facility] 5 15:13:18 Primary gonarthrosi s, bilateral 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 Medical Equipment None Reported. Allergies Allergen ID Allergen Name Allergen Category Reaction Reaction Severity Criticality Documentation Date Start Date Code Code System Note Provider Name and Address Organization Details Recorded Time 133257 Substance with sulfonami de structure and antibacte rial mechanism of action (substanc e) medicatio n rash Not available Not available 08/12/2023 40131 8003 SNOMED TRESA Fung, [place] - [facility] 4 12:09:46 Medications Name Sig Start Date Stop Date Status Note LastModified by Organization Details LastModified Time Augmentin 875 mg-125 mg tablet Take 1 tablet twice a day by oral route for 7 days. 10/23 completed Not Available Not Available Not Available azithromyc in 250 mg tablet TAKE 2 TABLETS BY MOUTH TODAY, THEN TAKE 1 TABLET DAILY FOR 4 DAYS DIRECTED 01/18 completed Not Available Not Available Not Available pravastati n 40 mg tablet TAKE 1 TABLET BY MOUTH EVERY DAY active Not Available Not Available No t Available prednisone 20 mg tablet TAKE 2 TABLETS BY MOUTH EVERY DAY FOR 5 DAYS 02/19 completed Not Available Not Available Not Available clopidogre l 75 mg tablet TAKE 1 TABLET BY MOUTH EVERY DAY 02/08 completed Not Available Not Available Not Available ciprofloxa zuly 500 mg tablet TAKE 1 TABLET BY MOUTH TWICE A DAY FOR 7 DAYS 01/18 completed Not Available Not Available Not Available aspirin 81 mg tablet,del ayed release Take 1 tablet every day by oral route. active Not Available Not Available No t Available tramadol 50 mg tablet 50 - 100 MG ORALLY EVERY 6 HOURS NEEDED FOR PAIN 08/11 completed Not Available Not Available Not Available pantoprazo le 40 mg tablet,del ayed release TAKE 1 TABLET BY MOUTH EVERY DAY FOR 30 DAYS active Not Available Not Available No t Available montelukas t 10 mg tablet TAKE 1 TABLET BY MOUTH EVERY DAY IN THE EVENING active Not Available Not Available No t Available pravastati n 20 mg tablet TAKE 1 TABLET BY MOUTH EVERY DAY 02/19 completed pt is on 40mg daily Not Available Not Available Not Available furosemide 20 mg tablet TAKE 1 TABLET BY MOUTH EVERY DAY FOR 30 DAYS active Not Available Not Available No t Available albuterol sulfate HFA 90 mcg/actuat ion aerosol inhaler INHALE 2 PUFFS BY MOUTH EVERY 4 HOURS NEEDED FOR WHEEZE active Not Available Not Available No t Available potassium chloride ER 20 mEq tablet,ext ended release TAKE 1 TABLET BY MOUTH DAILY FOR 30 DAYS. active Not Available Not Available No t Available Breztri Aerosphere 160 mcg-9mcg-4 .8mcg/actu ation HFA aerosol inhaler Inhale 2 puffs twice a day by inhalatio n route. active Not Available Not Available No t Available Zepbound 2.5 mg/0.5 mL subcutaneo us pen injector Inject 2.5 mg every week by subcutane ous route, for 4wks then go up to 5mg weekly. 02/08 completed Not Available Not Available Not Available Vitals Date Recorded Body height Body mass index (BMI) Body weight Heart rate Oxygen saturation Oxygen saturation in Arterial blood by Pulse oximetry Systolic And Diastolic Provider Name and Address Organization Details Last Updated DateTime 5 175.26 cm 40 kg/m2 636944. 53 g 75 /min 98 % 98 % 110/68 mm[Hg] Charu Galan MA [facility] 5 12:29:27 Date Recorded Body height Body mass index (BMI) Body weight Heart rate Oxygen saturation Oxygen saturation in Arterial blood by Pulse oximetry Systolic And Diastolic Provider Name and Address Organization Details Last Updated DateTime 5 175.26 cm 39.1 kg/m2 904906. 98 g 97 /min 97 % 97 % 126/70 mm[Hg] Radha Vogel MA [facility] 5 14:24:13 Date Recorded Body height Body mass index (BMI) Body weight Heart rate Oxygen saturation Oxygen saturation in Arterial blood by Pulse oximetry Systolic And Diastolic Provider Name and Address Organization Details Last Updated DateTime 5 175.26 cm 39.3 kg/m2 982502. 29 g 71 /min 95 % 95 % 112/72 mm[Hg] Crystal Borjas MA [facility] 5 13:53:12 Date Recorded Body height Body mass index (BMI) Body weight Heart rate Oxygen saturation Oxygen saturation in Arterial blood by Pulse oximetry Systolic And Diastolic Provider Name and Address Organization Details Last Updated DateTime 5 175.26 cm 37.5 kg/m2 403763. 1 g 93 /min 97 % 97 % 120/80 mm[Hg] Crystal Borjas MA [facility] 5 10:09:04 Date Recorded Body height Body mass index (BMI) Body weight Heart rate Oxygen saturation Oxygen saturation in Arterial blood by Pulse oximetry Systolic And Diastolic Provider Name and Address Organization Details Last Updated DateTime 4 175.26 cm 39.7 kg/m2 496871. 35 g 90 /min 96 % 96 % 132/80 mm[Hg] Crystal Borjas MA [facility] 4 12:05:49 Social History Question Answer Notes LastModified by Organizat ion Details LastModified Time Tobacco Smoking Status Former Smoker Racquel Wells MA [facility] 08/12/2023 12:11:28 Do You Have An Advance Directive? No Information n ot available 02/13/2024 Are You Blind Or Do You Have Difficulty Seeing? No Information n ot available 08/12/2023 What Is Your Level Of Caffeine Consumption? Moderate Information not available 06/25/2024 In The 14 Days Before Symptom Onset, Have You Had Close Contact With A Laboratory-confirm ed COVID-19 While That Case Was Ill? No Information n ot available 02/13/2024 In The 14 Days Before Symptom Onset, Have You Had Close Contact With A Person Who Is Under Investigation For COVID-19 While That Person Was Ill? No Information not available 02/13/2024 Have You Been To An Area Known To Be High Risk For COVID-19? No Information not available 02/13/2024 Are You Deaf Or Do You Have Serious Difficulty Hearing? No Information not available 08/12/2023 What Type Of Diet Are You Following? REGULAR Information n ot available 02/13/2024 Are There Any Guns Present In Your Home? No Information not available 02/13/2024 What Was The Date Of Your Most Recent Tobacco Screening? 02/08/2025 Information not available 02/08/2025 What Is Your Relationship Status? Single Information not available 08/12/2023 Do You Use Your Seat Belt Or Car Seat Routinely? Yes Information not available 02/13/2024 Do You Have Smoke And Carbon Monoxide Detectors In Your Home? Yes Information not available 02/13/2024 How Much Tobacco Do You Smoke? 1 PPD Information not available 08/12/2023 Do You Use Sunscreen Routinely? Yes Information not available 02/13/2024 Has Tobacco Cessation Counseling Been Provided? No [email or web address] Information not available 10/19/2024 On What Date Was Tobacco Cessation Counseling Provided? 02/08/2025 Information not available 02/08/2025 Sex: Male Functional Status Question Answer Note LastModified by Organizat ion Details LastModified Time Do you use any illicit or recreational drugs? Yes Information not available 06/25/2024 Do you or have you ever used any other forms of tobacco or nicotine? No [email or web address] Information not available 10/24/2023 What is your level of alcohol consumption? Occasional Information not available 08/12/2023 Are you able to care for yourself independently? Yes Information not available 08/12/2023 Mental Status Question Answer Note LastModified by Organization D etails LastModified Time Do you feel stressed (tense, restless, nervous, or anxious, or unable to sleep at night)? [id number] Information not available 08/12/2023 Family History Relationship Description Onset Age of this Age Resolved Age Notes LastModified by Organization Details LastModified Time Mother Disorder of thyroid gland [email or web address] Not available 2023 12:16:30 Medical History Condition Response Other Stroke Y COPD Y High Cholesterol Y Immunizations Vaccine Type Date Status Note Provider Nam e and Address Organization Details Recorded Time Influenza, split virus, quadrivalent, preservative 8 completed TRESA Baum [place] - [facility] 10/24/2023 15:09:27 Influenza, MDCK, quadrivalent, PF 3 completed TRESA Baum, [place] - [facility] 10/24/2023 15:09:27 COVID-19, mRNA, LNP-S, PF, 30 mcg/0.3 mL dose 2 completed Ambrose Frank MA null, [place] - [facility] 10/24/2023 15:09:27 COVID-19, mRNA, LNP-S, PF, 30 mcg/0.3 mL dose 1 completed TRESA [place]um, [place] - [facility] 10/24/2023 15:09:27 COVID-19, mRNA, LNP-S, PF, 30 mcg/0.3 mL dose 1 completed Ambrose Frank [place] null, [place] [facility] 10/24/2023 15:09:27 COVID-19, mRNA, LNP-S, PF, 30 mcg/0.3 mL dose 1 [place] TRES[place] [facility] 10/24/2023 15:09:27 Pneumococcal conjugate PCV20, polysaccharide [id number] conjugate, adjuvant, PF 3 completed TRES[place] [facility] 10/24/2023 15:09:27 COVID-19, mRNA, LNP-S, bivalent, PF, 30 mcg/0.3 mL dose 2 [place] TR[place] [facility] 10/24/2023 15:09:27 Tdap 0 completed Ambrose Frank [place], [place] [facility] 10/24/2023 15:09:27 Influenza, split virus, quadrivalent, PF 0 completed Ambrose Frank [place] [facility] 10/24/2023 15:09:27 Influenza, split virus, quadrivalent, PF 1 completed TRES[place] [facility] 10/24/2023 15:09:27 Influenza, split virus, quadrivalent, PF 9 completed Ambrose Frank [place] [facility] 10/24/2023 15:09:27 Influenza, split virus, quadrivalent, PF 7 completed TRESA [place] [facility] 10/24/2023 15:09:27 Influenza, split virus, quadrivalent, PF 2 completed Ambrose Frank MA null, [place] - [facility] 10/24/2023 15:09:27 Influenza, split virus, trivalent, preservative 4 completed Wily Tabares MD Attn: Accounting,[address] [facility], [place], [address], [facility] 02/23/2024 22:50:58 Past Encounters Encounter ID Performer Location Encounter Start Date Encounter Closed Date Diagnosis/Indication Diagnosis SNOMED-CT Code Diagnosis ICD10 Code Diagnosis IMO Codes Diagnosis Note [id number] Wily Tabares MD [facility] [place] [address] [place] [address] 08/12/2023 11:37:21 08/12/2023 12:38:24 Abdominal pain 75306964 R10.9 Hyperlipidemia 83946204 E78.5 History of cerebrovascular accident 605184487 Z86.73 Obesity 099604720 E66.9 Chronic ob structive pulmonary disease 71489553 J44.9 [id number] Wily Tabares MD [facility] [facility] [place] [address] [place] [address] 09/02/2023 11:03:57 09/02/2023 12:56:43 Abdominal pain 65678265 R10.9 [id number] Wily Tabares MD [facility] [facility] [place] [address] [place] [address] 10/24/2023 14:29:24 10/24/2023 16:25:46 Hyperlipidemia 04458337 E78.5 History of cerebrovascular accident 138299343 Z86.73 Obesity 596660209 E66.8 Chronic ob structive pulmonary disease 44143191 J44.9 [id number] Wily Tabares MD [facility] [facility] [place] [address] [place] [address] 02/13/2024 13:58:24 02/13/2024 15:57:11 Obesity 462993344 E66.9 Acute sinusitis 55608686 J01.90 [id number] Wily Tabares MD [facility] [place] [address] [place] [address] 02/20/2024 11:42:21 02/20/2024 13:13:26 Body mass index 30+ - obesity 450383727 Z68.39 Morbid obesity 345795257 E66.01 Hyperlipidemia 68587958 E78.5 Long-term drug therapy 031044094 Z79.891 Screening for malignant neoplasm of prostate 377980610 Z12.5 Administra tion of influenza vaccine 41222627 Z23 Sinusitis 22059176 J32.9 Chronic ob structive pulmonary disease 45251972 J44.9 History of cerebrovascular accident 865739934 Z86.73 Obesity 034996913 E66.9 [id number] Wily Tabares MD [facility] [place] [address] [place] [address] 06/25/2024 11:42:19 06/25/2024 13:04:46 Abdominal pain 87173081 R10.9 Body mass index 40+ - severely obese 321296492 Z68.41 [id number] Wily Tabares MD [facility] [place] [address] [place] [address] 10/19/2024 13:59:54 10/19/2024 15:16:15 Obese class II 4035635963 12281 E66.812 8442906168 BMIU 39.1 Hyperlipidemia 94889625 E78.5 Diabetes m ellitus screening 845069810 Z13.1 624872 Chronic ob structive pulmonary disease 17177054 J44.9 History of cerebrovascular accident 595926430 Z86.73 [id number] Wily Tabares MD [facility] [place] [address] [place] [address] 01/18/2025 13:41:38 01/18/2025 14:46:30 Obese class II 3512843731 21809 E66.812 E66.3 3596750896 BMIU 39.3 Hyperlipidemia 00897969 E78.5 History of cerebrovascular accident 608226014 Z86.73 Chronic ob structive pulmonary disease 75342698 J44.9 [id number] Wily Tabares MD [facility] [place] [address] [place] [address] 02/08/2025 10:01:27 02/08/2025 11:06:11 Obese class II 5875307246 45169 E66.812 E66.3 5606652287 BMIU 37.5 Anemia 018540554 D64.9 03893336 Lower gastrointestinal hemorrhage 13203105 K92.2 047855 Hyperlipidemia 32482404 E78.5 Health Concerns Section Related Observation LastModified by Organization Detai ls LastModified Time None Recorded Concern Status LastModified by Organization Details LastModified Time None Recorded Advance Directives Directive N: Payers Insurance Date Sequence Insurance Name Policy Number Policy Mccall Covered Member ID Mccall Member ID Guarantor Name 02/05/2025 [place] Farhad Hussein Tang [id number] Farhad Beckwith 10/19/2024 1 [place] [facility] Farhad Hussein Tang [id number] Farhad Beckwith 02/05/2025 2 Compliance 360 (MEDICARE SUPPLEMENT) Farhad Beckiwth [id number] Farhad Beckwith 02/05/2025 [place] [facility] Farhad Hussein Tang [id number] Farhad Beckwith 10/19/2024 1 [place] Farhad Hussein Tang [id number] Farhad Beckwith Notes Date Note Type Note Provider Name and Address Organization Details Recorded Time 02/20/2024 text/html his sinusitis and bronchitis symptoms are slowly resolving. Obesity trouble losing weight hyperlipidemia needs blood work he is taking his medication. History of stroke stable COPD cough wheezing none a Wily Tabares MD Attn: Accounting,[address] [facility], [place], [address], [facility] - [facility] 02/23/2024 22:53:16 06/25/2024 text/html few days the some lower crampy abdominal discomfort. No fever chills not passing blood got prostate biopsy without incident Wily Tabares MD Attn: Accounting,[address] [facility], [place], [address], [facility] 07/26/2024 18:08:05 10/19/2024 text/html Breathing is a little tough during these hot months with a heat index is over 105 today. Obesity struggling with weight loss. Hyperlipidemia does try to follow a low-fat diet history of stroke stable no residuals at this time osteoarthritis is bothering he has [id number] on his knee TRESA Callaway, [facility] 10/19/2024 15:22:59 01/18/2025 text/html Obesity struggling with weight loss. Hyperlipidemia does try to follow a low-fat diet history of stroke stable no residuals at this time osteoarthritis is bothering he has [id number] on his knee breathing has been stable history of stroke nothing new did hit his leg against a door Wily Tabares MD Attn: Accounting,[address] [place], [address], [facility] 01/18/2025 14:57:10 02/08/2025 text/html [place] that probably had diverticular bleed discharged on aspirin hold Plavix for 1 week he is not having any further bleeding had some swelling in the hospital was given some IV Lasix no chest pain or shortness of breath had CT angiogram of his abdomen and pelvis with no evidence of active bleeding gallstone seen on CAT scan hemoglobin A1c 5.3 Wily Tabares MD Attn: Accounting,[address] [facility], [place], [address], [facility] 02/08/2025 21:52:37
== END 2025-02-16 11:19 | disposition home or self-care (01) ==
LOC: CHSED 10:35
PROVIDERS: Emergency Provider Emergency Medicine; PCP Internal Medicine
DX: L03.116 Cellulitis of left lower limb (principal); E78.5 Hyperlipidemia, unspecified; Z87.891 Personal history of nicotine dependence; Z79.01 Long term (current) use of anticoagulants
CPT/HCPCS: 93971; 96372; 99284; J0696; J2003

== ENCOUNTER 2025-02-26 11:33 | Outpatient (CLI) | payer MEDICARE, SELFPAY ==
--- OUTSIDE RECORDS SUMMARY | 2025-02-26 11:43 | XMS_ITS | Clinical Summary ---
Author Organization [facility] Address [address] [facility], [place] [address] Phone Care Team Providers Care Division Operations Manager Name Role Phone Sanjiv Tabares MD Primary Care Provider [phone] Ulysses Parham MD Unavailable Ginna Cavanaugh APRN, [...] Department Care Team Description 12/21/2024 Refill [facility]note 3[facility] - Pulmonology & Sleep Medicine [facility] [address] [place] [phone] Ginna Cavanaugh APRN, SENIOR ENVIRONMENTAL PRACTICE LEADER Medication Refill from Last 3 Months Immunizations [...] on file Legal Sex Male 2:19 PM TRANSPORT MEDIC Gender Identity Not on file Sexual Orientation Not on file Last Filed Vital Signs Vital Sign Reading Time Taken Comments Blood Pressure 120/74 06/01/2024 2:30 PM [employer]SP[employer] Pulse 83 06/01/2024 2:30 PM [employer] [facility] Temperature 37.2 C (98.9 F) 06/01/2024 2:30 PM [employer] [facility]IC Respiratory Rate 16 06/01/2024 2:30 PM [employer]SP[employer] MEDIC Oxygen Saturation 95% 06/01/2024 2:30 PM TRANSP[employer] MEDIC Inhaled Oxygen Concentration - - Weight 123.1 kg (271 lb 6.4 oz) 06/01/2024 2:30 PM [employer]SP[employer] MEDIC Height 175.3 cm (5' 9) 06/01/2024 2:30 PM TRANSPORT MEDIC Body Mass Index 40.08 06/01/2024 2:30 PM [employer] MED[employer] Plan of Treatment Upcoming Encounters Date Type Department Care Team (Late st Contact Info) Description 06/01/2025 11:00 AM TRANSPORT MEDIC Office Visit [facility] - Pulmonology & [facility] Medicine [facility] [address] [place] [address] Ginna Cavanaugh APRN, SENIOR ENVIRONMENTAL PRACTICE LEADER [address] [address] [address] Health Maintenance Due Date Last Done Comments [...] age to complete this topic Insurance MEDICARE [employer] Care Teams Division Operations Manager Relationship Specialty Start Date End Date Sanjiv Tabares MD PCP - General Internal Medicine 04/10/16 Ulysses Parham MD [address] [place] [address] Consulting Physician Pulmonary Disease 04/10/16 Ginna Cavanaugh APRN, SENIOR ENVIRONMENTAL PRACTICE LEADER [address] [address] Nurse Practitioner Advanced Practice Nurse 03/12/22
--- OUTSIDE RECORDS SUMMARY | 2025-02-26 11:43 | XMS_ITS | Encounter Summary ---
Author Organization [facility] Address [facility] [place] [address] Care Team Providers Care Hoop Maker Machine Name Role Phone Sanjiv Tabares MD Primary Care Provider Encounter Details Date Type Department Care Team (Late st Contact Info) Description 08/16/2022 Lab Requisition [facility] [address] [place] [address] Alex Caicedo MD [address] [place] [address] Social History Tobacco Use Types Packs/Day Years Used Date Smoking Tobacco: Never Assessed Sex and Gender Information Value Date Recorded Sex Assigned at Not on file Legal Sex Male 6:19 AM GLOBAL MANAGER Gender Identity Not on file Sexual Orientation Not on file documented as of this encounter Plan of Treatment Not on file documented as of this encounter Procedures Procedure Name Priority Date/Time Associated Diagnosis Comments DERMATOPATHOLOGY Routine 08/15/2022 12:0 0 AM CDT documented in this encounter Results * DERMATOPATHOLOGY (08/15/2022 12:00 AM CDT) Case Report Dermatopathology Report Case: [id number] Authorizing Provider: Alex Caicedo MD Collected: 08/15/2022 12:00 AM Ordering Location: [facility] Received: 08/16/2022 12:53 PM Pathologist: [...] specimen consists of a shave biopsy measuring [id number] and another piece of tissue measuring [id number]. Jar 0. Specimen B: Received is one formalin filled container labeled with the patient's name and designated left cheek. The specimen consists of a shave biopsy measuring [id number]. Jar 0. 11:29 AM [facility] DERMAT[facility]ATHOLOGY LABORATORY Microscopic Description Specimen A. SKIN, [...] characteristic determined by the Dermatopathology Laboratory at [facility], directed by Dr. Rose Barahona. These tests need not be, and therefore are not, approved by the [place] Food and Drug Administration. The tests are used for clinical purposes. Billing Codes Specimen Charges Stain Charges 54828 61313 1 1 3 11:29 AM CDT DERMATOPATHOLOGY LABORATORY Embedded Images 11:29 AM T DERMATOPATHOLOGY LABORATORY Pathology/Cytology TISSUE SPECIMEN FROM SKIN / Unknown 08/15/2022 08/16/2022 12:53 PM CDT Miscellaneous samples (specimen) TISSUE SPECIMEN FROM SKIN / Unknown 08/15/2022 08/16/2022 12:53 PM CDT Alex Caicedo MD LAB - PATHOLOGY/CYTOLOGY ORD ERABLES Final Result DERMATOPATHOLOGY LABORATORY [facility] - Department of Dermatology [facility] [address] [place] [address], [address] [phone] documented in this encounter Visit Diagnoses Not on filedocumented in this encounter Care Teams Hoop Maker Machine Relationship Specialty Start Date End Date Sanjiv Tabares MD PCP - General 06/23/21 documented as of this encounter
--- OUTSIDE RECORDS SUMMARY | 2025-02-26 11:43 | XMS_ITS | Clinical Summary ---
Author Organization [facility] Address [address] [place] [address] Care Team Providers Care Test Designer Name Role Phone Sanjiv Tabares MD Primary Care Provider [phone] Source Comments [facility] [employer],non-owned Affiliates and Associated Physician Practices is amultiple site organization consisting of ambulatory clinics and hospital sitesin [place], [place], [place] and [place]. This disclosure is being madepursuant to the Care Everywhere program and may not contain all information available regarding this patient. Last updated 18.[facility] Social History Tobacco Use Types Packs/Day Years Used Date Smoking Tobacco: Never Assessed Sex and Gender Information Value Date Recorded Sex Assigned at Not on file Legal Sex Male 6:19 AM ASSISTED LIVING HOUSEKEEPER Gender Identity Not on file Sexual Orientation Not on file Last Filed Vital Signs Vital Sign Reading Time Taken Comments Blood Pressure 123/90 04/02/2017 12:49 PM ASSISTED LIVING HOUSEKEEPER Pulse 90 04/02/2017 12:49 PM ASSISTED LIVING HOUSEKEEPER Temperature - - Respiratory Rate - - Oxygen Saturation 97% 04/02/2017 12:49 PM ASSISTED LIVING HOUSEKEEPER Inhaled Oxygen Concentration - - Weight 94.8 kg (209 lb) 04/02/2017 7:53 AM ASSISTED LIVING HOUSEKEEPER Height 175.3 cm (5' 9) 04/02/2017 7:53 AM ASSISTED LIVING HOUSEKEEPER Body Mass Index 30.86 04/02/2017 7:53 AM ASSISTED LIVING HOUSEKEEPER Plan of Treatment Health Maintenance Due Date [...] age to complete this topic [place] [address] MEDICARE Care Teams Test Designer Relationship Specialty Start Date End Date Sanjiv Tabares MD PCP - General 06/23/21
--- OUTSIDE RECORDS SUMMARY | 2025-02-26 11:43 | XMS_ITS | Encounter Summary ---
Author Organization [facility] Address [facility] [place] [address] Care Team Providers Care Head Waiter Name Role Phone Sanjiv Tabares MD Primary Care Provider Encounter Details Date Type Department Care Team (Late st Contact Info) Description 08/02/2021 Lab Requisition [facility] [address] [place] [address] Alex Caicedo MD [address] [place] [address] Social History Tobacco Use Types Packs/Day Years Used Date Smoking Tobacco: Never Assessed Sex and Gender Information Value Date Recorded Sex Assigned at Not on file Legal Sex Male 6:19 AM MOLD MOVER Gender Identity Not on file Sexual Orientation Not on file documented as of this encounter Plan of Treatment Not on file documented as of this encounter Procedures Procedure Name Priority Date/Time Associated Diagnosis Comments DERMATOPATHOLOGY Routine 08/01/2021 12:0 0 AM CDT documented in this encounter Results * DERMATOPATHOLOGY (08/01/2021 12:00 AM CDT) Case Report Dermatopathology Report Case: [id number] Authorizing Provider: Alex Caicedo MD Collected: 08/01/2021 12:00 AM Ordering Location: [facility] Received: 08/02/2021 12:39 PM Pathologist: Kelley Barahona MD Specimen: Skin, left lateral mid upper arm 2:58 PM CDT DERMATOPATHOLOGY LABORATORY Final Diagnosis Specimen A. SKIN, left lateral mid upper arm: DERMAL SCAR RESIDUAL BASAL CELL CARCINOMA NOT IDENTIFIED (L90.5) 2 2:58 PM CDT DERMATOPATHOLOGY LABORATORY at 1458 CDT Clinical History Bx proven BCC, superficial. Previous Bx: [id number]. 2 2:58 PM CDT DERMATOPATHOLOGY LABORATORY Gross Description Specimen A: Received is one formalin filled container labeled with the patient's name and designated left lateral mid upper arm. The specimen consists of a curettage and desiccation biopsy measuring [id number]. Jar 0. 2 2:58 PM CDT DERMATOPATHOLOGY [...] characteristic determined by the Dermatopathology Laboratory at [facility], directed by Dr. Rose Barahona. These tests need not be, and therefore are not, approved by the [place] Food and Drug Administration. The tests are used for clinical purposes. Billing Codes Specimen Charges Stain Charges 97147 1 2 2:58 PM CDT DERMATOPATHOLOGY LABORATORY Embedded Images 2 2:58 PM CDT DERMATOPATHOLOGY LABORATORY Pathology/Cytolog y TISSUE SPECIMEN FROM SKIN / Unknown 08/01/2021 08/02/2021 12:39 PM CDT Alex Caicedo MD LAB - PATHOLOGY/CYTOLOGY ORD ERABLES Final Result DERMATOPATHOLOGY LABORATORY [facility] - Department of Dermatology [address], [address] [phone] documented in this encounter Visit Diagnoses Not on filedocumented in this encounter Care Teams Head Waiter Relationship Specialty Start Date End Date Sanjiv Tabares MD PCP - General 06/23/21 documented as of this encounter
--- OUTSIDE RECORDS SUMMARY | 2025-02-26 11:43 | XMS_ITS | Clinical Summary ---
Author Organization [facility] Address [address] [place] [address] Care Team Providers Care Template Layout Worker Name Role Phone Sanjiv Tabares MD Primary Care Provider [phone] Allergies Active Allergy Reactions Criticality Noted Date [...] Description 02/01/2025 2:36 PM CDT Anesthesia Event [facility] [address] [place] [address] Sanjiv Mejias MD Yu, Allison N, MD 02/01/2025 2:05 PM CDT - 02/01/2025 2:45 PM CDT Surgery [facility] [address] [place] [address] Yayo Funez MD COLONOSCOPY WITH REMOVAL TUMOR/POLYP/LESION SNARE TECH 02/01/2025 Travel 01/26/2025 3:17 PM CDT - 02/02/2025 2:51 PM CDT Hospital Encounter [facility] [address] [place] [address] Luciano Chávez MD Jabeen, Sayeeda A, MD [...] oz pur e alcohol) once a week [facility] Utilities Answer Date Recorded In the past [...] any time in the past 12 m [facility], were you homeless or living in a half-way (including now)? No 01/26/2025 Sex and Gender [...] Owens, RN Medical Devices Implanted Type Area Educational Audiologist Device Identifier Shelf Expiration Date Model / Serial / Lot Capsule Pill Cam - [id number] Implanted:Qty: 1 on 02/01/2025 by Olga Upton RN at [facility] [employer] 03/30/2025 [id number] / [id number] / [id number] Procedures Procedure Name Priority Date/Time Associated Diagnosis [...] - 145 MMOL/L 02/02/2025 2:41 PM CDT [facility] POTASSIUM S/P/B 4.3 3.5 - 5.1 MMOL/L 02/02/2025 2:41 PM CDT [facility] Comment:MILD HEMOLYSIS, RESU LT MAY BE AFFECTED. CHLORIDE S/P/B 110 97 - 115 MMOL/L 02/02/2025 2:41 PM CDT [facility] CO2 21.3 21.0 - 32.0 MMOL/L 02/02/2025 2:41 PM CDT [facility] GLUCOSE 97 74 - 106 MG/DL 02/02/2025 2:41 PM CDT [facility] BUN 8 7 - 18 MG/DL 02/02/2025 2:41 PM CDT [facility] CREATININE S/P/B 0.85 0.70 - 1.30 MG/DL 02/02/2025 2:41 PM CDT [facility] CALCIUM S/P/B 8.7 8.5 - 10.1 MG/DL 02/02/2025 2:41 PM CDT [facility] BILIRUBIN TOTAL S/P/B 0.5 0.2 - 1.0 MG/DL 02/02/2025 2:41 PM CDT [facility] ALKALINE PHOSPHATASE S/P/B 55 45 - 115 U/L 02/02/2025 2:41 PM CDT [facility] AST 26 15 - 37 U/L 02/02/2025 2:41 PM CDT [facility] Comment:RESULT QUESTIONABLE DUE TO HEMOLYSIS, CONSIDER RECOLLECTION. ALT 17 16 - 61 U/L 02/02/2025 2:41 PM CDT [facility] TOTAL PROTEIN S/P/B 6.3(L) 6.4 - 8.2 G/DL 02/02/2025 2:41 PM CDT [facility] ALBUMIN S/P/B 3.0(L) 3.4 - 5.0 G/DL 02/02/2025 2:41 PM CDT [facility] ANION GAP 9.7 2.0 - 10.0 MMOL/L 02/02/2025 2:41 PM CDT [facility] OSMOLALITY (CALC) 290 MOSM/KG 025 2:41 PM T [facility] Comment:REFERENCE RANGE NOT ESTABLISHED GFR ESTIMATE >90 >90 ML/MIN/1. 73 M2 02/02/2025 2:41 PM CDT [facility] GFR NOTES GFR REFERENCE S: 02/02/2025 2:41 PM T [facility] Comment: THE ESTIMATED GFR IS CALCULATED [...] us Og Mendez MD LABORATORY Final Result [facility] [address] [place] [address], [id number] * (ABNORMAL) CBC W/DIFF AUTOMATED (02/02/2025 11:50 AM CDT) Only the most recent of6 resultswithin the time period is included. WBC 11.39(H) 4.00 - 10.80 x10'3/uL 02/02/2025 12:21 PM CDT [facility] RBC 2.98(L) 4.50 - 6.10 x10'6/uL 02/02/2025 12:21 PM CDT [facility] HGB 8.9(L) 13.0 - 18.0 G/DL 02/02/2025 12:21 PM CDT [facility] HCT 27.6(L) 37.0 - 52.0 % 02/02/2025 12:21 PM CDT [facility] MCV 92.6 78.0 - 100.0 FL 02/02/2025 12:21 PM CDT [facility] MCH 29.9 27.0 - 31.0 PG 02/02/2025 12:21 PM CDT [facility] MCHC 32.2(L) 33.0 - 36.0 G/DL 02/02/2025 12:21 PM CDT [facility] RDW 15.3(H) 11.5 - 14.5 % 02/02/2025 12:21 PM CDT [facility] PLT 359(H) 150 - 350 x10'3/uL 02/02/2025 12:21 PM CDT [facility] MPV 9.6 7.4 - 10.4 FL 02/02/2025 12:21 PM CDT [facility] DIFFERENTIAL TYPE AUTOMATED DIFFERENTIAL 02/02/2025 12:21 PM CDT [facility] SEG NEUTROPHILS 78.8 % 12:21 PM CDT [facility] LYMPHOCYTES 11.9 % 02/02/2025 12:21 PM CDT [facility] MONOCYTES 6.1 % 02/02/2025 12:21 PM CDT [facility] EOSINOPHILS 0.7 % 02/02/2025 12:21 PM CDT [facility] BASOPHILS 0.4 % 02/02/2025 12:21 PM CDT [facility] IMMATURE GRANS % 1.9 % 02/03/20 12:21 PM CDT [facility] ABS. NEUTROPHILS 9.00(H) 1.60 - 8.30 x10'3/uL 02/02/2025 12:21 PM CDT [facility] ABS. LYMPHOCYTES 1.36 0.80 - 4.70 x10'3/uL 02/02/2025 12:21 PM CDT [facility] ABS. MONOCYTES 0.69 0.00 - 1.50 x10'3/uL 02/02/2025 12:21 PM CDT [facility] ABS. EOSINOPHILS 0.08 0.00 - 0.40 x10'3/uL 02/02/2025 12:21 PM CDT [facility] ABS. BASOPHILS 0.04 0.00 - 0.20 x10'3/uL 02/02/2025 12:21 PM CDT [facility] ABS. IMMATURE GRANULOCYTES 0.22(H) 0.00 - 0.03 x10'3/uL 02/02/2025 12:21 PM CDT [facility] ABS. NUCLEATED RBC'S 0.02(H) 0.00 - 0.01 x10'3/uL 02/02/2025 12:21 PM CDT [facility] NRBC % 0.2 % 02/02/2025 12:21 PM CDT [facility] 02/02/2025 11:5 0 AM CDT Yayo Funez MD LABORATORY Final Resu lt Performing Organization Address [facility] de Phone Number [facility] [address] [place] [address], [id number] * (ABNORMAL) HEMOGLOBIN AND HEMATOCRIT (02/02/2025 1:33 AM CDT) Only the most recent of14 resultswithin the time period is included. HGB 8.0(L) 13.0 - 18.0 G/DL 02/02/2025 1:47 AM CDT [facility] HCT 23.9(L) 37.0 - 52.0 % 02/02/2025 1:47 AM CDT [facility] 02/02/2025 1:3 3 AM CDT Lou Evans MD LABORATORY Final Result Performing Organization Address [facility] de Phone Number [facility] [address] [place] [address], [id number] * Colonoscopy (02/01/2025 1:24 PM CDT) Albertina Patterson NP GI PROCEDURE ORDERABLES F inal Result * (ABNORMAL) BASIC METABOLIC PANEL (02/01/2025 8:39 AM CDT) Only the most recent of4 resultswithin the time period is included. SODIUM S/P/B 140 136 - 145 MMOL/L 02/01/2025 9:39 AM CDT [facility] POTASSIUM S/P/B 2.7(LL) 3.5 - 5.1 MMOL/L 02/01/2025 9:39 AM CDT [facility] Comment: Critical Result(s) Called to and read back by:RN [id number] at: 09:38:34 02/01/2025 by SINDHU. CHLORIDE S/P/B 104 97 - 115 MMOL/L 02/01/2025 9:39 AM T [facility] CO2 28.7 21.0 - 32.0 MMOL/L 02/01/2025 9:39 AM [facility] GLUCOSE 103 74 - 106 MG/DL 02/01/2025 9:39 AM T [facility] BUN 6(L) 7 - 18 MG/DL 02/01/2025 9:39 AM [facility] CREATININE S/P/B 0.92 0.70 - 1.30 MG/DL 02/01/2025 9:39 AM [facility] CALCIUM S/P/B 8.3(L) 8.5 - 10.1 MG/DL 02/01/2025 9:39 AM [facility] ANION GAP 7.3 2.0 - 10.0 MMOL/L 02/01/2025 9:39 AM [facility] OSMOLALITY (CALC) 288 MOSM/KG 025 9:39 AM [facility] Comment:REFERENCE RANGE NOT ESTABLISHED GFR ESTIMATE >90 >90 ML/MIN/1. 73 M2 02/01/2025 9:39 AM [facility] GFR NOTES GFR REFERENCE S: 02/01/2025 9:39 AM [facility] Comment: THE ESTIMATED GFR IS CALCULATED [...] MD LABORATORY Final Result Performing Organization Address [facility]/ZIP Co de Phone Number [facility] [address] [place] [address], [phone] * Pathology (02/01/2025 12:00 AM CDT) PATHOLOGY [facility] Department of Laboratory Medicine [address] [place] [address] , extension [phone] Pathology Report Surgical Pathology Report Name: FARHAD BECKWITH Specimen #: [id number] Age: 8 1960 (Age: 64) Location: [facility] Sex: M Procedure Date: 02/01/2025 Hospital #: [id number] Date Received: 02/02/2025 Date Reported: 02/03/2025 Provider: [...] Gross examination (when applicable) was performed at [facility], [address] [place] [address]. This case was interpreted and signed out at [facility], [address] [place] [address]. Electronically Signed Out Kellie Clifton M.D. [facility] TISSUE COLON STRUCTURE / Unknown 02/01/2025 2:58 PM CDT Yayo Funez MD PATHOLOGY/CYTOLOGY ORDERAB LES Final Result Performing Organization Address [facility] Co de Phone Number [facility] [address] [place] [address], [phone] * TRANSFUSE RED BLOOD CELLS (01/31/2025 7:32 PM CDT) Only the most recent of2 resultswithin the time period is included. Дмитрий Browne MD NURSING TREATMENT ORDERABLES - BLOOD ADMIN Final Result * TYPE & SCREEN (01/31/2025 3:12 AM CDT) Only the most recent of2 resultswithin the time period is included. UNITS ORDERED 1 01/31/2025 3:17 AM CDT [facility] ABO/RH A POSITIVE 01/31/2025 4:01 AM CDT [facility] ANTIBODY SCREEN NEGATIVE 4:01 AM CDT [facility] SAMPLE EXPIRATION 02/03/2025,2359 01/31/2025 3:17 AM CDT [facility] BLOOD UNIT NUMBER [id number] 01/31/2025 4:15 AM CDT [facility] PRODUCT: PC LEUKOPOOR 01/31/2025 4:15 AM CDT [facility] UNIT DIVISION 00 01/31/2025 4:15 AM CDT [facility] BLOOD UNIT STATUS TRANSFUSED,FINAL 02/01/2025 1:13 AM CDT [facility] ISSUE DATE/TIME [id number] 025 1:13 AM CDT [facility] PRODUCT CODE [id number] 02/01/2025 1:13 AM CDT [facility] ABO/RH Unit A POS 02/01/2025 1:13 AM CDT [facility] ABO/RH UNIT ISBT CODE 6200 02/01/2025 1:13 AM CDT [facility] BLOOD UNIT EXPIRATION DATE [id number] 02/01/2025 1:13 AM CDT [facility] TRANSFUSION STATUS OK TO TRANSFUSE 01/31/2025 4:15 AM CDT [facility] CROSSMATCH COMPATIBLE-EXM 01/31/2025 4:15 AM CDT [facility] 01/31/2025 3:12 AM CDT Дмитрий Browne MD BLOOD BANK TEST ORDERABLES Fin al Result [facility] [address] [place] [address], [place] [phone] * USV VAST TEAM MIDLINE INSERT >5YR [...] 12:11 PM Narrative 01/28/2025 12:[address] PM [address]T [address] [address] EXAMINATION: CTA abdomen and pelvis with and [...] Procedure Note Con Reza MD - 01/28/2025 [facility] [address] [place], [place] [address] EXAMINATION: CTA abdomen and pelvis with and [...] URINE CLEAN CATCH 01/27/2025 9:12 AM CDT [facility] SPECIAL REQUESTS NO SPECIAL REQUEST 01/27/2025 9:12 AM CDT [facility] CULTURE RESULT NO GROWTH (< OR = 1,000 CFU/ML) 01/28/2025 11:40 AM CDT [facility] URINE SPECIMEN OBTAINED BY CLEAN CATCH PROCEDURE / Unknown 01/27/2025 9:11 AM CDT 01/27/2025 9:14 AM CDT Susana Riojas ACN-BC MICROBIOLOGY - GENERAL ORDERABLES Final Result [facility] [address] [place] [address], [id number] * URINALYSIS (01/27/2025 8:00 AM CDT) COLOR (U) YELLOW 01/27/2025 9:25 AM CDT [facility] TRANSPARENCY CLEAR 01/27/2025 9:25 AM CDT [facility] SPECIFIC GRAVITY (U) 1.033 1.002 - 1.035 01/27/2025 9:25 AM CDT [facility] U PH 5.0 5 - 8 01/27/2025 9:25 AM CDT [facility] PROTEIN RANDOM (U) NEGATIVE NEGATIVE 01/27/2025 9:25 AM CDT [facility] GLUCOSE (U) NEGATIVE NEGATIVE MG/DL 01/27/2025 9:25 AM CDT [facility] KETONES MG/DL (U) NEGATIVE NEGATIVE 01/27/2025 9:25 AM CDT [facility] BILIRUBIN (U) NEGATIVE NEGATIVE 01/27/2025 9:25 AM CDT [facility] BLOOD (U) NEGATIVE NEGATIVE 01/27/2025 9:25 AM CDT [facility] NITRITES NEGATIVE NEGATIVE 01/27/2025 9:25 AM CDT [facility] UROBILINOGEN NORMAL 0 - 1 EU/DL 01/27/2025 9:25 AM CDT [facility] LEUKOCYTES (U) NEGATIVE NEGATIVE 01/27/2025 9:25 AM CDT [facility] RBC/HPF <1 0 - 3 /HPF 01/27/2025 9:25 AM CDT [facility] WBC/HPF 2 0 - 6 /HPF 01/27/2025 9:25 AM CDT [facility] BACTERIA (U) NONE /HPF 01/27/2025 9:25 AM CDT [facility] URINE SPECIMEN OBTAINED BY CLEAN CATCH PROCEDURE / Unknown 01/27/2025 8:00 AM CDT us Susana Riojas ACNP-BC URINE ORDERABLES Final Result [facility] [address] [place] [address], [id number] * PROCALCITONIN (PCT) (01/26/2025 5:40 PM CDT) [facility] PROCALCITONIN 0.06 0.00 - 0.49 NG/ML 01/27/2025 10:30 AM CDT [facility] 01/26/2025 5:40 PM CDT Susana Riojas [facility] LABORATORY Final R esult [facility] [address] [place] [address], [id number] * CULTURE, BACTERIA, BLOOD (01/26/2025 5:39 PM CDT) Only the most recent of2 resultswithin the time period is included. [facility] SPEC DESCRIPTION BLOOD 01/27/20 5:46 PM CDT [facility] SPECIAL REQUESTS BLOOD-AERO BIC BOTTLE ONLY 01/26/2025 5:46 PM CDT [facility] CULTURE RESULT NO GROWTH 5 DAYS 01/31/2025 5:53 PM CDT [facility] BLOOD SPECIMEN OBTAINED FOR BLOOD CULTURE / Unknown 01/26/2025 5:39 PM CDT 01/26/2025 5:40 PM CDT Suasna Riojas [facility] MICROBIOLOGY - GENERAL ORDERABLES Final Result [facility] [address] [place] [address], [id number] * BLOOD TYPING, ABO AND RH (01/26/2025 5:38 PM CDT) [facility] ABO/RH A POSITIVE 01/26/2025 6:21 PM CDT [facility] 01/26/2025 5:38 PM CDT Og Mendez MD BLOOD BANK TEST ORDERABLES F inal Result Performing Organization Address [facility] Co de Phone Number [facility] [address] [place] [address], [phone] * HEMOGLOBIN, GLYCATED (01/26/2025 4:57 PM CDT) HGB A1C 5.3 <5.7 % 01/26/2025 5:22 PM CDT [facility] ESTIMATED AVG GLUCOSE 105 74 - 114 MG/DL 01/26/2025 5:22 PM CDT [facility] 01/26/2025 4:57 PM CDT Susana Riojas [facility]- LABORATORY Final R esult Performing Organization Address [facility] de Phone Number [facility] [address] [place] [address], [place] [phone] * PROTHROMBIN TIME, VENOUS (01/26/2025 4:57 PM CDT) PROTIME 12.4 9.4 - 12.5 SEC 01/26/2025 5:09 PM CDT [facility] INR 1.1 0.8 - 1.1 01/26/2025 5:09 PM CDT [facility] 01/26/2025 4:57 PM CDT Susana Riojas [facility]- LABORATORY Final R esult Performing Organization Address [facility] de Phone Number [facility] [address] [place] [address], [place] [phone] * LACTIC ACID (01/26/2025 4:57 PM CDT) LACTIC ACID VENOUS 1.0 0.4 - 2.0 MMOL/L 01/26/2025 5:14 PM CDT [facility] 01/26/2025 4:57 PM CDT Susana Riojas [facility] LABORATORY Final R esult Performing Organization Address City/[facility]/ZIP Co de Phone Number [facility] [address] [place] [address], [place] [phone] * TROPONIN, QUANT (01/26/2025 4:57 PM CDT) [facility] TROPONIN I HIGH SENSITIVITY 4 0 - 78 ng/L 01/26/2025 5:35 PM CDT [facility] 01/26/2025 4:57 PM CDT Susana Riojas [facility] LABORATORY Final R esult Performing Organization Address [facility] Co de Phone Number [facility] [address] [place] [address], [place] [phone] * MAGNESIUM (01/26/2025 4:57 PM CDT) Pathologist [facility] MAGNESIUM 1.8 1.6 - 2.6 MG/DL 01/26/2025 5:35 PM CDT [facility] 01/26/2025 4:57 PM CDT Susana Riojas [facility] LABORATORY Final R esult Performing Organization Address [facility] Co de Phone Number [facility] [address] [place] [address], [place] [phone] * XR CHEST PORTABLE (01/26/2025 4:47 PM CDT) Anatomical Region Laterality Modality Chest Radiographic Jenelle ging 01/26/2025 5:24 PM CDT Impressions 01/26/2025 5:25 PM CDT IMPRESSION: 1) No radiographic evidence of active disease the chest. Ordered By: SUSANA RIOJAS Interpreted By: Hiram Stafford MD, 01/26/2025 5:24 PM Narrative 01/26/2025 5:[address] PM [address] [address] Examination: XR CHEST PORTABLE Exam time: 01/26/2025 4:46 PM Clinical history: Elevated lactic acid, GI bleed Comparison: None Technique: Upright AP chest Findings: Heart size within normal limits. Pulmonary vasculature unremarkable. No acute pulmonary parenchymal opacity. No pleural effusion. Procedure Note Hiram Stafford MD - 01/26/[address] [address] Examination: XR CHEST PORTABLE Exam time: 01/26/2025 4:46 PM Clinical history: Elevated lactic acid, GI bleed Comparison: None Technique: Upright AP chest Findings: Heart size within normal limits. Pulmonary vasculatureunremarkable. No acute pulmonary parenchymal opacity. No pleuraleffusion. IMPRESSION: 1) No radiographic evidence of active disease the chest. Ordered By: SUSANA RIOJAS Interpreted By: Hiram Stafford MD, 01/26/2025 5:24 PM us Susana Riojas ACNP-BC GENERAL IMAGING Final R esult * POCT glucose (01/26/2025 4:24 PM CDT) GLUCOSE POC 91 70 - 109 01/26/2025 4:35 PM CDT [facility] Comment:RN Notified 01/26/2025 4:24 PM CDT us Og Mendez MD POCT ORDERABLES - DEVICE Fin al Result [facility] [address] [place] [address], [id number] * ECG 12 lead (01/26/2025 3:58 PM CDT) 01/26/2025 3:58 PM CDT Narrative [facility] - 01/27/2025 5:50 AM CDT [facility] [address] [place] [address] Test Date: 2025-01-26 Pat Name: FARHAD BECKWITH Department: 1 Room: [facility] Gender: M Pre Fabricator: Carlos SHIPMANB: 1960 Requested By: SUSANA RIOJAS Order Number: [id number] Reading MD: Brandan Dominguez Measurements Intervals [place] Rate: 74 P: 49 [place]: 173 QRS: -4 QRSD: 98 T: 17 QT: 377 QTc: 419 Interpretive Statements SINUS RHYTHM INFERIOR MYOCARDIAL INFARCTION , PROBABLY OLD WITH POSTERIOR EXTENSION Procedure Note Brandan Dominguez MD - 01/27/2025 [facility] [address] [place] [address] Test Date: 2025-01-26 Pat Name: FARHAD BECKWITH Department: 1 Room: 72A Gender: M Pre Fabricator: Carlos SHIPMANB: 1960 Requested By: SUSANA RIOJAS Order Number: [id number] Reading BHAVIK Dominguez Measurements Intervals [place] Rate: 74 P: 49 [place]: 173 QRS: -4 QRSD: 98 T: 17 QT: 377 QTc: 419 Interpretive Statements SINUS RHYTHM INFERIOR MYOCARDIAL INFARCTION , PROBABLY OLD WITH POSTERIOR EXTENSION us Susana Riojas [facility]-BC ECG ORDERABLES Final R esult [facility] from Last 3 Months Insurance MEDICARE [facility] [employer] Advance Directives * Full Code (Latest Code Status on File) Date Activated Date Inactivated Comments 01/26/2025 3:46 PM 02/02/2025 4:56 PM Care Teams Template Layout Worker Relationship Specialty Start Date End Date Sanjiv Tabares MD PCP - General INTERNAL MEDICINE 12/03/22
--- OUTSIDE RECORDS SUMMARY | 2025-02-26 11:43 | XMS_ITS | Encounter Summary ---
Author Organization [facility] Address [address] [place] [address] Phone Care Team Providers Care Nuclear Medicine Tech Name Role Phone Sanjiv Tabares MD Primary Care Provider Ulysses Parham MD Unavailable Ginna Cavanaugh APRN, CNP Unavailable [phone] Reason for Visit * Reason Comments Medication Refill Encounter Details Date Type Department Care Team (Late st Contact Info) Description 02/16/2021 Refill [facility] - Pulmonology & Sleep Medicine [facility] [address] [place] [address] Ulysses Parham MD [address] [place] [address] Medication Refill Social History Tobacco Use Types Packs/Day Years Used Date Smoking Tobacco: Former Smokeless Tobacco: Never Alcohol Use Standard Drinks/Week Comments Yes 0 (1 standard drink = 0.6 oz pur e alcohol) occasional Sexually Active Control Partners Comments Not Currently Sex and Gender Information Value Date Recorded Sex Assigned at Not on file Legal Sex Male 2:19 PM MATERIAL COMBINER Gender Identity Not on file Sexual Orientation [...] Ulysses Parham MD [facility] [place] [facility] 10/20/20 Office Visit Ulysses Parham MD [facility] 07/18/20 Telemedicine Ulysses Parham MD [facility] [place] 04/18/20 Telemedicine Ulysses Parham MD [facility] [place] Showing recent visits within past 365 days and meeting all other requirements Future Appointments Date Type Provider Dept 04/18/21 Appointment Ulysses Parham MD [facility] Showing future appointments within next 90 days [...] Parham MD [facility] [place] [facility] 10/20/20 Office Visit Ulysses Parham MD [facility] [place] [facility] 07/18/20 Telemedicine Ulysses Parham MD [facility] [place] 04/18/20 Telemedicine Ulysses Parham MD [facility] [place] Showing recent visits within past 365 days and meeting all other requirements Future Appointments Date Type Provider Dept 04/18/21 Appointment [facility] Showing future appointments within next 90 days and meeting all other requirements Passed - Active short-acting beta agonist prescription documented in this encounter Plan of Treatment Upcoming Encounters Date Type Department Care Team (Late st Contact Info) Description 06/01/2025 11:00 AM MATERIAL COMBINER Office Visit [facility] - Pulmonology & [facility] Medicine - [place] [address] [facility] [place] [address] Ginna Cavanaugh APRN, INVENTORY REPRESENTATIVE #[address] [facility] [address] [place] [address] documented as of this encounter Visit Diagnoses Not on filedocumented in this encounter Care Teams Nuclear Medicine Tech Relationship Specialty Start Date End Date Sanjiv Tabares MD PCP - General Internal Medicine 04/10/16 Ulysses Parham MD [address] [place] [address] Consulting Physician Pulmonary Disease 04/10/16 Ginna Cavanaugh APRN, ZULEMA [facility] [address] [place] [address] Nurse Practitioner Advanced Practice Nurse 03/12/22 documented as of this encounter
--- OUTSIDE RECORDS SUMMARY | 2025-02-26 11:43 | XMS_ITS | Encounter Summary ---
Author Organization [facility] Address [facility] [place] [address] Care Team Providers Care Flower Planter Name Role Phone Sanjiv Tabares MD Primary Care Provider Encounter Details Date Type Department Care Team (Late st Contact Info) Description 06/23/[address] [facility] [address] [place] [address] Alex Caicedo MD [address] [place] [address] Social History Tobacco Use Types Packs/Day Years Used Date Smoking Tobacco: Never Assessed Sex and Gender Information Value Date Recorded Sex Assigned at Not on file Legal Sex Male 6:19 AM TOBACCO STRIPPER Gender Identity Not on file Sexual Orientation Not on file documented as of this encounter Plan of Treatment Not on file documented as of this encounter Procedures Procedure Name Priority Date/Time Associated Diagnosis Comments DERMATOPATHOLOGY Routine 06/21/2021 12:0 0 AM TOBACCO STRIPPER documented in this encounter Results * DERMATOPATHOLOGY (06/21/2021 12:00 AM TOBACCO STRIPPER) Case Report Dermatopathology Report Case: [id number] Authorizing Provider: Alex Caicedo MD Collected: 06/21/2021 12:00 AM Ordering Location: [facility] Received: 06/23/2021 07:49 AM Pathologist: Mellisa Bynum MD Specimens: A) - Skin, left med cheek B) - Skin, left med cheek inf C) - Skin, left med cheek lat D) - Skin, left lat mid upper arm 2 3:05 PM [facility] DERMATOPATHOLOGY [facility]ORATORY Final Diagnosis Specimen A. 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 2 3:05 PM [facility] DERMATOPATHOLOGY [facility]ORAT[facility] Gross Description Specimen A: Received is one formalin filled container labeled with the patient's name and designated left med cheek. The specimen consists of a shave biopsy measuring [id number]. Jar 0. Specimen B: Received is one formalin filled container labeled with the patient's name and designated left med cheek inf. The specimen consists of a shave biopsy measuring [id number]. Jar 0. Specimen C: Received is one formalin filled container labeled with the patient's name and designated left med cheek lat. The specimen consists of a shave biopsy measuring [id number]. Jar 0. Specimen D: Received is one formalin filled container labeled with the patient's name and designated left lat mid upper arm. The specimen consists of a shave biopsy measuring [id number]. Jar 0. 2 3:05 PM [facility] DERMATOPATH[facility]Y [facility]AT[facility] Microscopic Description Specimen A. [...] ratio and peripheral palisading. 2 3:05 PM [facility] DERMATOPATHOLOGY [facility]ORATORY Disclaimer An external and internal positive and negative controls are appropriate for the histochemical, immunohistochemical and immunofluorescence stain(s) in this case (if any), except where stated explicitly. The performance characteristics of the stain(s) cited in this report were developed and its performance characteristic determined by the Dermatopathology Laboratory at [facility], directed by Dr. Rose Barahona. These tests need not be, and therefore are not, approved by the [place] Food and Drug Administration. The tests are used for clinical purposes. Billing Codes Specimen Charges Stain Charges 73321 15887 23295 56590 1 1 1 1 2 3:05 PM [facility] DERMAT[facility] LAB[facility]ORY Embedded Images 2 3:05 PM [facility]MATOP[facility]ORY Pathology/Cytology TISSUE SPECIMEN FROM SKIN / Unknown 06/21/2021 06/23/2021 7:49 AM TOBACCO STRIPPER Miscellaneous samples (specimen) TISSUE SPECIMEN FROM SKIN / Unknown 06/21/2021 06/23/2021 7:49 AM TOBACCO STRIPPER Miscellaneous samples (specimen) TISSUE SPECIMEN FROM SKIN / Unknown 06/21/2021 06/23/2021 7:49 AM TOBACCO STRIPPER Miscellaneous samples (specimen) TISSUE SPECIMEN FROM SKIN / Unknown 06/21/2021 06/23/2021 7:49 AM TOBACCO STRIPPER Alex Caicedo MD LAB - PATHOLOGY/CYTOLOGY ORD ERABLES Final Result DERMATOPATHOLOGY LABORATORY [facility] - Department of Dermatology [address] [phone] documented in this encounter Visit Diagnoses Not on filedocumented in this encounter Care Teams Flower Planter Relationship Specialty Start Date End Date Sanjiv Tabares MD PCP - General 06/23/21 documented as of this encounter
--- OUTSIDE RECORDS SUMMARY | 2025-02-26 11:44 | XMS_ITS | Patient Health Record ---
Author Organization [facility] Address [address] [place], [place] [id number] Care Team Providers Care Trailer Assembler Name Role Phone Sanjiv Tabares Unavailable Unavailable Allergies Allergen (clinical drug ingredient) Drug/Non Drug Allergy documented on EMR Reaction Allergy Type Onset Date Status Substance with sulfonamide structure and antibacterial mechanism of action (substance) Sulfa Antibiotics Unknown Drug Allergy Active Reason For Referral No Information Medications Medication SIG (Take, Route, Frequency, Duration) Notes Start Date End Date Status Aspirin 81 81 MG Tablet Delayed Release 1 tablet Orally Once a day Active Pravastatin Sodium 10 MG Tablet 2 tablets Orally Once a day Active Clopidogrel Bisulfate 75 MG Tablet 1 tablet Orally Once a day Active Montelukast Sodium 10 MG Tablet 1 tablet Orally Once a day Active Social History Section Notes: History of Tobacco Quit Smoking in 2009 History of Alcohol/beer 1-2 per day Plan Of Treatment No Information Insurance Providers Payer Name Payer Address Payer Phone Subscriber Number Group Number Insured Name Patient Relationship to Insured Coverage Start Date Coverage End Date Medicare Part [facility] [address] [place] [address] [id number] Wayne Beckwith Self - patient is the insured [facility] [employer] Insurance [address] [place], [place] [phone] [id number] Wayne Beckwith Self - patient is the insured Medical (General) History Medical History History ICD Code stroke Arthritis skin cancer abnormal bleeding Respiratory disease Surgical History Surgery Date(Month/Year) Hernia
--- OUTSIDE RECORDS SUMMARY | 2025-02-26 11:44 | XMS_ITS | Clinical Summary ---
Author Organization [facility] Address [address] [place] [phone] Care Team Providers Care Director Online Marketing Name Role Phone Sanjiv Tabares MD Primary Care Provider [phone] Allergies Active Allergy Reactions Criticality Noted Date [...] 06/18/2023 Encounter for preprocedural cardiovascular exami [facility] 09/07/2022 Chronic obstructive pulmonary disease 09/07/2022 History [...] Comments Blood Pressure 140/84 06/18/2023 10:24 AM SENIOR SOFTWARE ARCHITECT Pulse 88 06/18/2023 10:24 AM SENIOR SOFTWARE ARCHITECT Temperature - - Respiratory Rate - - Oxygen Saturation 94% 06/18/2023 10:24 AM SENIOR SOFTWARE ARCHITECT Inhaled Oxygen Concentration - - Weight 123.8 kg (273 lb) 06/18/2023 10:24 AM SENIOR SOFTWARE ARCHITECT Height 175.3 cm (5' 9) 06/18/2023 10:24 AM SENIOR SOFTWARE ARCHITECT Body Mass Index 40.32 06/18/2023 10:24 AM SENIOR SOFTWARE ARCHITECT Plan of Treatment Health Maintenance Due Date [...] or Tdap) 01/20/2030 01/21/2020 Insurance MEDICARE MEDICARE [employer] Care Teams Director Online Marketing Relationship Specialty Start Date End Date Sanjiv Tabares MD PCP - General Internal Medicine 07/19/22
[2025-02-26 12:18] LABS: Hematocrit 34.0 % (40.0-54.0); Hemoglobin 10.0 g/dL (14.0-18.0); Immature Granulocyte Percent A 0.6 % (0.0-0.0); Lymphocytes Absolute Auto 1.75 K/mm3 (1.10-4.50); Mean Corpuscular HGB Conc 29.4 g/dL (32-36); Mean Corpuscular Hemoglobin 25.1 pg (27.0-31.0); Mean Corpuscular Volume 85.2 fL (78.0-102.0); Nucleated Red Blood Cells Absolute Auto 0.00 K/mm3 (0.00-0.00); Nucleated Red Blood Cells Perc 0.0 % (0-0.0); Platelet Count Result 484 K/mm3 (150-420); Red Blood Count 3.99 M/mm3 (4.70-6.10); White Blood Count 8.1 K/mm3 (4.8-10.8)
== END 2025-02-26 11:34 | disposition home or self-care (01) ==
PROVIDERS: PCP Internal Medicine; Visit Provider Internal Medicine
DX: D64.9 Anemia, unspecified (principal)
CPT/HCPCS: 36415; 85025

== ENCOUNTER 2025-03-11 12:35 | Outpatient (CLI) | payer MEDICARE, SELFPAY ==
[2025-03-11 12:58] LABS: Hematocrit 33.7 % (40.0-54.0); Hemoglobin 10.1 g/dL (14.0-18.0); Immature Granulocyte Percent A 0.7 % (0.0-0.0); Lymphocytes Absolute Auto 1.73 K/mm3 (1.10-4.50); Mean Corpuscular HGB Conc 30.0 g/dL (32-36); Mean Corpuscular Hemoglobin 24.1 pg (27.0-31.0); Mean Corpuscular Volume 80.4 fL (78.0-102.0); Nucleated Red Blood Cells Absolute Auto 0.00 K/mm3 (0.00-0.00); Nucleated Red Blood Cells Perc 0.0 % (0-0.0); Platelet Count Result 498 K/mm3 (150-420); Red Blood Count 4.19 M/mm3 (4.70-6.10); White Blood Count 9.6 K/mm3 (4.8-10.8)
--- OUTSIDE RECORDS SUMMARY | 2025-03-11 13:07 | XMS_ITS | Encounter Summary ---
Author Organization [facility] Address [address] [place] [address] Phone Care Team Providers Care Smeller Name Role Phone Sanjiv Tabares MD Primary Care Provider Ulysses Parham MD Unavailable Ginna Cavanaugh APRN, CNP Unavailable [phone] Reason for Visit * Reason Comments Medication Refill Encounter Details Date Type Department Care Team (Late st Contact Info) Description 02/16/2021 Refill [facility] - Pulmonology & Sleep Medicine [facility] [address] [place] [address] Ulysses Parham MD [address] [place] [address] Medication Refill Social History Tobacco Use Types Packs/Day Years Used Date Smoking Tobacco: Former Smokeless Tobacco: Never Alcohol Use Standard Drinks/Week Comments Yes 0 (1 standard drink = 0.6 oz pur e alcohol) occasional Sexually Active Control Partners Comments Not Currently Sex and Gender Information Value Date Recorded Sex Assigned at Not on file Legal Sex Male 2:19 PM MEDICAL STAFF DIRECTOR Gender Identity Not on file Sexual [...] Ulysses Parham MD [facility] 10/20/20 Office Visit Ulysses Parham MD [facility] 07/18/20 Telemedicine Ulysses Parham MD [facility] [place] 04/18/20 Telemedicine Ulysses Parham MD [facility] [place] Showing recent visits within past 365 days and meeting all other requirements Future Appointments Date Type Provider Dept 04/18/21 Appointment Ulysses Parham MD [facility] Showing future appointments within next 90 days [...] 01/17/21 Office Visit Ulysses Parham MD [facility] [place] [facility] 10/20/20 Office Visit Ulysses Parham MD [facility] 07/18/20 Telemedicine Ulysses Parham MD [facility] [place] 04/18/20 Telemedicine Ulysses Parham MD [facility] [place] Showing recent visits within past 365 days and meeting all other requirements Future Appointments Date Type Provider Dept 04/18/21 Appointment Ulysses Parham MD [facility] Showing future appointments within next 90 days and meeting all other requirements Passed - Active short-acting beta agonist prescription documented in this encounter Plan of Treatment Upcoming Encounters Date Type Department Care Team (Late st Contact Info) Description 06/01/2025 11:00 AM MEDICAL STAFF DIRECTOR Office Visit [facility] - Pulmonology & Sleep Medicine - [place] [address] [place] [address] Ginna Cavanaugh APRN, SUPERVISOR PRODUCTION DEPARTMENT #[address] [address] documented as of this encounter Visit Diagnoses Not on filedocumented in this encounter Care Teams Smeller Relationship Specialty Start Date End Date Sanjiv Tabares MD PCP - General Internal Medicine 04/10/16 Ulysses Parham MD #[address] [facility] [place] [address] Consulting Physician Pulmonary Disease 04/10/16 Ginna Cavanaugh APRN, ZULEMA #[facility] [address] [place] [address] Nurse Practitioner Advanced Practice Nurse 03/12/22 documented as of this encounter
--- OUTSIDE RECORDS SUMMARY | 2025-03-11 13:07 | XMS_ITS | Clinical Summary ---
Author Organization [facility] Address [address] [place] [address] Care Team Providers Care Dumpster Driver Name Role Phone Sanjiv Tabares MD Primary Care Provider Source Comments [facility] [employer],non-owned Affiliates and Associated Physician Practices is amultiple site organization consisting of ambulatory clinics and hospital sitesin [place], [place], [place] and [place]. This disclosure is being madepursuant to the Care Everywhere program and may not contain all information available regarding this patient. Last updated 18.[facility] [employer] Social History Tobacco Use Types Packs/Day Years Used Date Smoking Tobacco: Never Assessed Sex and Gender Information Value Date Recorded Sex Assigned at Not on file Legal Sex Male 6:19 AM MEDIUM CYCLE SALESPERSON Gender Identity Not on file Sexual Orientation Not on file Last Filed Vital Signs Vital Sign Reading Time Taken Comments Blood Pressure 123/90 04/02/2017 12:49 PM MEDIUM CYCLE SALESPERSON Pulse 90 04/02/2017 12:49 PM MEDIUM CYCLE SALESPERSON Temperature - - Respiratory Rate - - Oxygen Saturation 97% 04/02/2017 12:49 PM MEDIUM CYCLE SALESPERSON Inhaled Oxygen Concentration - - Weight 94.8 kg (209 lb) 04/02/2017 7:53 AM MEDIUM CYCLE SALESPERSON Height 175.3 cm (5' 9) 04/02/2017 7:53 AM MEDIUM CYCLE SALESPERSON Body Mass Index 30.86 04/02/2017 7:53 AM MEDIUM CYCLE SALESPERSON Plan of Treatment Health Maintenance Due Date [...] DEPRESSION SCREENING 04/29/2024 COVID-19 VACCINE (1 - 2024-2 6 season) 2024 INFLUENZA VACCINE (#1) 2024 Respiratory [...] this topic Insurance MEDICARE MEDICARE Care Teams Dumpster Driver Relationship Specialty Start Date End Date Sanjiv Tabares MD PCP - General 06/23/21
--- OUTSIDE RECORDS SUMMARY | 2025-03-11 13:07 | XMS_ITS | Encounter Summary ---
Author Organization [facility] Address [facility] [place] [address] Care Team Providers Care Track Worker Name Role Phone Sanjiv Tabares MD Primary Care Provider Encounter Details Date Type Department Care Team (Late st Contact Info) Description 08/02/2021 Lab Requisition [facility] [address] [place] [address] Alex Caicedo MD [address] [place] [address] Social History Tobacco Use Types Packs/Day Years Used Date Smoking Tobacco: Never Assessed Sex and Gender Information Value Date Recorded Sex Assigned at Not on file Legal Sex Male 6:19 AM AIRFRAME AND POWER PLANT MECHANIC Gender Identity Not on file Sexual Orientation Not on file documented as of this encounter Plan of Treatment Not on file documented as of this encounter Procedures Procedure Name Priority Date/Time Associated Diagnosis Comments DERMATOPATHOLOGY Routine 08/01/2021 12:0 0 AM CDT documented in this encounter Results * DERMATOPATHOLOGY (08/01/2021 12:00 AM CDT) Case Report Dermatopathology Report Case: [id number] Authorizing Provider: Alex Caicedo MD Collected: 08/01/2021 12:00 AM Ordering Location: [facility] DermPath Lab Received: 08/02/2021 12:39 PM Pathologist: Kelley Barahnoa MD Specimen: Skin, left lateral mid upper arm 2:58 PM CDT DERMATOPATHOLOGY LABORATORY Final Diagnosis Specimen A. SKIN, left lateral mid upper arm: DERMAL SCAR RESIDUAL BASAL CELL CARCINOMA NOT IDENTIFIED (L90.5) 2 2:58 PM CDT DERMATOPATHOLOGY LABORATORY at 1458 CDT Clinical History Bx proven BCC, superficial. Previous Bx: [id number]. 2 2:58 PM CDT DERMATOPATHOLOGY LABORATORY Gross Description Specimen A: Received is one formalin filled container labeled with the patient's name and designated left lateral mid upper arm. The specimen consists of a curettage and desiccation biopsy measuring [id number]. Jar 0. 2 2:58 PM CDT DERMATOPATHOLOGY [...] characteristic determined by the Dermatopathology Laboratory at [facility], directed by Dr. Rose Barahona. These tests need not be, and therefore are not, approved by the [place] Food and Drug Administration. The tests are used for clinical purposes. Billing Codes Specimen Charges Stain Charges 16112 1 2 2:58 PM CDT DERMATOPATHOLOGY LABORATORY Embedded Images 2 2:58 PM CDT DERMATOPATHOLOGY LABORATORY Pathology/Cytolog y TISSUE SPECIMEN FROM SKIN / Unknown 08/01/2021 08/02/2021 12:39 PM CDT Alex Caicedo MD LAB - PATHOLOGY/CYTOLOGY ORD ERABLES Final Result DERMATOPATHOLOGY LABORATORY [facility] - Department of Dermatology [address] [phone] documented in this encounter Visit Diagnoses Not on filedocumented in this encounter Care Teams Track Worker Relationship Specialty Start Date End Date Sanjiv Tabares MD PCP - General 06/23/21 documented as of this encounter
--- OUTSIDE RECORDS SUMMARY | 2025-03-11 13:07 | XMS_ITS | Encounter Summary ---
Author Organization [facility] Address [facility] [facility] [place] [address] Care Team Providers Care Wedger And Gluer Name Role Phone Sanjiv Tabares MD Primary Care Provider Encounter Details Date Type Department Care Team (Late st Contact Info) Description 06/23/2021 Lab Requisition [facility] Derm[facility] Lab [address] [place] [address] Alex Caicedo MD [address] [place] [address] Social History Tobacco Use Types Packs/Day Years Used Date Smoking Tobacco: Never Assessed Sex and Gender Information Value Date Recorded Sex Assigned at Not on file Legal Sex Male 6:19 AM SEMICONDUCTOR PROCESSING TECHNICIAN Gender Identity Not on file Sexual Orientation Not on file documented as of this encounter Plan of Treatment Not on file documented as of this encounter Procedures Procedure Name Priority Date/Time Associated Diagnosis Comments DERMATOPATHOLOGY Routine 06/21/2021 12:0 0 AM SEMICONDUCTOR PROCESSING TECHNICIAN documented in this encounter Results * DERMATOPATHOLOGY (06/21/2021 12:00 AM SEMICONDUCTOR PROCESSING TECHNICIAN) Case Report Dermatopathology Report Case: [id number] Authorizing Provider: Alex Caicedo MD Collected: 06/21/2021 12:00 AM Ordering Location: [facility]erm[facility] Lab Received: 06/23/2021 07:49 AM Pathologist: Mellisa Bynum MD Specimens: A) - Skin, left med cheek B) - Skin, left med cheek inf C) - Skin, left med cheek lat D) - Skin, left lat mid upper arm 2 3:05 PM [facility] DERMATOPATHOLOGY LABORATORY Final Diagnosis Specimen A. 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 2 3:05 PM [facility] DERMATOPATHOLOGY LABORATORY Gross Description Specimen A: Received is one formalin filled container labeled with the patient's name and designated left med cheek. The specimen consists of a shave biopsy measuring [id number]. Jar 0. Specimen B: Received is one formalin filled container labeled with the patient's name and designated left med cheek inf. The specimen consists of a shave biopsy measuring [id number]. Jar 0. Specimen C: Received is one formalin filled container labeled with the patient's name and designated left med cheek lat. The specimen consists of a shave biopsy measuring [id number]. Jar 0. Specimen D: Received is one formalin filled container labeled with the patient's name and designated left lat mid upper arm. The specimen consists of a shave biopsy measuring [id number]. Jar 0. 2 3:05 PM [facility] DERMATOPATHOLOGY LABORATORY Microscopic Description Specimen A. SKIN, [...] ratio and peripheral palisading. 2 3:05 PM [facility] DERMATOPATHOLOGY LABORATORY Disclaimer An external and internal positive and negative controls are appropriate for the histochemical, immunohistochemical and immunofluorescence stain(s) in this case (if any), except where stated explicitly. The performance characteristics of the stain(s) cited in this report were developed and its performance characteristic determined by the Dermatopathology Laboratory at [facility], directed by Dr. Rose Barahona. These tests need not be, and therefore are not, approved by the [place] Food and Drug Administration. The tests are used for clinical purposes. Billing Codes Specimen Charges Stain Charges 66290 81186 [id number] [id number] 1 1 1 1 2 3:05 PM SEMICONDUCTOR PROCESSING TECHNICIAN DERMATOPATHOLOGY LABORATORY Embedded Images 2 3:05 PM SEMICONDUCTOR PROCESSING TECHNICIAN DERMATOPATHOLOGY LABORATORY Pathology/Cytology TISSUE SPECIMEN FROM SKIN / Unknown 06/21/2021 06/23/2021 7:49 AM SEMICONDUCTOR PROCESSING TECHNICIAN Miscellaneous samples (specimen) TISSUE SPECIMEN FROM SKIN / Unknown 06/21/2021 06/23/2021 7:49 AM SEMICONDUCTOR PROCESSING TECHNICIAN Miscellaneous samples (specimen) TISSUE SPECIMEN FROM SKIN / Unknown 06/21/2021 06/23/2021 7:49 AM SEMICONDUCTOR PROCESSING TECHNICIAN Miscellaneous samples (specimen) TISSUE SPECIMEN FROM SKIN / Unknown 06/21/2021 06/23/2021 7:49 AM SEMICONDUCTOR PROCESSING TECHNICIAN Alex Caicedo MD LAB - PATHOLOGY/CYTOLOGY ORD ERABLES Final Result DERMATOPATHOLOGY LABORATORY [facility] - Department of Dermatology [address], [address] [phone] documented in this encounter Visit Diagnoses Not on filedocumented in this encounter Care Teams Wedger And Gluer Relationship Specialty Start Date End Date Sanjiv Tabares MD PCP - General 06/23/21 documented as of this encounter
--- OUTSIDE RECORDS SUMMARY | 2025-03-11 13:07 | XMS_ITS | Encounter Summary ---
Author Organization [facility] Address [facility] [place] [address] Care Team Providers Care Photographic Machine Operator Name Role Phone Sanjiv Tabares MD Primary Care Provider Encounter Details Date Type Department Care Team (Late st Contact Info) Description 08/16/2022 Lab Requisition [facility] D[facility] [address] [place] [address] Alex Caicedo MD [address] [place] [address] Social History Tobacco Use Types Packs/Day Years Used Date Smoking Tobacco: Never Assessed Sex and Gender Information Value Date Recorded Sex Assigned at Not on file Legal Sex Male 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 Gender Identity Not on file Sexual Orientation Not on file documented as of this encounter Plan of Treatment Not on file documented as of this encounter Procedures Procedure Name Priority Date/Time Associated Diagnosis Comments DERMATOPATHOLOGY Routine 08/15/2022 12:0 0 AM CDT documented in this encounter Results * DERMATOPATHOLOGY (08/15/2022 12:00 AM CDT) Case Report Dermatopathology Report Case: [id number] Authorizing Provider: Alex Caicedo MD Collected: 08/15/2022 12:00 AM Ordering Location: [facility] Received: 08/16/2022 12:53 PM Pathologist: [...] specimen consists of a shave biopsy measuring [id number] and another piece of tissue measuring [id number]. Jar 0. Specimen B: Received is one formalin filled container labeled with the patient's name and designated left cheek. The specimen consists of a shave biopsy measuring 4z2w2sm. Jar 0. 11:29 AM [facility] DERMATOPATHOLOGY LABORATORY Microscopic Description Specimen A. [...] characteristic determined by the Dermatopathology Laboratory at [facility], directed by Dr. Rose Barahona. These tests need not be, and therefore are not, approved by the [place] Food and Drug Administration. The tests are used for clinical purposes. Billing Codes Specimen Charges Stain Charges 26304 30248 1 1 3 11:29 AM CDT DERMATOPATHOLOGY LABORATORY Embedded Images 11:29 AM T DERMATOPATHOLOGY LABORATORY Pathology/Cytology TISSUE SPECIMEN FROM SKIN / Unknown 08/15/2022 08/16/2022 12:53 PM CDT Miscellaneous samples (specimen) TISSUE SPECIMEN FROM SKIN / Unknown 08/15/2022 08/16/2022 12:53 PM CDT Alex Caicedo MD LAB - PATHOLOGY/CYTOLOGY ORD ERABLES Final Result DERMATOPATHOLOGY LABORATORY [facility] - Department of Dermatology [facility] [address] [place] [address], [address] [phone] documented in this encounter Visit Diagnoses Not on filedocumented in this encounter Care Teams Photographic Machine Operator Relationship Specialty Start Date End Date Sanjiv Tabares MD PCP - General 06/23/21 documented as of this encounter
--- OUTSIDE RECORDS SUMMARY | 2025-03-11 13:08 | XMS_ITS | Patient Health Record ---
Author Organization [facility] Address [address] [place], [place] [id number] Care Team Providers Care Supervisor Cd Area Name Role Phone Sanjiv Tabares Unavailable Unavailable [...] Start Date Coverage End Date Medicare Part [facility] [address] [place] [address] [id number] Wayne Beckwith Self - patient is the insured [facility] [employer] [address] [place], [place] [id number] Wayne Beckwith Self - patient is the insured Medical (General) History Medical History History ICD Code stroke Arthritis skin cancer abnormal bleeding Respiratory disease Surgical History Surgery Date(Month/Year) Hernia
--- OUTSIDE RECORDS SUMMARY | 2025-03-11 13:08 | XMS_ITS | Data Portability ---
Author Organization [facility] TEREShruthi Persaud Address [address] [facility] [facility] [place] [address] Care Team Providers Care Development Assistant Name Role Phone WILY TABARES Primary Care Provider Assessment Encounter Date Assessment Date Assessment LastModified by Organization Details LastModified Time 06/25/2024 06/25/2024 Cipro he has had this before that has been responsive to Cipro brat diet for the next couple of days keep regular follow up call back if not improved or if worse Not available 07/26/2024 18:07:44 10/19/2024 10/19/2024 Risk benefits a GLP 1 discussed and he wants to try to get when approved. Healthy lifestyle care instructions blood work diagnosis has been discussed we will continue with aspirin Plavix montelukast pravastatin Breztri inhaler and albuterol [email or web address] Not available 10/19/2024 15:15:17 01/18/2025 01/18/2025 Continue current therapy stay up-to-date on all vaccinations see me back in 4-5 months he was denied bound unfortunately he did get cortisone in his knees a couple of weeks ago [email or web address] Not available 01/18/2025 14:56:48 02/08/2025 02/08/2025 Restart [...] available Lab CBC w/ auto diff 2024 [facility] (Lab), [address] [place], [address], 02/09/2025 17:20:47 CMP, serum or plasma 2024 025 [facility] (Lab), [address] [place], [address], 02/09/2025 17:20:47 HbA1c (hemoglob in A1c), blood 2024 025 [employer] [facility], [address], [place], [address], 10/27/2024 10:36:32 CBC w/ auto diff 2024 025 [facility], [address], [place], [address], 02/10/2025 09:30:18 lipid panel, serum 2024 025 [facility], [address], [place], [address], 10/27/2024 10:36:32 CMP, serum or plasma 2024 025 [facility], [address], [place], [address], 02/10/2025 09:30:00 Referral None recorded. Procedures None recorded. Surgeries None recorded. Imaging None recorded. Medication Orders Zepbound 2.5 mg/0.5 mL subcutane ous pen injector 2024 025 [facility]acy #[id number], [address] [place], [address], 02/08/2025 10:10:27 Cipro 500 mg tablet 2024 025 [facility]/Pharmacy #[id number], [address] [place], [address], 01/18/2025 13:53:57 Patient TargetsNo targets recorded. 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 Referring Physician: Wily Tabares, Internal Medicine, Encounter Date: 03/11/2025 Results Created Date Observation Date Name Description Value Unit Range Abnormal Flag Note LastModifiedBy Organization Detail LastModifiedTime 01/27/2001/26/2025 hemog lobin + hemat ocrit , blood hemoglobin (Hb), blood 12.7 text: 13.0 - 18.0 g/dL low Not Available Not Available 01/27/2025 15:03:10 01/27/20 25 01/26/2025 hemog lobin + hemat ocrit , blood hematocrit, blood 38.2 % low: 37%hig h: 52% Not Available Not Available 01/27/2025 15:03:10 01/27/20 25 01/26/2025 hemog lobin + hemat ocrit , blood lab interpretati on Abnorm al Not Available Not Available 15:03:10 01/27/2001/27/2025 proca lcito lida, serum procalcitoni n, serum 0.06 text: 0.00 - 0.49 NG/mL Not Available Not Available 01/27/2025 15:03:06 01/27/20 25 01/31/2025 cultu re, blood specimen source identified (obs) BLOOD Not Available Not Available 01/27 16:45:57 01/27/2001/31/2025 cultu re, blood special requests BLOOD- AEROBI C BOTTLE ONLY Not Available Not Available 16:45:57 01/27/20 25 01/31/2025 cultu re, blood culture, [...] 100.0 fL Not Available Not Available 01/27/2025 15:03:01/27/20 25 01/26/2025 CBC w/ auto diff MCH, qn (obs) 29 pg low: 27pghi gh: 31pg Not Available Not Available 01/27/2025 15:03:01/27/2001/26/2025 CBC w/ auto diff mean corpuscular hemoglobin concentratio n, qn, RBC 32.4 text: 33.0 - 36.0 g/dL low Not Available Not Available 01/27/2025 15:03:01/27/20 25 01/26/2025 CBC w/ auto diff RDW 13.6 % [...] 01/27/2025 15:03:01/27/2001/26/2025 CMP, serum or plasm a albumin, serum or plasma 2.9 text: 3.4 - 5.0 g/dL low Not Available Not Available 01/27/2025 15:03:01/27/2001/26/2025 CMP, serum or plasm a anion gap, serum or plasma 3 text: 2.0 - 10.0 mmol/L Not Available Not Available 01/27/2025 15:03:06 01/27/2001/26/2025 CMP, serum or plasm a osmolality, calculation, serum or plasma (obs) 287 text: mOsm/k g REFER ENCE RANGE NOT ESTAB LISHE D Not Available Not Available 01/27/2025 15:03:06 01/27/20 25 01/26/2025 CMP, serum or plasm a glomerular filtration rate/1.73 sq M predicted, qn, creatinine based formula (CKD-epi 2020), serum or plasma or blood >90 text: >90 mL/min /1.73 M2 Not Available Not Available 01/27/2025 15:03:06 01/27/2001/26/2025 CMP, serum or plasm a GFR notes GFR REFERE NCES: THE ESTIM ATED GFR IS CALCU LATED USING THE 2020 CKD-E PI EQUAT ION. THE FOLLO WING CATEG ORIES FOR GRADI NG RENAL FUNCT ION ARE RECOM ANTHONY D BY THE [facility] OF NEPHR OLOGY (KDIG O 2011 CLINI ANAHI PRACT ICE GUIDE LINE) . G1,NO RMAL OR HIGH: >89 ml/mi n/1.7 3 m2 G2,RI LDLY DECRE ASED: 60-89 ml/mi n/1.7 3 m2 G3A,M ILDLY TO MODER ATELY DECRE ASED: 45-59 ml/mi n/1.7 3 m2 G3B,M ODERA TELY TO SEVER DUNCAN DECRE ASED: 30-44 ml/mi n/1.7 3 m2 G4,SE VEREL Y DECRE ASED: 15-29 ml/mi n/1.7 3 m2 G5,KI DNEY FAILU RE: <15 ml/mi n/1.7 3 m2 Not Available Not Available 01/27/2025 15:03:06 01/27/2001/26/2025 CMP, serum or plasm a lab interpretati on Abnorm al Not Available Not Available 15:03:06 01/27/2001/26/2025 lacti c acid, serum or plasm a lactic acid, serum or plasma 1 text: 0.4 - 2.0 mmol/L Not Available Not Available 01/27/2025 15:03:06 01/27/20 25 01/26/2025 magne sium, serum or plasm a magnesium, serum or plasma 1.8 text: 1.6 - 2.6 mg/dL Not Available Not Available 01/27/2025 15:03:06 01/27/2020 0201/31/2025 cultu re, blood specimen source identified (obs) [...] ied Not Available Not Available 01/27/2025 15:03:07 01/28/20 25 01/27/2025 hemog lobin + hemat [...] Abnorm al Not Available Not Available 16:46:09 01/28/20 25 01/27/2025 hemog lobin + [...] OR HIGH: >89 ml/mi n/1.7 3 m2 G2,RI LDLY DECRE ASED: 60-89 ml/mi n/1.7 3 m2 G3A,M ILDLY TO MODER ATELY DECRE ASED: 45-59 ml/mi n/1.7 3 m2 G3B,M ODERA TELY TO SEVER D[place]AN DECRE ASED: 30-44 ml/mi n/1.7 3 m2 G4,SE VEREL Y DECRE ASED: 15-29 ml/mi n/1.7 3 m2 G5,KI DNEY FAILU RE: <15 ml/mi n/1.7 3 m2 Not Available Not Available 01/27/2025 15:03:06 01/28/2001/27/2025 BMP, serum or plasm a lab interpretati on Abnorm al Not Available Not Available 15:03:06 01/28/2001/27/2025 CBC w/ auto diff WBC, auto, blood 7.45 text: 4.00 - 10.80 x10'3/ uL Not Available Not Available 01/27/2025 15:03:06 01/28/20 25 01/27/2025 CBC w/ auto diff RBC count, blood 4.42 text: 4.50 - 6.10 x10'6/ uL low Not Available Not Available 01/27/2025 15:03:06 01/28/20 25 01/27/2025 CBC w/ auto diff hemoglobin (Hb), blood [...] fL Not Available Not Available 01/27/2025 15:03:06 01/28/20 25 01/27/2025 CBC w/ auto diff differential cell count method, blood (obs) AUTOMA VAL DIFFER ENTIAL Not Available Not Available 15:03:06 01/28/2001/27/2025 CBC w/ auto diff neutrophils/ 100 leukocytes, automated, blood (obs) 59 % Not Available Not Available 01/27/2025 15:03:06 01/28/20 25 01/27/2025 CBC w/ auto diff lymphocytes/ 100 leukocytes, [...] 01/28/20 25 01/27/2025 CBC w/ auto diff neutrophils, count, blood (obs) 4.4 text: 1.60 - 8.30 x10'3/ uL Not Available Not Available 01/27/2025 15:03:06 01/28/20 25 01/27/2025 CBC w/ auto diff lymphocytes, blood (obs) 2.22 text: 0.80 - 4.70 x10'3/ uL Not Available Not Available 01/27/2025 15:03:06 01/28/2001/27/2025 CBC w/ auto diff monocytes, count, blood (obs) 0.55 text: 0.00 - 1.50 x10'3/ uL Not Available Not Available 01/27/2025 15:03:06 01/28/20 25 01/27/2025 CBC w/ auto diff eosinophils, quant, blood 0.15 text: 0.00 - 0.40 x10'3/ uL Not Available Not Available 01/27/2025 15:03:06 01/28/20 25 01/27/2025 CBC w/ auto diff basophils, count, blood (obs) 0.05 text: 0.00 - 0.20 x10'3/ uL Not Available Not Available 01/27/2025 15:03:06 01/28/20 25 01/27/2025 CBC w/ auto diff immature granulocytes count, blood 0.08 text: 0.00 - 0.03 x10'3/ uL high Not Available Not Available 01/27/2025 15:03:06 01/28/20 25 01/27/2025 CBC w/ auto diff nucleated erythrocytes , count, blood (obs) 0 text: 0.00 - 0.01 x10'3/ uL Not Available Not Available 01/27/2025 15:03:06 01/28/20 25 01/27/2025 CBC w/ auto diff nucleated erythrocytes /100 [...] 14.5% Not Available Not Available 02/05/2025 16:46:09 10/04/01/30/2025 CBC w/ auto diff platelet count, blood [...] 01/30/2025 CBC w/ auto diff nucleated erythrocytes /100 [...] 25 01/30/2025 BMP, serum or plasm a potassium, serum or plasma 3.1 text: 3.5 - 5.1 mmol/L low Not Available Not Available 02/05/2025 16:46:09 01/31/20 25 01/30/2025 BMP, serum or plasm a chloride, serum or plasma 112 text: 97 - 115 mmol/L Not Available Not Available 02/05/2025 16:46:09 01/31/20 25 01/30/2025 BMP, serum or plasm a CO2, (carbon [...] mg/dL Not Available Not Available 02/05/2025 16:46:09 01/31/2001/30/2025 BMP, serum or plasm a calcium, serum or plasma 7.8 text: 8.5 - 10.1 mg/dL low Not Available Not Available 02/05/2025 16:46:09 01/31/2001/30/2025 BMP, serum or plasm a anion gap, serum or plasma 6.8 text: 2.0 - 10.0 mmol/L Not Available Not Available 02/05/2025 16:46:09 01/31/2001/30/2025 BMP, serum or plasm a osmolality, calculation, [...] ARE RECOM ANTHONY D BY THE [facility] SOC[facility] TY OF NEPHR OLOGY (KDIG O 2011 CLINI ANAHI PRACT ICE GUIDE LINE) . G1,NO RMAL OR HIGH: >89 ml/mi n/1.7 3 m2 G2,RI LDLY DECRE ASED: 60-89 ml/mi n/1.7 3 m2 G3A,M ILDLY TO MODER ATELY DECRE ASED: 45-59 ml/mi n/1.7 3 m2 G3B,M ODERA TELY TO SEVER [place] DECRE ASED: 30-44 ml/mi n/1.7 3 m2 G4,SE VEREL Y DECRE ASED: 15-29 ml/mi n/1.7 3 m2 G5,KI DNEY FAILU RE: <15 ml/mi n/1.7 3 m2 Not Available Not Available 02/05/2025 16:46:09 01/31/2001/30/2025 BMP, serum or plasm a lab interpretati [...] Abnorm al Not Available Not Available 16:46:10 02/01/20 25 01/31/2025 hemog lobin + [...] + scree n, blood blood unit number [id number] 1 Not Available Not Available 16:45:57 02/01/2002/01/2025 type + scree n, blood product: PC LEUKOP OOR Not Available Not Available 16:45:57 02/01/2002/01/2025 type + scree n, blood unit division 0 Not Available Not Available 01/2025 16:45:57 02/01/2002/01/2025 type + scree n, blood blood unit status TRANSF USED,F INAL Not Available Not Available 16:45:57 02/01/2002/01/2025 type + scree n, blood issue date/time 036558 Not Available Not Available 16:45:57 02/01/2002/01/2025 type + scree n, blood product code X1804A 00 Not Available Not Available 16:45:57 02/01/2002/01/2025 type + scree n, blood ABO/Rh unit A POS Not Available Not Av ailable 02/05/2025 16:45:57 02/01/2002/01/2025 type + scree n, blood ABO/Rh unit isbt code 6200 Not Available Not Available 16:45:57 02/01/2002/01/2025 type + scree n, blood blood unit expiration date 359 Not Available Not Available 16:45:57 02/01/2002/01/2025 type + scree n, blood transfusion status OK TO TRANSF [...] DIFFER ENTIAL Not Available Not Available 16:46:09 02/01/20 25 01/31/2025 CBC w/ auto diff neutrophils/ 100 leukocytes, [...] 02/01/20 25 01/31/2025 CBC w/ auto diff eosinophils, quant, blood 0.08 text: 0.00 - 0.40 x10'3/ uL Not Available Not Available 02/05/2025 16:46:09 02/01/20 25 01/31/2025 CBC w/ auto diff basophils, count, blood (obs) 0.05 text: 0.00 - 0.20 x10'3/ uL Not Available Not Available 02/05/2025 16:46:09 02/01/2001/31/2025 CBC w/ auto diff immature granulocytes count, [...] Abnorm al Not Available Not Available 16:46:09 02/01/2001/31/2025 BMP, serum or plasm a sodium, serum or plasma 144 text: 136 - 145 mmol/L Not Available Not Available 02/05/2025 16:46:09 02/01/2001/31/2025 BMP, serum or plasm a potassium, serum or plasma 3.3 text: 3.5 - 5.1 mmol/L low Not Available Not Available 02/05/2025 16:46:09 02/01/2001/31/2025 BMP, serum or plasm a chloride, serum or plasma 112 text: 97 - 115 mmol/L Not Available Not Available 02/05/2025 16:46:09 02/01/2001/31/2025 BMP, serum or plasm a CO2, (carbon [...] 25 01/31/2025 BMP, serum or plasm a creatinine, serum or plasma 0.82 text: 0.70 - 1.30 mg/dL Not Available Not Available 02/05/2025 16:46:09 1001/31/2025 BMP, serum or plasm a calcium, serum [...] OR HIGH: >89 ml/mi n/1.7 3 m2 G2,RI LDLY DECRE ASED: 60-89 ml/mi n/1.7 3 [...] high Not Available Not Available 02/05/2025 16:46:10 02/02/2002/01/2025 CBC w/ auto diff platelet count, blood [...] Chowdhury d to and read back by:MARLON [id number] at: 09:38 :34 02/01 by ASLB. Not Available Not Available 02/05/2025 16:45:57 02/02/20 25 02/01/2025 BMP, serum or plasm a chloride, serum or plasma 104 text: 97 - 115 mmol/L Not Available Not Available 02/05/2025 16:45:57 02/02/20 25 02/01/2025 BMP, serum or plasm a CO2, (carbon dioxide), total, serum or plasma 28.7 text: 21.0 - 32.0 mmol/L Not Available Not Available 02/05/2025 16:45:57 02/02/20 25 02/01/2025 BMP, serum or plasm a glucose, qn [...] D Not Available Not Available 02/05/2025 16:45:57 02/02/2002/01/2025 BMP, serum or plasm a glomerular filtration [...] OR HIGH: >89 ml/mi n/1.7 3 m2 G2,RI LDLY DECRE ASED: 60-89 ml/mi n/1.7 3 m2 G3A,M ILDLY TO MODER ATELY DECRE ASED: 45-59 ml/mi n/1.7 3 m2 G3B,M ODERA TELY TO SEVER [place] DECRE ASED: 30-44 ml/mi n/1.7 3 m2 G4,SE VEREL Y DECRE ASED: 15-29 ml/mi n/1.7 3 m2 G5,KI DNEY FAILU RE: <15 ml/mi n/1.7 3 m2 Not Available Not Available 02/05/2025 16:45:57 02/02/20 25 02/01/2025 BMP, serum or plasm a lab interpretati on Abnorm al Not Available Not Available 16:45:57 02/02/20 25 02/01/2025 hemog lobin + hemat [...] Not Available Not Available 16:46:10 02/02/20 25 02/03/2025 patho logy study pathology study [facility] [address] [id number] Teleph one: , extens ion [phone] Pathol ogy Report Surgic al Pathol ogy Report Name: FARHAD BECKWITH en #: [id number] Age: [birth year] (Age: 64) Locati on: [facility] Sex: M Proced ure Date: Hospit al #: [id number] Date Receiv ed: Date Report ed: [...] (when applic able[facility] [address] [place] [address]. This case was interp reted and signed out at [facility], [address] [place] [address]. Ángela henrylenka faby Signed Out Kellie harris M.D. Not Available Not Available 16:45:57 02/03/2002/02/2025 CMP, serum or plasm a sodium, serum or plasma 141 text: 136 - 145 mmol/L Not Available Not Available 02/05/2025 16:45:57 02/03/2002/02/2025 CMP, serum or plasm a potassium, [...] 16:45:57 02/03/2002/02/2025 CMP, serum or plasm a bilirubin, total, serum or plasma 0.5 text: 0.2 - 1.0 mg/dL Not Available Not Available 02/05/2025 16:45:57 02/03/2002/02/2025 CMP, serum or plasm a alkaline phosphatase, serum or plasma 55 U/L low: 45U/Lh igh: 115U/L Not Available Not Available 02/05/2025 16:45:57 02/03/2002/02/2025 CMP, serum or plasm a AST/SGOT (aspartate aminotransfe rase), serum or plasma 26 U/L low: 15U/Lh igh: 37U/L RESUL T QUEST IONAB LE DUE TO HEMOL YSIS, CONSI QAMAR RECOL LECTI ON. Not Available Not Available 02/05/2025 16:45:57 02/03/2002/02/2025 CMP, serum or plasm a ALT (alanine aminotransfe rase), serum or plasma 17 U/L low: 16U/Lh igh: 61U/L Not Available Not Available 02/05/2025 16:45:57 02/03/2002/02/2025 CMP, serum or plasm a protein, [...] M2 Not Available Not Available 02/05/2025 16:45:57 02/03/2002/02/2025 CMP, serum or plasm a GFR [...] OR HIGH: >89 ml/mi n/1.7 3 m2 G2,RI LDLY DECRE ASED: 60-89 ml/mi n/1.7 3 [...] % Not Available Not Available 01/27 16:45:57 02/03/20 25 02/02/2025 CBC w/ auto diff lab interpretati on Abnorm al Not Available Not Available 16:45:57 02/03/20 25 02/02/2025 CMP, serum or plasm a sodium, serum or plasma 138 text: 136 - 145 mmol/L Not Available Not Available 02/05/2025 16:46:10 02/03/2002/02/2025 CMP, serum or plasm a potassium, serum or plasma 2.8 text: 3.5 - 5.1 mmol/L critical low Criti anahi Resul t(s) Chowdhury d to and read back by: MARLON [id number] at: 02:20 :55 02/02 by AMM. Not Available Not Available 02/05/2025 16:46:10 02/03/2002/02/2025 [...] 16:46:10 02/03/2002/02/2025 CMP, serum or plasm a creatinine, serum or plasma 0.71 text: 0.70 - 1.30 mg/dL Not Available Not Available 02/05/2025 16:46:10 02/03/2002/02/2025 CMP, serum or plasm a calcium, serum or plasma 8 text: 8.5 - 10.1 mg/dL low Not Available Not Available 02/05/2025 16:46:10 02/03/20 25 02/02/2025 CMP, serum or plasm a bilirubin, total, serum or plasma 0.5 text: 0.2 - 1.0 mg/dL Not Available Not Available 02/05/2025 16:46:10 02/03/2002/02/2025 CMP, serum or plasm a alkaline phosphatase, serum or plasma 46 U/L low: 45U/Lh igh: 115U/L Not Available Not Available 02/05/2025 16:46:10 02/03/20 25 02/02/2025 CMP, serum or plasm a AST/SGOT (aspartate aminotransfe rase), serum or plasma 11 U/L low: 15U/Lh igh: 37U/L low Not Available Not Available 02/05/2025 16:46:10 02/03/2002/02/2025 CMP, serum or plasm a ALT (alanine aminotransfe rase), serum or plasma 13 U/L low: 16U/Lh igh: 61U/L low Not Available Not Available 02/05/2025 16:46:10 02/03/20 25 02/02/2025 CMP, serum or plasm a protein, total, serum 5 text: 6.4 - 8.2 g/dL low Not Available Not Available 02/05/2025 16:46:10 02/03/2002/02/2025 CMP, serum or plasm a albumin, serum or plasma 2.5 text: 3.4 - 5.0 g/dL low Not Available Not Available 02/05/2025 16:46:10 02/03/2002/02/2025 CMP, serum or plasm a anion gap, serum or plasma 6.8 text: 2.0 - 10.0 mmol/L Not Available Not Available 02/05/2025 16:46:10 02/03/2002/02/2025 CMP, serum or plasm a osmolality, calculation, serum or plasma (obs) 283 text: mOsm/k g REFER ENCE RANGE NOT ESTAB LISHE D Not Available Not Available 02/05/2025 16:46:10 02/03/2002/02/2025 CMP, serum or plasm a glomerular filtration [...] OR HIGH: >89 ml/mi n/1.7 3 m2 G2,RI LDLY DECRE ASED: 60-89 ml/mi n/1.7 3 [...] Abnorm al Not Available Not Available 16:45:57 01/27/20 25 01/26/2025 CT, angio gram, abdom en + pelvi s, w/ contr ast No observ ation record ed. [facility] [address] [place], [address], 02/02/2025 16:28:28 02/17/20 25 02/16/2025 US, doppl er, venou s No observ ation record ed. [facility] [address] [place], [address], 02/18/2025 12:22:43 Result Notes None recorded. Problems Name Problem SNOMED Code Status Onset Date Resolution Date Notes Provider Name and Address Organization Details Recorded Time Chronic obstructive pulmonary disease 04144729 Active 2023 Wily Tabares MD Attn: Virgen harris,[address] [facility], [place], [address], [place] [facility] 4 22:15:54 Obesity 314017845 Active 2023 Wily Tabares MD Attn: Virgen harris,[address] [facility], [place], [address], [place] [facility] 4 22:15:55 History of cerebrovasc ular accident 138756512 Active 2023 Wily Tabares MD Attn: Virgen g,[address] [facility], [place], [address], [place] [facility] 4 22:15:58 Hyperlipide dano 27492443 Active 2023 Wily Tabares MD Attn: Virgen harris,[address] [facility], [place], [address], [place] [facility] 4 22:15:59 Obese class II 7394485319734 05 Active 2024 Abdulkadir Elkins MA null, [place] [facility] 5 15:13:18 Primary gonarthrosi s, 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 Medical Equipment None Reported. Allergies Allergen ID Allergen Name Allergen Category Reaction Reaction Severity Criticality Documentation Date Start Date Code Code System Note Provider Name and Address Organization Details Recorded Time 004921 Substance with sulfonami de structure and antibacte rial mechanism of action (substanc e) medicatio n rash Not available Not available 08/12/2023 22132 8003 SNOMED Racquel Wells MA null, [place] - [facility] 4 12:09:46 373230 sulfameth oxazole / trimethop rim medicatio n Not available Not available Not available 02/22/2025 67566 RxNorm Not Available viet - External Data Service - prod 15:46:53 Medications Name Sig Start Date Stop Date [...] completed Not Available Not Available Not Available doxycyclin e monohydrat e 100 mg capsule TAKE 1 CAPSULE BY MOUTH TWICE A DAY FOR 10 DAYS 03/11 completed Not Available Not Available Not Available [...] Updated DateTime 5 175.26 cm 40 kg/m2 300920. 53 g 75 /min 98 % 98 % 110/68 mm[Hg] Charu Galan MA [facility] 5 12:29:27 Date Recorded Body height Body mass index (BMI) Body weight Heart rate Oxygen saturation Oxygen saturation in Arterial blood by Pulse oximetry Systolic And Diastolic Provider Name and Address Organization Details Last Updated DateTime 5 175.26 cm 39.1 kg/m2 535057. 98 g 97 /min 97 % 97 % 126/70 mm[Hg] Radha Vogel MA [facility] 5 14:24:13 Date Recorded Body height Body mass index (BMI) Body weight Heart rate Oxygen saturation Oxygen saturation in Arterial blood by Pulse oximetry Systolic And Diastolic Provider Name and Address Organization Details Last Updated DateTime 5 175.26 cm 39.3 kg/m2 219490. 29 g 71 /min 95 % 95 % 112/72 mm[Hg] Crystal Borjas MA [facility] 5 13:53:12 Date Recorded Body height Body mass index (BMI) Body weight Heart rate Oxygen saturation Oxygen saturation in Arterial blood by Pulse oximetry Systolic And Diastolic Provider Name and Address Organization Details Last Updated DateTime 5 175.26 cm 37.5 kg/m2 000148. 1 g 93 /min 97 % 97 % 120/80 mm[Hg] Crystal Borjas [place] [facility] 5 10:09:04 Date Recorded Body height Body mass index (BMI) Body weight Heart rate Oxygen saturation Oxygen saturation in Arterial blood by Pulse oximetry Systolic And Diastolic Provider Name and Address Organization Details Last Updated DateTime 175.26 cm 37.4 kg/m2 204595. 87 g 79 /min 99 % 99 % 110/76 mm[Hg] Crystal Borjas MA [facility] 5 11:26:39 Social History Question Answer Notes LastModified by Organizat ion Details LastModified Time Tobacco Smoking Status Former Smoker Racquel Laiomega TRESA null, [facility] 08/12/2023 12:11:28 Do You Have An Advance [...] Date Of Your Most Recent Tobacco Screening? 03/11/2025 Information not available 03/11/2025 What Is Your Relationship Status? Single Information [...] What Date Was Tobacco Cessation Counseling Provided? 03/11/2025 Information not available 03/11/2025 Sex: Male Functional Status Question Answer Note [...] anxious, or unable to sleep at night)? [id number] Information not available 08/12/2023 Family History Relationship [...] Influenza, split virus, quadrivalent, preservative 8 completed Ambrose Frank [place], [place] [facility] 10/24/2023 15:09:27 Influenza, MDCK, quadrivalent, PF 3 completed Ambrose Frank [place] [...] [place] [facility] 10/24/2023 15:09:27 Pneumococcal conjugate PCV20, polysaccharide TCK297 conjugate, adjuvant, PF 3 completed Ambrose Frank [place] [facility] 10/24/2023 15:09:27 COVID-19, mRNA, LNP-S, bivalent, PF, 30 mcg/0.3 mL dose 2 completed TRESA [place] [facility] 10/24/2023 15:09:27 Tdap 0 completed [place]ES[place] [facility] 10/24/2023 15:09:27 Influenza, split virus, quadrivalent, PF 0 completed Ambrose Frank [place] [facility] 10/24/2023 15:09:27 Influenza, split virus, quadrivalent, PF 1 completed Ambrose Frank [place] [facility] 10/24/2023 15:09:27 Influenza, split virus, quadrivalent, PF 9 completed Ambrose Frank [place] [facility] 10/24/2023 15:09:27 Influenza, split virus, quadrivalent, PF 7 completed TRES[place] [facility] 10/24/2023 15:09:27 Influenza, split virus, quadrivalent, PF 2 completed TRES[place], [place] - [facility] 10/24/2023 15:09:27 Influenza, split virus, trivalent, preservative 10/24/202 4 completed Wily Tabares MD Attn: Accounting,[address] [facility], [place], [address], [facility] - [facility] 02/23/2024 22:50:58 Past Encounters Encounter ID Performer Location Encounter Start Date Encounter Closed Date Diagnosis/Indication Diagnosis SNOMED-CT Code Diagnosis ICD10 Code Diagnosis IMO Codes Diagnosis Note [id number] Wily Tabares MD [facility] [place] [address] [place] [address] 08/12/2023 11:37:21 08/12/2023 12:38:24 Abdominal pain 88742377 R10.9 Hyperlipidemia 06093825 E78.5 History of cerebrovascular accident 209275525 Z86.73 Obesity 126213397 E66.9 Chronic ob structive pulmonary disease 61584474 J44.9 [id number] Wily Tabares MD [facility] [place] [address] [place] [address] 09/02/2023 11:03:57 09/02/2023 12:56:43 Abdominal pain 50087727 R10.9 [id number] Wily Tabares MD [facility] [place] [address] [place] [address] 10/24/2023 14:29:24 10/24/2023 16:25:46 Hyperlipidemia 16337890 E78.5 History of cerebrovascular accident 568445270 Z86.73 Obesity 634240779 E66.8 Chronic ob structive pulmonary disease 75217394 J44.9 [id number] Wily Tabares MD [facility] [place] [address] [place] [address] 02/13/2024 13:58:24 02/13/2024 15:57:11 Obesity 054782099 E66.9 Acute sinusitis 14727542 J01.90 [id number] Wily Tabares MD [facility] [place] [address] [place] [address] 02/20/2024 11:42:21 02/20/2024 13:13:26 Body mass index 30+ - obesity 456443816 Z68.39 Morbid obesity 375922425 E66.01 Hyperlipidemia 21882912 E78.5 Long-term drug therapy 900021518 Z79.891 Screening for malignant neoplasm of prostate 698666480 Z12.5 Administra tion of influenza vaccine 26689962 Z23 Sinusitis 47497831 J32.9 Chronic ob structive pulmonary disease 11651121 J44.9 History of cerebrovascular accident 756359326 Z86.73 Obesity 295007097 E66.9 [id number] Wily Tabares MD [facility] [place] [address] [place] [address] 06/25/2024 11:42:19 06/25/2024 13:04:46 Abdominal pain 26713714 R10.9 Body mass index 40+ - severely obese 421750800 Z68.41 [id number] Wily Tabares MD [facility] [place] [address] [place] [address] 10/19/2024 13:59:54 10/19/2024 15:16:15 Obese class II 3565262989 74772 E66.812 5515565610 BMIU 39.1 Hyperlipidemia 98589576 E78.5 Diabetes m ellitus screening 710948636 Z13.1 641180 Chronic ob structive pulmonary disease 82519556 J44.9 History of cerebrovascular accident 110235472 Z86.73 [id number] Wily Tabares MD [facility] [place] [address] [place] [address] 01/18/2025 13:41:38 01/18/2025 14:46:30 Obese class II 3129207723 21561 E66.812 E66.3 8123214730 BMIU 39.3 Hyperlipidemia 58846199 E78.5 History of cerebrovascular accident 754634822 Z86.73 Chronic ob structive pulmonary disease 83057438 J44.9 [id number] Wily Tabares MD [facility] [place] [address] [place] [address] 02/08/2025 10:01:27 02/08/2025 11:06:11 Obese class II 9547581854 89900 E66.812 E66.3 1407363684 BMIU 37.5 Anemia 801619335 D64.9 19865482 Lower gastrointestinal hemorrhage 91726366 K92.2 277477 Hyperlipidemia 16639266 E78.5 [id number] Wily Tabares MD [facility] [place] [address] [place] [address] 03/11/2025 11:03:40 03/11/2025 11:59:09 Obese class II 5149456383 38385 E66.812 E66.3 9282421443 BMI 37.4 Anemia 538408972 D64.9 02191452 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 Farhad Beckwith [id number] Farhad Beckwith 03/08/2025 2 [employer] (MEDICARE SUPPLEMENT) Farhad Beckwith [id number] Farhad Beckwith 03/08/2025 [place] - [facility] Farhad Beckwith [id number] Farhad Beckwith 10/19/2024 1 [place] Farhad Beckwith [id number] Farhad Beckwith Notes Date Note Type Note Provider Name and Address Organization Details Recorded Time 06/25/2024 text/html few days the some lower crampy abdominal discomfort. No fever chills not passing blood got prostate biopsy without incident Wily Tabares MD Attn: Accounting,[address] [place], [address], [facility] - [facility] 07/26/2024 18:08:05 10/19/2024 text/html Breathing is a little tough during these hot months with a heat index is over 105 today. Obesity struggling with weight loss. Hyperlipidemia does try to follow a low-fat diet history of stroke stable no residuals at this time osteoarthritis is bothering he has [id number]-ra-hmdi on his knee Radha Vogel MA [facility], [place] - [facility] 10/19/2024 15:22:59 01/18/2025 text/html Obesity struggling with weight loss. Hyperlipidemia does try to follow a low-fat diet history of stroke stable no residuals at this time osteoarthritis is bothering he has qlbf-gv-eroq on his knee breathing has been stable history of stroke nothing new did hit his leg against a door Wily Tabares MD Attn: Accounting,[address] [facility], [place], [address], [facility] - [facility] 01/18/2025 14:57:10 02/08/2025 text/html [place] that probably had diverticular bleed discharged on [...] 5.3 Wily Tabares MD Attn: Accounting,[address] [facility], [place], [address], [facility] - [facility] 02/08/2025 21:52:37
--- OUTSIDE RECORDS SUMMARY | 2025-03-11 13:08 | XMS_ITS | Clinical Summary ---
Author Organization [facility] Address [address] [place] [address] Care Team Providers Care Pile Operator Name Role Phone Sanjiv Tabares MD Primary Care Provider [phone] Allergies Active Allergy Reactions Criticality Noted Date [...] Comments Blood Pressure 140/84 06/18/2023 10:24 AM RUG RECEIVING CLERK Pulse 88 06/18/2023 10:24 AM RUG RECEIVING CLERK Temperature - - Respiratory Rate - - Oxygen Saturation 94% 06/18/2023 10:24 AM RUG RECEIVING CLERK Inhaled Oxygen Concentration - - Weight 123.8 kg (273 lb) 06/18/2023 10:24 AM RUG RECEIVING CLERK Height 175.3 cm (5' 9) 06/18/2023 10:24 AM RUG RECEIVING CLERK Body Mass Index 40.32 06/18/2023 10:24 AM RUG RECEIVING CLERK Plan of Treatment Health Maintenance Due Date [...] Additional history exists Influenza Vaccine (#1) 2024 , 03/02/2022, 03/01/2022, Additional history exists DTaP/Tdap/Td Vaccine (2 - Td or Tdap) 01/20/2030 01/21/2020 Insurance MEDICARE MEDICARE [employer] Care Teams Pile Operator Relationship Specialty Start Date End Date Sanjiv Tabares MD PCP - General Internal Medicine 07/19/22
--- OUTSIDE RECORDS SUMMARY | 2025-03-11 13:08 | XMS_ITS | Clinical Summary ---
Author Organization [facility] Address [address] [facility] [place] [address] Phone Care Team Providers Care Kennel Helper Name Role Phone Sanjiv Tabares MD Primary [...] Department Care Team Description 12/21/2024 Refill [facility] - Pulmonology & Sleep Medicine [facility] [address] [place] [address] Ginna Cavanaugh APRN, METAL PUNCH PRESS OPERATOR Medication Refill from Last 3 Months Immunizations [...] on file Legal Sex Male 2:19 PM RENDERER Gender Identity Not on file Sexual Orientation Not on file Last Filed Vital Signs Vital Sign Reading Time Taken Comments Blood Pressure 120/74 06/01/2024 2:30 PM RENDERER Pulse 83 06/01/2024 2:30 PM RENDERER Temperature 37.2 C (98.9 F) 06/01/2024 2:30 PM RENDERER Respiratory Rate 16 06/01/2024 2:30 PM RENDERER Oxygen Saturation 95% 06/01/2024 2:30 PM RENDERER Inhaled Oxygen Concentration - - Weight 123.1 kg (271 lb 6.4 oz) 06/01/2024 2:30 PM RENDERER Height 175.3 cm (5' 9) 06/01/2024 2:30 PM RENDERER Body Mass Index 40.08 06/01/2024 2:30 PM RENDERER Plan of Treatment Upcoming Encounters Date Type Department Care Team (Late st Contact Info) Description 06/01/2025 11:00 AM RENDERER Office Visit [facility] - Pulmonology & Sleep Medicine [facility] [address] [place] [address] Ginna Cavanaugh APRN, METAL PUNCH PRESS OPERATOR [id number] [address] Health Maintenance Due Date Last Done Comments Hepatitis C Virus (HCV) Screening 1960 Cologuard 2005 Colonoscopy 2005 Colorectal Cancer Screening 2005 Immunochemical Fecal Occult Blood 2005 Respiratory Syncytial Virus (RSV) Immunization (Adult) (1 - Risk 50-74 years 1-dose series) 2010 Zoster Immunization (1 of 2) 2010 PSA Discussion 12/09/2015 Medicare Initial AWV [id number] 05/30/2019 Influenza Immunization (#1) 12/28/202401/28, 01/18/2023, 03/02/2022, Additional [...] age to complete this topic Insurance MEDICARE [employer] Care Teams Kennel Helper Relationship Specialty Start Date End Date Sanjiv Tabares MD PCP - General Internal Medicine 04/10/16 Ulysses Parham MD [address] [place] [address] Consulting Physician Pulmonary Disease 04/10/16 Ginna Cavanaugh APRN, METAL PUNCH PRESS OPERATOR [address] [address] Nurse Practitioner Advanced Practice Nurse 03/12/22
[2025-03-11 13:21] LABS: Iron 25 ug/dL (49-181)
[2025-03-11 13:31] LABS: Percent Iron Saturation 6 % (20-50)
[2025-03-11 13:57] LABS: Ferritin 7.34 ng/mL (11.1-264)
== END 2025-03-11 12:36 | disposition home or self-care (01) ==
LOC: CHSLAB 12:36
PROVIDERS: PCP Internal Medicine; Visit Provider Internal Medicine
DX: D64.9 Anemia, unspecified (principal)
CPT/HCPCS: 36415; 82728; 83540; 83550; 85025

== ENCOUNTER 2025-04-16 12:07 | Outpatient (CLI) | payer MEDICARE, SELFPAY ==
[2025-04-16 13:29] LABS: Prostate Specific Antigen 5.3 ng/mL (< OR = 4.0)
== END 2025-04-16 12:08 | disposition home or self-care (01) ==
PROVIDERS: PCP Internal Medicine; Visit Provider Urology
DX: C61 Malignant neoplasm of prostate (principal)
CPT/HCPCS: 36415; 84153